=== PATIENT | female | born 1960 | race Hispanic/Latino ===

== ENCOUNTER 2020-01-06 20:01 | Emergency (ER) | payer OTHER ==
[2020-01-06] MEDS ORDERED: LORazepam 2 MG/ML VIAL ONE (20:29)
--- NOTE | 2020-01-06 20:54 | ER ---
Nurse's Notes [facility] Name: Natalie Silva Age: 59 yrs Sex: Female : 1960 Arrival Date: 01/06/2020 Time: 20:10 Bed 4 Private MD: Diagnosis: Presentation: 01/06 20:10 Chief complaint: EMS states: Reports pt is taking Methadone for the past 5 years and ea today about two hours ago she took Narcan sublingual . Pt reports she is hurting. Coronavirus screen: The patient has NOT traveled to [place] in the past 14 days. Ebola Screen: No symptoms or risks identified at this time. Initial Sepsis Screen: Does the patient meet any 2 criteria? No. Patient's initial sepsis screen is negative. Risk Assessment: Do you want to hurt yourself or someone else? Patient reports no desire to harm self or others. 20:10 Method Of Arrival: EMS: [facility] ea 20:10 Acuity: MARIELA 3 ea 20:10 Initial Sepsis Screen: Does the patient have a suspected source of infection? No. ea Patient's initial sepsis screen is negative. Triage Assessment: 20:10 General: Appears uncomfortable, Behavior is restless. Pain: Denies pain. Neuro: Level ea of Consciousness is awake, alert, obeys commands, Oriented to person, place, time. Respiratory: Airway is patent Respiratory effort is even, Respiratory pattern is tachypnea. Derm: Skin is pink, warm \\T\\ dry. Historical: - Allergies: 20:51 No Known Allergies; ea - Home Meds: 20:51 None [Active]; ea - PMHx: 20:51 Diabetes - IDDM; Hypertension; ea - PSHx: 20:51 None; ea Screenin:10 Nutritional screening: No deficits noted. ea 20:10 Abuse screen: Denies threats or abuse. ea Assessment: 20:45 Reassessment: Pt daughter at bedside pt states " I am ready to go let's go". Daughter ea and pt verbalized the understanding of possible adverse reactions of leaving AMA. AMA paper signed by daughter. Vital Signs: 20:10 BP 151 / 111; Pulse 100; Resp 24; Temp 97.6; Pulse Ox 100% ; ea ED Course: 20:10 Patient arrived in ED. bb 20:10 Arm band placed on right wrist. Patient placed in an exam room, on a stretcher, on ea pulse oximetry. 20:10 Patient has correct armband on for positive identification. Placed in gown. Bed in low ea position. Call light in reach. 20:11 Berry Staley MD is Attending Physician. tw4 20:47 No provider procedures requiring assistance completed. Patient did not have IV access ea during this emergency room visit. 20:50 Triage completed. ea 20:54 Missed attempt(s): 22 gauge in right forearm. Bleeding controlled, band aid applied, ds4 catheter tip intact. Administered Medications: 20:31 CANCELLED (Other Intervention Used): Ativan 1 mg IVP once ea 20:31 Drug: Ativan 1 mg Route: IM; Site: right deltoid; ea 20:45 Follow up: Response: No adverse reaction ea 20:54 CANCELLED (Patient Refused): NS 0.9% 1000 ml IV at 1 bolus Per protocol; 1000 mL bolus ea 20:54 Not Given (Patient Refused): Zofran (Ondansetron) 4 mg IVP once; over 2 minutes ea Outcome: 20:47 AMA AMA form signed ea 20:47 Condition: stable 21:00 Patient left the ED. ea Signatures: Ashley Cedeno RN RN Kyle Kennedy ds4 Nell Gonzales RN RN ea Wadley, Terrence, MD MD tw4
--- OUTSIDE RECORDS SUMMARY | 2020-01-06 22:36 | XMS REPORT ---
:1960 [facility] [address] [place] [address] Care Team Providers Name Role Phone Unavailable Unavailable Unavailable Problems This patient has no known problems. Allergies, Adverse Reactions, Alerts This patient has no known allergies or adverse reactions. Medications This patient has no known medications. Encounters Start End Encounter Admission Attending Care Care Encounter Date/Time Date/Time Type Type Clinicians Facility Department ID 2019-07-11 2019-07-11 Inpatient E [facility] MED [id number] 05:52:00 02:55:00 2018-05-24 2018-05-24 Outpatient [facility] [id number] 00:00:00 00:00:00
--- OUTSIDE RECORDS SUMMARY | 2020-01-06 22:36 | XMS REPORT ---
:1960 Author Organization [employer] Care Team Providers Name Role Phone Nimisha Miles Provider Role Unavailable Allergies No Known Allergies Problems Problem Type Condition Code Onset Dates Condition Status Problem Thyroid disease E07.9 Active Problem Acquired hypothyroidism E03.9 Active Problem Memory problem R41.3 Active Problem Hypertension I10 Active Problem Hemodialysis status Z99.2 Active Problem Diabetes E11.9 Active Problem Fear of falling F40.298 Active Problem History of retinal hemorrhage Z86.69 Active Problem Essential hypertension I10 Active Problem Migraine G43.909 Active Problem Onychomycosis B35.1 Active Problem Vitamin D deficiency E55.9 Active Problem GERD (gastroesophageal reflux K21.9 Active disease) Problem Hepatitis C virus infection B19.20 Active without hepatic coma, unspecified chronicity Problem Imbalance R26.89 Active Problem Uncontrolled type 2 diabetes E11.65 Active mellitus with hyperglycemia Problem Open wound of skin T14.8XXA Active Problem Swelling R60.9 Active Problem Kidney disease N28.9 Active Problem Circulation problem I99.9 Active Problem ESRD (end stage renal disease) N18.6 Active Problem Risk for falls Z91.81 Active Problem Hepatitis K75.9 Active Medications No Known Medications Results No Known Results Summary Purpose [employer] Submission
--- OUTSIDE RECORDS SUMMARY | 2020-01-06 22:37 | XMS REPORT ---
:1960 Author Organization [employer] Care Team Providers Name Role Phone Nimisha Miles Provider Role Unavailable Allergies, Adverse Reactions, Alerts Substance Reaction Event Type N.K.D.A. Info Not Available Non Drug Allergy Problems Problem Type Condition Code Onset Dates Condition Status Assessment Open wound of skin T14.8XXA Active Assessment Risk for falls Z91.81 Active Assessment Vitamin D deficiency E55.9 Active Assessment Imbalance R26.89 Active Assessment Hepatitis C virus infection B19.20 Active without hepatic coma, unspecified chronicity Assessment Acquired hypothyroidism E03.9 Active Assessment Uncontrolled type 2 diabetes E11.65 Active mellitus with hyperglycemia Assessment Hemodialysis status Z99.2 Active Assessment ESRD (end stage renal disease) N18.6 Active Problem ESRD (end stage renal disease) N18.6 Active Assessment Essential hypertension I10 Active Problem Hepatitis K75.9 Active Problem Thyroid disease E07.9 Active Problem Acquired hypothyroidism E03.9 Active Problem Memory problem R41.3 Active Problem Hypertension I10 Active Problem Diabetes E11.9 Active Problem Hemodialysis status Z99.2 Active Problem Fear of falling F40.298 Active Problem Essential hypertension I10 Active Problem History of retinal hemorrhage Z86.69 Active Problem Migraine G43.909 Active Problem Onychomycosis [...] Active Problem Circulation problem I99.9 Active Problem Risk for falls Z91.81 Active Medications Medication Code Code Instructions Start End Status Dosage System Date Date Calcium Acetate ND 01476771660 667 MG Orally Active as directed as directed Vitamin D ND 52686193014 90813 UNIT Active 1 capsule (Ergocalciferol) Orally Lasix ND 52221585572 20 MG Orally Active 1 tablet Once a day Clonidine HCl [facility] 80247356955 0.3 MG Orally Active 1 tablet Twice a day Lantus [facility] 41827658845 100 UNIT/ML Active as directed Subcutaneous 10 units daily EMLA ND 0 Active not defined Fosrenol [facility] 48239444099 1000 MG Orally Active 1 tablet Once a day with meals NIFEdipine ER [facility] 55961362737 60 MG Orally Active 1 tablet on Once a day an empty stomach atorvastatin [facility] 07904034117 20mg Orally Active 1 tablet in Once daily evening NovoLog [facility] 44075759631 100 UNIT/ML Active as directed Subcutaneous 5 units daily Levothyroxine [facility] 06312061501 50 MCG Orally Active 1 tablet in Sodium Once a day the morning on an empty stomach Results No Known Results Summary Purpose [employer]Works Submission
--- OUTSIDE RECORDS SUMMARY | 2020-01-06 22:37 | XMS REPORT ---
[...] Medications Results No Known Results Summary Purpose [employer] Submission
--- OUTSIDE RECORDS SUMMARY | 2020-01-06 22:37 | XMS REPORT ---
[...] Medications Results No Known Results Summary Purpose [employer] Submission
--- NOTE | 2020-01-07 21:02 | EDPHYS ---
Physician Documentation [facility] Name: Natalie Silva Age: 59 yrs Sex: Female : 1960 Arrival Date: 01/06/2020 Time: 20:10 Bed 4 Private MD: ED Physician Berry Staley HPI: 07:01 This 59 yrs old Female presents to ER via EMS with complaints of anxiety after tw4 taking narcan. 07:01 The patient presents to the emergency department with anxiety, over unknown tw4 circumstances. Onset: The symptoms/episode began/occurred just prior to arrival. Past psychiatric history: Prior diagnosis: depression. Past psychiatric history: Prior diagnosis:. Associated signs and symptoms: The patient has no apparent associated signs or symptoms. The patient has not experienced similar symptoms in the past. Historical: - Allergies: 01/06 20:51 No Known Allergies; ea - Home Meds: 20:51 None [Active]; ea - PMHx: 20:51 Diabetes - IDDM; Hypertension; ea - PSHx: 20:51 None; ea ROS: 07:01 Constitutional: Negative for fever, chills, and weight loss, Eyes: Negative for injury, tw4 pain, redness, and discharge, Cardiovascular: Negative for chest pain, palpitations, and edema, Respiratory: Negative for shortness of breath, cough, wheezing, and pleuritic chest pain, Abdomen/GI: Negative for abdominal pain, nausea, vomiting, diarrhea, and constipation, Back: Negative for injury and pain, Skin: Negative for injury, rash, and discoloration, Neuro: Negative for headache, weakness, numbness, tingling, and seizure. Exam: 07:01 Constitutional: This is a well developed, well nourished patient who is awake, alert, tw4 and in no acute distress. Head/Face: Normocephalic, atraumatic. Chest/axilla: Normal chest wall appearance and motion. Nontender with no deformity. No lesions are appreciated. Cardiovascular: Regular rate and rhythm with a normal S1 and S2. No gallops, murmurs, or rubs. Normal PMI, no JVD. No pulse deficits. Respiratory: Lungs have equal breath sounds bilaterally, clear to auscultation and percussion. No rales, rhonchi or wheezes noted. No increased work of breathing, no retractions or nasal flaring. Abdomen/GI: Soft, non-tender, with normal bowel sounds. No distension or tympany. No guarding or rebound. No evidence of tenderness throughout. Back: No spinal tenderness. No costovertebral tenderness. Full range of motion. MS/ Extremity: Pulses equal, no cyanosis. Neurovascular intact. Full, normal range of motion. 07:01 Neuro: Orientation: is normal, Mentation: is normal. 07:01 Psych: Behavior/mood is anxious, uncooperative, Affect is animated, Oriented to person, place, time, Patient has no thoughts/intents to harm self or others. Vital Signs: 01/06 20:10 BP 151 / 111; Pulse 100; Resp 24; Temp 97.6; Pulse Ox 100% ; ea MDM: 20:11 Patient medically screened. tw4 07:01 Differential diagnosis: drug withdrawal. acute psychotic break, depression. Data tw4 reviewed: vital signs, nurses notes. Refusal of service: The patient/guardian displays adequate decision making capability and despite a detailed discussion of alternatives, benefits, risks, and consequences refuses: all lab tests, Medications. ED course: Pt states she took narcan? after taking methadone for the last 5 years, states that she is agitated and anxious. Pt family will escort patient home patients states she wants to go home. Administered Medications: 01/06 20:31 CANCELLED (Other Intervention Used): Ativan 1 mg IVP once ea 20:31 Drug: Ativan 1 mg Route: IM; Site: right deltoid; ea 20:45 Follow up: Response: No adverse reaction ea 20:54 CANCELLED (Patient Refused): NS 0.9% 1000 ml IV at 1 bolus Per protocol; 1000 mL bolus ea 20:54 Not Given (Patient Refused): Zofran (Ondansetron) 4 mg IVP once; over 2 minutes ea Disposition: 01/06/20 20:53 Patient has left against medical advice. - Patients states they are going to Home. - Condition is Stable. Signatures: Nell Gonzales RN RN ea Wadley, Terrence, MD MD tw4 Corrections: (The following items were deleted from the chart) : 20:11 Ativan 1 mg IVP once ordered. tw4 ea 20:54 20:11 NS 0.9% 1000 ml IV at 1 bolus Per protocol; 1000 mL bolus ordered. [facility] 21:00 20:53 01/06/2020 20:53 Patients has left against medical advice. Patient states they ea are going to Home. Condition is Stable. ea
== END 2020-01-06 21:00 | disposition left against medical advice (07) ==
LOC: ER 20:01
DX: F41.9 Anxiety disorder, unspecified (principal); F32.9 Major depressive disorder, single episode, unspecified; I10 Essential (primary) hypertension
CPT/HCPCS: 96372; 99283

== ENCOUNTER 2020-02-02 05:47 | Observation (INO) | payer OTHER ==
--- OUTSIDE RECORDS SUMMARY | 2020-02-02 05:49 | XMS REPORT ---
:1960 [facility] Address [address] [place] [address] Care Team Providers Name Role Phone Unavailable Unavailable Unavailable Problems This patient has no known problems. Allergies, Adverse Reactions, Alerts This patient has no known allergies or adverse reactions. Medications This patient has no known medications. Encounters Start End Encounter Admission Attending Care Care Encounter Date/Time Date/Time Type Type Clinicians Facility Department ID 2019-07-11 2019-07-11 Inpatient E [facility] MED [id number] 05:52:00 02:55:00 2018-05-24 2018-05-24 Outpatient [facility] [id number] 00:00:00 00:00:00
--- OUTSIDE RECORDS SUMMARY | 2020-02-02 05:50 | XMS REPORT ---
[...] Dosage System Date Date Calcium Acetate ND 17555349709 667 MG Orally Active as directed as directed Vitamin D ND 91788515182 35106 UNIT Active 1 capsule (Ergocalciferol) Orally Lasix ND 72228222839 20 MG Orally Active 1 tablet Once a day Clonidine HCl [facility] 73308307734 0.3 MG Orally Active 1 tablet Twice a day Lantus [facility] 96060079732 100 UNIT/ML Active as directed Subcutaneous 10 units daily EMLA ND 0 Active not defined Fosrenol [facility] 54625710699 1000 MG Orally Active 1 tablet Once a day with meals NIFEdipine ER [facility] 87040183360 60 MG Orally Active 1 tablet on Once a day an empty stomach atorvastatin [facility] 50352267399 20mg Orally Active 1 tablet in Once daily evening NovoLog [facility] 55682796621 100 UNIT/ML Active as directed Subcutaneous 5 units daily Levothyroxine [facility] 42589143935 50 MCG Orally Active 1 tablet in Sodium Once a day the morning on an empty stomach Results No Known Results Summary Purpose [employer]ClinicalWorks Submission
--- OUTSIDE RECORDS SUMMARY | 2020-02-02 05:50 | XMS REPORT ---
[...] Medications Results No Known Results Summary Purpose [employer] Submission
--- OUTSIDE RECORDS SUMMARY | 2020-02-02 05:50 | XMS REPORT ---
[...] Z91.81 Active Problem Hepatitis K75.9 Active Medications Medication Code Code Instructions Start End Date Status Dosage System Date atorvastatin [facility] 98157471447 20mg Orally Once Active 1 tablet daily in evening Results No Known Results Summary Purpose [employer]Works Submission
--- OUTSIDE RECORDS SUMMARY | 2020-02-02 05:50 | XMS REPORT ---
[...] Medications Results No Known Results Summary Purpose [employer] Submission
--- OUTSIDE RECORDS SUMMARY | 2020-02-02 05:50 | XMS REPORT ---
[...] Medications Results No Known Results Summary Purpose [employer] Submission
[2020-02-02 07:09] LABS: Protime INR 1.09
[2020-02-02 07:12] LABS: Absolute Lymphocytes (CBC) 1.3 K/uL (0.7-4.9); Basophils % 0.5 % (0-1.3); Hematocrit 36.3 % (36.0-45.0); Lymphocytes % 10.8 % (15.3-44.8); MPV 7.3 fL (7.6-11.3)
[2020-02-02 07:52] LABS: ALT/SGPT 33 U/L (12-78); AST/SGOT 27 U/L (15-37); Albumin 3.1 g/dL (3.4-5.0); Alkaline Phosphatase 92 U/L (45-117); BUN Blood Urea Nitrogen 69 mg/dL (7-18); Bicarbonate 23 mmol/L (21-32); Bilirubin Direct 0.1 mg/dL (0-0.2); Bilirubin Total 0.3 mg/dL (0.2-1.0); Glucose Level 307 mg/dL (74-106); Magnesium 1.9 mg/dL (1.8-2.4); NT PRO-BNP 4935 pg/mL (<125); Protein, Total 8.5 g/dL (6.4-8.2); Sodium Level 132 mmol/L (136-145); Troponin (Emerg Dept Use Only) < 0.02 ng/mL (0.0-0.045)
--- NOTE | 2020-02-02 08:03 | RAD REPORT ---
EXAM DESCRIPTION: RAD - Tib Fib Right - 02/02/2020 7:18 am CLINICAL HISTORY: PAIN COMPARISON: Tibia Fibula Right dated 08/14/2015 FINDINGS: No gross fracture deformity seen. Subtle periosteal changes are present in the lateral asp ect midshaft fibula. The 2014 examination detailed diabetic ulcer in the soft tissues. Surgical clips and cinthai were seen at that time. Surgical clips and cinthia have been removed since prior imaging . No melecio destruction changes seen. Correlation is needed with any active soft tissue wound in this region. Bone remottling would be the most likely etiology if soft tissue issues have resolved. Otherw ise, early osteomyelitis cannot be excluded in the presence of active soft tissue disease. No air or foreign body seen. Soft tissues are edematous. IMPRESSION: No gross fracture deformity seen. Subtle periosteal changes midshaft fibula could represent remodeling from the prior soft tissue event in 2014. In the presence of active soft tissue disease, early osteomyelitis is not excluded.
--- NOTE | 2020-02-02 08:07 | RAD REPORT ---
EXAM DESCRIPTION: RAD - Chest Single View - 02/02/2020 7:18 am CLINICAL HISTORY: COUGH COMPARISON: Portable September 2015 TECHNIQUE: AP portable chest image was obtained 02/02/2020 7:18 am . FINDINGS: Low lung volumes accentuate interstitial pattern. Interstitial edema and infiltrate could be masked. Vasculature and heart size are normal. Significant failure or volume overload are doubtful . No focal consolidation or mass. No measurable pleural effusion and no pneumothorax. No acute bony abnormality seen. No acute aortic findings suspected. IMPRESSION: No focal mass or consolidation. Interstitial pattern is increased over the lung romero. This may be shallow inspiration affects. A mi ld interstitial edema or infiltrate cannot be excluded.
[2020-02-02] MEDS ORDERED: FENTANYL CITR 100 MCG/2 ML ONE ×2 (08:22→12:49)
[2020-02-02] MEDS ORDERED: INSULIN -REGULAR HUMAN 50 UNIT/0.5 ML ML ONE (08:22)
--- NOTE | 2020-02-02 08:25 | ER ---
Nurse's Notes [facility] Name: Natalie Silva Age: 59 yrs Sex: Female : 1960 Arrival Date: 02/02/2020 Time: 05:49 Bed 26 Private MD: Diagnosis: Cellulitis of right lower limb Presentation: 02/01 05:55 Chief complaint: EMS states: Pt reports right lower extremity discoloration w/ extreme jb4 pain. Pt was getting ready for dialysis this morning around 3 am and called them. They told her to come to the ED. Coronavirus screen: Patient denies fever greater than 100.4F, cough, shortness of breath, or difficulty breathing. Proceed with normal triage process. Ebola Screen: No symptoms or risks identified at this time. Initial Sepsis Screen: Does the patient meet any 2 criteria? HR > 90 bpm. Yes Does the patient have a suspected source of infection? Yes: Skin breakdown/wound. Risk Assessment: Do you want to hurt yourself or someone else? Patient reports no desire to harm self or others. 05:55 Method Of Arrival: EMS: [facility] jb4 05:55 Acuity: MARIELA 3 jb4 Historical: - Allergies: 05:55 No Known Allergies; jb4 - Home Meds: 05:55 Lasix 20 mg Oral tab 1 tab once daily [Active]; Synthroid 50 mcg Oral tab 1 tab once jb4 daily [Active]; PhosLo 667 mg Oral cap 3 caps 3 times per day [Active]; nifedipine 60 mg Oral TbER 1 tab once daily [Active]; atorvastatin 20 mg oral tab 1 tab once daily [Active]; Methadone Oral [Active]; lidocaine-prilocaine 2.5-2.5 % topical crea [Active]; - PMHx: 05:55 Diabetes - IDDM; Hypertension; Hypothyroidism; High Cholesterol; jb4 - Immunization history:: Adult Immunizations up to date. - Social history:: Smoking status: Patient reports the use of cigarette tobacco products, smokes one pack cigarettes per day. - Family history:: not pertinent. Screenin:00 Abuse screen: Denies threats or abuse. Nutritional screening: No deficits noted. jb4 Tuberculosis screening: No symptoms or risk factors identified. Fall Risk None identified. Assessment: 06:00 General: Appears in no apparent distress. uncomfortable, Behavior is calm, cooperative, jb4 appropriate for age. Pain: Complains of pain in right ankle Pain does not radiate. Pain currently is 10 out of 10 on a pain scale. Quality of pain is described as burning, stabbing, Pain began 3 hours ago. Is continuous, Aggravated by increased activity, weight bearing, touch. Neuro: Level of Consciousness is awake, alert, obeys commands. Cardiovascular: Patient's skin is warm and dry. Pulses are 3+ in right dorsalis pedis artery and left dorsalis pedis artery. Respiratory: Airway is patent Respiratory effort is even, unlabored, Respiratory pattern is regular, symmetrical. GI: No signs and/or symptoms were reported involving the gastrointestinal system. : No signs and/or symptoms were reported regarding the genitourinary system. EENT: No signs and/or symptoms were reported regarding the EENT system. Derm: Skin is pink, warm \T\ dry. Wound noted lateral aspect of right calf and lateral aspect of left calf. Musculoskeletal: Circulation, motion, and sensation intact. Range of motion: intact in all extremities. 07:00 General: Appears uncomfortable, Behavior is calm, cooperative. Pain: Complains of pain rb1 in right leg Pain currently is 10 out of 10 on a pain scale. Neuro: Level of Consciousness is awake, alert, obeys commands, Oriented to person, place, time, situation. Cardiovascular: Patient's skin is warm and dry. Respiratory: Airway is patent Respiratory effort is even, unlabored, Respiratory pattern is regular, symmetrical. Derm: Skin is black, dusky, right lower leg. Musculoskeletal: Range of motion: intact in all extremities. 08:00 Reassessment: Patient appears in no apparent distress at this time. No changes from rb1 previously documented assessment. 09:00 Reassessment: Patient appears in no apparent distress at this time. Patient and/or rb1 family updated on plan of care and expected duration. Pain level reassessed. Patient is alert, oriented x 3, equal unlabored respirations, skin warm/dry/pink. Pt. resting with eyes closed, respirations even, unlabored. Call light within reach. 09:51 Reassessment: Performed wound care and applied Santyl to the right lower leg. Applied rb1 non-adherent gauze and Kerlix to the right lower leg. Pt. tolerated well. 10:19 Reassessment: Pt. went to MRI. rb1 11:19 Reassessment: Pt. is in MRI. rb1 11:35 Reassessment: Patient appears in no apparent distress at this time. Patient and/or rb1 family updated on plan of care and expected duration. Pain level reassessed. Patient is alert, oriented x 3, equal unlabored respirations, skin warm/dry/pink. 12:30 Reassessment: Patient appears in no apparent distress at this time. Patient and/or rb1 family updated on plan of care and expected duration. Pain level reassessed. Patient is alert, oriented x 3, equal unlabored respirations, skin warm/dry/pink. Pt. requested pain medication and something to eat. Mykel Page notified. Received verbal order for Fentanyl 25 mcg IVP once. 100% verbal read back. 13:30 Reassessment: Patient appears in no apparent distress at this time. Pt. is resting with rb1 eyes closed, respirations even, unlabored. 13:32 Reassessment: Tried to call report, I was told that BATSHEVA Herrmann was not available and she rb1 would call me back. 13:46 Reassessment: Gave report to BATSHEVA Herrmann. Information from the SBAR was given. All rb1 questions asked answered. Vital Signs: 05:55 BP 181 / 81; Pulse 102; Resp 18; Temp 98.1(O); Pulse Ox 98% on R/A; Weight 77.11 kg jb4 (R); Height 5 ft. 2 in. (157.48 cm) (R); Pain 10/10; 07:00 BP 155 / 55; Pulse 90; Resp 17; Pulse Ox 99% ; rb1 08:00 BP 169 / 61; Pulse 96; Resp 17; Pulse Ox 95% ; Pain 10/10; rb1 09:00 BP 113 / 81; Pulse 79; Resp 17; Pulse Ox 95% on R/A; rb1 09:31 BP 113 / 81; Pulse 79; Resp 20; Temp 97.8(TE); Pulse Ox 97% on R/A; mh5 10:15 BP 150 / 66; Pulse 76; Resp 17; Pulse Ox 93% on R/A; rb1 11:15 rb1 11:35 BP 145 / 69; Pulse 83; Resp 18; Pulse Ox 94% on R/A; rb1 12:30 BP 191 / 69; Pulse 85; Resp 17; Pulse Ox 96% on R/A; Pain 10/10; rb1 13:30 BP 168 / 75; Pulse 77; Resp 18; Pulse Ox 95% on R/A; rb1 05:55 Body Mass Index 31.09 (77.11 kg, 157.48 cm) jb4 11:15 Pt. is in MRI rb1 ED Course: 05:49 Patient arrived in ED. ds1 05:52 Mykel Yeung MD is Attending Physician. sallie 05:55 Michele Duarte, BATSHEVA is Primary Nurse. jb4 05:55 Arm band placed on right wrist. jb4 06:00 Patient has correct armband on for positive identification. Bed in low position. Call jb4 light in reach. Side rails up X 1. Pulse ox on. NIBP on. 06:02 Triage completed. jb4 07:03 Mykel Mulligan PA is PHCP. cp 07:24 XRAY Chest (1 view) In Process Unspecified. EDMS 07:24 Tib Fib Right XRAY In Process Unspecified. EDMS 07:50 Missed attempt(s): 22 gauge in right forearm. 24 gauge in right chest. Bleeding iw controlled, band aid applied, catheter tip intact. 08:23 Srikanth Zamorano is Hospitalizing Provider. cp 08:28 Inserted 18 GAUGE 8CM MIDLINE PLACED WITH U/S AND STERILE PROCEDURE. bp 11:16 Tib Fib Right Wo Cont In Process Unspecified. EDMS 12:41 Ankle Right 3 View XRAY In Process Unspecified. EDMS 14:00 No provider procedures requiring assistance completed. Patient admitted, IV remains in rb1 place. Administered Medications: 07:54 CANCELLED (Physician Discretion): HYDROcodone-acetaminophen 10 mg-325 mg 1 tabs PO cp once; RASS on ADMIN: Combtv4, Very Agttd3, Agttd2, Rstlss1, AlertClm0, Drwsy-1, Lt Sdtn-2, Mod Sdtn-3, Dp Sdtn-4, UnArsble-5 08:32 Drug: NovoLIN R 10 units {Co-Signature: em (Calvin Woods RN).} Route: Sub-Q; Site: right rb1 upper arm; 09:45 Follow up: Response: No adverse reaction; Blood sugar is unchanged; BS 301 rb1 08:32 Drug: fentaNYL (PF) 25 mcg Route: IVP; Site: right upper arm; rb1 08:47 Follow up: Response: No adverse reaction; Pain is decreased rb1 08:37 Not Given (Provider changed to IVP): fentaNYL (PF) 25 mcg IM once; RASS on ADMIN: rb1 Combtv4, Very Agttd3, Agttd2, Rstlss1, AlertClm0, Drwsy-1, Lt Sdtn-2, Mod Sdtn-3, Dp Sdtn-4, UnArsble-5 09:35 Drug: Zofran (Ondansetron) 2 mg Route: IVP; Site: right upper arm; rb1 09:50 Follow up: Response: No adverse reaction rb1 09:36 Drug: Gentamicin 2 mg/kg Route: IVPB; Infused Over: 30 mins; Site: right upper arm; rb1 10:09 Follow up: Response: No adverse reaction; IV Status: Completed infusion rb1 09:40 Drug: Santyl 250 unit/g 1 application Route: Topical; Site: affected area; rb1 10:09 Drug: vancoMYCIN 1 grams Route: IVPB; Infused Over: 2 hrs; Site: right upper arm; rb1 10:10 Drug: Zofran (Ondansetron) 4 mg Route: IVP; Site: right upper arm; rb1 10:19 Follow up: Response: No adverse reaction rb1 12:52 Drug: fentaNYL (PF) 25 mcg Route: IVP; Site: right upper arm; rb1 13:07 Follow up: Response: No adverse reaction; Pain is decreased rb1 12:54 Not Given (Provider changed medication): morphine 2 mg IVP once; (PAIN>8) RASS on ADMN: rb1 Combtv4, Very Agttd3, Agttd2, Rstlss1, AlertClm0, Drwsy-1, LtSdtn-2, ModSdtn-3, DpSdtn-4, UnArsble-5 x2 Intake: Outcome: 08:24 Decision to Hospitalize by Provider. cp 14:00 Admitted to Med/surg accompanied by long, via stretcher, room 221, with chart, Report rb1 called to BATSHEVA Herrmann 14:00 Condition: stable 14:00 Instructed on the need for admit. 14:02 Patient left the ED. rb1 Signatures: Dispatcher [facility] Mykel Sousa MD MD cha Sanford, Demi ds1 Saranya Jay, RN RN iw Mykel Mulligan PA PA cp Barber, Rebecca, RN RN rb1 Michele Duarte RN RN 4 Anabell Garcia [facility] Ezio Baldwin RN RN bp Calvin Woods RN em
--- NOTE | 2020-02-02 08:25 | EDPHYS ---
Physician Documentation [facility] Name: Natalie Silva Age: 59 yrs Sex: Female : 1960 Arrival Date: 02/02/2020 Time: 05:49 Bed 26 Private MD: ED Physician Mykel Yeung HPI: 02/01 06:38 This 59 yrs old Female presents to ER via EMS with complaints of Leg Pain. sallie 06:38 The patient presents with decreased range of motion, pain. The complaints affect the sallie lateral aspect of right calf, right ankle, right contreras and anterior aspect of right ankle. Context: resulted from an unknown cause. Onset: The symptoms/episode began/occurred last night. Associated signs and symptoms: Pertinent positives: of the right ankle and anterior aspect of right ankle. Severity of symptoms: At their worst the symptoms were moderate, in the emergency department the symptoms are unchanged. Historical: - Allergies: 05:55 No Known Allergies; jb4 - Home Meds: 05:55 Lasix 20 mg Oral tab 1 tab once daily [Active]; Synthroid 50 mcg Oral tab 1 tab once jb4 daily [Active]; PhosLo 667 mg Oral cap 3 caps 3 times per day [Active]; nifedipine 60 mg Oral TbER 1 tab once daily [Active]; atorvastatin 20 mg oral tab 1 tab once daily [Active]; Methadone Oral [Active]; lidocaine-prilocaine 2.5-2.5 % topical crea [Active]; - PMHx: 05:55 Diabetes - IDDM; Hypertension; Hypothyroidism; High Cholesterol; jb4 - Immunization history:: Adult Immunizations up to date. - Social history:: Smoking status: Patient reports the use of cigarette tobacco products, smokes one pack cigarettes per day. - Family history:: not pertinent. ROS: 06:38 Constitutional: Negative for fever, chills, and weight loss, Eyes: Negative for injury, sallie pain, redness, and discharge, ENT: Negative for injury, pain, and discharge, Neck: Negative for injury, pain, and swelling, Cardiovascular: Negative for chest pain, palpitations, and edema, Respiratory: Negative for shortness of breath, cough, wheezing, and pleuritic chest pain, Abdomen/GI: Negative for abdominal pain, nausea, vomiting, diarrhea, and constipation, Back: Negative for injury and pain, : Negative for injury, bleeding, discharge, and swelling, Skin: Negative for injury, rash, and discoloration, Neuro: Negative for headache, weakness, numbness, tingling, and seizure, Psych: Negative for depression, anxiety, suicide ideation, homicidal ideation, and hallucinations, Allergy/Immunology: Negative for hives, rash, and allergies, Endocrine: Negative for neck swelling, polydipsia, polyuria, polyphagia, and marked weight changes. 06:38 MS/extremity: Positive for decreased range of motion, pain, swelling, tenderness, warmth, of the lateral aspect of right calf, right ankle, right contreras and anterior aspect of right ankle. Exam: 06:38 Constitutional: This is a well developed, well nourished patient who is awake, alert, sallie and in no acute distress. Head/Face: Normocephalic, atraumatic. Eyes: Pupils equal round and reactive to light, extra-ocular motions intact. Lids and lashes normal. Conjunctiva and sclera are non-icteric and not injected. Cornea within normal limits. Periorbital areas with no swelling, redness, or edema. ENT: Nares patent. No nasal discharge, no septal abnormalities noted. Tympanic membranes are normal and external auditory canals are clear. Oropharynx with no redness, swelling, or masses, exudates, or evidence of obstruction, uvula midline. Mucous membranes moist. Neck: Trachea midline, no thyromegaly or masses palpated, and no cervical lymphadenopathy. Supple, full range of motion without nuchal rigidity, or vertebral point tenderness. No Meningismus. Chest/axilla: Normal chest wall appearance and motion. Nontender with no deformity. No lesions are appreciated. Cardiovascular: Regular rate and rhythm with a normal S1 and S2. No gallops, murmurs, or rubs. Normal PMI, no JVD. No pulse deficits. Respiratory: Lungs have equal breath sounds bilaterally, clear to auscultation and percussion. No rales, rhonchi or wheezes noted. No increased work of breathing, no retractions or nasal flaring. Abdomen/GI: Soft, non-tender, with normal bowel sounds. No distension or tympany. No guarding or rebound. No evidence of tenderness throughout. Back: No spinal tenderness. No costovertebral tenderness. Full range of motion. Female : Normal external genitalia. Neuro: Awake and alert, GCS 15, oriented to person, place, time, and situation. Cranial nerves II-XII grossly intact. Motor strength 5/5 in all extremities. Sensory grossly intact. Cerebellar exam normal. Normal gait. 06:38 Musculoskeletal/extremity: ROM: intact in all extremities, Circulation is intact in all extremities. Severe pain noted. Compartment Syndrome exam of affected extremity: is normal. severe pain, with active ROM, DVT Exam: negative Homans' sign noted on exam, no appreciated bluish discoloration, pain, swelling, tenderness, erythema, increased warmth, that is moderate, of the right leg, of the right ankle and medial aspect of right calf. 07:03 ECG was reviewed by the Attending Physician. Vital Signs: 05:55 BP 181 / 81; Pulse 102; Resp 18; Temp 98.1(O); Pulse Ox 98% on R/A; Weight 77.11 kg jb4 (R); Height 5 ft. 2 in. (157.48 cm) (R); Pain 10/10; 07:00 BP 155 / 55; Pulse 90; Resp 17; Pulse Ox 99% ; rb1 08:00 BP 169 / 61; Pulse 96; Resp 17; Pulse Ox 95% ; Pain 10/10; rb1 09:00 BP 113 / 81; Pulse 79; Resp 17; Pulse Ox 95% on R/A; rb1 09:31 BP 113 / 81; Pulse 79; Resp 20; Temp 97.8(TE); Pulse Ox 97% on R/A; mh5 10:15 BP 150 / 66; Pulse 76; Resp 17; Pulse Ox 93% on R/A; rb1 11:15 rb1 11:35 BP 145 / 69; Pulse 83; Resp 18; Pulse Ox 94% on R/A; rb1 12:30 BP 191 / 69; Pulse 85; Resp 17; Pulse Ox 96% on R/A; Pain 10/10; rb1 13:30 BP 168 / 75; Pulse 77; Resp 18; Pulse Ox 95% on R/A; rb1 05:55 Body Mass Index 31.09 (77.11 kg, 157.48 cm) jb4 11:15 Pt. is in MRI rb1 MDM: 05:52 Patient medically screened. [facility] 06:44 Data reviewed: vital signs, nurses notes, lab test result(s), EKG. [facility] 08:25 Physician consultation: Srikanth Zamorano was called at 08:20, was contacted at 08:20, regarding admission, to the telemetry unit. patient's condition, would like further tests performed, MRI. 02/01 06:35 Order name: Basic Metabolic Panel; Complete Time: 08:01 [facility] 02/01 08:02 Interpretation: Normal except: NA 132; CL 97; GLUC 307; BUN 69; CRE 9.64; GFR 4; CA 7.8. 02/01 06:35 Order name: CBC with Diff; Complete Time: 07:27 [facility] 02/01 07:27 Interpretation: Normal except: WBC 11.9; HGB 11.9; RDW 16.1; MPV 7.3; LOBITO% 83.0; LYM% cp 10.8; NEUT A 9.9. 02/01 06:35 Order name: LFT's; Complete Time: 08:01 [facility] 02/01 08:03 Interpretation: Normal except: TP 8.5; ALB 3.1; GLOB 5.4; A/G 0.6. 02/01 06:35 Order name: Magnesium; Complete Time: 08:01 [facility] 02/01 06:35 Order name: NT PRO-BNP; Complete Time: 08:01 [facility] 02/01 06:35 Order name: PT-INR; Complete Time: 07:27 [facility] 02/01 06:35 Order name: Troponin (emerg Dept Use Only); Complete Time: 08:01 [facility] 02/01 06:35 Order name: XRAY Chest (1 view); Complete Time: 08:16 [facility] 02/01 08:16 Interpretation: Report review. 02/01 06:35 Order name: Tib Fib Right XRAY; Complete Time: 08:16 [facility] 02/01 08:16 Interpretation: Report reviewed. 02/01 06:35 Order name: Blood Culture Adult (2) [facility] 02/01 10:01 Order name: Glucose, Ancillary Testing; Complete Time: 10:12 EDMS 02/01 10:12 Interpretation: Abnormal: GLUC,ANCIL 301. 02/01 11:10 Order name: Tib Fib Right Wo Cont; Complete Time: 11:51 EDMS 02/01 12:42 Order name: Glucose, Ancillary Testing; Complete Time: 13:14 EDMS 02/01 06:35 Order name: EKG; Complete Time: 06:36 [facility] 02/01 06:35 Order name: Cardiac monitoring; Complete Time: 06:59 sallie 02/01 06:35 Order name: EKG - Nurse/Tech; Complete Time: 06:59 sallie 02/01 12:14 Order name: Ankle Right 3 View XRAY; Complete Time: 13:14 02/01 13:14 Interpretation: Report reviewed. 02/01 12:46 Order name: Diet Ada 1800 Sonido; Complete Time: 12:47 rb1 02/01 06:35 Order name: IV Saline Lock; Complete Time: 09:44 [facility] 02/01 06:35 Order name: Labs collected and sent; Complete Time: 06:58 [facility] 02/01 06:35 Order name: O2 Per Protocol; Complete Time: 06:59 [facility] 02/01 06:35 Order name: O2 Sat Monitoring; Complete Time: 06:59 [facility] EC:03 Rate is 96 beats/min. Rhythm is regular. OR interval is normal. QRS interval is normal. cp QT interval is normal. T waves are Inverted in lead aVL. Interpreted by me. Reviewed by me. Administered Medications: 07:54 CANCELLED (Physician Discretion): HYDROcodone-acetaminophen 10 mg-325 mg 1 tabs PO cp once; RASS on ADMIN: Combtv4, Very Agttd3, Agttd2, Rstlss1, AlertClm0, Drwsy-1, Lt Sdtn-2, Mod Sdtn-3, Dp Sdtn-4, UnArsble-5 08:32 Drug: NovoLIN R 10 units {Co-Signature: em (Calvin Woods RN).} Route: Sub-Q; Site: right rb1 upper arm; 09:45 Follow up: Response: No adverse reaction; Blood sugar is unchanged; BS 301 rb1 08:32 Drug: fentaNYL (PF) 25 mcg Route: IVP; Site: right upper arm; rb1 08:47 Follow up: Response: No adverse reaction; Pain is decreased rb1 08:37 Not Given (Provider changed to IVP): fentaNYL (PF) 25 mcg IM once; RASS on ADMIN: rb1 Combtv4, Very Agttd3, Agttd2, Rstlss1, AlertClm0, Drwsy-1, Lt Sdtn-2, Mod Sdtn-3, Dp Sdtn-4, UnArsble-5 09:35 Drug: Zofran (Ondansetron) 2 mg Route: IVP; Site: right upper arm; rb1 09:50 Follow up: Response: No adverse reaction rb1 09:36 Drug: Gentamicin 2 mg/kg Route: IVPB; Infused Over: 30 mins; Site: right upper arm; rb1 10:09 Follow up: Response: No adverse reaction; IV Status: Completed infusion rb1 09:40 Drug: Santyl 250 unit/g 1 application Route: Topical; Site: affected area; rb1 10:09 Drug: vancoMYCIN 1 grams Route: IVPB; Infused Over: 2 hrs; Site: right upper arm; rb1 10:10 Drug: Zofran (Ondansetron) 4 mg Route: IVP; Site: right upper arm; rb1 10:19 Follow up: Response: No adverse reaction rb1 12:52 Drug: fentaNYL (PF) 25 mcg Route: IVP; Site: right upper arm; rb1 13:07 Follow up: Response: No adverse reaction; Pain is decreased rb1 12:54 Not Given (Provider changed medication): morphine 2 mg IVP once; (PAIN>8) RASS on ADMN: rb1 Combtv4, Very Agttd3, Agttd2, Rstlss1, AlertClm0, Drwsy-1, LtSdtn-2, ModSdtn-3, DpSdtn-4, UnArsble-5 x2 Disposition: 02/02 06:51 Co-signature as Attending Physician, Mykel Yeung MD I agree with the assessment and sallie plan of care. Disposition: 02/02/20 08:24 Hospitalization ordered by Srikanth Zamorano for Inpatient Admission. Preliminary diagnosis is Cellulitis of right lower limb. - Bed requested for Telemetry/MedSurg (Inpatient). - Status is Inpatient Admission. rb1 - Condition is Stable. - Problem is an ongoing problem. - Symptoms have improved. Signatures: Dispatcher [employer] Nhung Patel RN Mykel Mcintosh MD MD cha Page, Corey, PA PA cp Barber, Rebecca, RN RN rb1 Michele Duarte RN RN jb4 Gisela Jurado RN em Corrections: (The following items were deleted from the chart) 02/01 07:54 07:53 HYDROcodone-acetaminophen 10 mg-325 mg 1 tabs PO once; RASS on ADMIN: Combtv4, cp Very Agttd3, Agttd2, Rstlss1, AlertClm0, Drwsy-1, Lt Sdtn-2, Mod Sdtn-3, Dp Sdtn-4, UnArsble-5 ordered. cp 08:02 08:02 Normal except: NA 132; CL 97; GLUC 307; BUN 69; CRE 9.64; GFR 4. cp cp 11:10 08:30 MRA Lower Ext Wo Cont ordered. EDMS EDMS 11:55 08:24 Hospitalization Ordered by Srikanth Zamorano for Inpatient Admission. Preliminary eb diagnosis is Cellulitis of right lower limb. Bed requested for Telemetry/MedSurg (Inpatient). Status is Inpatient Admission. Condition is Stable. Problem is an ongoing problem. Symptoms have improved. cp 12:59 11:55 02/02/2020 08:24 Hospitalization Ordered by Srikanth Zamorano for Inpatient dw Admission. Preliminary diagnosis is Cellulitis of right lower limb. Bed requested for Telemetry/MedSurg (Inpatient). Status is Inpatient Admission. Condition is Stable. Problem is an ongoing problem. Symptoms have improved. eb 14:02 12:59 02/02/2020 08:24 Hospitalization Ordered by Srikanth Zamorano for Inpatient rb1 Admission. Preliminary diagnosis is Cellulitis of right lower limb. Bed requested for Telemetry/MedSurg (Inpatient). Status is Inpatient Admission. Condition is Stable. Problem is an ongoing problem. Symptoms have improved. dw
[2020-02-02] MEDS ORDERED: Gentamicin Inj 150 MG in NA CHLORIDE 0.9% 100 ML IV ONE (09:00)
[2020-02-02] MEDS ORDERED: VANCOMYCIN/NS 1 gm 1 GM/250 ML BAG IV ONE (09:00)
[2020-02-02] MEDS ORDERED: COLLAGENASE 30 GM OINTMENT TOP ONE (09:15)
[2020-02-02] MEDS ORDERED: ONDANSETRON 4 MG/2 ML VIAL ONE ×2 (09:31→10:18)
--- NOTE | 2020-02-02 10:03 | EKG ---
Test Date: 2020-02-02 Test Time: 07:01:54 Unit Assistant: CHAPITO MEASUREMENT RESULTS: Intervals: Rate: 96 [place]: 138 QRSD: 72 QT: 362 QTc: 457 [place]: P: 74 [place]: 138 QRS: 33 T: 70 INTERPRETIVE STATEMENTS: Normal sinus rhythm Normal ECG Compared to ECG 09/13/2015 21:47:21 Sinus bradycardia no longer present ST (T wave) deviation no longer present Electronically Signed On 02-02-20 10:02:48 CDT by Robert Correa
--- NOTE | 2020-02-02 11:29 | RAD REPORT ---
EXAM DESCRIPTION: MRI - Tib Fib Right Wo Cont - 02/02/2020 11:12 am CLINICAL HISTORY: cellulitis of right lower leg, r/o osteomyelitis, abnormal plain films COMPARISON: Right tib-fib examination February 01 TECHNIQUE: Multiplanar imaging of the right tibia and fibula performed using T1 weighted, T2 fat sat uration and T2 stir sequencing. FINDINGS: Normal hyperintense T1 and hypointense T2 signal is present throughout the length of the f ibula. No area of osteomyelitis or bone destruction seen. The plain film finding likely represented r eactive change from a remote process. No active medullary, cortical or periosteal process of the righ t fibula. Right tibia shows no suspicious finding. No abscess or drainable fluid collections seen in the soft tissues. Lateral leg skin and subcutaneous edema changes are present. IMPRESSION: Cellulitis changes are evident in the lateral right leg. No osteomyelitis or acute bone finding.
--- NOTE | 2020-02-02 12:42 | RAD REPORT ---
EXAM DESCRIPTION: RAD - Ankle Right 3 View - 02/02/2020 12:35 pm CLINICAL HISTORY: PAIN COMPARISON: Ankle Right 2 View dated 08/28/2015 FINDINGS: Mild soft tissue swelling is seen about the ankle. No fracture seen. Small calcaneal spurs are evident.
--- NOTE | 2020-02-02 12:45 | P.HP ---
Certification for Inpatient Patient admitted to: Observation With expected LOS: <2 Midnights Practitioner: I am a practitioner with admitting privileges, knowledge of patient current condition, hospital course, and medical plan of care. Services: Services provided to patient in accordance with Admission requirements found in Title 42 Section 412.3 of the Code of Federal Regulations Patient History Date of Service: 02/02/20 Reason for admission: Pain and swelling of the right ankle. History of Present Illness: 59-year-old woman with a history of diabetes mellitus, history of pyoderma gangrenosum presented emergency department by EMS with the complaint of pain in the right ankle of onset last night, inability to bear weight on the leg due to pain. She has chronic nonhealing wound on the right leg. Patient reports increased redness around it. She denied fever. She has mild leukocytosis. X- ray of the right leg reported findings suggestive of possible early osteomyelitis. MRI of the right tibial-fibular report possible cellulitis but no evidence of osteomyelitis. Patient has end-stage renal disease on hemodialysis. She missed dialysis yesterday. She is admitted for further management. Allergies No Known Allergies Allergy (Unverified 02/02/20 08:55) Home Medications: Methadone HCl [Methadose*] 70 mg PO DAILY 09/13/15 Ondansetron [Zofran (Odt)*] 4 mg PO Q12H PRN 09/13/15 Tramadol HCl [Ultram] 50 mg PO Q8H PRN 09/13/15 Glimepiride [Amaryl*] 2 mg PO DAILY WITH BREAKFAST #30 tab 09/16/15 Hydralazine [Apresoline*] 10 mg PO TID #90 tab 09/16/15 Nifedipine Xl [Procardia Xl*] 30 mg PO BID #60 tab 09/16/15 cloNIDine HCL [Catapres*] 0.2 mg PO TID #90 tab 09/16/15 lisinopriL [Prinivil*] 20 mg PO BID #60 tab 09/16/15 - Past Medical/Surgical History Diabetic: Yes -: DM -: HTN -: Hepatitis -: Cutaneous fungal infection/pyoderma gangrenosum -: foot surgery -: Cholecystectomy -: Csection - Family History Family History: Reviewed- Non-Contributory - Social History Alcohol use: No CD- Drugs: No Caffeine use: Yes Review of Systems Other: Except as documented, all other systems reviewed and negative. Physical Examination - Physical Exam General: Alert, In no apparent distress, Oriented x3 HEENT: Atraumatic, Mucous membr. moist/pink, Sclerae nonicteric Neck: Supple, JVD not distended Respiratory: Clear to auscultation bilaterally, Normal air movement Cardiovascular: No edema, Regular rate/rhythm, Normal S1 S2 Capillary refill: <2 Seconds Gastrointestinal: Normal bowel sounds, Soft and benign, Non-distended, No tenderness Musculoskeletal: Swelling (Right leg) Integumentary: Other (Ulcer right leg, surrounding hemosiderin stain.) Neurological: Normal strength at 5/5 x4 extr, Cranial nerves 3-12 intact, Normal affect - Studies Laboratory Data (last 24 hrs) 02/02/20 06:51: PT 12.8 H, INR 1.09 02/02/20 06:51: WBC 11.9 H, Hgb 11.9 L, Hct 36.3, Plt Count 274 02/02/20 06:51: Sodium 132 L, Potassium 5.0, BUN 69 H, Creatinine 9.64 H*, Glucose 307 H, Magnesium 1.9, Total Bilirubin 0.3, AST 27, ALT 33, Alkaline Phosphatase 92 Assessment and Plan - Problems (Diagnosis) (1) Cellulitis of right lower extremity Onset Date: 08/28/15 Current Visit: No Status: Acute (2) End-stage renal disease on hemodialysis Current Visit: Yes Status: Acute (3) Diabetes mellitus Onset Date: 08/28/15 Current Visit: No Status: Acute - Plan Place under observation on the medical floor. Start IV vancomycin and Levaquin IV Diflucan for suspected fungal infection Pharmacist to renally dose medications. Insulin sliding scale for glucose management. Follow x-ray of the right ankle to rule out fracture. Nephrology consult for hemodialysis. - Advance Directives Does patient have a Living Will: No Does patient have a Durable POA for Healthcare: No
[2020-02-02] MEDS ORDERED: ACETAMINOPHEN 500 MG TAB PO PRN (14:18)
[2020-02-02] MEDS ORDERED: ONDANSETRON 4 MG/2 ML VIAL IV PRN (14:18)
[2020-02-02] MEDS ORDERED: VANCOMYCIN 1.25 GM in NA CHLORIDE 0.9% 250 ML IVPB SCH (14:18)
[2020-02-02] MEDS ORDERED: MORPHINE 2 MG/ML SYR IV PRN (14:18)
[2020-02-02] MEDS ORDERED: D50W 25 GM/50 ML SYRINGE/VIAL IV PRN (14:22)
[2020-02-02] MEDS ORDERED: GLUCAGON 1 MG/VIAL IM PRN (14:22)
[2020-02-02] MEDS ORDERED: FLUCONAZOLE 100mg IVPB 100 MG/50 ML BAG IV SCH (15:00)
[2020-02-02] MEDS ORDERED: Levofloxacin 750mg IV 750 MG/150 ML BAG IV SCH (15:00)
[2020-02-02 15:10] VITALS: BMI 31.1
[2020-02-02] MEDS: NA CHLORIDE 0.9% 1,000 ML IV SCH (15:32)
[2020-02-02] MEDS: ENOXAPARIN 30 MG/0.3 ML SQ SCH (15:37)
[2020-02-02] MEDS ORDERED: INFLUENZA VACCINE (for 3y+) 0.5 ML DOSE IMVAC ONE (16:00)
[2020-02-02] MEDS ORDERED: VANCOMYCIN 500 MG in NA CHLORIDE 0.9% 100 ML IVPB ONE (16:00)
[2020-02-02] MEDS: INSULIN -REGULAR HUMAN 50 UNIT/0.5 ML ML SQ SCH ×2 (16:25→22:08)
[2020-02-03] MEDS: NA CHLORIDE 0.9% 1,000 ML IV SCH (03:38)
[2020-02-03 04:43] VITALS: O2SAT 99
[2020-02-03 05:46] LABS: Absolute Lymphocytes (CBC) 1.6 K/uL (0.7-4.9); Basophils % 0.3 % (0-1.3); Hematocrit 35.8 % (36.0-45.0); Lymphocytes % 16.5 % (15.3-44.8); MPV 7.4 fL (7.6-11.3); RBC Red Blood Cell Count 3.96 M/uL (3.86-4.86)
[2020-02-03] MEDS ORDERED: CLONIDINE HCL 0.3 MG TAB PO ONE (06:00)
[2020-02-03 06:12] LABS: Potassium 5.7 mmol/L (3.5-5.1)
[2020-02-03 06:21] LABS: Urine Appearance TURBID; Urine Bilirubin NEGATIVE (NEG); Urine Blood NEGATIVE (NEG); Urine Color YELLOW; Urine Glucose TRACE (NEG); Urine Protein 3+ (NEG); Urine Specific Gravity 1.015 (1.005-1.030); Urine Urobilinogen 0.2 mg/dL (0.2-1.0)
[2020-02-03 06:24] LABS: Urine Microscopic Reflex ORDER UMIC
[2020-02-03 06:57] LABS: Urine Bacteria <20 /HPF (<20); Urine Culture Reflex Order NOT NEEDED; Urine Urothelial Cells <5 /HPF (NONE SEEN)
[2020-02-03] MEDS ORDERED: INSULIN -REGULAR HUMAN 50 UNIT/0.5 ML ML IV ONE (07:00)
[2020-02-03] MEDS ORDERED: ALBUTEROL 2.5 MG/3 ML NEB SOL NEB ONE (07:00)
[2020-02-03] MEDS ORDERED: D50W 25 GM/50 ML SYRINGE/VIAL IV ONE (07:00)
[2020-02-03] MEDS: ENOXAPARIN 30 MG/0.3 ML SQ SCH (08:23)
[2020-02-03] MEDS: INSULIN -REGULAR HUMAN 50 UNIT/0.5 ML ML SQ SCH ×2 (08:23→12:44)
[2020-02-03] MEDS ORDERED: VANCOMYCIN 500 MG in NA CHLORIDE 0.9% 100 ML IVPB SCH (09:00)
[2020-02-03 09:46] VITALS: BP 164/75; TEMP 97.6
--- NOTE | 2020-02-03 12:44 | P.CNS ---
Date of Consult: 02/03/20 Reason for Consult: ESRD , fluid overload Chief Complaint: Pain and swelling of the right ankle. History of Present Illness: History of Present Illness: 59-year-old woman with PMHX of ESRD on HD MWF, DM , HTN presented with rt leg pain, pt had chronic bl leg wounds , in ER MRI was negative for OM she denied fever , chills, nausea, vomiting or diarrhea CXR with mild congestion general: AAOX3, NAD , obese Neck; Supple, No elevated JVD hear: RRR, normal S1,2 no murmur or rub Chest: CTAB, no rlaes or wheezes Abdomen: Soft , Nt Extremities No edema or ulcer End-stage renal disease on HD MWF HD as per schedule renal dose meds Anemia of chronic disease no need for epogen Fluid overload HD today Leg cellulites cont abx and wound care HTN likely to normalize with HD DM as per PCP Allergies No Known Allergies Allergy (Unverified 02/02/20 08:55) Home Medications: Atorvastatin Calcium 20 mg PO BEDTIME 02/02/20 Calcium Acetate [Phoslo] 3 cap PO TIDWM 02/02/20 Clonidine HCl [Catapres] 0.3 mg PO BID 02/02/20 Furosemide 20 mg PO [id number] 02/02/20 Insulin Glargine Human [Lantus*] 10 units SQ BEDTIME 02/02/20 Levothyroxine Sodium 50 mcg PO [id number] 02/02/20 Nifedipine [Nifedipine ER] 60 mg PO [id number] 02/02/20 levoFLOXacin [Levaquin] 250 mg PO Q48H #5 tab 02/03/20 - Past Medical/Surgical History Diabetic: Yes -: DM -: HTN -: Hepatitis -: Cutaneous fungal infection/pyoderma gangrenosum -: foot surgery -: Cholecystectomy -: Csection - Social History Smoking Status: Current every day smoker Alcohol use: No CD- Drugs: Yes Caffeine use: Yes Physical Examination Temp Pulse Resp BP Pulse Ox 97.6 F 101 H 18 164/75 H 90 L 02/03/20 08:00 02/03/20 08:00 02/03/20 08:00 02/03/20 08:00 02/03/20 08:00
--- NOTE | 2020-02-03 12:54 | P.DS ---
Admission Date: 02/02/20 Discharge Date: 02/03/20 Disposition: ROUTINE DISCHARGE Discharge Condition: FAIR Reason for Admission: Pain and swelling of the right ankle. Consultations: Nephrology - Problems (1) Cellulitis of right lower extremity Onset Date: 08/28/15 Current Visit: No Status: Acute (2) End-stage renal disease on hemodialysis Current Visit: Yes Status: Acute (3) Diabetes mellitus Onset Date: 08/28/15 Current Visit: No Status: Acute Brief History of Present Illness: 59-year-old woman with a history of diabetes mellitus, history of pyoderma gangrenosum presented emergency department by EMS with the complaint of pain in the right ankle of onset last night, inability to bear weight on the leg due to pain. She has chronic nonhealing wound on the right leg. Patient reported increased redness around it. She denied fever. She had mild leukocytosis. X- ray of the right leg reported findings suggestive of possible early osteomyelitis. MRI of the right tibial-fibular report possible cellulitis but no evidence of osteomyelitis. Patient has end-stage renal disease on hemodialysis. She missed dialysis on the day of admission. She was admitted for further management. Hospital Course: Patient place under observation, treated with IV vancomycin and Levaquin for possible cellulitis. Nephrology was consulted. Patient received hemodialysis today. Patient stated her leg was about the same as before but just had increased ankle pain. She mentioned her ankle pain is better today. X-ray of the hand which showed no fracture. Patient will be discharged after dialysis. She is prescribed oral Levaquin for possible cellulitis. Vital Signs/Physical Exam: Temp Pulse Resp BP Pulse Ox 97.6 F 101 H 18 164/75 H 90 L 02/03/20 08:00 02/03/20 08:00 02/03/20 08:00 02/03/20 08:00 02/03/20 08:00 General: Alert, In no apparent distress HEENT: Mucous membr. moist/pink, Sclerae nonicteric Neck: Supple Respiratory: Clear to auscultation bilaterally, Normal air movement Cardiovascular: No edema, Regular rate/rhythm, Normal S1 S2 Gastrointestinal: Normal bowel sounds, Soft and benign, No tenderness Integumentary: Other (Ulcer-right leg.) Neurological: Other (Nonfocal.) Laboratory Data at Discharge: WBC 9.6 K/uL (4.3-10.9) D 02/03/20 05:14 Hgb 11.5 g/dL (12.0-15.0) L 02/03/20 05:14 Hct 35.8 % (36.0-45.0) L 02/03/20 05:14 Plt Count 263 K/uL (152-406) 02/03/20 05:14 PT 12.8 SECONDS (9.5-12.5) H 02/02/20 06:51 INR 1.09 02/02/20 06:51 Sodium 133 mmol/L (136-145) L 02/03/20 05:14 Potassium 5.7 mmol/L (3.5-5.1) H* 02/03/20 05:14 BUN 81 mg/dL (7-18) H 02/03/20 05:14 Creatinine 10.50 mg/dL (0.55-1.3) H* 02/03/20 05:14 Glucose 99 mg/dL (74-106) 02/03/20 05:14 Phosphorus 5.0 mg/dL (2.5-4.9) H 02/03/20 05:14 Magnesium 1.9 mg/dL (1.8-2.4) 02/02/20 06:51 Total Bilirubin 0.3 mg/dL (0.2-1.0) 02/02/20 06:51 AST 27 U/L (15-37) 02/02/20 06:51 ALT 33 U/L (12-78) 02/02/20 06:51 Alkaline Phosphatase 92 U/L (45-117) 02/02/20 06:51 Home Medications: Atorvastatin Calcium 20 mg PO BEDTIME 02/02/20 Calcium Acetate [Phoslo] 3 cap PO TIDWM 02/02/20 Clonidine HCl [Catapres] 0.3 mg PO BID 02/02/20 Furosemide 20 mg PO [id number] 02/02/20 Insulin Glargine Human [Lantus*] 10 units SQ BEDTIME 02/02/20 Levothyroxine Sodium 50 mcg PO [id number] 02/02/20 Nifedipine [Nifedipine ER] 60 mg PO [id number] 02/02/20 levoFLOXacin [Levaquin] 250 mg PO Q48H #5 tab 02/03/20 New Medications: levoFLOXacin [Levaquin] 250 mg PO Q48H #5 tab Diet: Renal Activity: Ad chelsea
[2020-02-04] MEDS ORDERED: Levofloxacin 250mg IV 250 MG/50 ML BAG IV SCH (15:00)
== END 2020-02-03 15:30 | disposition home or self-care (01) ==
LOC: ER 05:47 → ERHOLD 12:27 → 2ND 13:47
PROVIDERS: ADMIT Internal Medicine; ATTEND Internal Medicine
DX: L03.115 Cellulitis of right lower limb (principal); S81.801A Unspecified open wound, right lower leg, initial encounter; B96.5 Pseudomonas (aeruginosa) (mallei) (pseudomallei) as the cause of diseases classified elsewhere; B95.62 Methicillin resistant Staphylococcus aureus infection as the cause of diseases classified elsewhere; E11.22 Type 2 diabetes mellitus with diabetic chronic kidney disease; I12.0 Hypertensive chronic kidney disease with stage 5 chronic kidney disease or end stage renal disease; N18.6 End stage renal disease; M79.604 Pain in right leg; D63.1 Anemia in chronic kidney disease; E87.70 Fluid overload, unspecified; M77.31 Calcaneal spur, right foot; E66.9 Obesity, unspecified; Z68.31 Body mass index [BMI] 31.0-31.9, adult; E78.00 Pure hypercholesterolemia, unspecified; E03.9 Hypothyroidism, unspecified; F17.210 Nicotine dependence, cigarettes, uncomplicated; Z79.4 Long term (current) use of insulin; Z99.2 Dependence on renal dialysis; Z79.899 Other long term (current) drug therapy; X58.XXXA Exposure to other specified factors, initial encounter
CPT/HCPCS: 96365; 93005; 87040 ×2; 87070; 85025 ×2; 80048 ×2; 36415; 83735; 87205; 84100; 85610; 82947 ×6; 80076; 87077 ×3; 87186 ×3; 84484; 83880; 71045; 73590; 73610; 73718; 94640; 96375; 96372; 99285; J3590; J1580; J1650 ×2; J3010 ×2; J1450; J2270; J1644; J3370; J7030 ×2; J2405 ×3; G0257; G0378 ×3; 81003; 81015

== ENCOUNTER → 2020-06-18 | Emergency (ER) | payer OTHER ==
[~2020-06-18] MED LIST: GABAPENTIN 300 MG CAP ONE; ONDANSETRON 4 MG/2 ML VIAL ONE
--- OUTSIDE RECORDS SUMMARY | 2020-06-18 07:48 | XMS REPORT | Clinical Summary ---
:1960 Author Organization [facility] Address [facility] [place] [address] Care Team Providers Name Role Phone Unavailable Primary Care Provider Unavailable Allergies No Known Allergies Medications Medication Sig Dispensed Refills Start Date End Date Status RIFAMPIN 300 MG take 1 capsule 20 0 04/22/2010 Active CAPIndications: Abscess (300 mg) by oral of foot route twice daily with water, 1 hour before or 2 hours after a meal SEPTRA DS 800 MG-160 MG take 1 tablet by 20 0 0 Active TABIndications: Abscess oral route every of foot 12 hours IBUPROFEN 800 MG take 1 tablet 15 0 04/22/2010 Active TABIndications: Abscess (800 mg) by oral of foot route 3 times per day with food cyclobenzaprine Take 1 tablet by 30 tablet 0 04/04/2014 Active (FLEXERIL) 10 mg mouth 3 times tabletIndications: Back daily as needed pain for Muscle Spasms. traMADol (ULTRAM) 50 mg Take 1 tablet by 30 tablet 0 4 Active tabletIndications: Back mouth every 6 pain hours as needed for Pain. Active Problems Problem Noted Date HTN (hypertension) 09/25/2015 DM2 (diabetes mellitus, type 2) 07/28/2014 Ulcer of leg, chronic 04/04/2014 Back pain 04/04/2014 Abscess 04/22/2010 Abscess of foot 02/19/2010 Opiate withdrawal 02/19/2010 Polysubstance abuse 02/19/2010 Immunizations Name Administration Dates Next Due PNEUMOCOCCAL 23-VALPS VACCINE 25 MCG/0.5 ML INJECTION 2009 PPV 23 Pneumococcal Polysaccaride 04/10/2010 Social History Tobacco Use Types Packs/Day Years Used Date Current Every Day Smoker Alcohol Use Drinks/Week oz/Week Comments No Sex Assigned at Date Recorded Not on file Job Start Date Occupation Industry Not on file Not on file Not on file Travel History Travel Start Travel End No recent travel history available. Last Filed Vital Signs Not on file Plan of Treatment Health Maintenance Due Date Last Done Comments DM Foot Exam (Yearly) 1980 DM Microalbumin Urine Scrn 1980 (Yearly) DM Retinal Exam (Yearly) 1980 Cervical Cancer Scrn (3 Yrs) 1983 Breast Cancer Scrn (Yearly) 2002 Colorectal Cancer Scrn Annual 2012 (FIT/FOBT) Age 50 to 75 DM HGBA1C (Yearly) 07/28/2015 07/28/2014, 04/09/2010, 04/08/2010, Additional history exists IMM Influenza Seasonal Aug to 08/09/2020January (>/= 19 yrs) Results Not on fileafter 06/18/2019 Insurance Payer Benefit Plan / Subscriber ID Effective Phone Address T ype Group Dates [facility] xxxxxxxxx Effective for [phone] [employer] all dates [id number] [place] [phone] Advance Directives Code Status Date Activated Date Inactivated Comments Full Code 07/28/2014 7:56 AM 07/29/2014 12:28 PM
--- OUTSIDE RECORDS SUMMARY | 2020-06-18 07:49 | XMS REPORT | Clinical Summary ---
:1960 Author Organization [facility] Address [address] [place] [address] Care Team Providers Name Role Phone Unavailable Primary Care Provider Unavailable Allergies No Known Allergies Medications Not on file Active Problems Not on file Encounters Date Type Specialty Care Team Description 05/14/2020 Abstract Herminia Sparks 04/03/2020 Abstract Herminia Sparks 01/30/2020 Documentation Herminia Sparks 01/16/2020 Telephone Transplant Herminia [facility] Transp lant Pre-evaluation 12/01/2019 Abstract Herminia Sparks 11/30/2019 Office Visit Transplant Anemia of renal disease (Primary Dx); Other specified diabetes mellitus with other specified complication, unspecified whether 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 designer insulin use (HCC); Pre-transplant evaluation for chronic kidney disease; Hypertensive re nal disease; ESRD (end stage renal disease) (HCC) 11/30/2019 Documentation Herminia Sparks 11/28/2019 Documentation Herminia Sparks 11/04/2019 Abstract Herminia Sparks 10/26/2019 Abstract Herminia Sparks 10/26/2019 Abstract Herminia Sparks after 06/18/2019 Social History Tobacco Use Types Packs/Day Years Used Date Current Every Day Smoker Smokeless Tobacco: Never Used Sex Assigned at Date Recorded Not on file Job Start Date Occupation Industry Not on file Not on file Not on file Travel History Travel Start Travel End No recent travel history available. Last Filed Vital Signs Vital Sign Reading Time Taken Blood Pressure - - Pulse - - Temperature - - Respiratory Rate - - Oxygen Saturation - - Inhaled Oxygen Concentration - - Weight 77.1 kg (170 lb) 10/26/2019 3:59 PM [employer] Height 162.6 cm (5' 4") 10/26/2019 3:59 PM [employer] Body Mass Index 29.18 10/26/2019 3:59 PM [employer] Plan of Treatment Not on file Results Not on fileafter 06/18/2019 Insurance Payer Benefit Plan / Subscriber ID Type Phone Address Group MEDICAID - MEDICAID MEDICAID COMM xxxxxxxxx Medicaid Contracted [employer] OPTUM NON UNITED - [employer]UM NON-UNITED xxxxxxxxx MEDICAID [employer] [employer]
--- OUTSIDE RECORDS SUMMARY | 2020-06-18 07:53 | XMS REPORT ---
:1960 Author Organization [employer] Care Team Providers Name Role Phone Nimisha Miles Provider Role Unavailable Allergies, Adverse Reactions, Alerts Substance Reaction Event Type N.K.D.A. Info Not Available Non Drug Allergy Problems Problem Type Condition Code Onset Dates Condition Statu s Assessment Essential hypertension I10 Activ e Assessment Shortness of breath R06.02 Active Problem Swelling R60.9 Active Assessment Pain in left leg M79.605 Active Problem Kidney disease N28.9 Active Assessment Pain in right leg M79.604 Active Problem ESRD (end stage renal disease) N18.6 Active Assessment Pain in right foot M79.671 Active Problem Hepatitis K75.9 Active Problem Thyroid disease E07.9 Active Problem Memory problem R41.3 Active Problem Acquired hypothyroidism E03.9 Acti ve Problem Hemodialysis status Z99.2 Active Problem Uncontrolled type 2 diabetes E11.65 Active mellitus with hyperglycemia Problem Onychomycosis B35.1 Active Problem Open wound of skin T14.8XXA Active Problem Left arm pain M79.602 Active Problem Bunion, left foot M21.612 Active Problem Pain in right leg M79.604 Active Problem Pain in left leg M79.605 Active Problem Vitamin D deficiency E55.9 Active Problem GERD (gastroesophageal reflux K21.9 Active disease) Assessment Vitamin D deficiency E55.9 Active Problem Shortness of breath R06.02 Active Problem Migraine G43.909 Active Assessment Hepatitis C virus infection B19.20 Active without hepatic coma, unspecified chronicity Problem Fatigue, unspecified type R53.83 Ac tive Assessment Bunion, left foot M21.612 Active Problem Swelling of extremity M79.89 Active Assessment Left arm pain M79.602 Active Problem Pain in right foot M79.671 Active Assessment Pain in left foot M79.672 Active Problem Pain in left foot M79.672 Active Assessment Swelling of extremity M79.89 Active Problem Circulation problem I99.9 Active Assessment Fatigue, unspecified type R53.83 Ac tive Problem Diabetes E11.9 Active Assessment Hemodialysis status Z99.2 Active Problem Hepatitis C virus infection B19.20 Active without hepatic coma, unspecified chronicity Assessment ESRD (end stage renal disease) N18.6 Active Problem Imbalance R26.89 Active Assessment Acquired hypothyroidism E03.9 Acti ve Problem History of retinal hemorrhage Z86.69 Active Assessment Uncontrolled type 2 diabetes E11.65 Active mellitus with hyperglycemia Problem Fear of falling F40.298 Active Problem Essential hypertension I10 Activ e Problem Risk for falls Z91.81 Active Medications Medication Code Code Instructions Start End Status Dosage System Date Date Calcium Acetate [facility] 55910222510 667 MG Active TAKE 3 CAPSULES (Phos Binder) BY MOUTH T HREE TIMES A DAY BEFORE A MEAL AND 3 CAPSULES ONCE BEFORE SNACK Calcitriol [facility] 98125492602 0.25 MCG Active TAKE 1 C APSULE BY MOUTH EVERY DAY OneTouch Verio [facility] 65323790792 - Active USE T O TEST BLOOD SUGAR 3 TIMES DAILY Levothyroxine ND 09184930239 50 MCG Orally Active 1 tablet in the Sodium Once a day morning on an empty stomach Lasix [facility] 79598437877 20 MG Orally Active 1 table t Once a day Clopidogrel ND 88661967246 75 MG Orally Active 1 t ablet Bisulfate Once a day Gabapentin ND 64061027966 100 MG Orally Jun 10, Active 1 c apsule as Twice a day 2020 needed for p ain Lidocaine-Prilo [facility] 03399072449 2.5-2.5 % Active AP PLY TO SITE 30 cullen MIN PRIOR TO DIALYSIS NovoLog Flexpen ND 92223719006 100 UNIT/ML Active INJECT 8 UNITS SUBCUTANEOUSLY THREE TIMES DAILY WITH MEALS Furosemide ND 84678375464 20 MG Active TAKE 1 TA BLET BY MOUTH ONCE DAILY OneTouch Delica [facility] 23189845221 - Active USE TO TEST Plus [id number] BLOOD SUG AR 3 TIMES DAILY Vitamin D [facility] 22032250328 71548 UNIT Active 1 capsu le (Ergocalciferol Orally ) EMLA ND 0 Active not defined Calcium Acetate [facility] 00825612416 667 MG Orally Active as directed as directed Fosrenol ND 00081545143 1000 MG Orally Active 1 ta blet with Once a day meals Lantus SoloStar [facility] 44482662903 100 UNIT/ML Active INJECT 10 UNITS SUBCUTANEOUSLY AT BEDTIME Lanthanum [facility] 86878559655 1000 MG Active CHEW AND S WALLOW Carbonate 1 TABLET BY MOUTH THREE TIMES A DAY WITH MEALS Lantus [facility] 53543539501 100 UNIT/ML Active as direc judit Subcutaneous 20 units once daily atorvastatin [facility] 79783665601 20mg Orally Active 1 t ablet in Once daily evening Clonidine HCl [facility] 68507347761 0.3 MG Orally Active 1 tablet Twice a day NIFEdipine ER [facility] 89133842002 60 MG Orally Active 1 tablet on an Once a day empty stomach NovoLog [facility] 25047565347 100 UNIT/ML Active as direc judit Subcutaneous 5 units with each meal Results No Known Results Summary Purpose eClinicalWorks Submission
--- OUTSIDE RECORDS SUMMARY | 2020-06-18 07:53 | XMS REPORT ---
:1960 Author Organization [employer] Care Team Providers Name Role Phone Nimisha Miles Provider Role Unavailable Allergies No Known Allergies Problems Problem Type Condition Code Onset Dates Condition Statu s Problem Thyroid disease E07.9 Active Problem Acquired hypothyroidism E03.9 Acti ve Problem Memory problem R41.3 Active Problem Hypertension I10 Active Problem Hemodialysis status Z99.2 Active Problem Diabetes E11.9 Active Problem Fear of falling F40.298 Active Problem History of retinal hemorrhage Z86.69 Active Problem Essential hypertension I10 Activ e Problem Migraine G43.909 Active Problem Onychomycosis B35.1 [...] Medications Results No Known Results Summary Purpose eClinicalWorks Submission
--- OUTSIDE RECORDS SUMMARY | 2020-06-18 07:53 | XMS REPORT ---
:1960 Author Organization [employer] Care Team Providers Name Role Phone Nimisha Miles Provider Role Unavailable Allergies No Known Allergies Problems Problem Type Condition Code Onset Dates Condition Statu s Assessment Uncontrolled type 2 diabetes E11.65 Active mellitus with hyperglycemia Assessment Acquired hypothyroidism E03.9 Acti ve Assessment ESRD (end stage renal disease) N18.6 Active Problem ESRD (end stage renal disease) N18.6 Active Assessment Essential hypertension I10 Activ e Problem Hepatitis K75.9 Active Problem Thyroid disease E07.9 Active Problem Acquired hypothyroidism E03.9 Acti ve Problem Memory problem R41.3 Active Problem Hypertension I10 Active Problem Diabetes E11.9 Active Problem Hemodialysis status Z99.2 Active Problem Fear of falling F40.298 Active Problem Essential hypertension I10 Activ e Problem History of retinal hemorrhage Z86.69 Active [...] Start End Status Dosage System Date Date Lasix [facility] 57966951341 20 MG Orally Active 1 table t Once a day Levothyroxine ND 98496115679 50 MCG Orally Active 1 tablet in Sodium Once a day the morning on an empty stomach Lantus ND 98462779324 100 UNIT/ML Active as direc judit Subcutaneous 10 units daily NIFEdipine ER ND 09908873833 60 MG Orally Active 1 tablet on Once a day an empty stomach atorvastatin ND 42253067780 20mg Orally Active 1 t ablet in Once daily evening Clonidine HCl ND 76391983521 0.3 MG Orally Active 1 tablet Twice a day [facility] 46708992163 100 UNIT/ML Active as direc judit Subcutaneous 5 units daily Results No Known Results Summary Purpose eClinicalWorks Submission
--- OUTSIDE RECORDS SUMMARY | 2020-06-18 07:53 | XMS REPORT | Continuity of Care Document ---
:1960 Author Organization [facility] t Address [address] [place] [address] Care Team Providers Name Role Phone Elijah Herminia Attending Clinician Unavailable Payers Payer Name Policy Policy Number Effective Expiration Source Type Date Date MEDICAID - MEDICAID MGD xxxxxxxxx [facility] CHOICExxxxxxxxxMedicaid M edical Contracted Center OPTUM NON UNITED - MEDICAID xxxxxxxxx [facility] MGD CAREOPTUM NON-UNITED [facility] Problems Condition Condition Condition Status Onset Resolution Last Treating Co mments Source Name Details Category Date Date Treatment Clinician Date HTN HTN Disease Active 2014-11 Raymon (hypertens (hypertens 1-17 He alth ion) ion) 00:00: 00 DM2 DM2 Disease Active Raymon (diabetes (diabetes 07-28 mellitus, mellitus, 00:00: type 2) type 2) 00 Ulcer of Ulcer of Disease Active Harri s leg, leg, 04-04 Health chronic chronic 00:00: 00 Back pain Back pain Disease Active Kalin ris 04-04 Health 00:00: 00 Abscess Abscess Disease Active Raymon 6-14 Health 00:00: 00 Abscess of Abscess of Disease Active H arris foot foot 4- Health 00:00: 00 Opiate Opiate Disease Active Raymon withdrawal withdrawal - He alth 00:00: 00 Polysubsta Polysubsta Disease Active H arris nce abuse nce abuse 02-19 Heal th 00:00: 00 Imbalance Imbalance Problem [facility] Open wound Open wound Problem Active [facility] skin of skin [facility] Hepatitis Hepatitis Problem Active [facility] C virus C virus [facility] - infection infection Edison howard without without l hepatic hepatic Outpati coma, coma, ent unspecifie unspecifie Cl inics d d chronicity chronicity Vitamin D Vitamin D Diagnosis Active [facility] deficiency deficiency [facility] Acquired Acquired Diagnosis Active [facility] hypothyroi hypothyroi [facility] - dism dism [facility] Uncontroll Uncontroll Diagnosis Active [facility] ed type 2 ed type 2 [facility] - diabetes diabetes Memori a mellitus mellitus l with with Outpati hyperglyce hyperglyce en t [facility] Clinics Hemodialys Hemodialys Diagnosis Active [facility] is status is status [facility] ESRD (end ESRD (end Diagnosis Active [facility] stage stage [facility] renal renal [facility] disease) disease) l Outpati ent Clinics Essential Essential Problem Active [facility] hypertensi hypertensi [facility] - on on [facility] Hepatitis Hepatitis Problem Active [facility] Thyroid Thyroid Problem Active [facility] disease disease [facility] Memory Memory Problem Active [facility] problem problem [facility] Diabetes Diabetes Problem [facility] Fear of Fear of Problem Active [facility] falling falling [facility] History of History of Problem Active [facility] retinal retinal [facility] - hemorrhage hemorrhage Me moria l [facility] ent Clin[facility] Migraine Migraine Problem [facility] Onychomyco Onychomyco Problem Active [facility] sis sis [facility] GERD GERD Problem Active [facility] (gastroeso (gastroeso Ani kes - phageal phageal Memoria reflux reflux l disease) disease) Outpat i ent Clinics Risk for Risk for Problem Active [facility] Swelling Swelling Problem [facility] Kidney Kidney Problem Active [facility] disease disease [facility]ics Circulatio Circulatio Problem Active [facility] n problem n problem [facility] Shortness Shortness Problem Active [facility] of breath of breath [facility] Pain in Pain in Problem Active [facility] left leg left leg [facility] Pain in Pain in Problem Active [facility] right leg right leg [facility] Pain in Pain in Problem Active [facility] right foot right foot [facility] - [facility] Left arm Left arm Diagnosis Active [facility] pain pain [facility] Bunion, Bunion, Diagnosis Active [facility] left foot left foot [facility] Fatigue, Fatigue, Diagnosis Active [facility] unspecifie unspecifie Ani kes - d type d type Memoria l [facility] Swelling Swelling Diagnosis Active [facility] - extremity extremity Edison howard l [facility] Pain in Pain in Problem Active [facility] left foot left foot [facility] Allergies, Adverse Reactions, Alerts This patient has no known allergies or adverse reactions. Social History Social Habit Start Date Stop Date Quantity Comments Source Sex Assigned At [facility] Alcohol intake 2015-09-25 2015-09-25 Current [facility] 00:00:00 00:00:00 non-drinker of alcohol (finding) Smoking Status Start Date Stop Date Source Current every day smoker 2015-09-25 00:00:00 [facility] Medications Ordered Filled Start Stop Current Ordering Indication Dosage Frequency Signature Comments Components Source Medication Medication Date Date Medication? Clinician (SIG) Name Name Gabapentin Gabapentin Yes Nimisha [address] 8-02 [facility] as needed [facility] - 00:00: for pain Memoria 00 l [facility] Clinics cyclobenzap Yes Back pain 10mg Take 1 Festus rine 5-[address] [facility] (FLEXERIL) 00:00: mouth 3 10 mg 00 times tablet daily as needed for Muscle Spasms. traMADol Yes Back pain 50mg Take 1 rris (ULTRAM) 50 5-27 tablet by [facility] lt mg tablet 00:00: mouth 00 every 6 hours as needed for Pain. RIFAMPIN Yes Abscess of take 1 H arris 300 MG CAP 6-14 foot capsule Health 00:00: (300 mg) 00 by oral route twice daily with water, 1 hour before or 2 hours after a meal SEPTRA DS Yes Abscess of take 1 Ennis 800 MG-160 6-14 foot tablet by Heal th MG TAB 00:00: oral route 00 every 12 hours IBUPROFEN Yes Abscess of take 1 [place]nis 800 MG TAB 6-14 foot tablet Health 00:00: (800 mg) 00 by oral route 3 times per day with food atorvastati atorvastati Yes Nimisha [address] [facility] n n [place] in evening [facility] Lasix Lasix Yes Nimisha [address] [facility] Levothyroxi Levothyroxi Yes Nimisha [address] [facility] ne Sodium ne Sodium [place] in the [facility] - morning on Memoria an empty l stomach [facility] Lantus Lantus Yes Nimisha as [facility] directed [facility] NIFEdipine NIFEdipine Yes Nimisha [address] [facility] ER ER Mill[place] on an [facility] - empty Memoria stomach l [facility] Clonidine Clonidine Yes Nimisha [address] [facility] HCl HCl [facility] NovoLog NovoLog Yes Nimisha as [facility] directed [facility] Calcium Calcium Yes Nimisha TAKE [address] [facility] Acetate Acetate Millender CAPSULES [facility] - (Phos (Phos BY MOUTH Memoria Binder) Binder) THREE l TIMES A Outpati DAY BEFORE ent A MEAL AND Clinics 3 CAPSULES ONCE BEFORE SNACK Calcitriol Calcitriol Yes Nimisha TAKE [address] [facility] [place] CAPSULE BY Luke s - MOUTH Memoria EVERY DAY l [facility] OneTouch OneTouch Yes Nimisha USE TO [facility] Verio Verio [facility] TEST BLOOD Ani kes - SUGAR 3 Memoria TIMES l DAILY [facility] Clopidogrel Clopidogrel Yes Nimisha [address] [facility] Bisulfate Bisulfate [facility] Lidocaine-P Lidocaine-P Yes Nimisha APPLY TO [facility] rilocaine rilocaine [facility] SITE 30 [facility] - MIN PRIOR Memoria TO l DIALYSIS [facility] NovoLog NovoLog Yes Nimisha INJECT [address] [facility] Flexpen Flexpen [place] UNITS Servando es - SUBCUTANEO Memoria USLY THREE l TIMES Outpati DAILY WITH ent MEALS Clinics Furosemide Furosemide Yes Nimisha TAKE [address] [facility] [place] TABLET BY [facility]ukes - MOUTH ONCE Memoria DAILY l Outpati ent Clinics OneTouch OneTouch Yes Nimisha USE TO [facility] Delica Plus Delica Plus Millender TEST BLOOD [facility]ukes - [id number] SUGAR 3 Me moria TIMES l DAILY Outpati ent Clinics Vitamin D Vitamin D Yes Nimisha [address] (Ergocalcif (Ergocalcif Millender [facility] - leoncio) leoncio) Memoria l Outpati ent Clinics EMLA EMLA Yes Nimisha not [facility] defined [facility] Calcium Calcium Yes Nimisha as [facility] Acetate Acetate [facility] directed [facility] Fosrenol Fosrenol Yes Nimisha [address] [facility] with meals [facility] Lantus Lantus Yes Nimisha INJECT 10 [facility] SoloStar SoloStar Mill[facility] UNITS L ukes - SUBCUTANEO Memoria USLY AT l BEDTIME Outpati ent Clinics Lanthanum Lanthanum Yes Nimisha CHEW AND [facility] Carbonate Carbonate Millender SWALLOW 1 [facility] - TABLET BY Memoria MOUTH l THREE Outpati TIMES A ent DAY WITH Clinics MEALS Immunizations Ordered Immunization Filled Immunization Date Status Commen ts Source Name Name Flucelvax - single Flucelvax - single 2019-08-[address] [facility] - dose syringe dose syringe 00:00:00 [facility] PPV 23 Pneumococcal 2010-04-10 Completed [facility] Polysaccaride 00:00:00 PNEUMOCOCCAL 2010-04-10 Completed [facility] 23-VALPS VACCINE 25 00:00:00 MCG/0.5 ML INJECTION Vital Signs Vital Name Observation Time Observation Value Comments Source Body height 2019-10-26 15:59:00 162.6 cm [facility] Body weight Measured 2019-10-26 15:59:00 77.111 kg [facility] BMI 2019-10-26 15:59:00 29.18 kg/m2 [facility] Procedures This patient has no known procedures. Plan of Care Planned Activity Planned Date Details Comments Source Future Scheduled Test 2020-08-09 00:00:00 IMM Influenza Seasonal [facility] Aug to January (>/= 19 yrs) [code = IMM Influenza Seasonal Aug to January (>/= 19 yrs)] Future Scheduled Test 2015-07-28 00:00:00 Hemoglobin A1c [facility] measurement (procedure) [code = 08043657] Future Scheduled Test 2012 00:00:00 Screening for [facility] malignant neoplasm of colon (procedure) [code = 407985114] Future Scheduled Test 2002 00:00:00 Breast Cancer Scrn [facility] (Yearly) [code = Breast Cancer Scrn (Yearly)] Future Scheduled Test 1983 00:00:00 Screening for [facility] malignant neoplasm of cervix (procedure) [code = 822368604] Future Scheduled Test 1980 00:00:00 DM Foot Exam (Yearly) [facility] [code = DM Foot Exam (Yearly)] Future Scheduled Test 1980 00:00:00 Urine screening for [facility] protein (procedure) [code = 780782182] Future Scheduled Test 1980 00:00:00 DM Retinal Exam [facility] (Yearly) [code = DM Retinal Exam (Yearly)] Encounters Start End Encounter Admission Attending Care Care Encounter Source Date/Time Date/Time Type Type Clinicians Facility Department ID 2020-06-08 2020-06-08 Outpatient Justine Enciso [id number] [facility] 10:40:00 10:40:00 [facility] Medicine Medicine [facility] 2020-05-10 2020-05-10 Outpatient Justine Fletchert [id number] 08:47:00 08:47:00 [facility] Medicine l Medicine Outpati ent Clinics 2020-05-01 2020-05-01 Outpatient Justine [place] [id number] 15:33:00 15:33:00 [facility] Medicine l Medicine Outpati ent Clinics 2020-03-02 2020-03-02 Outpatient Justine Enciso [id number] 16:09:00 16:09:00 [facility] Medicine l Medicine Outpati ent Clinics 2020-01-12 2020-01-12 Outpatient Justine Enciso [id number] 09:48:00 09:48:00 [facility] Medicine l Medicine Outpati ent Clinics 2019-12-28 2019-12-28 [facility] [id number] 11:17:00 11:17:00 [facility] Medicine Outpati ent Clinics 2019-12-25 2019-12-25 [facility] [id number] 15:14:00 15:14:00 [facility] Medicine Outpati ent Clinics 2019-12-21 2019-12-21 [facility] [id number] 11:00:00 11:00:00 [facility] Medicine Outpati ent Clinics 2019-08-28 2019-08-28 [facility] [id number] 12:23:00 12:23:00 [facility] Medicine Outpati ent Clinics 2019-08-26 2019-08-26 [facility] [id number] 09:00:00 09:00:00 [facility] Medicine Outpati ent Clinics 2019-07-11 2019-07-11 Inpatient E [facility] [id number] [facility] 05:52:00 02:55:00 indigo Grewal [facility] 2018-05-24 2018-05-24 Outpatient [facility] [id number] [place] 00:00:00 00:00:00 Health Results This patient has no known results.
--- NOTE | 2020-06-18 08:09 | ER ---
Nurse's Notes [facility] Name: Natalie Silva Age: 60 yrs Sex: Female : 1960 Arrival Date: 06/18/2020 Time: 07:46 Bed 5 Private MD: Diagnosis: Zoster [herpes zoster] Presentation: 06/18 07:56 Chief complaint: EMS states: Rash started at left upper chest and wraps up around to jl7 posterior neck and into hair. Coronavirus screen: Client denies travel out of the [place] in the last 14 days. At this time, the client does not indicate any symptoms associated with coronavirus-19. Ebola Screen: No symptoms or risks identified at this time. Initial Sepsis Screen: Does the patient meet any 2 criteria? No. Patient's initial sepsis screen is negative. Does the patient have a suspected source of infection? No. Patient's initial sepsis screen is negative. Risk Assessment: Do you want to hurt yourself or someone else? Patient reports no desire to harm self or others. Onset of symptoms was June 15, 2020. Care prior to arrival: None. Transition of care: patient was not received from another setting of care. 07:56 Method Of Arrival: EMS: [facility] 07:56 Acuity: MARIELA 4 jl7 Triage Assessment: 08:03 General: Appears in no apparent distress. uncomfortable, Behavior is calm, cooperative, jl7 appropriate for age. Pain: Complains of pain in right supraclavicular area, right clavicle and anterior aspect of right upper chest Pain currently is 10 out of 10 on a pain scale. Is continuous. Neuro: Level of Consciousness is awake, alert, obeys commands, Oriented to person, place, time, situation. Cardiovascular: Patient's skin is warm and dry. Respiratory: Airway is patent Respiratory effort is even, unlabored, Respiratory pattern is regular, symmetrical. Derm: Rash noted that is macular, raised. Historical: - Allergies: 08:03 No Known Allergies; jl7 - Home Meds: 08:03 atorvastatin 20 mg Oral tab 1 tab once daily [Active]; Lasix 20 mg Oral tab 1 tab once jl7 daily [Active]; nifedipine 60 mg Oral TbER 1 tab once daily [Active]; Synthroid 50 mcg Oral tab 1 tab once daily [Active]; Methadone Oral [Active]; gabapentin oral oral [Active]; Clonidine Oral [Active]; clopidogrel 75 mg oral tab 1 tab once daily [Active]; Novolog Sub-Q [Active]; Lantus Sub-Q [Active]; - PMHx: 08:03 Diabetes - IDDM; High Cholesterol; Hypertension; Hypothyroidism; jl7 - PSHx: 08:03 Cholecystectomy; jl7 - Immunization history:: Adult Immunizations unknown. - Social history:: Smoking status: Patient reports the use of cigarette tobacco products, smokes one pack cigarettes per day. Screenin:50 Abuse screen: Denies threats or abuse. Denies injuries from another. Nutritional jl7 screening: No deficits noted. Tuberculosis screening: No symptoms or risk factors identified. Fall Risk None identified. Assessment: 07:50 General: See triage assessment. jl7 08:31 Reassessment: VO for gabapentin 300 mg PO, administered as ordered. jl7 08:34 Reassessment: [employer] orders aren't working at this time. jl7 Vital Signs: 07:56 BP 183 / 91; Pulse 78; Resp 17; Temp 98.2; Pulse Ox 100% ; Weight 72.57 kg; Pain 10/10; jl7 08:15 BP 181 / 85; Pulse 76; Resp 16; Pulse Ox 100% ; jl7 08:15 pt reports "I have not taken any of my medications this morning." jl7 ED Course: 07:46 Patient arrived in ED. ds1 07:49 Asim Madera NP is PHCP. pm1 07:50 Shree Carlton MD is Attending Physician. pm1 07:50 Patient has correct armband on for positive identification. Placed in gown. Bed in low jl7 position. Call light in reach. Side rails up X 1. Pulse ox on. NIBP on. 07:56 Roberto Lala RN is Primary Nurse. jl7 08:00 Triage completed. jl7 08:03 Arm band placed on right wrist. jl7 08:30 No provider procedures requiring assistance completed. Patient did not have IV access jl7 during this emergency room visit. Administered Medications: 08:13 Drug: Valtrex 1000 mg Route: PO; jl7 08:13 Drug: Quinter 10 mg-325 mg 1 tabs Route: PO; jl7 Outcome: 08:09 Discharge ordered by . pm1 08:30 Discharged to home ambulatory, with family. jl7 08:30 Condition: stable 08:30 Discharge instructions given to patient, Instructed on discharge instructions, follow up and referral plans. medication usage, Demonstrated understanding of instructions, follow-up care, medications, Prescriptions given X 2. 08:35 Patient left the ED. jl7 Signatures: Shawna Garcia ds1 Asim Madera NP GOAT HERDER pm1 Roberto Lala RN RN jl7
--- NOTE | 2020-06-18 08:10 | EDPHYS ---
Physician Documentation [facility] Name: Natalie Silva Age: 60 yrs Sex: Female : 1960 Arrival Date: 06/18/2020 Time: 07:46 Bed 5 Private MD: ED Physician Shree Carlton HPI: 06/18 08:07 This 60 yrs old Female presents to ER via EMS with complaints of Rash. pm1 08:07 The patient's rash thought to be caused by an unknown cause. The rash is located on the pm1 posterior right side of neck and right upper chest. The rash can be described as crusted, vesicular. Onset: The symptoms/episode began/occurred 3 day(s) ago. Associated signs and symptoms: Pertinent positives: burning sensation, Pertinent negatives: fever. Severity of symptoms: in the emergency department the symptoms are worse. Treatment given at home: None. The patient has not experienced similar symptoms in the past. Historical: - Allergies: 08:03 No Known Allergies; jl7 - Home Meds: 08:03 atorvastatin 20 mg Oral tab 1 tab once daily [Active]; Lasix 20 mg Oral tab 1 tab once jl7 daily [Active]; nifedipine 60 mg Oral TbER 1 tab once daily [Active]; Synthroid 50 mcg Oral tab 1 tab once daily [Active]; Methadone Oral [Active]; gabapentin oral oral [Active]; Clonidine Oral [Active]; clopidogrel 75 mg oral tab 1 tab once daily [Active]; Novolog Sub-Q [Active]; Lantus Sub-Q [Active]; - PMHx: 08:03 Diabetes - IDDM; High Cholesterol; Hypertension; Hypothyroidism; jl7 - PSHx: 08:03 Cholecystectomy; jl7 - Immunization history:: Adult Immunizations unknown. - Social history:: Smoking status: Patient reports the use of cigarette tobacco products, smokes one pack cigarettes per day. ROS: 08:07 Constitutional: Negative for fever, chills, and weight loss, Eyes: Negative for injury, pm1 pain, redness, and discharge, ENT: Negative for injury, pain, and discharge, Neck: Negative for injury, pain, and swelling, Cardiovascular: Negative for chest pain, palpitations, and edema, Respiratory: Negative for shortness of breath, cough, wheezing, and pleuritic chest pain, Abdomen/GI: Negative for abdominal pain, nausea, vomiting, diarrhea, and constipation, Back: Negative for injury and pain, MS/Extremity: Negative for injury and deformity. 08:07 Neuro: Negative for headache, weakness, numbness, tingling, and seizure. 08:07 Skin: Positive for rash, of the right posterior aspect of neck and anterior aspect of right upper chest, Negative for abscesses, cellulitis. Exam: 08:07 Constitutional: This is a well developed, well nourished patient who is awake, alert, pm1 and in no acute distress. Head/Face: Normocephalic, atraumatic. Neck: Trachea midline, no thyromegaly or masses palpated, and no cervical lymphadenopathy. Supple, full range of motion without nuchal rigidity, or vertebral point tenderness. No Meningismus. Chest/axilla: Normal chest wall appearance and motion. Nontender with no deformity 08:07 Back: No spinal tenderness. No costovertebral tenderness. Full range of motion. 08:07 MS/ Extremity: Pulses equal, no cyanosis. Neurovascular intact. Full, normal range of motion. 08:07 Cardiovascular: Exam negative for acute changes, Rate: normal, Rhythm: regular, Pulses: no pulse deficits are appreciated. 08:07 Respiratory: Exam negative for acute changes, respiratory distress, shortness of breath. 08:07 Skin: Appearance: normal except for affected area, abscess, not appreciated, cellulitis, is not appreciated, consistent with zoster. 08:07 Neuro: Exam negative for acute changes, Orientation: is normal, Motor: is normal, moves all fours. Vital Signs: 07:56 BP 183 / 91; Pulse 78; Resp 17; Temp 98.2; Pulse Ox 100% ; Weight 72.57 kg; Pain 10/10; jl7 08:15 BP 181 / 85; Pulse 76; Resp 16; Pulse Ox 100% ; jl7 08:15 pt reports "I have not taken any of my medications this morning." jl7 MDM: 07:50 Patient medically screened. pm1 08:07 Data reviewed: vital signs. Data interpreted: Pulse oximetry: on room air is 100 %. pm1 Interpretation: normal. Counseling: I had a detailed discussion with the patient and/or guardian regarding: the historical points, exam findings, and any diagnostic results supporting the discharge/admit diagnosis, the need for outpatient follow up, to return to the emergency department if symptoms worsen or persist or if there are any questions or concerns that arise at home. 08:26 ED course: Patient requested Neurontin prior to going when I explained the titration pm1 schedule for the medication. Administered Medications: 08:13 Drug: Valtrex 1000 mg Route: PO; jl7 08:13 Drug: Sula 10 mg-325 mg 1 tabs Route: PO; jl7 Disposition: 11:51 Co-signature as Attending Physician, Shree Carlton MD. rn Disposition: 06/18/20 08:09 Discharged to Home. Impression: Zoster [herpes zoster]. - Condition is Stable. - Discharge Instructions: Shingles. - Prescriptions for Valtrex 1 g Oral Tablet - take 1 tablet by ORAL route every 8 hours for 7 days; 21 tablet. Neurontin 300 mg Oral Capsule - take 1 capsule by ORAL route every 8 hours Day 1: 300 mg PO once daily, Day 2: 300mg PO q12hr, Day 3: 300 mg PO q8hr; 30 capsule. - Medication Reconciliation Form, Thank You Letter, Antibiotic Education, Prescription Opioid Use form. - Follow up: Emergency Department; When: As needed; Reason: Worsening of condition. Follow up: Private Physician; When: 2 - 3 days; Reason: Recheck today's complaints, Continuance of care, Re-evaluation by your physician. - Problem is new. - Symptoms have improved. Signatures: Shree Carlton MD MD rn Marinas, Patrick, [employer] pm1 Roberto Lala RN RN jl7 Corrections: (The following items were deleted from the chart) 08:35 08:09 06/18/2020 08:09 Discharged to Home. Impression: Zoster [herpes zoster]. jl7 Condition is Stable. Forms are Medication Reconciliation Form, Thank You Letter, Antibiotic Education, Prescription Opioid Use. Follow up: Emergency Department; When: As needed; Reason: Worsening of condition. Follow up: Private Physician; When: 2 - 3 days; Reason: Recheck today's complaints, Continuance of care, Re-evaluation by your physician. Problem is new. Symptoms have improved. pm1
[2020-06-18 12:48] VITALS: BP 181/85; TEMP 98.2; O2SAT 100
== END ==
LOC: ER 07:45
DX: B02.9 Zoster without complications (principal); I10 Essential (primary) hypertension; E11.9 Type 2 diabetes mellitus without complications; E78.00 Pure hypercholesterolemia, unspecified; E03.9 Hypothyroidism, unspecified; F17.210 Nicotine dependence, cigarettes, uncomplicated; Z79.4 Long term (current) use of insulin
CPT/HCPCS: 99284

== ENCOUNTER 2020-06-19 07:16 | Inpatient (IN) | payer OTHER ==
--- OUTSIDE RECORDS SUMMARY | 2020-06-19 07:18 | XMS REPORT | Clinical Summary ---
:1960 Author Organization [facility] Address [address] [address] Care Team Providers Name Role Phone Unavailable [...] with other specified complication, unspecified whether 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 frame tender insulin use (HCC); Pre-transplant evaluation for chronic kidney disease; Hypertensive re nal disease; ESRD (end stage renal disease) (HCC) 11/30/2019 Documentation Herminia Sparks 11/28/2019 Documentation Herminia Sparks 11/04/2019 Abstract Herminia Sparks 10/26/2019 Abstract Herminia Sparks 10/26/2019 Abstract Herminia Sparks after 06/19/2019 Social History Tobacco Use Types Packs/Day Years [...] 77.1 kg (170 lb) 10/26/2019 3:59 PM [employer] Height 162.6 cm (5' 4") 10/26/2019 3:59 PM [employer] Body Mass Index 29.18 10/26/2019 3:59 PM [employer]LO[employer] Plan of Treatment Not on file Results Not on fileafter 06/19/2019 Insurance Payer Benefit Plan / Subscriber ID Type Phone Address Group MEDICAID - MEDICAID MEDICAID COMM xxxxxxxxx Medicaid Contracted [facility] [employer] OPTUM NON UNITED - OPTUM NON-UNITED xxxxxxxxx MEDICAID [facility] [employer] [facility]
--- OUTSIDE RECORDS SUMMARY | 2020-06-19 07:18 | XMS REPORT | Clinical Summary ---
:1960 Author Organization [facility] Address [facility] [place] [address] Care Team Providers Name Role Phone Unavailable [...] (>/= 19 yrs) Results Not on fileafter 06/19/2019 Insurance Payer Benefit Plan / Subscriber ID Effective Phone Address T ype Group Dates [facility] xxxxxxxxx Effective for [phone] [address] [employer] all dates [phone] [place] [phone] Advance Directives Code Status Date Activated Date Inactivated Comments Full Code 07/28/2014 7:56 AM 07/29/2014 12:28 PM
--- OUTSIDE RECORDS SUMMARY | 2020-06-19 07:23 | XMS REPORT | Continuity of Care Document ---
:1960 Author Organization [email or web address] Care Team Providers Name Role Phone [email or web address] Unavailable Un available Problems Problem Status Onset Classification Date Comments Sourc e Date Reported LEFT FOOT INJURY Active 019 [facility] Cellulitis of right 05/26/2019 [facility] lower limb 019 [facility] SWELLING FEET Active Gre ater 018 [facility] CELLULITIS OF BOTH Active M H Greater LOWER EXTREMITIES, CK 018 [place] Acute kidney failure 2019 [facility] with tubular necrosis 018 [place] ARF ACUTE Active Greater HYPERGLYCEMIA 018 Height s ABNORMAL LABS Active Gre ater 018 [place] N18.3 - CHRONIC KIDNEY Active OPID DISEASE, STAGE 018 [facility] Chronic kidney 04/04/2017 G reater disease, unspecified 017 [place] RIGHT LLEG ABSCESS Active M H Greater 017 [place] Discharge Diagnosis: 09/28/2015 [facility] Acute renal 015 [place] insufficiency Discharge Diagnosis: 09/28/2015 [facility] Hypertension 015 [place] Discharge Diagnosis: 09/28/2015 [facility] Headache 015 [place] PRESSURE IS TOO HIGH, Active Greater HEADACHE 015 [place] OTHER Active Greater 015 [place] LARGE LEG ULCER WITH Active Greater FEVER AND LEUKOCYTO 015 [place] BILATERAL LEG Active Gre ater INFECTION 015 [place] BILATERAL LEG ULCERS; Active Greater CELLULITIS RIGHT L 015 H eights Chronic viral 2019 Gr eater hepatitis C [place] Pulmonary 2019 Ace r hypertension, [place] s unspecified Non-pressure chronic 05/26/2019 [facility] ulcer of unspecified [place] part of right lower leg with unspecified severity Non-pressure chronic 05/26/2019 [facility] ulcer of unspecified [place] part of left lower leg with unspecified severity Type 2 diabetes 05/26/2019 [facility] mellitus with other [place] skin ulcer Nicotine dependence, 05/26/2019 [facility] cigarettes, [place] uncomplicated Hypothyroidism, 05/26/2019 [facility] unspecified [place] Type 2 diabetes 05/26/2019 [facility] mellitus with diabetic [place] chronic kidney disease Other disorders of 2019 Greater phosphorus metabolism [place] Acidosis 05/26/2019 Greate r [place] Hypertensive chronic 05/26/2019 Greater kidney disease with [place] stage 5 chronic kidney disease or end stage renal disease Non-pressure chronic 2019 Greater ulcer of buttock with [place] unspecified severity Chronic kidney 2019 G reater disease, stage 5 Hei ghts Secondary 2019 Ace r hyperparathyroidism of [place] [facility] (current) 05/26/2019 Greater use of insulin [facility] ts Patient's 2019 cAe r noncompliance with H eights other medical treatment and regimen Cellulitis and abscess Active Problem 07/13/2019 Greater of lower leg [facility] , (disorder) [facility] Cellulitis of ankle Active Problem 07/13/2019 [facility] (disorder) [facility] Diabetes mellitus Active Problem 07/13/2019 H Greater (disorder) [facility],M H [facility] Drug abuse (disorder) Active Problem 07/13/2019 [facility] Inflammatory disease Resolved Problem 07/13/2019 Greater of liver (disorder) [facility] Hypertensive disorder, Resolved Problem 07/13/2019 [facility] systemic arterial He ights, (disorder) [facility] Heart murmur (finding) Resolved Problem 07/13/2019 [facility] Intervertebral disc Resolved Problem 07/13/2019 [facility] rupture (disorder) eights,[facility] Smoker (finding) Active Problem 07/13/2019 [facility] Unspecified viral 05/26/2019 M H Greater hepatitis C without [place] hepatic coma Opioid dependence, 05/26/2019 Greater uncomplicated Height s Morbid (severe) 05/26/2019 Greater obesity due to excess [place] calories Tinea unguium 05/26/2019 Gr eater [place] Ingrowing nail 05/26/2019 G reater [place] Anemia in other 05/26/2019 Greater chronic diseases Hei ghts classified elsewhere Cutaneous abscess of 05/26/2019 [facility] left lower limb Heig hts Cutaneous abscess of 05/26/2019 MH [facility] right lower limb Hei ghts Iron deficiency 05/26/2019 [facility] [place] Hyperlipidemia, 05/26/2019 [facility] unspecified [place] Hyperkalemia 05/26/2019 MH Gre ater [place] Fluid overload, 05/26/2019 [facility] unspecified [place] Pseudomonas 05/26/[address] (aeruginosa) (mallei) [place] (pseudomallei) as the cause of diseases classified elsewhere Chronic kidney disease Active Problem 07/18/2019 eCW: Janak (CKD) stage G4/A3, Z avaleta severely decreased glomerular filtration rate (GFR) between 15-29 mL/min/1.73 square meter and albuminuria creatinine ratio greater than 300 mg/g Diabetic peripheral Active Problem 07/18/2019 eCW: Janak neuropathy Diana Diabetes mellitus type Active Problem 07/18/2019 eCW: Janak 2, uncontrolled Zava dequan Hyperlipidemia Active Problem 07/18/2019 eCW: Janak Ortiz DM type 2, Active Problem 07/18/2019 eCW: Jono hoover uncontrolled, with Z avaleta retinopathy Type 2 diabetes Active Problem 07/18/2019 [facility] mellitus with diabetic [place],eC peripheral angiopathy W: Janak without gangrene Jhoana miranda Venous insufficiency Active Diagnosis 07/18/2019 eCW: Janak (chronic) (peripheral) Diana Essential (primary) Active Problem 07/18/2019 eCW: Janak hypertension Lisettevalet a Acquired Active Problem 07/18/2019 eCW: Janak hypothyroidism Zaval eta No-show for Active Diagnosis 11/27/2018 eCW: Parisa Ortiz Tinea pedis of both Active Diagnosis 07/18/2019 eCW: Janak feet Diana Type 2 diabetes Active Diagnosis 07/18/2019 MH [facility] mellitus with [place] s,eC hyperglycemia W: Jono Ortiz shelter current use Active Diagnosis 07/18/2019 eCW: Janak of insulin Diana End stage renal Active Problem 07/18/2019 [facility] disease [place],eC W: Janak Ortiz Dependence on renal Active Problem 07/18/2019 [facility] dialysis [place],eC W: Janak Ortiz ADMINISTRTVE ENCOUNT Active MH Greater NOS [place] CELLULITIS OF LEG Active MH Greater [place] LEUKOCYTOSIS NOS Active MH Greater [place] ACUTE KIDNEY FAILURE, Active MH Greater UNSPECIFIED [place] HYPERGLYCEMIA, Active MH Gr eater UNSPECIFIED [place] CELLULITIS OF RIGHT Active MH Greater LOWER LIMB [place] PERSONAL HISTORY OF Active MH Greater METHICILLIN RESIS ST [place] CELLULITIS OF Active MH [facility]PECIF[facility] Active MH Gr eater DISEASE, UNSPECIFIED [place],[facility] TYPE 2 DIABETES Active MELLITUS WITHOUT [facility] orial COMPLIC [facility] Medications Medication Details Route Status Patient Ordering Order Source Instructions Provider Date Furosemide Notes: (Same No Longer as: Lasix) Active [address] [facility] May cause GI [place] upset. Give with food or milk. atorvastatin Notes: (Same No Longer As: Lipitor) Active 2018 [facility] Calcitriol Notes: (Same No Longer As: Active [address] [facility] Rocaltrol) [facility] Thyroxine Notes: Take No Longer 1 hour Active [address] [facility] before or 2 City hours after meal; Enteral feeds may interefere with the absorption of this medication.( Same as:Levothroi d, Synthroid) cefepime Notes: (Same No Longer As: Active [address] [facility] Maxipime) [facility] MEDICATION WASTE Product Size: 1000 mg Product Wasted: ___ mg Methadone Notes: (Same No Longer as: Active [address] [facility] Dolophine) [facility] Insulin Notes: (Same Inactive Glargine 100 as: Lantus) [facility] Do not hold [facility] Injectable insulin Solution without contacting prescriber WASTE: F/P - Black; E - Municipal Trash Bin "single patient use only" Stable for 28 days at room temperature Expires in days from __Date heparin sodium, 5,000 unit, Inactive porcine 2500 Route: [address] [facility] UNT/ML SUB-Q, Drug [facility] Injectable form: INJ, Solution Q12H, Dosing Weight 78.003, kg, Start date: 07/11/19 21:00:00 CDT, Duration: 30 day, Stop date: 08/10/19 9:00:00 CDT NIFEdipine 30 Notes: (Same Inactive mg oral tablet, as: Adalat 2018 [facility] extended CC, City release Procardia XL) Give on empty stomach. Take 1 hour before or 2 hours after meal; "Avoid grapefruit and grapefruit juice". Do not crush Sodium 650 mg, 1 Inactive Bicarbonate 650 tab, Route: 2018 [place] rial MG Oral Tablet PO, Drug [facility] form: TAB, BID-Meals, Dosing Weight 78.003, kg, Start date: 07/11/19 17:00:00 CDT, Duration: 30 day, Stop date: 08/10/19 8:00:00 CDT, 0 Clindamycin 900 mg, 50 Inactive mL, Route: [address] [facility] IVPB, Drug [facility] form: INJ, [id number], Dosing Weight 78.003, kg, Start date: 07/11/19 13:00:00 CDT, Duration: 14 day, Stop date: 07/25/19 5:00:00 CDT, ABX Indication: Bone/Joint Infection, 0 heparin Notes: Inactive porcine [address] [facility] heparin [facility] sevelamer Notes: Same Inactive as: Renvela 2018 [facility] ferrous sulfate Notes: Give Inactive with food. [address] [facility] iron [facility] elemental [id number] as ferrous sulfate Dose=___mg elemental iron Normodyne Notes: (Same Inactive as: [address] [place] [address] [facility] Trandate) Push over 2 minutes Give bolus over 2-3 minutes. Clonidine Notes: (Same Inactive As: [address] [place] [address] Catapres) [facility] Labetalol Notes: (Same Inactive as: [address] [facility] Trandate) Push over 2 minutes Give bolus over 2-3 minutes. Kayexalate Notes: Inactive (sodium [address] [facility] polystyrene [facility] sulfonate 15 gm/60 ml TG) Shake well before use. (Same as: Kayexalate, SPS) Dextrose 50% 12.5 gm, 25 Inactive Syringe mL, Route: [address] [facility] IVP, Drug [facility] Form: INJ, Dosing Weight 77.273, kg, PRN, PRN Blood Glucose Results, Start date: 07/11/19 6:02:00 CDT, Duration: 30 day, Stop date: 08/10/19 6:01:00 CDT, 0 Glucagon 1 mg, Route: Inactive IM, Drug [address] [facility] form: City PDR/INJ, PRN, Dosing Weight 77.273, kg, PRN Blood Glucose Results, Start date: 07/11/19 6:02:00 CDT, Duration: 30 day, Stop date: 08/10/19 6:01:00 CDT, 0 Acetaminophen Notes: Do Inactive not exceed [address] [facility] gm/day. [facility] (Same as: Tylenol) Insulin Lispro Notes: (Same Inactive as: Humalog) [address] [place] [address] Roll in [facility] palms of hands gently; Do not shake vigorously. WASTE: F/P - Black; E - Municipal Trash Bin Stable for 28 days at room temperature. Expires in days from __Date morphine 0.5 Notes: (Same Inactive mg/mL as:MORPhine [address] [facility] preservative-fr Sulfate) [facility] ee injectable solution heparin Notes: Inactive porcine [address] [facility] heparin [facility] Hydralazine Notes: (Same Inactive as: [address] [place] [address] Apresoline) [facility] Push over 5 minutes Morphine Notes: (Same Inactive as:MORPhine [address] [facility] Sulfate) [facility] Zofran Notes: (Same Inactive as: Zofran) [address] [place] [address] [facility] MEDICATION WASTE Product Size: 4 mg Product Wasted: ___ mg Saline Flush Notes: (Same Inactive 0.9% as: BD [address] [facility] Posiflush) [facility] cefepime Notes: (Same Inactive As: [address] [place] [address] Maxipime) [facility] MEDICATION WASTE Product Size: 1000 mg Product Wasted: ___ mg Vancomycin 2001 mg: Inactive infuse over [address] [facility] 2.5 hours [facility] For adult patients only: Round to nearest 250 mg per Medical Staff approval MEDICATION WASTE Product Size: 1000 mg Product Wasted: ___ mg Clotrimazole, 1 cecilia applied Active 1% applied Diana 05/03/ eCW: J ose Topical topically topically once 2019 Zavalet a daily to affected areas of feet prn vancomycin + 2001 mg: Inactive Sodium Chloride infuse over [address] 0.9% IV 250 mL 2.5 hours [place] For adult patients only: Round to nearest 250 mg per Medical Staff approval MEDICATION WASTE Product Size: 1000 mg Product Wasted: ___ mg Cipro Notes: May Inactive interfere 2017 Greater w/enteral [place] feedings - Take 1 hr before or 2 hrs after antacids, dairy pdt & minerals. On empty stomach. NIFEdipine 60 Notes: (Same No Longer mg oral tablet, as: Adalat Active 2017 Great er extended CC, [place] release Procardia XL) Give on empty stomach. Take 1 hour before or 2 hours after meal; "Avoid grapefruit and grapefruit juice". Do not crush Ciprofloxacin 500 mg = 1 No Longer 500 MG Oral tab, PO, Active 2017 [facility] Tablet [Cipro] Q12H, X 7 [place] day, # 14 tab, 0 Refill(s), Pharmacy: [facility], [facility]. Hydralazine Notes: (Same No Longer as: Active 2017 Greater Apresoline) [facility] Push over 5 minutes Acetaminophen Notes: (Same No Longer 325 MG / as: [place] Active 2017 Hydrocodone 325/5) Do [place] Bitartrate 5 MG not exceed Oral Tablet 4gm/day of [[place] 5/325] acetaminophe n. Vancomycin 2001 mg: Inactive infuse over 2017 [facility] 2.5 hours [place] For adult patients only: Round to nearest 250 mg per Medical Staff approval MEDICATION WASTE Product Size: 1000 mg Product Wasted: ___ mg NIFEdipine 60 Notes: (Same No Longer mg oral tablet, as: Adalat Active 2017 Great er extended CC, [place] release Procardia XL) Give on empty stomach. Take 1 hour before or 2 hours after meal; "Avoid grapefruit and grapefruit juice". Do not crush insulin Notes: (Same No Longer glargine as: Lantus) Active 2017 Greater Do not hold [place] insulin without contacting prescriber WASTE: F/P - Black; E - Municipal Trash Bin "single patient use only" insulin detemir 10 unit, Inactive Route: 2017 SUB-Q, [place] Bedtime, Dosing Weight 77.273, kg, Start date: 11/03/18 21:00:00 [employer], Duration: 30 day, Stop date: 12/02/18 21:00:00 [employer] Ferrlecit + 125 mg, 10 No Longer Sodium Chloride mL, Route: Active 2017 Great er 0.9% IV 100 mL IVPB, Daily, Heig hts Start date: 11/03/18 12:00:00 [employer], Duration: 8 doses or times, Stop date: 11/18/18 9:00:00 [employer] heparin Notes: No Longer porcine Active 2017 Greater heparin [place] Ferrous 350 mg, No Longer fumarate Route: PO, Active 2017 Greater Drug form: [place] TAB, Daily, Dosing Weight 77.273, kg, Start date: 11/03/18 9:00:00 [employer], Duration: 30 day, Stop date: 12/02/18 9:00:00 [employer] Nephro-Shelia Rx Notes: (Same No Longer as: Active 2017 Greater Nephro-Shelia [place] Rx and Diatx) Give with food. ferrous sulfate Notes: Give No Longer with food. Active 2017 Greater "Do Not [place] Crush" Venofer 200 mg, Inactive Route: IVPB, 2017 [facility] Drug form: [place] INJ, Daily, Dosing Weight 77.273, kg, Start date: 11/03/18 9:00:00 [employer], Duration: 5 doses or times, Stop date: 11/07/18 9:00:00 [employer] Calcitriol Notes: (Same No Longer As: Active 2017 Greater Rocaltrol) [place] cefepime Notes: (Same No Longer As: Active 2017 Greater Maxipime) [place] MEDICATION WASTE Product Size: 1000 mg Product Wasted: ___ mg Insulin Notes: (Same No Longer Glargine 100 as: Lantus) Active 2017 Greater UNT/ML Do not hold [place] Injectable insulin Solution without [Lantus] contacting prescriber WASTE: F/P - Black; E - Municipal Trash Bin "single patient use only" atorvastatin Notes: (Same No Longer As: Lipitor) Active 2017 Greater [place] Vancomycin Vancomycin No Longer dosing and dosing and Active 2018 Greater monitoring per monitoring [place] s pharmacy per pharmacy, 1 ea, Drug form: MISC, Route: ERNSTCANGELA, 11/02/18 19:00:00 [employer], Duration: 30 day, Stop date: 12/02/18 18:59:00 [employer] Hydralazine Notes: (Same No Longer Hydrochloride as: Active 2017 Greater 50 MG Oral Apresoline) [place] Tablet May interfere w/enteral feedings Take With Food Sodium Notes: No Longer Bicarbonate 650 "Dissolve Active 2017 Greate r MG Oral Tablet tablet in a Heigh ts glass of water prior to oral administrati on. STOMACH WARNING: To avoid serious injury, do not take until tablet is completely dissolved. It is very important not to take this product when overly full from food or drink." cadexomer Notes: No Longer iodine 0.009 Non-Formular Active 2017 Greate r MG/MG Topical y Drug. For Heigh ts Gel external use only. (Same As: Iodosorb) epoetin sami Notes: (Same No Longer as: Procrit) Active 2017 Greater epoetin sami [facility] [address] unit/1 ml VL. For dialysis use only. (Procrit) WASTE: F/P - Red; E -Red MEDICATION WASTE Product Size: 49391 unit Product Wasted: ___ unit sevelamer Notes: Same No Longer as: Renvela Active 2017 Greater [facility] Epogen 40,000 unit, Inactive Route: 2017 [facility] SUB-Q, ONCE, [facility] Dosing Weight 77.273, kg, For Oncology Patients, Start date: 11/02/18 11:19:00 [employer], Stop date: 11/02/18 11:19:00 [employer] Methadone Notes: (Same No Longer as: Active 2017 Greater Dolophine) [facility] Clonidine Notes: (Same No Longer As: Active 2017 Greater Catapres) [facility] NIFEdipine 30 Notes: (Same No Longer mg oral tablet, as: Adalat Active 2017 Great er extended CC, [place] release Procardia XL) Give on empty stomach. Take 1 hour before or 2 hours after meal; "Avoid grapefruit and grapefruit juice". Do not crush Furosemide Notes: (Same No Longer as: Lasix) Active 2017 May cause GI [place] upset. Give with food or milk. heparin Notes: No Longer porcine Active 2017 heparin [place] Thyroxine Notes: Take No Longer 1 hour Active 2017 before or 2 [place] hours after meal; Enteral feeds may interefere with the absorption of this medication.( Same as:Levothroi d, Synthroid) Methadone 80mgs, PO, Active Daily, at 5 2017 Greater am, 0 [place] Refill(s) ferrous sulfate See Active Instructions 2017 Greater , 325 mg PO [place] twice daily, am and noon, 0 Refill(s) Sodium 650 mg = 1 Active Bicarbonate 650 tab, PO, 2017 Greater MG Oral Tablet BID, With [place] meals, 0 Refill(s) NovoLog SUB-Q, Active TID-Before 2017 Meals, 3 to [place] 5 units depending on blood glucose levels., 0 Refill(s) Benadryl Notes: (Same Inactive as: 2017 Benadryl) [facility] Zofran Notes: (Same No Longer as: Zofran) 2017 [facility] MEDICATION WASTE Product Size: 4 mg Product Wasted: ___ mg Insulin Lispro Notes: (Same No Longer as: Humalog Active 2017 ) Roll in [place] palms of hands gently; Do not shake `vigorously. "Single Patient Use Only " WASTE: F/P - Black; E - Municipal Trash Bin Stable for 28 days at room temperature. Expires in days from __Date Glucagon 1 mg, Route: No Longer IM, Drug Active 2017 form: [facility] PDR/INJ, PRN, Dosing Weight 77.273, kg, PRN Blood Glucose Results, Start date: 11/02/18 1:02:00 [employer], Duration: 30 day, Stop date: 12/02/18 1:01:00 [employer] Dextrose 50% 25 gm, 50 No Longer Syringe mL, Route: 2017 IVP, Drug [facility] Form: INJ, Dosing Weight 77.273, kg, PRN, PRN Blood Glucose Results, Start date: 11/02/18 1:02:00 [employer], Duration: 30 day, Stop date: 12/02/18 1:01:00 [employer] Hydralazine Notes: (Same No Longer as: Active 2017 Greater Apresoline) [facility] Push over 5 minutes Acetaminophen Notes: Do No Longer not exceed 4 Active 2018 [facility] gm/day. [place] (Same as: Tylenol) Acetaminophen Notes: (Same Inactive 325 MG / as: [place] 2017 [facility] Hydrocodone 325/5) Do [place] Bitartrate 5 MG not exceed Oral Tablet 4gm/day of acetaminophe n. Dextrose 50% 25 mL, Inactive Syringe Route: IVP, 2017 [facility] Dosing [place] Weight 77.273, kg, PRN, PRN Blood Glucose Results, Start date: 11/02/18 0:45:00 [employer], Duration: 30 day, Stop date: 12/02/18 0:44:00 [employer] Glucagon 1 mg, Route: Inactive IM, PRN, 2017 [facility] Dosing [place] Weight 77.273, kg, PRN Blood Glucose Results, Start date: 11/02/18 0:45:00 [employer], Duration: 30 day, Stop date: 12/02/18 0:44:00 [employer] Vancomycin 2001 mg: No Longer infuse over Active 2017 [facility] 2.5 hours [place] For adult patients only: Round to nearest 250 mg per Medical Staff approval MEDICATION WASTE Product Size: 1000 mg Product Wasted: ___ mg cefepime Notes: (Same Inactive as: 2018 Maxipime) [facility] MEDICATION WASTE Product Size: 2000 mg Product Wasted: ___ mg Acetaminophen Notes: (Same Inactive 325 MG / as: [place] 2017 [facility] Hydrocodone 325/5) Do [place] Bitartrate 5 MG not exceed Oral Tablet 4gm/day of acetaminophe n. Saline Flush Notes: (Same No Longer 0.9% as: BD Active 2017 Greater Posiflush) [facility] Patriciayle Adriana -- check Active check blood Diana 09/20/ eCW : Janak 10-d [place] blood sugars 6 times 2017 Zaval eta Glucose sugars a day Monitorin [place] Adriana apply one check Active -- check blood Diana 09/20/ eCW: Janak Sensor sensor every blood sugars 6 2017 Diana 10 days or sugars times/day as directed sevelamer 800 mg = 1 Active carbonate 800 tab, PO, 2018 [facility] mg oral tablet TID, [place] , # 90 tab, 0 Refill(s), Pharmacy: [facility] levothyroxine 50 microgram Active 50 mcg (0.05 = 1 tab, PO, 2017 Greate r mg) oral tablet Q630AM, # 30 Hei ghts tab, 0 Refill(s), Pharmacy: [facility] ciprofloxacin 500 mg = 1 No Longer 500 mg oral tab, PO, Active 2018 [facility] tablet [id number], X [place] 14 day, # 28 tab, 0 Refill(s), Pharmacy: [facility] calcitriol 0.25 0.25 Active mcg oral microgram = 2018 [facility] capsule 1 cap, PO, [place] Daily, # 30 cap, 0 Refill(s), Pharmacy: [facility] [place]. Cipro Notes: May Inactive interfere 2018 [facility] w/enteral [place] feedings - Take 1 hr before or 2 hrs after antacids, dairy pdt & minerals. On empty stomach. Rocaltrol Notes: (Same Inactive As: 2017 Greater Rocaltrol) [place] Renvela Notes: Same No Longer as: Renvela Active 2017 [facility] [place] Synthroid Notes: Take No Longer 1 hour Active 2017 [facility] before or 2 [place] hours after meal; Enteral feeds may interefere with the absorption of this medication.( Same as:Levothroi d, Synthroid) Maxipime Notes: (Same No Longer As: Active 2018 Greater Maxipime) [place] MEDICATION WASTE Product Size: 1000 mg Product Wasted: ___ mg Citric Acid Notes: (Same No Longer 66.8 MG/ML / As: Bicitra) Active 2017 [facility] r sodium citrate [place] 100 MG/ML Oral Solution [Cytra 2] Lasix Notes: (Same No Longer as: Lasix) Active 2017 [facility] [place] MEDICATION WASTE Product Size: 40 mg Product Wasted: ___ mg Lasix Notes: (Same No Longer as: Lasix) Active 2017 [facility] [place] MEDICATION WASTE Product Size: 40 mg Product Wasted: ___ mg Insulin Notes: (Same No Longer Glargine 100 as: Lantus) Active 2017 Greater UNT/ML Do not hold [place] Injectable insulin Solution without [Lantus] contacting prescriber WASTE: F/P - Black; E - Municipal Trash Bin "single patient use only" Humalog Notes: (Same No Longer as: Humalog Active 2017 Greater ) Roll in [place] palms of hands gently; Do not shake `vigorously. "Single Patient Use Only " WASTE: F/P - Black; E - Municipal Trash Bin Stable for 28 days at room temperature. Expires in days from __Date Insulin Notes: (Same Inactive Glargine 100 as: Lantus) 2017 [facility] UNT/ML Do not hold [place] Injectable insulin Solution without [Lantus] contacting prescriber WASTE: F/P - Black; E - Municipal Trash Bin "single patient use only" atorvastatin Notes: (Same No Longer As: Lipitor) Active 2017 [facility] [place] Methadone Notes: (Same No Longer as: Active 2017 Dolophine) [place] Insulin 10 unit, Inactive Glargine 100 Route: 2018 [facility] UNT/ML SUB-Q, Drug [place] Injectable form: SOLN, Solution Bedtime, Dosing Weight 79, kg, Start date: 08/11/18 21:00:00 CDT, Duration: 30 day, Stop date: 09/09/18 21:00:00 CDT Zosyn Notes: (Same No Longer as: Zosyn) Active 2018 [facility] Dosing based [place] on Piperacillin component MEDICATION WASTE Product Size: 3375 mg Product Wasted: ___ mg Vancomycin 2001 mg: Inactive infuse over 2018 [facility] 2.5 hours [place] For adult patients only: Round to nearest 250 mg per Medical Staff approval MEDICATION WASTE Product Size: 1000 mg Product Wasted: ___ mg NIFEdipine 30 Notes: (Same No Longer mg oral tablet, as: Adalat Active 2018 Great er extended CC, [place] release Procardia XL) Give on empty stomach. Take 1 hour before or 2 hours after meal; "Avoid grapefruit and grapefruit juice". Do not crush Clonidine Notes: (Same No Longer As: Active 2018 [facility] Catapres) [place] NIFEdipine 30 Notes: (Same Inactive mg oral tablet, as: Adalat 2018 Great er extended CC, [place] release Procardia XL) Give on empty stomach. Take 1 hour before or 2 hours after meal; "Avoid grapefruit and grapefruit juice". Do not crush Sodium Chloride 1,000 mL, Inactive 0.9% (Bolus) IV 1,000 ml/hr, 2018 Gre ater Infuse Over: [place] 1 hr, Route: IV, ONCE, Priority: STAT, Dosing Weight 79 kg, Start date: 08/11/18 3:44:00 CDT, Stop date: 08/11/18 3:44:00 CDT Insulin regular Notes: (Same Inactive as: Humulin 2018 [facility] R and [place] NovoLIN R) WASTE: F/P - Black; E - [facility] Trash [facility] (Do not shake) atorvastatin 20 mg, PO, Active Daily, 0 2017 [facility] Refill(s) [facility] Clonidine 0.2 mg = 1 Active tab, PO, 2018 [facility] BID, # 30 [place] tab, 0 Refill(s) Furosemide 20 mg, Active Daily, 0 2018 [facility] Refill(s) [place] Insulin 10 unit, Active Glargine 100 SUB-Q, 2018 [facility] UNT/ML Bedtime, # [place] Injectable 10 mL, 0 Solution Refill(s) NIFEdipine 30 30 mg = 1 Active mg oral tablet, tab, PO, 2018 [facility] extended BID, # 90 [place] release tab, 1 Refill(s) Insulin Notes: (Same No Longer Glargine 100 as: Lantus) Active 2017 [facility] UNT/ML Do not hold [place] Injectable insulin Solution without [Lantus] contacting prescriber WASTE: F/P - Black; E - [facility] Trash [facility] "single patient use only" Labetalol 10 mg, 2 mL, No Longer Route: IVP, Active 2017 [facility] Drug form: [place] INJ, Q4H, Dosing Weight 74.455, kg, PRN Elevated BP, Start date: 08/10/18 21:14:00 CDT, Duration: 30 day, Stop date: 09/09/18 21:13:00 CDT Insulin Lispro Notes: (Same No Longer as: Humalog Active 2017 [facility] ) Roll in [place] palms of hands gently; Do not shake `vigorously. "Single Patient Use Only " WASTE: F/P - Black; E - [facility] Trash [facility] Stable for 28 days at room temperature. Expires in days from __Date Glucagon 1 mg, Route: No Longer IM, Drug Active 2017 [facility] form: [place] PDR/INJ, PRN, Dosing Weight 74.455, kg, PRN Blood Glucose Results, Start date: 08/10/18 20:47:00 CDT, Duration: 30 day, Stop date: 09/09/18 20:46:00 CDT Dextrose 50% 25 gm, 50 No Longer Syringe mL, Route: Active 2017 [facility] IVP, Drug [place] Form: INJ, Dosing Weight 74.455, kg, PRN, PRN Blood Glucose Results, Start date: 08/10/18 20:47:00 CDT, Duration: 30 day, Stop date: 09/09/18 20:46:00 CDT Saline Flush Notes: Same No Longer 0.9% as: BD Active 2017 Posiflush [facility] Sterile Ondansetron Notes: (Same No Longer as: Zofran) Active 2018 Greater [facility] MEDICATION WASTE Product Size: 4 mg Product Wasted: ___ mg Morphine Notes: (Same No Longer as:MORPhine Active 2017 [facility] Sulfate) [facility] Acetaminophen Notes: (Same No Longer 325 MG / as: [place] Active 2017 [facility] Hydrocodone 325/5) Do [facility] Bitartrate 5 MG not exceed Oral Tablet 4gm/day of acetaminophe n. Acetaminophen Notes: Do No Longer not exceed 4 Active 2017 [facility] gm/day. [place] (Same as: Tylenol) Sodium Chloride 1,000 mL, No Longer 0.9% IV 1,000 Rate: 75 Active 2017 [facility] mL ml/hr, [place] Infuse over: 13.3 hr, Route: IV, Dosing Weight 79 kg, Total Volume: 1,000, Start date: 08/10/18 20:45:00 CDT, Duration: 30 day, Stop date: 09/09/18 20:44:00 CDT, 1.91, m2 Insulin regular 60 units) Inactive WASTE: F/P - 2018 [facility] Black; E - [facility] Municipal Trash Bin Stable for 28 days at room temperature Expires in days from __Date Insulin regular 60 units) Inactive WASTE: F/P - 2017 [facility] Black; E - [facility] Trash Bin Stable for 28 days at room temperature Expires in days from __Date normal saline 2,000 mL, Inactive 0.9% IV 2,000 Rate: 2,000 2018 [facility] r mL ml/hr, [place] Infuse over: 1 hr, Route: IV, Dosing Weight 74.455 kg, Total Volume: 2,000, Priority: STAT, Start date: 08/10/18 17:32:00 CDT, Duration: 1 doses or times, Stop date: 08/10/18 18:31:00 CDT, 1.85, m2 Saline Flush Notes: Same Inactive 0.9% as: BD 2016 [facility] Posiflush [facility] Sterile Hydralazine Notes: (Same Inactive as: 2015 [facility] Apresoline) [facility] Push over 5 minutes Benadryl Notes: (Same Inactive as: 2014 Benadryl) [facility] Reglan Notes: (Same Inactive as: Reglan) 2014 [facility] Sodium Chloride 1,000 mL, Inactive 0.154 MEQ/ML 1,000 ml/hr, 2014 [facility] r Injectable Infuse Over: [facility] Solution 1 hr, Route: IV, 1,000, Drug form: INJ, ONCE, Priority: STAT, Dosing Weight 50.568 kg, Start date: 09/25/15 16:33:00, Duration: 1 doses or times, Stop date: 09/25/15 16:33:00 vancomycin + 2000 mg: Inactive Sodium Chloride infuse over [address] 0.9% IV 250 mL 2.5 hours [place] MEDICATION WASTE Product Size: 1000 mg Product Wasted: ___ mg Vancomycin 2000 mg: Inactive infuse over 2014 [facility] 2.5 hours [place] MEDICATION WASTE Product Size: 1000 mg Product Wasted: ___ mg Hydrochlorothia Notes: (Same Inactive zide as: 2014 Hydrodiuril) [place] With food. Glipizide Notes: (Same Inactive as: 2014 Glucotrol) [place] 30 min before meals. sodium Notes: No Longer hypochlorite (Dakin's Active 2014 topical 0.5% (0.5% =full [place] solution strength) 480 ml top SOLN) Note: full strength = 0.5% sodium hypochlorite . Benadryl Notes: (Same Inactive as: 2014 Benadryl) [facility] Tylenol Notes: Do Inactive not exceed 4 2014 [facility] gm/day. [place] (Same as: Tylenol) Sodium Chloride IV, 50 No Longer 0.9% IV ml/hr, PRN, Active 2014 PRN Blood [place] Transfusion, Start date: 05/06/15 5:12:00, Duration: 1, 100 ml Levemir FlexPen 10 unit, Inactive Route: 2014 SUB-Q, [place] Bedtime, Dosing Weight 70.455, kg, Start date: 05/05/15 21:00:00, Duration: 30 day, Stop date: 06/03/15 21:00:00 Enoxaparin Notes: (Same No Longer as: Lovenox) Active 2014 [facility] Glipizide Notes: (Same No Longer as: Active 2014 Glucotrol) [place] 30 min before meals. Lisinopril Notes: (Same No Longer as: Active 2014 Prinivil, [facility] Zestril) Labetalol 90; hold for No Longer pulse <55, Active 2014 [facility] Start date: [facility] 05/05/15 9:31:00, Duration: 30 day, Stop date: 06/04/15 9:30:00 Famotidine Notes: (Same No Longer as: Pepcid) Active 2014 [facility] Acetaminophen Notes: (Same No Longer 325 MG / as: [place] Active 2014 Hydrocodone 325/5) Do [place] Bitartrate 5 MG not exceed Oral Tablet 4gm/day of [[place] 5/325] acetaminophe n. normal saline 1,000 mL, No Longer 0.9% IV 1,000 Rate: 100 Active 2014 [facility] mL ml/hr, [place] Infuse over: 10 hr, Route: IV, Dosing Weight 70.455 kg, Total Volume: 1,000, Start date: 05/05/15 7:15:00, Duration: 1 day, Stop date: 05/06/15 7:14:00 Merrem Notes: Same No Longer as Merrem Active 2014 [facility] MEDICATION WASTE Product Size: 500 mg Product Wasted: ___ mg Vancomycin Notes: TIME No Longer CRITICAL Active 2014 [facility] MEDICATION [facility] Saline Flush Notes: Same No Longer 0.9% as: BD Active 2014 [facility] Posiflush [facility] Sterile Glucose 50 1,000 mL, Inactive MG/ML / Sodium Rate: 125 2014 [facility] Chloride 0.154 ml/hr, [place] MEQ/ML Infuse over: Injectable 8 hr, Route: Solution IV, Dosing Weight 70.455 kg, Total Volume: 1,000, Start date: 05/05/15 6:17:00, Duration: 30 day, Stop date: 06/04/15 6:16:00 Acetaminophen Notes: Do No Longer not exceed 4 Active 2014 [facility] gm/day. [place] (Same as: Tylenol) Acetaminophen Notes: (Same No Longer 325 MG / as: [place] Active 2014 [facility] Hydrocodone 325/5) Do [place] Bitartrate 5 MG not exceed Oral Tablet 4gm/day of acetaminophe n. Morphine Notes: (Same No Longer as:MORPhine Active 2014 [facility] Sulfate) [place] Docusate Notes: (Same No Longer as: Colace) Active 2014 [facility] (Do Not [place] Crush) Ondansetron Notes: (Same No Longer as: Zofran) Active 2014 [facility] MEDICATION WASTE Product Size: 4 mg Product Wasted: ___ mg Dextrose 50% 25 gm, 50 No Longer Syringe mL, Route: Active 2014 IVP, Drug [place] Form: INJ, Dosing Weight 70.455, kg, PRN, PRN Blood Glucose Results, Start date: 05/05/15 6:17:00, Duration: 30 day, Stop date: 06/04/15 6:16:00 Glucagon 1 mg, Route: No Longer IM, Drug Active 2014 [facility] form: [place] PDR/INJ, PRN, Dosing Weight 70.455, kg, PRN Blood Glucose Results, Start date: 05/05/15 6:17:00, Duration: 30 day, Stop date: 06/04/15 6:16:00 Insulin, Notes: Roll No Longer Aspart, Human in palms of Active 2014 [facility] r hands [place] gently; Do not shake vigorously. (Same as: NovoLOG) "single patient use only" Stable for 28 days at room temperature. Expires in days from __Date Tylenol 650 mg, Inactive Route: PO, 2014 [facility] Drug form: [place] TAB, ONCE, Dosing Weight 70.455, kg, Priority: STAT, Start date: 05/04/15 23:07:00, Stop date: 05/04/15 23:07:00 clonidine 1 tab(s) orally Active 0.2 mg orally 2 Diana eCW: Janak times a day [place] Procardia XL 1 tab(s) orally Active 30 mg orally Diana eCW: Janak bid [place] calcitriol 1 cap(s) orally Active 0.25 mcg orally Diana eCW : Janak once a day [place] levothyroxine TAKE 1 NA Active 50 mcg (0.05 Diana eCW: Janak TABLET BY mg) Diana MOUTH ONCE DAILY furosemide 1 tab(s) orally Active 20 mg orally Diana eCW: J ose once a day [place] Lantus Solostar 10 units subcutaneo Active 100 units/ml Diana eCW: Janak Pen usly subcutaneously Diana qhs NovoLog FlexPen 8 units subcutaneo Active 100 units/ml Diana eCW: Janak usly subcutaneously Diana ACTID atorvastatin 1 tab(s) orally Active 20 mg orally Diana eCW: Janak qhs Diana Allergies, Adverse Reactions, Alerts Substance Category Reaction Severity Reaction Status Date Comments S ource type Reported N.K.D.A. Adverse Info Not Adverse eCW: Janak Reaction Available Reaction 9 Zava dequan NKFA Assertion Propensity Active MH to adverse Memor ial reactions [place] to substance No Known Assertion Drug MH Medication allergy Memor ial Allergies [facility] Immunizations Immunization Date Site Status Last Comments Source Given Updated influenza virus Left completed Magy G reater vaccine, 8 deltoid [place], inactivated [facility] pneumococcal Not Given Kosta ang 23-valent vaccine 5 He ights,[facility] Results Order Name Results Value Reference Date Interpretation Comments Melba rce Range URINE AND UA Color Yellow Yellow 07/11 STOOL *NA* /[address] [facility] (07/11/19 5:29 PM) [facility] URINE AND UA Turbidity Clear Clear 07/11 STOOL (07/11/19 5:29 PM) /2018 Memoria l [facility] URINE AND UA Spec Grav 1.012 <=1.030 07/11 STOOL /2018 [facility] URINE AND UA pH 8.0 5.0 - 8.0 07/11 STOOL /2018 [facility] URINE AND UA Protein >=300 Negative 07/11 STOOL mg/dL mg/dL [facility] URINE AND UA Bili Negative Negative 07/11 STOOL *NA* /[address] [facility] (07/11/19 5:29 PM) [facility] URINE AND UA Blood Negative Negative 07/11 STOOL (07/11/19 5:29 PM) [facility] URINE AND UA Nitrite Negative Negative 07/11 STOOL (07/11/19 5:29 PM) [facility] URINE AND UA Leuk Est Negative Negative 07/11 STOOL (07/11/19 5:29 PM) [facility] URINE AND UA Sq Epi Few /LPF Few /LPF 07/11 STOOL /2018 [facility] URINE AND UA WBC 6 0 - 5 07/11 STOOL /2018 [facility] URINE AND UA RBC 3 0 - 2 07/11 STOOL /2018 [facility] URINE AND UA Bacteria Occasional None Seen 07/11 STOOL /HPF /HPF /2018 [facility] URINE AND UA Glucose 500 07/11 STOOL /2018 [facility] URINE AND UA Ketones Negative 07/11 STOOL /2018 [facility] URINE AND UA <=1.0 0.1 - 1.0 07/11 STOOL Urobilinogen mg/dL /2018 [facility] Gram Stain No Wbc'S 07/11 Report Or /2018 [facility] Seen Culture: Rare Staphylococcus Species, Not S. aureus 2 Wound/Absces Susceptibility To Follow /2018 [facility] w/Gram [facility] Stain ELECTROLYTE Sodium Lvl 132 135 - 145 07/11 S [facility] ELECTROLYTE Potassium 4.4 3.5 - 5.1 07/11 S Lvl /2018 [facility] ELECTROLYTE Chloride Lvl 95 95 - 109 07/11 S [facility] ELECTROLYTE Calcium Lvl 9.0 8.5 - 10.5 07/11 S [facility] ELECTROLYTE Glucose Lvl 247 70 - 99 07/11 S [facility] ELECTROLYTE BUN 56 7 - 22 07/11 S [facility] ELECTROLYTE CO2 24 24 - 32 07/11 S [facility] ELECTROLYTE Albumin Lvl 3.3 3.5 - 5.0 07/11 S [facility] ELECTROLYTE AGAP 17.4 10.0 - 07/11 S 20.0 /2018 [facility] ELECTROLYTE Phosphorus 6.5 2.5 - 4.5 07/11 S [facility] ELECTROLYTE Creatinine 6.98 0.50 - 09 MH S Lvl 1.40 /2018 [facility] ELECTROLYTE eGFR 6 07/11 Result S /2018 Comment: [facility] eGFR is [place] calculated using the CKD-EPI formula. In most young, healthy individuals the eGFR will be >90 mL/min/1.73m2 . The eGFR declines with age. An eGFR of 60-89 may be normal in some populations, particularly the elderly, for whom the CKD-EPI formula has not been extensively validated. Use of the eGFR is not recommended in the following populations:< br/>
Sneha viduals with unstable creatinine concentration s, including patients and those with serious co-morbid conditions.<b r/>
Patie nts with extremes in muscle mass or diet.

The data above are obtained from the National Kidney Disease Education Program (NKDEP) which additionally recommends that when the eGFR is used in patients with extremes of body mass index for purposes of drug dosing, the eGFR should be multiplied by the estimated BMI. HEMATOLOGY WBC 11.4 3.7 - 10.4 07/11 /2018 [facility] HEMATOLOGY RBC 4.38 4.20 - 07/11 MH 5.40 /2018 [facility] HEMATOLOGY Hgb 13.3 12.0 - 07/11 MH 16.0 /2018 [facility] HEMATOLOGY Hct 40.8 36.0 - 07/11 MH 48.0 [facility] HEMATOLOGY MCV 93.2 80.0 - 07/11 MH 98.0 /2018 [facility] HEMATOLOGY MCH 30.5 27.0 - 07/11 MH 31.0 /2018 [facility] HEMATOLOGY MCHC 32.7 32.0 - 09 MH 36.0 /2018 [facility] HEMATOLOGY RDW 16.0 11.5 - 09 MH 14.5 [facility] HEMATOLOGY Platelet 294 133 - 450 09 MH [facility] HEMATOLOGY MPV 6.9 7.4 - 10.4 07/11 [facility] HEMATOLOGY PT 13.9 12.0 - 07/11 MH 14.7 [facility] HEMATOLOGY INR 1.09 0.85 - 07/11 MH 1.17 /2018 [facility] HEMATOLOGY PTT 31.1 22.9 - 07/11 MH 35.8 /2018 [facility] HEMATOLOGY Segs 67.0 45.0 - 07/11 MH 75.0 /2018 [facility] HEMATOLOGY Lymphocytes 23.4 20.0 - 09/ MH 40.0 /2019 [facility] HEMATOLOGY Monocytes 6.3 2.0 - 12.0 09/ MH /2019 [facility] HEMATOLOGY Eosinophils 2.4 0.0 - 4.0 09/ MH /2019 [facility] HEMATOLOGY Basophils 0.9 0.0 - 1.0 09/ MH /2018 [facility] HEMATOLOGY Neutrophils 7.7 1.5 - 8.1 09 # /2019 [facility] HEMATOLOGY Lymphocytes 2.7 1.0 - 5.5 09 # /2019 [facility] HEMATOLOGY Monocytes # 0.7 0.0 - 0.8 09 MH /2018 [facility] HEMATOLOGY Eosinophils 0.3 0.0 - 0.5 07/11 # /2019 [facility] HEMATOLOGY Basophils # 0.1 0.0 - 0.2 07/11 MH /2018 [facility] CARDIAC Total CK 119 12 - 191 07/11 ENZYMES /2018 [facility] CARDIAC Troponin-I <0.02 0.00 - 07/11 ENZYMES 0.40 [facility] CHEM PANEL Lactic Acid 0.9 0.5 - 2.2 07/11 Lvl /2018 [facility] ELECTROLYTE Sodium Lvl 133 135 - 145 07/11 S /2018 [facility] ELECTROLYTE Potassium 5.2 3.5 - 5.1 07/11 S Lvl [facility] ELECTROLYTE Chloride Lvl 95 95 - 109 07/11 S /2018 [facility] ELECTROLYTE Calcium Lvl 8.7 8.5 - 10.5 07/11 S /2018 [facility] ELECTROLYTE Albumin Lvl 3.3 3.5 - 5.0 07/11 S /2018 [facility] ELECTROLYTE BUN 55 7 - 22 07/11 Result S Comment: sl. [facility] hemolyzed [facility] ELECTROLYTE CO2 24 24 - 32 07/11 S /2018 [facility] ELECTROLYTE Glucose Lvl 224 70 - 99 07/11 S /2018 [facility] ELECTROLYTE AST 43 0 - 37 09 S /2018 [facility] ELECTROLYTE Creatinine 7.09 0.50 - 09 S Lvl 1.40 [facility] ELECTROLYTE ALT 40 0 - 65 07/11 S /2018 [facility] ELECTROLYTE Bili Total 0.6 0.2 - 1.3 07/11 S /2018 [facility] ELECTROLYTE eGFR 6 07/11 Result S Comment: [facility] eGFR is [place] calculated using the CKD-EPI formula. In most young, healthy individuals the eGFR will be >90 mL/min/1.73m2 . The eGFR declines with age. An eGFR of 60-89 may be normal in some populations, particularly the elderly, for whom the CKD-EPI formula has not been extensively validated. Use of the eGFR is not recommended in the following populations:< br/>
Sneha viduals with unstable creatinine concentration s, including patients and those with serious co-morbid conditions.<b r/>
Patie nts with extremes in muscle mass or diet.

The data above are obtained from the National Kidney Disease Education Program (NKDEP) which additionally recommends that when the eGFR is used in patients with extremes of body mass index for purposes of drug dosing, the eGFR should be multiplied by the estimated BMI. ELECTROLYTE Total 8.8 6.4 - 8.4 07/11 MH S [facility] ELECTROLYTE Alk Phos 100 39 - 136 07/11 MH S [facility] ELECTROLYTE AGAP 19.2 10.0 - 07/11 MH S 20.0 [facility] ELECTROLYTE B/C Ratio 8 6 - 25 07/11 S /2018 [facility] ELECTROLYTE Globulin 5.5 2.7 - 4.2 07/11 S /2018 [facility] ELECTROLYTE A/G Ratio 0.6 0.7 - 1.6 07/11 S /2018 [facility] HEMATOLOGY PT See Note 5 12.0 - 07/11 Result (07/11/19 4:47 AM) 14. Comment: [facility]
"Corrected Report was called to _Keith Vázquez at 07/11/2019 05:13__by CL__.Read Back OK." HEMATOLOGY INR See Note 4 0.85 - 07/11 Result (07/11/19 4:47 AM) 11.25 Comment: [facility]
"Corrected Report was called to _Keith Vázquez at 07/11/2019 05:13__by CL__.Read Back OK." CHEM PANEL Procalcitoni 0.29 0.00 - 07/11 n Lvl 0.10 [facility] CHEM PANEL eGFR 15 11/05 Result Comment: The [facility] eGFR is [place] calculated using the CKD-EPI formula. In most young, healthy individuals the eGFR will be >90 mL/min/1.73m2 . The eGFR declines with age. An eGFR of 60-89 may be normal in some populations, particularly the elderly, for whom the CKD-EPI formula has not been extensively validated. Use of the eGFR is not recommended in the following populations:< br/>
Sneha viduals with unstable creatinine concentration s, including patients and those with serious co-morbid conditions.<b r/>
Patie nts with extremes in muscle mass or diet.

The data above are obtained from the National Kidney Disease Education Program (NKDEP) which additionally recommends that when the eGFR is used in patients with extremes of body mass index for purposes of drug dosing, the eGFR should be multiplied by the estimated BMI. CHEM PANEL Bili Total 0.3 0.2 - 1.3 11/05 [facility] CHEM PANEL ALT 39 0 - 65 11/05 [facility] CHEM PANEL Alk Phos 74 39 - 136 11/05 [facility] CHEM PANEL AST 42 0 - 37 11/05 [facility] CHEM PANEL Albumin Lvl 2.4 3.5 - 5.0 11/05 [facility] CHEM PANEL Total 8.0 6.4 - 8.4 11/05 [facility] CHEM PANEL Chloride Lvl 99 95 - 109 11/05 [facility] CHEM PANEL CO2 26 24 - 32 11/05 [facility] CHEM PANEL Calcium Lvl 8.5 8.5 - 10.5 11/05 [facility] CHEM PANEL Potassium 4.1 3.5 - 5.1 11/05 Lvl [facility] CHEM PANEL Glucose Lvl 284 70 - 99 11/05 [facility] CHEM PANEL BUN 27 7 - 22 11/05 [facility] CHEM PANEL Creatinine 3.22 0.50 - 11/05 MH Lvl 1.40 [facility] CHEM PANEL Sodium Lvl 135 135 - 145 11/05 [facility] CHEM PANEL B/C Ratio 8 6 - 25 11/05 [facility] CHEM PANEL A/G Ratio 0.4 0.7 - 1.6 11/05 [facility] CHEM PANEL Globulin 5.6 2.7 - 4.2 11/05 [facility] [place] CHEM PANEL AGAP 14.1 10.0 - 11/05 MH 20.0 /2017 [facility] HEMATOLOGY Eosinophils 0.1 0.0 - 0.5 11/05 MH # /2018 [facility] HEMATOLOGY Basophils # 0.1 0.0 - 0.2 11/05 [facility] HEMATOLOGY Basophils 0.9 0.0 - 1.0 11/05 [facility] [place] HEMATOLOGY Neutrophils 5.5 1.5 - 8.1 11/05 MH # /2018 [facility] HEMATOLOGY Lymphocytes 2.0 1.0 - 5.5 11/05 MH # /2017 [facility] [place] HEMATOLOGY Monocytes # 0.6 0.0 - 0.8 11/05 [facility] HEMATOLOGY Segs 66.7 45.0 - 11/05 MH 75.0 /2017 [facility] HEMATOLOGY Lymphocytes 24.1 20.0 - 11/05 MH 40.0 /2017 [facility] [place] HEMATOLOGY Monocytes 6.7 2.0 - 12.0 11/05 [facility] HEMATOLOGY Eosinophils 1.6 0.0 - 4.0 11/05 /2017 [facility] HEMATOLOGY MCHC 31.7 32.0 - 11/05 MH 36.0 /2018 [facility] HEMATOLOGY RDW 16.0 11.5 - 11/05 MH 14.5 /2017 [facility] HEMATOLOGY Platelet 319 133 - 450 11/05 [facility] HEMATOLOGY MPV 6.8 7.4 - 10.4 11/05 /2017 [facility] HEMATOLOGY WBC 8.3 3.7 - 10.4 11/05 [facility] HEMATOLOGY RBC 3.33 4.20 - 11/05 MH 5.40 /2018 [facility] HEMATOLOGY MCV 84.1 80.0 - 11/05 MH 98.0 /2018 [facility] HEMATOLOGY Hct 28.0 36.0 - 11/05 MH 48.0 /2018 [facility] HEMATOLOGY MCH 26.7 27.0 - 11/05 MH 31.0 /2018 [facility] HEMATOLOGY Hgb 8.9 12.0 - 11/05 MH 16.0 /2018 [facility] TOXICOLOGY Vanco Lvl 16.4 11/05 [facility] CHEM PANEL eGFR 15 11/04 Result Comment: [facility] eGFR is [place] calculated using the CKD-EPI formula. In most young, healthy individuals the eGFR will be >90 mL/min/1.73m2 . The eGFR declines with age. An eGFR of 60-89 may be normal in some populations, particularly the elderly, for whom the CKD-EPI formula has not been extensively validated. Use of the eGFR is not recommended in the following populations:< br/>
Sneha viduals with unstable creatinine concentration s, including patients and those with serious co-morbid conditions.<b r/>
Patie nts with extremes in muscle mass or diet.

The data above are obtained from the National Kidney Disease Education Program (NKDEP) which additionally recommends that when the eGFR is used in patients with extremes of body mass index for purposes of drug dosing, the eGFR should be multiplied by the estimated BMI. CHEM PANEL Bili Total 0.2 0.2 - 1.3 11/04 [facility] CHEM PANEL Alk Phos 72 39 - 136 11/04 [facility] CHEM PANEL AST 31 0 - 37 11/04 [facility] CHEM PANEL A/G Ratio 0.4 0.7 - 1.6 11/04 [facility] CHEM PANEL ALT 31 0 - 65 11/04 [facility] CHEM PANEL Albumin Lvl 2.1 3.5 - 5.0 11/04 [facility] CHEM PANEL Globulin 5.4 2.7 - 4.2 11/04 [facility] CHEM PANEL Total 7.5 6.4 - 8.4 11/04 Protein [facility] CHEM PANEL Calcium Lvl 8.4 8.5 - 10.5 11/04 [facility] CHEM PANEL B/C Ratio 8 6 - 25 11/04 [facility] CHEM PANEL CO2 27 24 - 32 11/04 [facility] CHEM PANEL AGAP 12.5 10.0 - 11/04 MH 20.0 /2018 [facility] CHEM PANEL BUN 27 7 - 22 11/04 [facility] CHEM PANEL Potassium 4.5 3.5 - 5.1 11/04 Lvl /2017 [facility] CHEM PANEL Chloride Lvl 103 95 - 109 11/04 [facility] CHEM PANEL Creatinine 3.24 0.50 - 11/04 Lvl 1.40 /2017 [facility] CHEM PANEL Sodium Lvl 138 135 - 145 11/04 [facility] CHEM PANEL Glucose Lvl 174 70 - 99 11/04 [facility] HEMATOLOGY Platelet 299 133 - 450 11/04 [facility] HEMATOLOGY RDW 16.1 11.5 - 11/04 MH 14.5 /2017 [facility] HEMATOLOGY MPV 6.9 7.4 - 10.4 11/04 [facility] HEMATOLOGY RBC 3.16 4.20 - 11/04 MH 5.40 /2018 [facility] HEMATOLOGY WBC 7.1 3.7 - 10.4 11/04 [facility] HEMATOLOGY MCHC 32.3 32.0 - 11/04 36.0 /2017 [facility] HEMATOLOGY MCH 26.6 27.0 - 11/04 31.0 /2017 [facility] HEMATOLOGY Hct 26.0 36.0 - 11/04 48.0 /2017 [facility] HEMATOLOGY Hgb 8.4 12.0 - 11/04 16.0 /2017 [facility] HEMATOLOGY MCV 82.4 80.0 - 11/04 98.0 /2018 [facility] HEMATOLOGY Monocytes 7.8 2.0 - 12.0 11/04 [facility] HEMATOLOGY Monocytes # 0.6 0.0 - 0.8 11/04 [facility] HEMATOLOGY Lymphocytes 2.3 1.0 - 5.5 11/04 # [facility] HEMATOLOGY Basophils 0.9 0.0 - 1.0 11/04 [facility] HEMATOLOGY Neutrophils 3.9 1.5 - 8.1 11/04 # [facility] HEMATOLOGY Eosinophils 3.6 0.0 - 4.0 11/04 [facility] HEMATOLOGY Eosinophils 0.3 0.0 - 0.5 11/04 # [facility] HEMATOLOGY Basophils # 0.1 0.0 - 0.2 11/04 [facility] HEMATOLOGY Segs 55.5 45.0 - 11/04 75.0 /2018 [facility] HEMATOLOGY Lymphocytes 32.2 20.0 - 11/04 40.0 /2018 [facility] TOXICOLOGY Vanco Lvl 8.3 11/04 [facility] ANEMIA Vitamin B12 734 254 - 1320 11/03 STUDY [facility] ANEMIA UIBC 88 110 - 370 11/03 STUDY [facility] ANEMIA % Satur Fe 65 12 - 57 11/03 STUDY [facility] ANEMIA TIBC 248 228 - 428 11/03 [facility] ANEMIA Iron 160 30 - 160 11/03 STUDY [facility] ANEMIA Folate Lvl 13.3 >=3.0 11/03 STUDY ng/mL /2017 [facility] CHEM PANEL Phosphorus 3.2 2.5 - 4.5 11/03 [facility] CHEM PANEL A/G Ratio 0.3 0.7 - 1.6 11/03 [facility] CHEM PANEL B/C Ratio 7 6 - 25 11/03 [facility] CHEM PANEL AGAP 14.6 10.0 - 11/03 MH 20.0 /2017 [facility] CHEM PANEL Globulin 5.9 2.7 - 4.2 11/03 [facility] CHEM PANEL eGFR 17 11/03 [facility] Comment: The [facility] eGFR is [place] calculated using the CKD-EPI formula. In most young, healthy individuals the eGFR will be >90 mL/min/1.73m2 . The eGFR declines with age. An eGFR of 60-89 may be normal in some populations, particularly the elderly, for whom the CKD-EPI formula has not been extensively validated. Use of the eGFR is not recommended in the following populations:< br/>
Sneha viduals with unstable creatinine concentration s, including patients and those with serious co-morbid conditions.<b r/>
Patie nts with extremes in muscle mass or diet.

The data above are obtained from the National Kidney Disease Education Program (NKDEP) which additionally recommends that when the eGFR is used in patients with extremes of body mass index for purposes of drug dosing, the eGFR should be multiplied by the estimated BMI. CHEM PANEL Total 7.8 6.4 - 8.4 11/03 Protein [facility] CHEM PANEL CO2 20 24 - 32 11/03 [facility] CHEM PANEL Calcium Lvl 8.0 8.5 - 10.5 11/03 [facility] CHEM PANEL Chloride Lvl 103 95 - 109 11/03 [facility] CHEM PANEL Potassium 4.6 3.5 - 5.1 11/03 Lvl /2017 [facility] CHEM PANEL Sodium Lvl 133 135 - 145 11/03 [facility] CHEM PANEL BUN 21 7 - 22 11/03 [facility] CHEM PANEL Creatinine 3.01 0.50 - 12/26 MH Lvl 1.40 /2017 [facility] CHEM PANEL Glucose Lvl 285 70 - 99 11/03 [facility] CHEM PANEL Bili Total 0.3 0.2 - 1.3 11/03 [facility] CHEM PANEL Alk Phos 81 39 - 136 11/03 /2017 [facility] CHEM PANEL AST 39 0 - 37 11/03 [facility] CHEM PANEL Albumin Lvl 1.9 3.5 - 5.0 11/03 [facility] CHEM PANEL ALT 36 0 - 65 11/03 [facility] HEMATOLOGY MCV 83.6 80.0 - 11/03 MH 98.0 /2017 [facility] HEMATOLOGY MCH 27.5 27.0 - 11/03 MH 31.0 /2017 [facility] HEMATOLOGY MCHC 32.8 32.0 - 11/03 36.0 /2017 [facility] HEMATOLOGY RDW 16.4 11.5 - 11/03 14.5 /2017 [facility] HEMATOLOGY Platelet 298 133 - 450 11/03 /2017 [facility] HEMATOLOGY MPV 6.9 7.4 - 10.4 11/03 [facility] HEMATOLOGY Hct 24.7 36.0 - 11/03 48.0 /2017 [facility] HEMATOLOGY RBC 2.96 4.20 - 11/03 5.40 /2017 [facility] HEMATOLOGY Hgb 8.1 12.0 - 11/03 16.0 /2017 [facility] HEMATOLOGY WBC 7.3 3.7 - 10.4 11/03 [facility] HEMATOLOGY Eosinophils 0.2 0.0 - 0.5 11/03 MH # /2018 [facility] HEMATOLOGY Basophils # 0.1 0.0 - 0.2 11/03 [facility] HEMATOLOGY Segs 61.7 45.0 - 11/03 MH 75.0 /2018 [facility] HEMATOLOGY Monocytes 5.7 2.0 - 12.0 11/03 [facility] HEMATOLOGY Lymphocytes 28.9 20.0 - 11/03 40.0 /2017 [facility] HEMATOLOGY Eosinophils 2.9 0.0 - 4.0 11/03 [facility] HEMATOLOGY Basophils 0.8 0.0 - 1.0 11/03 [facility] HEMATOLOGY Neutrophils 4.5 1.5 - 8.1 11/03 # /2017 [facility] HEMATOLOGY Lymphocytes 2.1 1.0 - 5.5 11/03 # /2017 [facility] HEMATOLOGY Monocytes # 0.4 0.0 - 0.8 11/03 [facility] TOXICOLOGY Vanco Lvl 9.7 11/03 [facility] IMMUNOLOGY Hep B Core Positive Negative 11/02 Ab *NA* /2017 [facility] (11/02/18 4:20 PM) [facility] IMMUNOLOGY Hep Bs Ab >1000.0 <=7.4 11/02 mIU/mL [facility] IMMUNOLOGY Hep Bs Ag Negative Negative 11/02 MH *NA* /2017 [facility] (11/02/18 4:20 PM) [facility] ts ANEMIA Iron 46 30 - 160 11/02 STUDY /2017 [facility] ANEMIA TIBC 253 228 - 428 11/02 STUDY /2017 [facility] ANEMIA % Satur Fe 18 12 - 57 11/02 STUDY /2017 [facility] ANEMIA UIBC 207 110 - 370 11/02 STUDY /2017 [facility] ANEMIA Ferritin Lvl 96 5 - 204 11/02 STUDY [facility] IMMUNOLOGY HIV Ag/Ab Negative Negative 11/02 4th Gen *NA* [facility] (11/02/18 10:58 AM) [facility] IMMUNOLOGY Hep C Ab Positive 11/02 MH *ABN* [facility] (11/02/18 10:58 AM) [facility] IMMUNOLOGY Hep Bs Ag Negative Negative 11/02 MH *NA* [facility] (11/02/18 10:58 AM) [facility] IMMUNOLOGY Hep B Core Positive Negative 11/02 Ab *NA* [facility] (11/02/18 10:58 AM) [facility] IMMUNOLOGY Hep Bs Ab >1000.0 <=7.4 11/02 mIU/mL [facility] PARATHYROID PTH Intact 191.7 18.4 - 11/02 PROFILE 80.1 [facility] SPECIAL Hgb A1C 10.9 <=5.6 % 11/02 CHEMISTRY /2017 [facility] CARDIAC Troponin-I <0.02 0.00 - 11/02 ENZYMES 0.40 /2017 [facility] CARDIAC BNP 11 <=100 11/02 ENZYMES pg/mL /2017 [facility] CARDIAC Total CK 527 12 - 191 11/02 ENZYMES /2017 [facility] HEMATOLOGY Lymphocytes 1.5 1.0 - 5.5 08/15 MH # /2018 [facility] HEMATOLOGY Neutrophils 5.2 1.5 - 8.1 08/15 MH # /2018 [facility] HEMATOLOGY Basophils # 0.1 0.0 - 0.2 08/15 MH /2017 [facility] HEMATOLOGY Eosinophils 0.2 0.0 - 0.5 10 MH # /2017 [facility] HEMATOLOGY Monocytes # 0.5 0.0 - 0.8 08/15 [facility] HEMATOLOGY Segs 69.3 45.0 - 08/15 MH 75.0 /2017 [facility] HEMATOLOGY Lymphocytes 20.7 20.0 - 08/15 MH 40.0 /2017 [facility] HEMATOLOGY Eosinophils 2.4 0.0 - 4.0 08/15 [facility] HEMATOLOGY Monocytes 6.7 2.0 - 12.0 08/15 [facility] HEMATOLOGY Basophils 0.9 0.0 - 1.0 08/15 [facility] HEMATOLOGY RDW 15.5 11.5 - 08/15 MH 14.5 [facility] HEMATOLOGY Platelet 304 133 - 450 08/15 [facility] HEMATOLOGY MPV 6.8 7.4 - 10.4 08/15 [facility] HEMATOLOGY Hgb 8.7 12.0 - 08/15 MH 16.0 /2017 [facility] HEMATOLOGY RBC 3.21 4.20 - 08/15 MH 5.40 /2017 [facility] HEMATOLOGY Hct 26.6 36.0 - 08/15 MH 48.0 /2017 [facility] HEMATOLOGY MCV 83.0 80.0 - 08/15 MH 98.0 /2017 [facility] HEMATOLOGY MCHC 32.8 32.0 - 08/15 MH 36.0 /2017 [facility] HEMATOLOGY MCH 27.2 27.0 - 08/15 MH 31.0 /2017 [facility] HEMATOLOGY WBC 7.5 3.7 - 10.4 08/15 [facility] CHEM PANEL Phosphorus 6.5 2.5 - 4.5 08/15 [facility] CHEM PANEL eGFR 13 08/15 Result Comment: The [facility] eGFR is [place] calculated using the CKD-EPI formula. In most young, healthy individuals the eGFR will be >90 mL/min/1.73m2 . The eGFR declines with age. An eGFR of 60-89 may be normal in some populations, particularly the elderly, for whom the CKD-EPI formula has not been extensively validated. Use of the eGFR is not recommended in the following populations:< br/>
Sneha viduals with unstable creatinine concentration s, including patients and those with serious co-morbid conditions.<b r/>
Patie nts with extremes in muscle mass or diet.

The data above are obtained from the National Kidney Disease Education Program (NKDEP) which additionally recommends that when the eGFR is used in patients with extremes of body mass index for purposes of drug dosing, the eGFR should be multiplied by the estimated BMI. CHEM PANEL Glucose Lvl 119 70 - 99 08/15 [facility] CHEM PANEL Calcium Lvl 8.0 8.5 - 10.5 08/15 [facility] CHEM PANEL CO2 15 24 - 32 08/15 [facility] CHEM PANEL Chloride Lvl 115 95 - 109 08/15 [facility] CHEM PANEL AGAP 16.0 10.0 - 08/15 MH 20.0 [facility] CHEM PANEL Potassium 5.0 3.5 - 5.1 08/15 MH Lvl [facility] CHEM PANEL BUN 46 7 - 22 08/15 [facility] CHEM PANEL Sodium Lvl 141 135 - 145 08/15 [facility] CHEM PANEL Creatinine 3.68 0.50 - 08/15 MH Lvl 1.40 /2017 [facility] ELECTROLYTE AGAP 12.7 10.0 - 08/15 MH S 20.0 [facility] ELECTROLYTE eGFR 13 08/15 Result MH S Comment: The [facility] eGFR is [place] calculated using the CKD-EPI formula. In most young, healthy individuals the eGFR will be >90 mL/min/1.73m2 . The eGFR declines with age. An eGFR of 60-89 may be normal in some populations, particularly the elderly, for whom the CKD-EPI formula has not been extensively validated. Use of the eGFR is not recommended in the following populations:< br/>
Sneha viduals with unstable creatinine concentration s, including patients and those with serious co-morbid conditions.<b r/>
Patie nts with extremes in muscle mass or diet.

The data above are obtained from the National Kidney Disease Education Program (NKDEP) which additionally recommends that when the eGFR is used in patients with extremes of body mass index for purposes of drug dosing, the eGFR should be multiplied by the estimated BMI. ELECTROLYTE BUN 45 7 - 22 08/15 MH S [facility] ELECTROLYTE Glucose Lvl 169 70 - 99 10/ MH S /2017 [facility] ELECTROLYTE Creatinine 3.74 0.50 - 1007 MH S Lvl 1.40 /2017 [facility] ELECTROLYTE Sodium Lvl 140 135 - 145 10/ MH S /2017 [facility] ELECTROLYTE Calcium Lvl 7.7 8.5 - 10.5 10 MH S /2017 [facility] ELECTROLYTE CO2 23 24 - 32 10 MH S /2017 [facility] ELECTROLYTE Chloride Lvl 109 95 - 109 10 MH S /2017 [facility] ELECTROLYTE Potassium 4.7 3.5 - 5.1 10/07 MH S Lvl /2018 [facility] HEMATOLOGY RDW 15.5 11.5 - 10 MH 14.5 /2017 [facility] HEMATOLOGY MPV 6.9 7.4 - 10.4 08/15 MH /2017 [facility] HEMATOLOGY Platelet 306 133 - 450 08/15 MH /2017 [facility] HEMATOLOGY MCV 84.5 80.0 - 10 MH 98.0 /2018 [facility] HEMATOLOGY MCH 27.6 27.0 - 10 MH 31.0 /2017 [facility] HEMATOLOGY MCHC 32.6 32.0 - 1007 MH 36.0 /2018 [facility] HEMATOLOGY RBC 3.12 4.20 - 1007 MH 5.40 /2017 [facility] HEMATOLOGY WBC 8.6 3.7 - 10.4 08/15 MH /2017 [facility] HEMATOLOGY Hct 26.4 36.0 - 1007 MH 48.0 /2018 [facility] HEMATOLOGY Hgb 8.6 12.0 - 1007 MH 16.0 /2018 [facility] HEMATOLOGY Eosinophils 0.2 0.0 - 0.5 08/15 MH # /2018 [facility] HEMATOLOGY Neutrophils 5.6 1.5 - 8.1 10 MH # /2018 [facility] HEMATOLOGY Monocytes # 0.5 0.0 - 0.8 08/15 MH /2017 [facility] HEMATOLOGY Lymphocytes 2.2 1.0 - 5.5 08/15 MH # /2018 [facility] HEMATOLOGY Basophils # 0.1 0.0 - 0.2 08/15 MH /2017 [facility] HEMATOLOGY Lymphocytes 26.2 20.0 - 10/07 MH 40.0 /2018 [facility] HEMATOLOGY Basophils 0.8 0.0 - 1.0 08/15 MH /2017 [facility] HEMATOLOGY Eosinophils 2.4 0.0 - 4.0 08/15 MH /2017 [facility] HEMATOLOGY Segs 64.9 45.0 - 08/15 MH 75.0 /2017 [facility] HEMATOLOGY Monocytes 5.7 2.0 - 12.0 08/15 [facility] CHEM PANEL eGFR 13 08/14 [facility] Comment: The [facility] eGFR is [place] calculated using the CKD-EPI formula. In most young, healthy individuals the eGFR will be >90 mL/min/1.73m2 . The eGFR declines with age. An eGFR of 60-89 may be normal in some populations, particularly the elderly, for whom the CKD-EPI formula has not been extensively validated. Use of the eGFR is not recommended in the following populations:< br/>
Sneha viduals with unstable creatinine concentration s, including patients and those with serious co-morbid conditions.<b r/>
Patie nts with extremes in muscle mass or diet.

The data above are obtained from the National Kidney Disease Education Program (NKDEP) which additionally recommends that when the eGFR is used in patients with extremes of body mass index for purposes of drug dosing, the eGFR should be multiplied by the estimated BMI. CHEM PANEL Glucose Lvl 157 70 - 99 08/14 [facility] CHEM PANEL Creatinine 3.75 0.50 - 08/14 Lvl 1.40 [facility] CHEM PANEL BUN 47 7 - 22 08/14 [facility] CHEM PANEL Potassium 4.9 3.5 - 5.1 08/14 Lvl /2017 [facility] CHEM PANEL Sodium Lvl 141 135 - 145 08/14 [facility] CHEM PANEL CO2 16 24 - 32 08/14 [facility] CHEM PANEL Chloride Lvl 112 95 - 109 08/14 [facility] CHEM PANEL AGAP 17.9 10.0 - 08/14 MH 20.0 /2017 [facility] CHEM PANEL Calcium Lvl 7.7 8.5 - 10.5 08/14 [facility] PARATHYROID PTH Intact 305.6 18.4 - 08/14 PROFILE 80.1 [facility] CEFTAZIDIME Gram Stain Moderate Gram Negative Rods 08/12 MH :SUSC:PT:IS Report Rare Gram Positive Cocci /2017 [facility] OLATE:ORDQN Few Gram Positive Rods [facility] :JULIANNA Rare WBC's CEFTAZIDIME Culture: Many Klebsiella oxytoca 08/12 MH :SUSC:PT:IS Wound/Absces Many Pseudomonas aeruginosa /2017 [facility] OLATE:ORDQN s w/Gram [facility] :JULIANNA Stain CEFTAZIDIME Pseudomonas Pseudomona 08/12 MH :SUSC:PT:IS aeruginosa s /2017 [facility] OLATE:ORDQN aeruginosa [place] :JULINANA CEFTAZIDIME Klebsiella Klebsiella 08/12 MH :SUSC:PT:IS oxytoca oxytoca /2017 [facility] OLATE:ORDQN [facility] :JULIANNA SPECIAL Hgb A1C >16.0 % <=5.6 % 08/11 MH CHEMISTRY /2018 [facility] HEMATOLOGY Basophils # 0.1 0.0 - 0.2 08/11 MH /2017 [facility] HEMATOLOGY Monocytes # 0.5 0.0 - 0.8 08/11 MH /2017 [facility] HEMATOLOGY Eosinophils 0.2 0.0 - 0.5 08/11 MH # /2018 [facility] HEMATOLOGY Lymphocytes 37.8 20.0 - 08/11 MH 40.0 /2017 [facility] HEMATOLOGY Monocytes 6.3 2.0 - 12.0 08/11 /2017 [facility] HEMATOLOGY Neutrophils 3.9 1.5 - 8.1 08/11 MH # /2018 [facility] HEMATOLOGY Lymphocytes 2.9 1.0 - 5.5 08/11 MH # /2018 [facility] HEMATOLOGY Eosinophils 3.0 0.0 - 4.0 08/11 MH /2017 [facility] HEMATOLOGY Basophils 1.0 0.0 - 1.0 08/11 MH /2017 [facility] HEMATOLOGY Segs 51.9 45.0 - 08/11 MH 75.0 /2017 [facility] HEMATOLOGY RDW 15.2 11.5 - 08/11 MH 14.5 /2017 [facility] HEMATOLOGY Platelet 284 133 - 450 08/11 MH /2017 [facility] HEMATOLOGY MPV 7.5 7.4 - 10.4 08/11 MH /2018 [facility] HEMATOLOGY MCV 83.7 80.0 - 08/11 MH 98.0 /2018 [facility] HEMATOLOGY MCH 27.4 27.0 - 08/11 MH 31.0 /2018 [facility] HEMATOLOGY MCHC 32.7 32.0 - 08/11 MH 36.0 /2018 [facility] HEMATOLOGY Hct 24.9 36.0 - 08/11 MH 48.0 /2018 [facility] HEMATOLOGY Hgb 8.1 12.0 - 08/11 MH 16.0 /2017 [facility] HEMATOLOGY RBC 2.97 4.20 - 10/03 MH 5.40 /2018 [facility] HEMATOLOGY WBC 7.6 3.7 - 10.4 08/11 [facility] CHEM PANEL Lipase Lvl 489 73 - 393 08/10 [facility] CHEM PANEL B/C Ratio 16 6 - 25 08/10 [facility] CHEM PANEL ALT 37 0 - 65 08/10 [facility] CHEM PANEL A/G Ratio 0.4 0.7 - 1.6 08/10 [facility] CHEM PANEL Globulin 5.4 2.7 - 4.2 08/10 MH [facility] CHEM PANEL Albumin Lvl 2.1 3.5 - 5.0 08/10 [facility] CHEM PANEL Total 7.5 6.4 - 8.4 08/10 [facility] CHEM PANEL Bili Total 0.4 0.2 - 1.3 08/10 [facility] CHEM PANEL Alk Phos 89 39 - 136 08/10 [facility] CHEM PANEL AST 36 0 - 37 08/10 [facility] HEMATOLOGY Eosinophils 0.2 0.0 - 0.5 04/01 MH # /2016 [facility] HEMATOLOGY Basophils # 0.1 0.0 - 0.2 04/01 MH /2016 [facility] HEMATOLOGY Eosinophils 2.3 0.0 - 4.0 04/01 MH /2016 [facility] HEMATOLOGY Segs 61.3 45.0 - 05 MH 75.0 /2017 [facility] HEMATOLOGY Basophils 0.9 0.0 - 1.0 04/01 MH /2016 [facility] HEMATOLOGY Lymphocytes 2.2 1.0 - 5.5 04/01 MH # /2017 [facility] HEMATOLOGY Monocytes 5.6 2.0 - 12.0 04/01 MH /2016 [facility] HEMATOLOGY Lymphocytes 29.9 20.0 - 05/24 MH 40.0 /2017 [facility] HEMATOLOGY Monocytes # 0.4 0.0 - 0.8 04/01 MH /2016 [facility] HEMATOLOGY Segs-Bands # 4.5 1.5 - 8.1 04/01 MH /2016 [facility] HEMATOLOGY Platelet 311 133 - 450 05 MH /2016 [facility] HEMATOLOGY MPV 6.7 7.4 - 10.4 04/01 MH /2016 [facility] HEMATOLOGY Hgb 8.4 12.0 - 05 MH 16.0 /2017 [facility] HEMATOLOGY RBC 3.16 4.20 - 05/24 MH 5.40 /2017 [facility] HEMATOLOGY MCV 80.9 80.0 - 05/ MH 98.0 /2017 [facility] HEMATOLOGY Hct 25.6 36.0 - 05/ MH 48.0 /2017 [facility] HEMATOLOGY RDW 16.4 11.5 - 05/ MH 14.5 /2017 [facility] HEMATOLOGY MCHC 32.7 32.0 - 05/ MH 36.0 /2017 [facility] HEMATOLOGY MCH 26.4 27.0 - 05/ MH 31.0 /2017 [facility] HEMATOLOGY WBC 7.4 3.7 - 10.4 05/ MH /2017 [facility] ELECTROLYTE AGAP 12.4 10.0 - 05/ MH S 20.0 /2017 [facility] ELECTROLYTE Globulin 6.2 2.7 - 4.2 05/ MH S /2017 [facility] ELECTROLYTE Bili Total 0.4 0.2 - 1.3 / MH S /2017 [facility] ELECTROLYTE A/G Ratio 0.4 0.7 - 1.6 / MH S /2017 [facility] ELECTROLYTE B/C Ratio 15 6 - 25 / MH S /2016 [facility] ELECTROLYTE eGFR 20 04/01 Result MH S /2016 Comment: The [facility] eGFR is [place] calculated using the CKD-EPI formula. In most young, healthy individuals the eGFR will be >90 mL/min/1.73m2 . The eGFR declines with age. An eGFR of 60-89 may be normal in some populations, particularly the elderly, for whom the CKD-EPI formula has not been extensively validated. Use of the eGFR is not recommended in the following populations:< br/>
Sneha viduals with unstable creatinine concentration s, including patients and those with serious co-morbid conditions.<b r/>
Patie nts with extremes in muscle mass or diet.

The data above are obtained from the National Kidney Disease Education Program (NKDEP) which additionally recommends that when the eGFR is used in patients with extremes of body mass index for purposes of drug dosing, the eGFR should be multiplied by the estimated BMI. ELECTROLYTE CO2 19 24 - 32 / MH S /2017 [facility] ELECTROLYTE Chloride Lvl 106 95 - 109 05/ MH S /2017 [facility] ELECTROLYTE Potassium 4.4 3.5 - 5.1 /24 MH S Lvl /2016 [facility] ELECTROLYTE Alk Phos 110 39 - 136 04/01 MH S /2016 [facility] ELECTROLYTE AST 18 0 - 37 04/01 MH S [facility] ELECTROLYTE ALT 22 0 - 65 04/01 MH S [facility] ELECTROLYTE Albumin Lvl 2.5 3.5 - 5.0 04/01 MH S [facility] ELECTROLYTE Sodium Lvl 133 135 - 145 04/01 MH S [facility] ELECTROLYTE Total 8.7 6.4 - 8.4 04/01 MH S Protein /2016 [facility] ELECTROLYTE Calcium Lvl 8.3 8.5 - 10.5 04/01 MH S [facility] ELECTROLYTE Creatinine 2.56 0.50 - 04/01 MH S Lvl 1.40 /2016 [facility] ELECTROLYTE BUN 38 7 - 22 04/01 MH S [facility] ELECTROLYTE Glucose Lvl 247 70 - 99 04/01 MH S [facility] CHEM PANEL Lipase Lvl 131 73 - 393 09/25 [facility] CHEM PANEL Globulin 5.4 2.0 - 4.0 09/25 [facility] CHEM PANEL A/G Ratio 0.4 0.7 - 1.6 09/25 [facility] CHEM PANEL AGAP 9.5 10.0 - 09/25 MH 20.0 /2014 [facility] CHEM PANEL B/C Ratio 16 6 - 25 09/25 [facility] CHEM PANEL eGFR 28 09/25 Comment: The [facility] eGFR is [place] calculated using the CKD-EPI formula. In most young, healthy individuals the eGFR will be >90 mL/min/1.73m2 . The eGFR declines with age. An eGFR of 60-89 may be normal in some populations, particularly the elderly, for whom the CKD-EPI formula has not been extensively validated. Use of the eGFR is not recommended in the following populations:< br/>
Sneha viduals with unstable creatinine concentration s, including patients and those with serious co-morbid conditions.<b r/>
Patie nts with extremes in muscle mass or diet.

The data above are obtained from the National Kidney Disease Education Program (NKDEP) which additionally recommends that when the eGFR is used in patients with extremes of body mass index for purposes of drug dosing, the eGFR should be multiplied by the estimated BMI. CHEM PANEL Creatinine 2.00 0.50 - 09/25 MH Lvl 1.40 /2014 [facility] CHEM PANEL Sodium Lvl 134 135 - 145 09/25 /2014 [facility] CHEM PANEL Potassium 3.5 3.5 - 5.1 09/25 Lvl /2014 [facility] CHEM PANEL Chloride Lvl 95 95 - 109 09/25 [facility] CHEM PANEL Alk Phos 71 39 - 136 09/25 /2014 [facility] CHEM PANEL AST 15 0 - 37 09/25 /2014 [facility] CHEM PANEL Bili Total 0.3 0.2 - 1.3 09/25 [facility] CHEM PANEL Albumin Lvl 2.2 3.5 - 5.0 09/25 /2014 [facility] CHEM PANEL ALT 20 0 - 65 09/25 /2014 [facility] CHEM PANEL BUN 31 7 - 22 09/25 [facility] CHEM PANEL Glucose Lvl 291 70 - 99 09/25 [facility] CHEM PANEL CO2 33 24 - 32 09/25 /2014 [facility] CHEM PANEL Calcium Lvl 8.8 8.5 - 10.5 09/25 /2014 [facility] CHEM PANEL Total 7.6 6.4 - 8.4 09/25 Protein /2014 [facility] HEMATOLOGY Eosinophils 0.1 0.0 - 0.5 09/25 MH # /2015 [facility] HEMATOLOGY Basophils # 0.1 0.0 - 0.2 09/25 /2014 [facility] HEMATOLOGY Monocytes # 0.5 0.0 - 0.8 09/25 /2014 [facility] HEMATOLOGY Lymphocytes 2.0 1.0 - 5.5 09/25 MH # /2015 [facility] HEMATOLOGY Segs-Bands # 7.5 1.5 - 8.1 09/25 /2014 [facility] HEMATOLOGY Basophils 0.5 0.0 - 1.0 09/25 MH /2014 [facility] HEMATOLOGY Lymphocytes 20.0 20.0 - 09/25 MH 40.0 /2015 [facility] HEMATOLOGY Eosinophils 1.1 0.0 - 4.0 09/25 /2014 [facility] HEMATOLOGY Segs 73.8 45.0 - 09/25 MH 75.0 /2015 [facility] HEMATOLOGY Monocytes 4.6 2.0 - 12.0 09/25 /2014 [facility] HEMATOLOGY RDW 19.1 11.5 - 09/25 14.5 /2014 [facility] HEMATOLOGY Platelet 424 133 - 450 09/25 /2014 [facility] HEMATOLOGY MCH 24.7 27.0 - 09/25 31.0 /2014 [facility] HEMATOLOGY MCHC 31.3 32.0 - 09/25 MH 36.0 /2014 [facility] HEMATOLOGY MPV 6.7 7.4 - 10.4 09/25 MH /2014 [facility] HEMATOLOGY Hgb 13.0 12.0 - 09/25 16.0 /2014 [facility] HEMATOLOGY Hct 41.4 36.0 - 09/25 48.0 /2014 [facility] HEMATOLOGY MCV 79.1 80.0 - 09/25 98.0 /2014 [facility] HEMATOLOGY RBC X 10x6 5.24 4.20 - 09/25 MH 5.40 /2014 [facility] HEMATOLOGY WBC X 10x3 10.2 3.7 - 10.4 09/25 /2014 [facility] IMMUNOLOGY CDC HIV 4th Negative Negative 09/25 GEN (09/25/15 5:18 PM) /2014 [facility] IMMUNOLOGY Elizabeth-Hep C Positive Negative 09/25 Ab *NA* /2014 [facility] (09/25/15 5:18 PM) [facility] TOXICOLOGY Vanco Tr TND 0600 05/07 /2014 [facility] TOXICOLOGY Vanco Tr 21.1 05/07 <sup>7</sup>I /2014 nterpretive Greater Data: [facility] Therapeutic Range:
Trough: 10 - 20 ug/mL
Peak: 20 - 40 ug/mL
Potential Toxicity: >80 ug/mL BLOOD BANK RBC product Product available 05/06 RESULTS (05/06/15 6:23 AM) /2014 [facility] BLOOD BANK Antibody Negative 05/06 RESULTS Scrn (05/06/15 5:48 AM) /2014 [facility] BLOOD BANK ABO/Rh B NEG 05/06 RESULTS /2014 [facility] BLOOD BANK RBC product Product available 05/06 RESULTS (05/06/15 5:17 AM) /2014 [facility] CHEM PANEL Phosphorus 4.1 2.5 - 4.5 05/06 /2014 [facility] CHEM PANEL eGFR 57 05/06 <sup>1</sup>R /2014 esult [facility] Comment: [facility] eGFR is calculated using the CKD-EPI formula. In most young, healthy individuals the eGFR will be >90 mL/min/1.73m2 . The eGFR declines with age. An eGFR of 60-89 may be normal in some populations, particularly the elderly, for whom the CKD-EPI formula has not been extensively validated. Use of the eGFR is not recommended in the following populations:& lt;br/>
I ndividuals with unstable creatinine concentration s, including patients and those with serious co-morbid conditions.<b r/>
Patie nts with extremes in muscle mass or diet.

The data above are obtained from the National Kidney Disease Education Program (NKDEP) which additionally recommends that when the eGFR is used in patients with extremes of body mass index for purposes of drug dosing, the eGFR should be multiplied by the estimated BMI. CHEM PANEL CO2 25 24 - 32 05/06 [facility] CHEM PANEL Calcium Lvl 7.6 8.5 - 10.5 05/06 [facility] CHEM PANEL Chloride Lvl 105 95 - 109 05/06 [facility] CHEM PANEL Sodium Lvl 137 135 - 145 05/06 [facility] CHEM PANEL Potassium 4.5 3.5 - 5.1 05/06 [facility] CHEM PANEL BUN 18 7 - 22 05/06 [facility] CHEM PANEL Creatinine 1.1 0.5 - 1.4 05/06 [facility] CHEM PANEL Glucose Lvl 99 70 - 99 05/06 <sup>4</sup>I nterpretive Greater Data: [facility] reference range values reflect the clinical guidelines
of the [place] [employer]. CHEM PANEL AGAP 11.5 10.0 - 05/06 20.0 [facility] CHEM PANEL Magnesium 2.0 1.8 - 2.4 05/06 [facility] HEMATOLOGY Platelet 499 133 - 450 05/06 [facility] HEMATOLOGY MPV 6.4 7.4 - 10.4 05/06 [facility] HEMATOLOGY MCHC 30.8 32.0 - 05/06 36.0 /2014 [facility] HEMATOLOGY RDW 20.3 11.5 - 05/06 14.5 [facility] HEMATOLOGY Hct 19.5 36.0 - 05/06 48.0 /2014 [facility] HEMATOLOGY Hgb 6.0 12.0 - 05/06 <sup>9</sup>R MH 16.0 /2015 esult [facility] Comment: [facility] Critical Result(s) called to Raul YOUNG at _05/06/2015 04:53 by CP_. Read back OK. HEMATOLOGY MCV 69.4 80.0 - 05/06 MH 98.0 /2014 [facility] HEMATOLOGY MCH 21.4 27.0 - 05/06 MH 31.0 /2014 [facility] HEMATOLOGY WBC 10.8 3.7 - 10.4 05/06 MH /2014 [facility] HEMATOLOGY RBC 2.82 4.20 - 05/06 MH 5.40 /2015 [facility] HEMATOLOGY Microcyte 1+ None Seen 05/06 MH *ABN* /2014 [facility] (05/06/15 3:50 AM) [facility] HEMATOLOGY Anisocyte 1+ None Seen 05/06 *ABN* /2014 [facility] (05/06/15 3:50 AM) [facility] HEMATOLOGY Monocytes # 0.6 0.0 - 0.8 05/06 /2014 [facility] HEMATOLOGY Basophils # 0.0 0.0 - 0.2 05/06 /2014 [facility] HEMATOLOGY Eosinophils 0.3 0.0 - 0.5 05/06 MH # /2014 [facility] HEMATOLOGY Segs-Bands # 7.5 1.5 - 8.1 05/06 /2014 [facility] HEMATOLOGY Basophils 0.4 0.0 - 1.0 05/06 /2014 [facility] HEMATOLOGY Eosinophils 2.8 0.0 - 4.0 05/06 /2014 [facility] HEMATOLOGY Monocytes 5.1 2.0 - 12.0 05/06 MH /2014 [facility] HEMATOLOGY Lymphocytes 2.4 1.0 - 5.5 05/06 MH # /2015 [facility] HEMATOLOGY Lymphocytes 22.5 20.0 - 05/06 MH 40.0 /2014 [facility] HEMATOLOGY Segs 69.2 45.0 - 05/06 MH 75.0 /2014 [facility] DRUG SCREEN U Opiate Scr Positive Negative 05/05 MH *ABN* /2014 [facility] (05/05/15 3:38 PM) [facility] DRUG SCREEN U Phencyc Negative Negative 05/05 Scr *NA* /2014 [facility] (05/05/15 3:38 PM) [facility] DRUG SCREEN UDS Note See Note 6 05/05 <sup>6</sup>I MH (05/05/15 3:38 PM) /2014 nterpretive Gr eater Data: Drugs [facility] reported as positive have not been confirmed by a second
me thod and should be used for medical purposes only. To order
con firmation, contact laboratory.<b r/>
not e: Below are cut-off concentration s for all urine drugs of
abuse performed in the laboratory. Some drugs listed in the table
may not be included in this panel.
<b r/>Descriptio n Cut-off concentration
----- ------
Am phetamine 1000 ng/mL
Bar biturates 200 ng/mL
Bob zodiazepines 300 ng/mL
Kerwin amy metabolites 300 ng/mL
Opi ates 300 ng/mL
Phencyclidine 25 ng/mL
Pro poxyphene 300 ng/mL
Marijuana metabolites 50 ng/mL
Met hadone 300 ng/mL
Urine alcohol 20 mg/dL DRUG SCREEN U Danuta Scr Negative Negative 05/05 MH *NA* [facility] (05/05/15 3:38 PM) [facility] DRUG SCREEN U Benzodia Negative Negative 05/05 Scr *NA* [facility] (05/05/15 3:38 PM) [facility] DRUG SCREEN U Amph Scr Negative Negative 05/05 MH *NA* (05/05/15 3:38 PM) [facility] DRUG SCREEN U Cannab Scr Negative Negative 05/05 MH *NA* [facility] (05/05/15 3:38 PM) [facility] DRUG SCREEN U Cocaine Negative Negative 05/05 Scr *NA* (05/05/15 3:38 PM) [facility] ANEMIA Ferritin Lvl 9 5 - 204 05/05 STUDY [facility] ANEMIA Iron 133 30 - 160 05/05 STUDY [facility] ANEMIA TIBC 381 228 - 428 05/05 STUDY [facility] ANEMIA % Satur Fe 35 12 - 57 05/05 STUDY [facility] ANEMIA UIBC 248 110 - 370 05/05 STUDY /2014 [facility] HEMATOLOGY Hgb 6.9 12.0 - 05/05 <sup>10</sup> MH 16.0 /2015 Result Greater Comment: [facility] Critical Result(s) called to Isabela at 05/05/2015 15:14_ Anuj Gandhi. Read back OK. HEMATOLOGY Hct 22.0 36.0 - 05/05 48.0 /2014 [facility] HEMATOLOGY Retic Auto 1.1 0.5 - 1.5 05/05 [facility] CHEM PANEL Creatinine 1.2 0.5 - 1.4 05/05 Lvl /2014 [facility] CHEM PANEL eGFR 52 05/05 <sup>2</sup>R esult [facility] Comment: [facility] eGFR is calculated using the CKD-EPI formula. In most young, healthy individuals the eGFR will be >90 mL/min/1.73m2 . The eGFR declines with age. An eGFR of 60-89 may be normal in some populations, particularly the elderly, for whom the CKD-EPI formula has not been extensively validated. Use of the eGFR is not recommended in the following populations:& lt;br/>
I ndividuals with unstable creatinine concentration s, including patients and those with serious co-morbid conditions.<b r/>
Patie nts with extremes in muscle mass or diet.

The data above are obtained from the National Kidney Disease Education Program (NKDEP) which additionally recommends that when the eGFR is used in patients with extremes of body mass index for purposes of drug dosing, the eGFR should be multiplied by the estimated BMI. HEMATOLOGY PTT 40.0 22.9 - 05/05 <sup>11</sup> 35.8 /2014 Interpretive [facility] Data: Heparin [facility] Therapeutic Range: 57 - 92 Seconds HEMATOLOGY Platelet 590 133 - 450 05/05 [facility] IMMUNOLOGY Elizabeth HCV 4.8 05/05 <sup>8</sup>I RNA Log10 /2014 nterpretive Greater Data: [facility] Reference Interval:<br/ > Less than 15(1.18 log IU/mL)HCV RNA IU/mL

Analytic Measurement Range:
15-100,000,00 0 IU/mL(1.18-8. 0 log value)
<b r/>No Target HCV RNA detected is reported as HCV RNA Not
Detec judit. A negative result does not rule out the possibility<b r/>of the presence of the HCV virus. The specimen may contain
H CV below the detectable limits of the assay.<br/&gt ;
HCV RNA detected below 15 IU/mL is resulted as "HCV RNA
Detec judit, Less than 15 HCV RNA IU/mL."
< br/>HCV version 2.0 quantitative assay is performed using the FDA approved
[employer] ISA AmpliPrep/COB TaqMan HCV real-time RT-PCR IVD
syste to detect the 5'-untranslat ed region of the HCV genome in genotypes 1 through 6 utilizing a dual probe approach. The assay is intended for use as an aid in the management of HCV-infected individuals undergoing anti-viral therapy and results are not intended to be used as the individual means for clinical diagnosis or patient management.<b r/>
Perfo rmance characteristi cs have been verified by the
[facility] ular Diagnostic [facility] within [facility].
The Molecular Diagnostic Laboratory is authorized under the
[employer] Laboratory Improvement Amendments of 1988 (CLIA-88)<br/ >to perform high complexity testing. IMMUNOLOGY Elizabeth HCV 40417 05/05 RNA Virload /2014 [facility] IMMUNOLOGY CDC HIV 4th Negative Negative 05/05 GEN (05/05/15 2:02 PM) /2014 [facility] IMMUNOLOGY Elizabeth-Hep C Positive Negative 05/05 Ab *NA* /2014 [facility] (05/05/15 2:02 PM) [facility] URINE AND UA Mucus Rare /LPF None Seen 05/05 STOOL /LPF /2014 [facility] URINE AND UA WBC 0-2 /HPF None Seen 05/05 STOOL /HPF /2014 [facility] URINE AND UA RBC 3-5 /HPF 0 - 2 05/05 STOOL /2014 [facility] URINE AND UA Bacteria Occasional None Seen 05/05 STOOL /HPF /HPF /2014 [facility] URINE AND Micro? Performed 05/05 STOOL (05/05/15 4:25 AM) /2014 [facility] URINE AND UA Sq Epi Rare /LPF Few /LPF 05/05 STOOL /2014 [facility] URINE AND UA Protein >=300 Negative 05/05 STOOL mg/dL mg/dL [facility] URINE AND UA Glucose 250 mg/dL Negative 05/05 STOOL mg/dL /2014 [facility] URINE AND UA Ketones Negative Negative 05/05 STOOL *NA* /2014 [facility] (05/05/15 4:25 AM) [facility] URINE AND UA pH 7.0 5.0 - 8.0 05/05 STOOL [facility] URINE AND UA Bili Negative Negative 05/05 STOOL *NA* [facility] (05/05/15 4:25 AM) [facility] URINE AND UA Blood Moderate Negative 05/05 STOOL *ABN* [facility] (05/05/15 4:25 AM) [facility] URINE AND UA Spec Grav 1.020 <=1.030 05/05 STOOL [facility] URINE AND UA Nitrite Negative Negative 05/05 STOOL (05/05/15 4:25 AM) [facility] r [facility] URINE AND UA 0.2 0.1 - 1.0 05/05 STOOL Urobilinogen /2014 [facility] URINE AND UA Leuk Est Negative Negative 05/05 STOOL (05/05/15 4:25 AM) [facility] URINE AND UA Turbidity Clear Clear 05/05 STOOL (05/05/15 4:25 AM) [facility] URINE AND UA Color Yellow Yellow 05/05 STOOL *NA* [facility] (05/05/15 4:25 AM) [facility] s CHEM PANEL eGFR 57 05/05 <sup>3</sup>R esult [facility] Comment: [facility] eGFR is calculated using the CKD-EPI formula. In most young, healthy individuals the eGFR will be >90 mL/min/1.73m2 . The eGFR declines with age. An eGFR of 60-89 may be normal in some populations, particularly the elderly, for whom the CKD-EPI formula has not been extensively validated. Use of the eGFR is not recommended in the following populations:& lt;br/>
I ndividuals with unstable creatinine concentration s, including patients and those with serious co-morbid conditions.<b r/>
Patie nts with extremes in muscle mass or diet.

The data above are obtained from the National Kidney Disease Education Program (NKDEP) which additionally recommends that when the eGFR is used in patients with extremes of body mass index for purposes of drug dosing, the eGFR should be multiplied by the estimated BMI. CHEM PANEL ALT 16 0 - 65 05/05 [facility] CHEM PANEL Calcium Lvl 7.8 8.5 - 10.5 05/05 [facility] CHEM PANEL Albumin Lvl 1.3 3.5 - 5.0 05/05 [facility] CHEM PANEL Total 7.3 6.4 - 8.4 05/05 Protein [facility] CHEM PANEL Sodium Lvl 132 135 - 145 05/05 [facility] CHEM PANEL Glucose Lvl 217 70 - 99 05/05 <sup>5</sup>I nterpretive [facility] Data: [facility] reference range values reflect the clinical guidelines
of the [place] [employer]. CHEM PANEL BUN 19 7 - 22 05/05 [facility] CHEM PANEL Creatinine 1.1 0.5 - 1.4 05/05 [facility] CHEM PANEL Alk Phos 100 39 - 136 05/05 [facility] CHEM PANEL AST 14 0 - 37 05/05 [facility] CHEM PANEL Chloride Lvl 100 95 - 109 05/05 [facility] CHEM PANEL CO2 23 24 - 32 05/05 [facility] CHEM PANEL Potassium 3.5 3.5 - 5.1 05/05 [facility] CHEM PANEL Bili Total 0.3 0.2 - 1.3 05/05 [facility] CHEM PANEL Globulin 6.0 2.0 - 4.0 05/05 [facility] CHEM PANEL A/G Ratio 0.2 0.7 - 1.6 05/05 [facility] CHEM PANEL AGAP 12.5 10.0 - 05/05 MH 20.0 /2015 [facility] CHEM PANEL B/C Ratio 17 6 - 25 05/05 [facility] CHEM PANEL Lactic Acid 1.4 0.5 - 2.2 05/05 [facility] HEMATOLOGY Segs-Bands # 14.1 1.5 - 8.1 05/05 [facility] HEMATOLOGY Basophils 0.3 0.0 - 1.0 05/05 [facility] HEMATOLOGY Eosinophils 0.3 0.0 - 0.5 05/05 MH # /2015 [facility] HEMATOLOGY Lymphocytes 2.0 1.0 - 5.5 05/05 MH # /2014 [facility] HEMATOLOGY Monocytes # 0.6 0.0 - 0.8 05/05 /2014 [facility] HEMATOLOGY Lymphocytes 11.8 20.0 - 05/05 40.0 /2014 [facility] HEMATOLOGY Eosinophils 1.6 0.0 - 4.0 05/05 /2014 [facility] HEMATOLOGY Monocytes 3.5 2.0 - 12.0 05/05 /2014 [facility] HEMATOLOGY Basophils # 0.1 0.0 - 0.2 05/05 /2014 [facility] HEMATOLOGY Microcyte 1+ None Seen 05/05 MH *ABN* /2014 [facility] (05/05/15 3:26 AM) [facility] s HEMATOLOGY Segs 82.8 45.0 - 05/05 75.0 /2014 [facility] HEMATOLOGY MCV 68.3 80.0 - 05/05 98.0 /2014 [facility] HEMATOLOGY RBC 3.33 4.20 - 05/05 5.40 /2014 [facility] HEMATOLOGY WBC 17.0 3.7 - 10.4 05/05 MH /2014 [facility] HEMATOLOGY Hct 22.7 36.0 - 05/05 48.0 /2014 [facility] HEMATOLOGY Hgb 7.2 12.0 - 05/05 16.0 /2014 [facility] HEMATOLOGY MPV 6.4 7.4 - 10.4 05/05 /2014 [facility] HEMATOLOGY MCHC 31.6 32.0 - 05/05 36.0 /2014 [facility] HEMATOLOGY MCH 21.6 27.0 - 05/05 31.0 /2014 [facility] HEMATOLOGY Platelet 517 133 - 450 05/05 /2014 [facility] HEMATOLOGY RDW 19.8 11.5 - 05/05 14.5 /2015 [facility] Pathology Reports No Data Provided for This Section Diagnostic Reports Report Value Date Source Chest 1view DX Frontal chest radiograph 07/11/2019 [facility] INDICATION: Sepsis COMPARISON: 11/01/2018 FINDINGS: Heart/mediastinum: normal size no masses LUNGS: no infiltrates or effusion Support lines/tubes: none Bone structures: no acute changes Upper Abdomen: unremarkable Impression: No acute changes. Toe DX 3 Views of the left hallux were obtained. [address] [facility] INDICATION: Toe infection Comparison: none FINDINGS: Bone density: Decreased Alignment: normal Fractures: none Joint spaces: Preserved. The re is a moderate bunion. No destructive lesions are seen. Soft tissues: There is some abnormal appearance of the nailbed and soft tissue swelling but no subcutaneous emphysema is appreciated. IMPRESSION: Soft tissue swelling the dis rosenda hallux without evidence for osteomyelitis. There is abnormal appearance of the nail suggesting possible chronic infection. CVC insert tunnel w/-w/o PROCEDURE: 11/04/2018 [facility] port/pump age 5+ yrs VR Conversion of Darryl to per macath, right IJ INDICATION: CONVERT NON TUNNELED TO TUNNELED DIALYSIS CATHETER - HALFWAY DIALYSIS ACCESS. COMPARISON: None. TECHNICAL: Fluoroscopic time was 16.9 seconds . Reference Air Kerma Dose 2.1 mGy. PROCEDURE: The procedure, risks, benefi ts and alternatives were discussed. Informed consent was obtained. Timeout was performed prior to the procedure. All elements of maximal ster ile barrier technique were performed. The existing catheter and right neck and chest were prepped and draped in the usual fashion. Lidocaine was administered adjacent to the catheter and a lump along th e anticipated tunnel site. A wire was advanced through the catheter into the IVC and the catheter was removed. The peel-away sheath was advanced over the wire. The tunnel fro m the right upper chest was created in the catheter was tunneled. Hemodialysis catheter was fed through peel-away sheath which was placed in the internal jugular vein. Sheath was removed and final radi ograph was obtained. Neck in cision was closed using subcutaneous 4-0 Monocryl. Hemodialysis catheter was secured to the skin with 2-0 silk sutures. The catheter was flushed with heparinized saline. Sterile dressing was applied. If any venous oozing is enco untered, please apply 10 min of manual pressure at the venotomy site, above the medial clavicle. If it persists despite this, IR can be contacted. IMPRESSION: Conversion of right IJ Nickolas on catheter to a permacath, 15.5-Kyrgyz, 24 cm tip to hub. Catheter may be used immediately. CVC insert non-tunnel age Study: TEMPORARY RIGHT INTER NAL JUGULAR DIALYSIS CATHETER INSERTION 11/02/2018 [facility] 5+ yrs VR INDICATION: Renal failure, dialysis access. Informed consent was obtained. The right neck was prepped a nd draped in sterile fashion. All elements of maximum sterile barrier technique were utilized. Ultrasound revealed a patent and compressible right internal jugular vein, which was accessed under real-time ultrasound guidance, utilizing 1% lidocaine local anesthesia, with a 21-gauge needle, and a 0.018 guidewire was introduc ed. The guidewire ascended into the internal jugular vein. A 4-Kyrgyz sheath was introduced. Under fluoroscopy, the guidewire was redirected into the superior vena cava, fol lowed by the sheath. Through this, an Amplatz superstiff guidewire was manipulated under fluoroscopy into the superior vena cava. Following serial fascial dilatation, a 14-Kyrgyz, 15 cm Schon temporary dialysis catheter was introd uced over the guidewire and the guidewire was removed. Each lumen was flushed with saline. The catheter was sutured to the skin with 2-0 silk, and a sterile dressing was applied. There were no complications. An image of the ultrasound g uided venous access was obtained and was saved in PACS, and a digital chest image at the end of the procedure demonstrates termination of the catheter at the caval atrial junction. Fluoroscopy time:43.3 seconds, reference air ker ma 3.88 mGy IMPRESSION: Successful dialysis catheter placeme nt. SL: [id number] Retroperitoneal Complete Clinical Indication: Chronic renal insufficiency. 11/02/2018 [facility] US Comparison: None. TECHNIQUE: Multiple longitudinal and tr ansverse real time sonographic images of the kidneys and urinary bladder are obtained. FINDINGS: KIDNEY: The right kidney measures 10.5 cm in length. The left kidney measures 10.7 cm in length. Increased bilateral renal pa renchymal echotexture is seen, consistent with chronic renal disease. Cortices are normal in thickness. No hydronephrosis. No echogenic foci/nephrolithiasis. No abnormal perinephric collections. BLADDER: There is no bladder wall thickening or bladder d ebris noted. AORTA, PROXIMAL ILIACS AND IVC: Not well seen due to bowel gas. ASCITES: No ascites noted. IMPRESSION: 1. Increased bilateral renal parenchymal echotexture, suggestive of chronic renal disease. No hydronephrosis of the kidneys. SL: [id number] Chest 1view DX Patient Name: VINH HURD 11/01/2018 [facility] : 1960; Age: 58 years y/o Female MR: [id number] Study: Chest 1view DX dated 11/01/2018. Clinical Indication: - SOB; Comparison: 08/10/2018 Cardiac and mediastinal stru ctures are stable. No focal infiltrates within the lungs, no edema and no pneumothorax. Surgical clips are seen in the right upper abdomen. SL: CSODERSTROM-PC Chest 1view DX PROCEDURE: CHEST SINGLE VIEW 08/10/2018 [facility] INDICATION: Chest pain COMPARISON: 01/08/2015 FINDINGS: The lungs are inez r. The pleura, cardiomediastinal silhouette and bony thorax are normal. No vascular congestion is present. IMPRESSION: No acute cardiopulmonary process. SL: CL76-M Brain wo contrast CT NAME: VINH HURD 09/25/2015 [facility] : 1960 SEX: F 03 Ordering Physician: Jessika Baker Brain wo contrast CT : Sep 25, 2015 05:40:00 PM. CLINICAL INDICATION: Vomiting. Headache. Comparison Examination: None. FINDINGS: Ventricles and sulci are wit hin normal limits for the patient's age. No evidence for subarachnoid, intraparenchymal or intraventricular hemorrhage. No extra-axial fluid collection, mass-effect or shift. No mass lesion nemo ntified. No evidence for an acute infarction. Bone windows were obtained and no bony fracture was identified. CONCLUSIONS: Negative head CT without contrast. SL: 14 Tibia fibula series Examination: Bilateral tibia/fibula, 8 views 01/08/2015 [facility] bilateral DX History: Swelling Comparison: None. Findings: Multiple views of the bilateral tibia/fibula show no acute bony fracture, joint dislocation, or suspicious osseous erosion. Diffuse soft tissue swelling is seen throughout the bilateral lungs. Irregularity of the lateral soft tissues of the bilateral legs is also seen, may represent ulcerations. No soft tissue gas is noted. IMPRESSION: Severe swelling throughout the bilateral legs with superimposed areas of lateral soft tissue ulceration. No radiographic evidence of osteomyelitis is seen. SL: 16 Femur 2 views bilateral DX BILATERAL TIBIA-FIBULA SERIES. 2014 [facility] LEFT TIBIA-FIBULA SERIES (2 views) HISTORY: Left lower extremity swelling. TECHNIQUE: The left tibia an d fibula were evaluated and frontal and lateral projections. FINDINGS: 1. There is an moderate irre gular soft tissue defect involving the lateral aspect of the upper and mid calf. This may represent an ulceration. A few lobular/racemose soft tissue densities are noted in t his region which could repre sent varicosities. There is also diffuse soft tissue swelling. Please correlate with clinical examination and clinical information. 2. No radiopaque soft tissue foreign body is nemo ntified. 3. No osteoarticular abnormalities. RIGHT TIBIA-FIBULA SERIES (2 views) HISTORY: Right lower extremity swelling TECHNIQUE: The right tibia a nd fibula were evaluated and frontal and lateral projections. FINDINGS: 1. There is an extensive irr egular soft tissue defect involving the lateral aspect of the upper and mid calf. This may represent an ulceration. A few lobular soft tissue densities are also noted which c ould represent varicosities. There is also diffuse soft tissue swelling. Please correlate with clinical examination and clinical information. 2. No radiopaque soft tissue foreign body is nemo ntified. 3. No osteoarticular abnormalities. Coding: Femur bilat 2 views CPT code: 89275 X 2 SL: 12 Nolan Kirk M.D. PICC insert with or PROCEDURE: Right upper extremity PICC. 01/08 [facility] without port VR PHYSICIAN PROVIDING SERVICE: Nolan Kirk MD ANESTHESIA: Local, 1% lidocaine HISTORY: 54-year-old female requiring venous access. The patient was referred for PICC placement. TECHNIQUE: The right upper e xtremity was interrogated with high resolution sonography demonstrating the right basilic vein to be patent and adequate for catheterization. A generous portion of the right upper extremity was prepped with Chloraprep and draped. Strict maximal sterile barrier technique was utilized. The right basilic vein was localized with ultrasound and a hard copy image obtained. A 3 mm incision was made over th e right basilic vein. Under direct ultrasound guidance, the right basilic vein was successfully punctured with a 21 gauge needle. Following aspiration of venous blood, a 0.01 80-inch mandril guidewire wa s advanced centrally. Access with a 5 Kyrgyz peel- away sheath was then obtained. Under fluoroscopic guidance, a 5 Kyrgyz dual- lumen PICC was advanced into the superior vena c florian. The sheath was then pee led away. The catheter was flushed and secured to the upper arm with a a Stat Lock adhesive device. A digital radiograph of the chest following catheter placement demonstrate s good catheter position wit h its tip in the lower superior vena cava without complication. Fluoroscopy time: 0.2 minutes CONCLUSION: Placement of dual-lumen right upper extremity PI CC. CPT Codes: 16365, 26055, 47447 SL: 12 Nolan Kirk M.D. Chest 1view DX Examination: Chest x-ray, single view 01/08/2015 [facility] History: Chest pain Comparison: None. Findings: The lungs are inez r and without focal consolidation. The cardiomediastinal silhouette is within normal limits. No pleural effusion or pneumothorax is seen. The osseous structures are without focal abnormality. IMPRESSION: No acute cardiopulmonary disease. SL: 16 Consultation Notes No Data Provided for This Section Discharge Summaries No Data Provided for This Section History and Physicals No Data Provided for This Section Vital Signs Vital Sign Value Date Comments Source Temperature Oral (F) 97.9 F 07/12/2019 [facility] Heart Rate 69 07/12/2019 [facility] Respitory Rate 18 07/12/2019 [facility] Systolic (mm Hg) 185 07/12/2019 [facility] Diastolic (mm Hg) 77 07/12/2019 [facility] Temperature Oral (F) 97.9 F 07/11/2019 [facility] Heart Rate 79 07/11/2019 [facility] Respitory Rate 18 07/11/2019 [facility] Systolic (mm Hg) 176 07/11/2019 [facility] Diastolic (mm Hg) 80 07/11/2019 [facility] Temperature Oral (F) 97.7 F 07/11/2019 [facility] Heart Rate 83 07/11/2019 [facility] Systolic (mm Hg) 205 07/11/2019 [facility] Diastolic (mm Hg) 89 07/11/2019 [facility] Height 162.56 cm 07/11/2019 [facility] Weight 78.003 07/11/2019 [facility] BMI Calculated 29.52 07/11/2019 [facility] Respitory Rate 18 07/11/2019 [facility] Height 162.56 cm 07/11/2019 [facility] Weight 77.273 07/11/2019 [facility] Height 162.56 cm 07/11/2019 [facility] BMI Calculated 29.24 07/11/2019 [facility] Weight 77.273 07/11/2019 [facility] Weight 166 05/03/2019 eCW: Janak Ortiz Height 63 05/03/2019 eCW: Janak Ortiz Diastolic (mm Hg) 98 05/03/2019 eCW: Janak Ortiz Systolic (mm Hg) 167 05/03/2019 eCW: Janak Ortiz Systolic (mm Hg) 149 11/06/2018 [facility] Diastolic (mm Hg) 74 11/06/2018 [facility] Temperature Oral (F) 98.1 F 11/06/[address] [facility] Respitory Rate 18 11/06/2018 [facility] Heart Rate 78 11/06/2018 [facility] Temperature Oral (F) 98.1 F 11/06/[address] [facility] Heart Rate 76 11/06/2018 [facility] Respitory Rate 18 11/06/2018 [facility] Systolic (mm Hg) 160 11/06/2018 [facility] Diastolic (mm Hg) 67 11/06/2018 [facility] Temperature Oral (F) 98.1 F 11/06/[address] [facility] Heart Rate 76 11/06/2018 [facility] Respitory Rate 18 11/06/2018 [facility] Systolic (mm Hg) 153 11/06/2018 [facility] Diastolic (mm Hg) 80 11/06/2018 [facility] Weight 77.727 11/05/2018 [facility] BMI Calculated 29.26 11/04/2018 [facility] Weight 77.273 11/04/2018 [facility] Height 162.5 cm 11/04/2018 [facility] Weight 77.273 11/02/2018 [facility] Weight 174 09/20/2018 eCW: Janak Ortiz Height 63 09/20/2018 eCW: Janak Ortiz Diastolic (mm Hg) 70 09/20/2018 eCW: Jaank Ortiz Systolic (mm Hg) 110 09/20/2018 eCW: Janak Ortiz Respitory Rate 18 08/16/2018 [facility] Systolic (mm Hg) 130 08/16/2018 [facility] Diastolic (mm Hg) 85 08/16/2018 [facility] Temperature Oral (F) 98.2 F 08/16/[address] [facility] Heart Rate 86 08/16/2018 [facility] Respitory Rate 18 08/16/2018 [facility] Systolic (mm Hg) 131 08/16/2018 [facility] Diastolic (mm Hg) 85 08/16/2018 [facility] Temperature Oral (F) 98.2 F 08/16/[address] [facility] Heart Rate 85 08/16/2018 [facility] Respitory Rate 16 08/16/2018 [facility] Heart Rate 86 08/16/2018 [facility] Systolic (mm Hg) 142 08/16/2018 [facility] Diastolic (mm Hg) 90 08/16/2018 [facility] Temperature Oral (F) 98.4 F 08/16/[address] [facility] Weight 79 08/11/2018 [facility] BMI Calculated 29.9 08/11/2018 [facility] Height 162.56 cm 08/11/2018 [facility] Height 162.56 cm 08/10/2018 [facility] BMI Calculated 28.18 08/10/2018 [facility] Weight 74.455 08/10/2018 [facility] Systolic (mm Hg) 183 04/01/2017 [facility] Diastolic (mm Hg) 79 04/01/2017 [facility] Respitory Rate 18 04/01/2017 [facility] Heart Rate 76 04/01/2017 [facility] Temperature Oral (F) 98 F 04/01/[address] [facility] Respitory Rate 18 04/01/2017 [facility] Heart Rate 78 04/01/2017 [facility] Temperature Oral (F) 98.0 F 04/01/[address] [facility] Systolic (mm Hg) 196 04/01/2017 [facility] Diastolic (mm Hg) 90 04/01/2017 [facility] Weight 75 04/01/2017 [facility] Heart Rate 88 04/01/2017 [facility] Respitory Rate 18 04/01/2017 [facility] Temperature Oral (F) 98.3 F 04/01/[address] [facility] Systolic (mm Hg) 180 04/01/2017 [facility] Diastolic (mm Hg) 80 04/01/2017 [facility] BMI Calculated 26.69 04/01/2017 [facility] Height 167.64 cm 04/01/2017 [facility] Temperature Oral (F) 98.5 F 09/26/[address] [facility] Systolic (mm Hg) 166 09/26/2015 [facility] Diastolic (mm Hg) 70 09/26/2015 [facility] Respitory Rate 12 09/26/2015 [facility] Respitory Rate 15 09/26/2015 [facility] Systolic (mm Hg) 146 09/26/2015 [facility] Diastolic (mm Hg) 64 09/26/2015 [facility] Height 162.56 cm 09/25/2015 [facility] Weight 50.568 09/25/2015 [facility] BMI Calculated 19.14 09/25/2015 [facility] Systolic (mm Hg) 177 09/25/2015 [facility] Diastolic (mm Hg) 81 09/25/2015 [facility] Heart Rate 69 09/25/2015 [facility] Temperature Oral (F) 98.5 F 09/25/[address] [facility] Respitory Rate 18 09/25/2015 [facility] Systolic (mm Hg) 154 05/07/2015 [facility] Diastolic (mm Hg) 71 05/07/2015 [facility] Temperature Oral (F) 86 F 05/07/[address] [facility] Heart Rate 79 05/07/2015 [facility] Respitory Rate 20 05/07/2015 [facility] Systolic (mm Hg) 183 05/07/2015 [facility] Diastolic (mm Hg) 83 05/07/2015 [facility] Temperature Oral (F) 98 F 05/07/[address] [facility] Systolic (mm Hg) 179 05/07/2015 [facility] Diastolic (mm Hg) 79 05/07/2015 [facility] Heart Rate 80 05/07/2015 [facility] Respitory Rate 20 05/07/2015 [facility] Temperature Oral (F) 98.6 F 05/07/[address] [facility] Respitory Rate 20 05/07/2015 [facility] Heart Rate 73 05/07/2015 [facility] Weight 70.455 05/05/2015 [facility] BMI Calculated 26.66 05/05/2015 [facility] Height 162.56 cm 05/05/2015 [facility] Encounters Location Location Encounter Encounter Reason Attending ADM DC Stat us Source Details Type Number For Provider Date Date Visit [facility] [id number] Eileen 05/05 05/07 Uri Onochie /2014 [facility] EC [id number] Eliu Fagilbert 09/25 09/26 Uri Emergency /2014 Ace gaines [facility] Emergency [id number] Nancie 04/01 04/01 [facility] Inpatient [id number] Alak Ray 08/10 08/16 Uri /2017 [facility] Inpatient [id number] Dominic 11/02 11/07 Uri Schwartz /2017 [facility] Inpatient [id number] Carson 07/11 07/12 Uri Kitchen /2018 [facility] Procedures Procedure Code Date Perfomer Comments Source section [id number] 01/31/2002 [facility] Gallstone analysis [id number] 05/05/1990 [facility] Cholecystectomy [id number] [facility] Incision AND [id number] bilat abscess [facility] drainage<sup>1</sup> lower legs [facility] Assessment and Plan Assessment and Plan Date Source Extracted from:Title: RENAL 07/12/[address] [facility] Author: Eugene Sawyer MD Date: 07/11/19 Reason for Consult: ESRD Referring Physician: Dr Carson Kitchen Chief Complaint: Left great toe ulcer HPI: 59-year-old female with past medical his tory of ESRD on hemodialysis since 2 years via left upper arm AV graft, diabetes, hypertension, hepatitis C presents with complaints of purulent drainage from the left great toe ulcer since 3 days. Judy noel denies any fevers or chills. She reports pain over the ulcer. She reports getting dialysis on TTS schedule. She does not recall who her primary nephrologi st is. Denies any chest pain or shortness of breath. ROS: Constitutional: ( ) fever ( ) weight los s ( ) malaise ( ) myalgias ( x ) all neg Visual: ( ) cataracts ( ) glaucoma ( ) blurred vision ( x ) all neg Cardiac: ( ) chest pain ( ) [place] ( x ) all neg Pulm: ( ) SOB ( ) cough ( ) sputum ( x ) all neg GI: ( ) vomiting ( ) diarrhea ( ) BRBPR ( ) abd pain ( x ) a ll neg Endo: ( ) thyroid dysfunction ( ) heat/cold intolerance ( x ) all neg : ( ) dysuria ( ) frequency ( ) hematu howard ( ) urgency ( ) incomplete bladder emptying ( x ) all neg Mskl: ( ) arthritis ( ) back pain ( x ) all neg Derm: ( ) pruritis ( ) bruising ( x ) all neg Neuro: ( ) memory loss ( ) headache ( ) seizures ( x ) all n eg Heme: ( ) epistaxis ( ) bruising ( x ) all neg Allergies: NKFA, No Known Medication Allergies Medication List Active Medications Ordered acetaminophen: 650 mg, 2 tab, PO, Q4H, PRN: Pain 1-3/Temp > 100.4 F. atorvastatin: 20 mg, 1 tab, PO, Daily. calcitriol: 0.25 microgram, 1 cap, PO, Daily. cefepime + Sodium Chloride 0.9% IV 100 mL: 1 gm, 25 ml/hr, IVPB, Daily. clindamycin: 900 mg, 50 mL, 100 ml/hr, IVPB, ABXQ 8H. cloNIDine: 0.2 mg, 2 tab, PO, Q8H. Dextrose 50% in Water IV: 12.5 gm, 25 mL, IVP, WA N, PRN: Blood Glucose Results. Dextrose 50% in Water IV: 25 gm, 50 mL, IVP , PRN, PRN: Blood Glucose Results. ferrous sulfate: 325 mg, 1 tab, PO, BID. furosemide: 20 mg, 1 tab, PO, Daily. glucagon: 1 mg, IM, PRN, PRN: Blood Glucose Resul ts. heparin: 5,000 unit, 1 mL, SUB-Q, Q12H. insulin glargine: 10 unit, 0.1 mL, SUB-Q, Bedtime . insulin lispro: 1 unit, 0.01 mL, SUB-Q, TID -Before Meals, PRN: Blood Glucose Results. insulin lispro: 2 unit, 0.02 mL, SUB-Q, TID -Before Meals, PRN: Blood Glucose Results. insulin lispro: 3 unit, 0.03 mL, SUB-Q, TID -Before Meals, PRN: Blood Glucose Results. insulin lispro: 4 unit, 0.04 mL, SUB-Q, TID -Before Meals, PRN: Blood Glucose Results. insulin lispro: 5 unit, 0.05 mL, SUB-Q, TID -Before Meals, PRN: Blood Glucose Results. levothyroxine: 50 microgram, 1 tab, PO, Q630AM. methadone: 80 mg, 8 tab, PO, Daily. morphine Sulfate: 1 mg, 0.5 mL, IVP, Q2H, PRN: Pa in Score 7-10. NIFEdipine: 30 mg, 1 tab, PO, BID. sevelamer: 800 mg, 1 tab, PO, TID-Meals. sodium bicarbonate: 650 mg, 1 tab, PO, BID-Meals. sodium chloride: 10 mL, IVP, PRN, PRN: Line Flush . Suspended atorvastatin: 20 mg, PO, Daily, 0 Refill(s). calcitriol: 0.25 microgram, 1 cap, PO, Daily, for 30 day, 30 cap, 0 Refill(s). cloNIDine: 0.2 mg, 1 tab, PO, BID, for 15 day, 30 tab, 0 Refill(s). ferrous sulfate: See Instructions, 325 mg PO twic e daily, am and noon, 0 Refill(s). furosemide: 20 mg, Daily, 0 Refill(s). insulin aspart: SUB-Q, TID-Before Meals, 3 to 5 u nits depending on blood glucose levels., 0 Refill(s). insulin glargine: 10 unit, SUB-Q, Bedtime, 10 mL, 0 Refill(s). levothyroxine: 50 microgram, 1 tab, PO, Q630AM, for 30 day, 30 tab, 0 Refill(s). methadone: 80mgs, PO, Daily, at 5 am, 0 Refill(s) . NIFEdipine: 30 mg, 1 tab, PO, BID, 90 tab, 1 Refi ll(s). sevelamer: 800 mg, 1 tab, PO, TID, for 30 day, , 90 tab, 0 Refill(s). sodium bicarbonate: 650 mg, 1 tab, PO, BID, With meals, 0 Refill(s). Medications Inactivated in the Last 72 Hours cefepime: 1 gm, PYXIS, ONCE. cefepime + Sodium Chloride 0.9% IV 100 mL: 1 gm, 200 ml/hr, IVPB, ONCE. Dextrose 50% in Water IV: 12.5 gm, 25 mL, IVP, PRN, P RN: Blood Glucose Results. Dextrose 50% in Water IV: 25 gm, 50 mL, IVP, PRN, PRN : Blood Glucose Results. glucagon: 1 mg, IM, PRN, PRN: Blood Glucose Results. heparin: 5,000 unit, 1 mL, SUB-Q, Q12H. heparin: 5,000 unit, SUB-Q, Q12H. hydrALAZINE: 10 mg, 0.5 mL, IVP, ONCE. hydrALAZINE: 20 mg, 1 mL, PYXIS, ONCE. labetalol: 10 mg, 2 mL, IVP, ONCE. labetalol: 20 mg, 4 mL, PYXIS, ONCE. labetalol: 20 mg, 4 mL, IV, ONCE. morphine Sulfate: 4 mg, 1 mL, IVP, ONCE. morphine Sulfate: 4 mg, 1 mL, PYXIS, ONCE. ondansetron: 4 mg, 2 mL, IVP, ONCE. ondansetron: 4 mg, 2 mL, PYXIS, ONCE. Sodium Chloride 0.9% IV: 100 mL, PYXIS, ONCE. Sodium Chloride 0.9% IV: 250 mL, PYXIS, ONCE. Sodium Chloride 0.9% IV: 100 mL, PYXIS, ONCE. sodium polystyrene sulfonate: 15 gm, 60 mL, PO, ONCE. sodium polystyrene sulfonate: 15 gm, 60 mL, PYXIS, ON CE. vancomycin: 1 gm, PYXIS, ONCE. vancomycin + Sodium Chloride 0.9% IV 250 mL: 1,000 mg , 250 ml/hr, IVPB, ONCE. Past medical history: Ruptured disk Hepatitis Diabetes Murmur, heart Diabetes HTN (hypertension) Past surgical history: section: 01/31/02 Gallstone analysis: 05/05/90 Incision AND drainage Cholecystectomy Social History: Alcohol Details: Never Tobacco Details: Use: Current every day smoker. Type: Cigarettes. Ready to change: No. Household tobacco concerns: No. Tobacco smoke exposure: None. Did the Patient Smoke Cigarettes Anytime During the Last 365 Days? Yes. Cessation Counseling Provided? Yes. Details: Use: Never smoker. Tobacco smo ke exposure: None. Did the Patient Smoke Cigarettes Anytime During the Last 365 Days? No. Cessation Counseling Provided? No. Details: Use: Current every day smoker. Type: Cigarettes. Started age 12.0 Years. Previous treatment: None. Ready to change: No. Household tobacco concerns: No. Tobacco smoke exposure: None. Did the Patient Smoke Cigarettes Anytime Dur ing the Last 365 Days? No. Cessation Counseling Provided? No.; Comment(s): 1 pack every 2 days Substance Abuse Details: Use: None. Family History: Father: Type 1 diabetes mellitus Mother: Type 1 diabetes mellitus Grandparent: Type 1 diabetes mellitus Child: Type 1 diabetes mellitus Examination: Vitals Tmp(F) Pulse BP RR SpO2 FIO2 07/11 12:09 97.7 83 205/89 -- 99 --- 07/11 09:02 ---- --- 203/78 -- --- --- 07/11 08:10 98.3 86 210/74 -- 95 --- 07/11 06:36 ---- 91 167/58 18 99 --- 07/11 06:10 ---- 88 194/58 18 98 --- 24 Hr Tmax: 98.3F (36.83c) at 07/11 08:1 0 Vital Signs are the last 5 in the past 48 hours. I&O Record In Out Bal 07/11 24hr Tot 200 0 200 07/10 24hr Tot 200 0 200 Physical exam: General: No acute distress, AOx3 HEENT: anicteric sclera, moist oral mucosa, no thrush Neck: No palpable lymph nodes, no enlarged thyroid Lungs: CTAB Heart: S1S2, RRR, no MRG Abdomen: Soft, non-tender, bowel sounds+ Extremities: no edema, left great toe covered in dressing-c/ d/i Skin: no Rash Labs and imaging personally reviewed and discussed with mike ent Labs (Last four charted values) WBC H 11.4 (JUL 11) Hgb 13.3 (JUL 11) Hct 40.8 (JUL 11) Plt 294 (JUL 11) Na L 132 (JUL 11) L 133 (SEP 0 2) K 4.4 (JUL 11) H 5.2 (JUL 11) CO2 24 (JUL 11) 24 (JUL 11) Cl 95 (JUL 11) 95 (JUL 11) Cr H 6.98 (JUL 11) H 7.09 (JUL 11) BUN H 56 (JUL 11) H 55 (JUL 11) Glucose Random H 247 (JUL 11) H 224 (SEP 0 2) Phos H 6.5 (JUL 11) Ca 9.0 (JUL 11) 8.7 (JUL 11) PT 13.9 (JUL 11) See Note (JUL 11) INR 1.09 (JUL 11) See Note (JUL 11) PTT 31.1 (JUL 11) Troponin <0.02 (JUL 11) Total CK 119 (JUL 11) Imaging Studies (last 36 hours) Chest 1view DX 07/11/2019 06:20 Impression: No acute changes. Toe DX 07/11/2019 06:19 Impression: Soft tissue swelling the distal hallux w ithout evidence for osteomyelitis. There is abnormal appearance of the nail suggesting possible chronic infection. Assessment: 1. ESRD on HD, TTS 2. Diabetes 3. Hypertensive urgency 4. Left great toe ulcer with cellulitis 5. Hyperphosphatemia Plan: There is no need for dialysis today. We will keep TTS schedule. Blood pressure running high. Resume home dose of clonidine and nifedipine. Will increase Lasix to 80 mg daily. Will stop sodium bicar bonate tablets as bicarb will be replace d with dialysis. Renally dose antibiotics. Keep Renvela. Thank you for allowing us to participate in the care of this patient with you. d/w BATSHEVA Sawyer M.D., [facility] Extracted from:Title: History and Physical Author: Carson Kitchen MD Date: 07/11/19 59-year-old female with: Cellulitis and abscess of toe(L03.039) Admit for IV antibiotics with vancomyci n andcefepime to be initiatedwith podiatry to consult Ordered: Admit/Condition, 07/11/19 5:52:00 CDTLyric: Inpatient, Telemetry Capable Location, Expected LOS: 3 or [facility], Carson Kitchen MD, Admit MD Review/Approve Yes, Isolation: No Isolation/ Standard Precautions, Cellulitis and abscess of toe | Chroni c kidn... Chronic kidney disease (CKD)(N18.9) Patient with history of end-stage renal disease dialyzed on Thursday, consult nephrology Ordered: Admit/Condition, 07/11/19 5:52:00 CDT, S tatus: Inpatient, Telemetry Capable Location, Expected LOS: 3 or [facility], Carson Kitchen MD, Admit Review/Approve Yes, Isolation: No Isolation/ Standard Precautions, Cellulitis and abscess of toe | Chroni c kidn... Diabetes(E11.9) Insulin sliding scale, diabetic diet, resume home medicatio ns when updated Ordered: Admit/Condition, 07/11/19 5:52:00 CDT, S tatus: Inpatient, Telemetry Capable Location, Expected LOS: 3 or [facility], Carson Kitchen MD, Admit Review/Approve Yes, Isolation: No Isolation/ Standard Precautions, Cellulitis and abscess of toe | Chroni c kidn... Heparin Admit to inpatient medicine Extracted from:Title: Podiatry Consult 11/07/2018 [facility] Author: Josh Groves DPM Date: 11/06/18 Impression and Plan Bilateral distal lower extremity celluli tis in setting of chronic distal bilateral lower extremity ulcers with patient presenting with progressive distal bilateral lower extremity erythema, swelling, pa in and tenderness over the last couple o f days. Patient admitted, will continue cefepime IV Patient's renal failure CKD stage V, judy noel reported she already had discussions with her claims support specialist regarding plans in the future for peritoneal dialysis. Patient reported that she still makes her urine, explained that making urine is no indicati on that her kidneys work. she is now on hemodialysis and receiving dislysis during treatment. Normocytic anemia likely of chronic kidney disease. Follow- up CBC ordered Insulin-dependent diabetes mellitus type 2 uncontrolled with hyperglycemia with a blood glucose of 334 noted. Uncontrolled/accelerated hypertension. Tobacco dependence. Hypothyroidism Onychomycosis bilateral, ingrown great toenails Plan: Sharp excisional debridement of thick, m alodorous, painful, ingrown mycotic ingrown toenails, bilateral Discussed at risk diabetic foot care, patient to follow up i n office Discussed ADA foot care guidelines Importance of diet on blood sugars Importance of blood sugars on wound healing Need to stop recreational drugs Need to stop smoking DVT prophylaxis with heparin subcutaneous. CODE STATUS is full code. Extracted from:Title: General Admission H&P * Author: Anthony Juarez MD Date: 11/02/18 Impression and Plan 1. Bilateral distal lower extremity tamiko lulitis in setting of chronic distal bilateral lower extremity ulcers with patient presenting with Progressive distal bilateral lower extremity erythema, swelling , pain and tenderness over the last coup le of days. Patient admitted, will continue cefepime IV; patient received a dose of vancomycin IV however will defer additional doses of vancomycin to the attend ing physician based on levels considerin g patient's renal failure likely CKD likely stage V. Tylenol and [place] as needed for pain ordered. Consider infectious disease consultation. 2. Renal failure probably CKD stage V/E SRD. Patient reported she already had discussions with her claims support specialist regarding plans in the future for peritoneal dialysis. Patient reported that she still m akes her urine, will continue home medic ation furosemide, follow-up BMP ordered. Consider nephrology consultation. 3. Normocytic anemia likely of chronic kidney disease . Follow-up CBC ordered. 4. Insulin-dependent diabetes mellitus type 2 uncontrolled with hyperglycemia with a blood glucose of 334 noted. Lantus will be continued with NovoLog sliding scale and hemoglobin A1c ordered. 5. Uncontrolled/accelerated hypertensio n. Home medications clonidine and nifedipine will be continued with hydralazine IV as needed ordered. 6. Tobacco dependence. Patient vocational guidance counselor ed over 3 minutes about the smoking cessation. 7. Hypothyroidism. Levothyroxine will be continued. 8. DVT prophylaxis with heparin subcutaneous ordered. 9. Patient's CODE STATUS is full code. Further management will depend on clinical course. Extracted from:Title: Discharge Summary * 08/16/2018 [facility] Author: Trevon Paredes MD Date: 08/16/18 Discharge Information admit 08/10/18 discharge 08/16/18 58-year-old hypertensive diabetic femmaria eugenia torres who presented to the emergency room with a 1-week history of intermittent nausea, vomiting. She is on furosemide at home. She was noted to have an elevated c reatinine level of 4 for which previous creatinine levels were 3.2. Thus she has been referred to the emergency room for further evaluation where initial evaluation in the emergency room noted patient to be hypertensive with a blood pressure 188/79. She was otherwise hemodynamically stable with creatinine in the emergency room of 3.94. She has been admitted under the care of Dr. Bailey, who has reques judit the hospital medicine service for in itial evaluation. Patient has been treated with a total of 8 units of insulin. I have seen and evaluated patient in the emergency room, was able to provide a re liable history. History is also provide d by patient's family currently at bedside. Pt cleared by ID for discharge with cipr o PO and follow up with wound care clinic. Pt also instructed to follow up with claims support specialist for CKD care. She will be started on renvela, calcitriol as well. Pt has had stable blood sugar and should fo llow up with endo for diabetes care as well. Discharge Plan Discharge Summary Plan Discharge Status: stable. Discharge instructions given: to patient. Discharge disposition: discharge to home with home health ca re. Prescriptions: continue same medications, called to pharmacy . Diagnosis ARF (acute renal failure) (TOP25-FL N17.9, Working, Medical) . Acute hyperglycemia (VAZ24-NT R73.9, Working, Medical). Type 2 diabetes mellitus with hyperglyce ellie (UPI95-QZ E11.65, Working, Medicine, Medical). Course Improving. Education and Follow-up Counseled: patient. Extracted from:Title: Progress Note * 05/07/2015 [facility] Author: Grant Gaspar MD Date: 05/06/15 Impression and Plan 1. Sepsis: improved 2. RLE cellulitis + bilateral leg nonhea ling ulcers: ID, PRS and wound center evals pending cont empiric vanco, meropenem 3. Diabetes mellitus: controlled. DC pm dose of glipizide to help avoid hypoglycemia 4. HTN, uncontrolled: add hctz 12.5 daily 5. Anemia, microcytic, hypochromic: s/p 2u prbc. iron studies pending, stool pending. denies bpr Plan of Care No Data Provided for This Section Social History Social History Date Source Social History TypeResponse 07/11/[address] [facility] Alcohol Never Substance Abuse Use: None. Smoking Status Current every day smoker; Type: Cigarett es; Previous treatment: None; Ready to change: No; Concerns about tobacco use in household: No; Exposure to Tobacco Smoke None; Cigarette Smoking Last 365 Days No ; Reg Smoking Cessation Counseling No; Started at age: 14.0; 1 entered on: 07/11/19 11 pack every 2 days Social History TypeResponse 08/11/2018 [facility] Substance Abuse Use: None. Alcohol Never Smoking Status Current every day smoker; Type: Cigarett es; Previous treatment: None; Ready to change: No; Concerns about tobacco use in household: No; Exposure to Tobacco Smoke None; Cigarette Smoking Last 365 Days No ; Reg Smoking Cessation Counseling No; Started at age: 12.0; 1 entered on: 11/01/18 11 pack every 2 days Family History No Data Provided for This Section Advance Directives No Data Provided for This Section Functional Status No Data Provided for This Section
--- OUTSIDE RECORDS SUMMARY | 2020-06-19 07:29 | XMS REPORT ---
[...] End Status Dosage System Date Date Lasix [facility] 80138674820 20 MG Orally Active 1 table t Once a day Levothyroxine ND 74403032043 50 MCG Orally Active 1 tablet in Sodium Once a day the morning on an empty stomach Lantus ND 74679603499 100 UNIT/ML Active as direc judit Subcutaneous 10 units daily NIFEdipine ER ND 95379990716 60 MG Orally Active 1 tablet on Once a day an empty stomach atorvastatin ND 28004023315 20mg Orally Active 1 t ablet in Once daily evening Clonidine HCl ND 99328655905 0.3 MG Orally Active 1 tablet Twice a day [facility] 63654299937 100 UNIT/ML Active as direc judit Subcutaneous 5 units daily Results No Known Results Summary Purpose eClinicalWorks Submission
--- OUTSIDE RECORDS SUMMARY | 2020-06-19 07:29 | XMS REPORT | Continuity of Care Document ---
:1960 Author Organization [facility] t Address [address] [place] [address] Care Team Providers Name Role Phone ElijahOmifatimah Attending Clinician Unavailable Carson Kitchen Attending Clinician Blanca Schwartz Attending Clinician Leo Attending Clinician Whitley Benavides Attending Clinician Amor Carson Attending Clinician Arsalan Martins Attending Clinician Salvatore Kitchen Admitting Clinician Blanca Schwartz Admitting Clinician Leo Admitting Clinician Arsalan Martins Admitting Clinician Payers Payer Name Policy Policy Number Effective Expiration Source Type Date Date MEDICAID - MEDICAID MGD xxxxxxxxx [facility] CHOICExxxxxxxxxMedicaid M edical Contracted Center OPTUM NON UNITED - MEDICAID xxxxxxxxx [facility] CAREOPTUM NON-UNITED [facility] Problems Condition Condition Condition Status Onset Resolution Last Treating Co mments Source Name Details Category Date Date Treatment Clinician Date LEFT FOOT Diagnosis Active 2019-07-22 Memoria INJURY 07-11 08:45:00 l LEFT 00:00: Uri FOOT 00 INJURY Active 07/11/2019 [facility] SWELLING Diagnosis Active 2017-112018-11-01 M emoria FEET 2-24 23:26:00 l SWELLING 00:00: Benjamin n FEET 00 Active 11/01/[address] [facility] CELLULITIS Diagnosis Active 2017-112018-11-17 Memoria OF BOTH 2-24 22:10:00 l LOWER 00:00: Uri EXTREMITIE CELLULITIS 00 S, CK OF BOTH LOWER EXTREMITIE S, CK Active 11/01/2018 [facility] ACUTE Diagnosis Active 2017-112018-08-19 Memoria HYPERGLYCE 0-02 22:09:00 l RAFIA ARF 00:00: [place] ACUTE 00 HYPERGLYCE RAFIA Active 08/10/2018 [facility] ABNORMAL Diagnosis Active 2017-112018-08-10 M emoria LABS 0- 16:46:00 l ABNORMAL 00:00: Benjamin n LABS 00 Active 08/10/[address] [facility] N18.3 - Diagnosis Active 2018-04-28 Me moria CHRONIC 02-23 23:50:00 l KIDNEY N18.3 - 00:01: Uri DISEASE, CHRONIC 00 STAGE KIDNEY DISEASE, STAGE Active 02/23/2018 [facility] RIGHT LLEG Diagnosis Active 2017-04-01 Memoria ABSCESS 04-01 14:20:00 l RIGHT 00:00: Uri LLEG 00 ABSCESS Active 04/01/[address] [facility] PRESSURE Diagnosis Active 2014-112015-09-25 M emoria IS TOO 1-17 19:57:00 l HIGH, PRESSURE 00:00: Benjamin jin HEADACHE IS TOO 00 HIGH, HEADACHE Active 09/25/2015 [facility] OTHER Diagnosis Active 2015-05-05 Mem oria 6- 02:50:00 l OTHER 00:00: Uri 00 Active 05/04/2015 [facility] LARGE LEG Diagnosis Active 2015-05-05 Memoria ULCER WITH 6- 08:21:00 l FEVER AND LARGE 00:00: Benjamin jin LEUKOCYTO LEG ULCER 00 WITH FEVER AND LEUKOCYTO Active 05/04/2015 [facility] BILATERAL Diagnosis Active 2015-01-08 Memoria LEG 3- 05:46:00 l INFECTION 00:00: Uri BILATERAL 00 LEG INFECTION Active 01/08/2015 [facility] BILATERAL Diagnosis Active 2015-01-08 Memoria LEG 01-08 16:05:00 l ULCERS; 00:00: Uri CELLULITIS BILATERAL 00 RIGHT L LEG ULCERS; CELLULITIS RIGHT L Active 01/08/2015 [facility] DM2 DM2 Disease Active [place] (diabetes (diabetes 9- Heal mellitus, mellitus, 00:00: type 2) type 2) 00 Ulcer of Ulcer of Disease Active Harri s leg, leg, -27 Health chronic chronic 00:00: 00 Back pain Back pain Disease Active Kalin ris 5-27 Health 00:00: 00 Abscess Abscess Disease Active [place] 6-14 Health 00:00: 00 Abscess of Abscess of Disease Active H arris foot foot 4-13 Health 00:00: 00 Opiate Opiate Disease Active [place] withdrawal withdrawal 02-19 He alth 00:00: 00 Polysubsta Polysubsta Disease Active H arris nce abuse nce abuse 02-19 Heal th 00:00: 00 Imbalance Imbalance Problem Active [facility] Open wound Open wound Problem Active [facility] of skin of skin kes - [facility] Hepatitis Hepatitis Problem Active [facility] C virus C virus [facility] - infection infection Edison howard without without l hepatic hepatic Outpati coma, coma, ent unspecifie unspecifie Cl inics d d chronicity chronicity Vitamin D Vitamin D Diagnosis Active [facility] deficiency deficiency Ani kes - [facility] Acquired Acquired Diagnosis Active [facility] hypothyroi hypothyroi [facility] - [facility] Uncontroll Uncontroll Diagnosis Active [facility] ed type 2 ed type 2 Luke s - diabetes diabetes Memori a mellitus mellitus l with with Outpati hyperglyce hyperglyce en t [facility] Hemodialys Hemodialys Diagnosis Active [facility] is status [facility] status [facility] - [facility] ESRD (end ESRD (end Diagnosis Active [facility] stage stage [facility] - renal renal Memoria disease) disease) l [facility] Essential Essential Problem Active [facility] hypertensi hypertensi Ani kes - on on [facility] Hepatitis Hepatitis Problem Active [facility] Thyroid Thyroid Problem Active [facility] Memory Memory Problem Active [facility] problem problem [facility] Diabetes Diabetes Problem [facility] Fear of Fear of Problem Active [facility] falling falling [facility] History of History of Problem Active [facility] retinal retinal [facility] - hemorrhage hemorrhage Me moria l [facility] Migraine Migraine Problem [facility] Onychomyco Onychomyco Problem Active [facility] sis sis [facility] GERD GERD Problem Active [facility] (gastroeso (gastroeso Ani kes - phageal phageal Memoria reflux reflux l disease) disease) Outpat i ent Clinics Risk for Risk for Problem Active [facility] [place] [facility] Swelling Swelling Problem [facility] Kidney Kidney Problem Active [facility] disease disease [facility] Circulatio Circulatio Problem Active [facility] n problem n problem [facility] Shortness Shortness Problem Active [facility] of breath of breath [facility] Pain in Pain in Problem Active [facility] left leg left leg [facility] Pain in Pain in Problem Active [facility] right leg right leg [facility] Pain in Pain in Problem Active [facility] right foot right foot Ani kes - [facility] Left arm Left arm Diagnosis Active [facility] pain pain [facility] Bunion, Bunion, Diagnosis Active [facility] t left foot left foot [facility] - [facility] Fatigue, Fatigue, Diagnosis Active [facility] unspecifie unspecifie Ani kes - d type d type [facility] Swelling Swelling Diagnosis Active [facility] extremity extremity Edison howard l [facility] Pain in Pain in Problem Active [facility] left foot left foot [facility] - [facility] Chronic Problem 2019 Edison howard viral 06:12:22 l hepatitis Chronic Herm almas C viral hepatitis C 2019 [facility] Pulmonary Problem 2019 Me moria hypertensi 06:12:22 l on, Uri unspecifie Pulmonary d hypertensi on, unspecifie d 2019 [facility] Non-pressu Problem 2019-05-26 M emoria re chronic 14:24:29 l ulcer of Uri unspecifie Non-pressu d part of re chronic right ulcer of lower leg unspecifie with d part of unspecifie right d severity lower leg with unspecifie d severity 05/26/2019 [facility] Non-pressu Problem 2019-05-26 M emoria re chronic 14:24:29 l ulcer of [place] unspecifie Non-pressu d part of re chronic left lower ulcer of leg with unspecifie unspecifie d part of d severity left lower leg with unspecifie d severity 05/26/2019 [facility] Type 2 Problem 2019-05-26 Memor ia diabetes 14:24:29 l mellitus Type 2 Benjamin n with other diabetes skin ulcer mellitus with other skin ulcer 05/26/2019 [facility] Nicotine Problem 2019-05-26 Mem oria dependence 14:24:29 l , Nicotine Benjamin n cigarettes dependence , , uncomplica cigarettes judit , uncomplica judit 05/26/2019 [facility] Type 2 Problem 2019-05-26 Memor ia diabetes 14:24:29 l mellitus Type 2 Benjamin n with diabetes diabetic mellitus chronic with kidney diabetic disease chronic kidney disease 05/26/2019 [facility] Other Problem 2019 Memor ia disorders 06:12:22 l of Other Uri phosphorus disorders metabolism of phosphorus metabolism 2019 [facility] Acidosis Problem 2019-05-26 Mem oria 14:24:29 l Acidosis Benjamin n 05/26/2019 [facility] Hypertensi Problem 2019-05-26 M emoria ve chronic 14:24:29 l kidney Uri disease Hypertensi with stage ve chronic 5 chronic kidney kidney disease disease or with stage end stage 5 chronic renal kidney disease disease or end stage renal disease 05/26/2019 [facility] Non-pressu Problem 2019 M emoria re chronic 06:12:22 l ulcer of Uri buttock Non-pressu with re chronic unspecifie ulcer of d severity buttock with unspecifie d severity 2019 [facility] Chronic Problem 2019 Edison howard kidney 06:12:22 l disease, Chronic Nissa nn stage 5 kidney disease, stage [address] [facility] Secondary Problem 2019 Me moria hyperparat 06:12:22 l hyroidism Uri of renal Secondary origin hyperparat hyroidism of renal origin [address] [facility] Patient's Problem 2019 Me moria noncomplia 06:12:22 l nce with Uri other Patient's medical noncomplia treatment nce with and other regimen medical treatment and regimen 2019 [facility] Unspecifie Problem 2019-05-26 M emoria d viral 14:24:29 l hepatitis Uri C without Unspecifie hepatic d viral coma hepatitis C without hepatic coma [address] [facility] Opioid Problem 2019-05-26 Memor ia dependence 14:24:29 l , Opioid [place] uncomplica dependence judit , uncomplica judit 05/26/2019 [facility] Morbid Problem 2019-05-26 Memor ia (severe) 14:24:29 l obesity Morbid Uri due to (severe) excess obesity calories due to excess calories 05/26/2019 [facility] Tinea Problem 2019-05-26 Memor ia unguium 14:24:29 l Tinea [place] unguium 05/26/2019 [facility] Ingrowing Problem 2019-05-26 Ne moria nail 14:24:29 l [place] Ingrowing nail [address] [facility] Anemia in Problem 2019-05-26 Ne moria other 14:24:29 l chronic Anemia Uri diseases in other classified chronic elsewhere diseases classified elsewhere 05/26/[address] [facility] Cutaneous Problem 2019-05-26 Ne moria abscess of 14:24:29 l left lower Benjamin n limb Cutaneous abscess of left lower limb [address] [facility] Cutaneous Problem 2019-05-26 Me moria abscess of 14:24:29 l right Uri lower limb Cutaneous abscess of right lower limb 05/26/[address] [facility] Iron Problem 2019-05-26 Memor ia deficiency 14:24:29 l Iron [place] deficiency 05/26/[address] [facility] Hyperkalem Problem 2019-05-26 M emoria ia 14:24:29 l Uri Hyperkalem ia 05/26/2019 [facility] Fluid Problem 2019-05-26 Memor ia overload, 14:24:29 l unspecifie Fluid Nissa nn d overload, unspecifie d 05/26/2019 [facility] Pseudomona Problem 2019-05-26 M emoria s 14:24:29 l (aeruginos Benjamin n a) Pseudomona (mallei) s (pseudomal (aeruginos lei) as a) the cause (mallei) of (pseudomal diseases lei) as classified the cause elsewhere of diseases classified elsewhere 05/26/2019 [facility] Inflammato Problem Resolve 2019-07-13 Memoria ry disease d 21:59:53 l of liver Uri (disorder) Inflammato ry disease of liver (disorder) Resolved Problem 07/13/2019 [facility] Hypertensi Problem Resolve 2019-07-13 Memoria ve d 21:59:53 l disorder, Uri systemic Hypertensi arterial ve (disorder) disorder, systemic arterial (disorder) Resolved Problem 07/13/2019 [facility] Heart Problem Resolve 2019-07-13 Edison howard murmur d 21:59:53 l (finding) Heart Benjamin n murmur (finding) Resolved Problem 07/13/2019 [facility] Interverte Problem Resolve 2019-07-13 Memoria bral disc d 21:59:53 l rupture [place] (disorder) Interverte bral disc rupture (disorder) Resolved Problem 07/13/2019 [facility] Cellulitis Problem Active 2019-07-13 M emoria and 21:59:53 l abscess of Benjamin n lower leg Cellulitis (disorder) and abscess of lower leg (disorder) Active Problem 07/13/2019 [facility] Cellulitis Problem Active 2019-07-13 M emoria of ankle 21:59:53 l (disorder) Benjamin n Cellulitis of ankle (disorder) Active Problem 07/13/2019 [facility] Diabetes Problem Active 2019-07-13 Mem oria mellitus 21:59:53 l (disorder) Diabetes He rmann mellitus (disorder) Active Problem 07/13/2019 [facility] Drug abuse Problem Active 2019-07-13 M emoria (disorder) 21:59:53 l Drug Uri abuse (disorder) Active Problem 07/13/2019 [facility] Smoker Problem Active 2019-07-13 Memor ia (finding) 21:59:53 l Smoker Uri (finding) Active Problem 07/13/2019 [facility] Chronic Problem Active 2019-07-18 Edison howard kidney 02:01:18 l disease Chronic Benjamin n (CKD) kidney stage disease G4/A3, (CKD) severely stage decreased G4/A3, glomerular severely filtration decreased rate (GFR) glomerular between filtration 15-29 rate (GFR) mL/min/1.7 between 3 square 15-29 meter and mL/min/1.7 albuminuri 3 square a meter and creatinine albuminuri ratio a greater creatinine than 300 ratio mg/g greater than 300 mg/g Active Problem 07/18/2019 eCW: Janak Ortiz Diabetic Problem Active 2019-07-18 Mem oria peripheral 02:01:18 l neuropathy Diabetic He rmann peripheral neuropathy Active Problem 07/18/2019 eCW: Janak Ortiz Diabetes Problem Active 2019-07-18 Mem oria mellitus 02:01:18 l type 2, Diabetes Nissa nn uncontroll mellitus ed type 2, uncontroll ed Active Problem 9 eCW: Janak Ortiz Hyperlipid Problem Active 2019-07-18 M emoria emia 02:01:18 l Uri Hyperlipid emia Active Problem 07/18/2019 eCW: Janak Diana DM type 2, Problem Active 2019-07-18 M emoria uncontroll 02:01:18 l ed, with DM type Nissa nn retinopath 2, y uncontroll ed, with retinopath y Active Problem 07/18/2019 eCW: Janak Ortiz Type 2 Problem Active 2019-07-18 Memor ia diabetes 02:01:18 l mellitus Type 2 Benjamin n with diabetes diabetic mellitus peripheral with angiopathy diabetic without peripheral gangrene angiopathy without gangrene Active Problem 07/18/2019 [facility] W: Janak Ortiz Venous Diagnosis Active 2019-07-18 Mem oria insufficie 02:01:18 l ncy Venous [place] (chronic) insufficie (periphera ncy l) (chronic) (periphera l) Active Diagnosis 07/18/2019 eCW: Janak Ortiz Essential Problem Active 2019-07-18 Me moria (primary) 02:01:18 l hypertensi Benjamin n on Essential (primary) hypertensi on Active Problem 9 eCW: Janak Ortiz Acquired Problem Active 2019-07-18 Mem oria hypothyroi 02:01:18 l dism Acquired Benjamin n hypothyroi dism Active Problem 07/18/2019 eCW: Janak Ortiz No-show Diagnosis Active 2018-11-27 Me morimaria eugenia for 03:04:26 l appointmen No-show Her mukherjee t for appointmen t Active Diagnosis 11/27/2018 eCW: Janak Ortiz Tinea Diagnosis Active 2019-07-18 Mem oria pedis of 02:01:18 l both feet Tinea Benjamin n pedis of both feet Active Diagnosis 07/18/2019 eCW: Janak Ortiz 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 Diagnosis Active 2019-07-18 Memoria current 02:01:18 l use of Long [place] insulin term current use of insulin Active Diagnosis 07/18/2019 eCW: Janak Ortiz End stage Problem Active 2019-07-18 Me ursula renal 02:01:18 l disease End [place] stage renal disease Active Problem 07/18/2019 [facility] W: Janak Ortiz Dependence Problem Active 2019-07-18 M [place] on renal 02:01:18 l dialysis Uri Dependence on renal dialysis Active Problem 07/18/2019 [facility] W: Janak KnoxDiana ADMINISTRT Diagnosis Active 2015-01-08 Memoria VE ENCOUNT 15:26:00 l NOS [place] ADMINISTRT VE ENCOUNT NOS Active [facility] CELLULITIS Diagnosis Active 2015-01-08 Memoria OF LEG 16:05:00 l Uri CELLULITIS OF LEG Active [facility] LEUKOCYTOS Diagnosis Active 2015-05-05 Memoria IS NOS 08:21:00 l [place] LEUKOCYTOS IS NOS Active [facility] ACUTE Diagnosis Active 2018-08-19 Mem oria KIDNEY 22:09:00 l FAILURE, ACUTE [place] UNSPECIFIE KIDNEY D FAILURE, UNSPECIFIE D Active [facility] HYPERGLYCE Diagnosis Active 2018-08-19 Memoria RAFIA, 22:09:00 l UNSPECIFIE Benjamin n D HYPERGLYCE RAFIA, UNSPECIFIE D Active [facility] CELLULITIS Diagnosis Active 2018-11-17 Memoria OF RIGHT 22:10:00 l LOWER LIMB Benjamin n CELLULITIS OF RIGHT LOWER LIMB Active [facility] PERSONAL Diagnosis Active 2018-11-17 M emoria HISTORY OF 22:10:00 l METHICILLI PERSONAL He rmann N RESIS ST HISTORY OF METHICILLI N RESIS ST Active [facility] CELLULITIS Diagnosis Active 2019-07-22 Memoria OF 08:45:00 l UNSPECIFIE Benjamin n D TOE CELLULITIS OF UNSPECIFIE D TOE Active [facility] [place][note 2] CHRONIC Diagnosis Active 2019-07-22 Me moria KIDNEY 08:45:00 l DISEASE, CHRONIC Nissa nn UNSPECIFIE KIDNEY D DISEASE, UNSPECIFIE D Active [facility] [place][note 2] TYPE 2 Diagnosis Active 2019-07-22 Mem oria DIABETES 08:45:00 l MELLITUS TYPE 2 Benjamin n WITHOUT DIABETES COMPLIC MELLITUS WITHOUT COMPLIC Active [facility] [place][note 2] Cellulitis Problem 2019-05-26 2019-05-26 Memoria of right 24 14:24:29 14:24:29 l lower limb 04:26: Benjamin n Cellulitis 18 of right lower limb 03/02/2019 05/26/2019 [facility] Acute Problem 2017-112019-03-06 2019 M emoria kidney 0-13 06:12:22 06:12:22 l failure Acute 03:37: Uri with kidney 01 tubular failure necrosis with tubular necrosis 8 2019 [facility] Chronic Problem 2017-04-04 2017-04-04 Memoria kidney - 04:26:31 04:26:31 l disease, Chronic 05:00: Nissa nn unspecifie kidney 00 d disease, unspecifie d 04/01/2017 04/04/2017 [facility] Discharge Problem 2014-112015-09-28 2015-09-28 Memoria Diagnosis: 11-25 06:20:44 06:20:44 l Acute 06:00: Uri renal Discharge 00 insufficie Diagnosis: ncy Acute renal insufficie ncy 09/25/2015 09/28/2015 [facility] Discharge Problem 2014-112015-09-28 2015-09-28 Memoria Diagnosis: 11-25 06:20:44 06:20:44 l Hypertensi 06:00: Benjamin jin on Discharge 00 Diagnosis: Hypertensi on 09/25/2015 09/28/2015 [facility] Discharge Problem 2014-112015-09-28 2015-09-28 Memoria Diagnosis: 11-25 06:20:44 06:20:44 l Headache 06:00: Uri Discharge 00 Diagnosis: Headache 5 09/28/2015 [facility] Allergies, Adverse Reactions, Alerts Allergy Allergy Status Severity Reaction(s) Onset Inactive Treating Comm ents Source Name Type Date Date Clinician N.KVadimA. N.KVadimA. Active Info Not Edison howard Available 05-03 l 00:00: [place] 00 NKFA NKFA Active Memoria l [place] No Known No Known Active Memori a Medicati Medicati l on on Uri Allergie Allergie s s Social History Social Habit Start Date Stop Date Quantity Comments Source Sex Assigned At [facility] Social History 2018-08-11 2018-08-11 [facility] 03:14:35 03:14:35 Alcohol intake 2015-09-25 2015-09-25 Current [facility] 00:00:00 00:00:00 non-drinker of alcohol (finding) Smoking Status Start Date Stop Date Source Current every day smoker 2015-09-25 00:00:00 [facility] Medications Ordered Filled Start Stop Current Ordering Indication Dosage Frequency Signature Comments Components Source Medication Medication Date Date Medication? Clinician (SIG) Name Name Gabapentin Gabapentin Yes Nimisha [address] [facility] 06-10 [facility] as needed [facility] 00:[facility]: for pain Memoria 00 l [facility] Clinics clonidine 2018- Yes Marvin Hoang 1 tab(s) Memoria 07-18 Diana l 02:01: [place] 18 Procardia 2018- Yes Marvin Hoang 1 tab(s) Memoria XL 07-18 Diana l 02:01: calcitriol 2018- Yes Marvin Hoang 1 cap(s) Memoria 07-18 Diana l 02:01: levothyroxi 2018- Yes Marvin Hoang TAKE 1 Memoria ne 07-18 Diana TABLET BY l 02:01: MOUTH ONCE 18 DAILY furosemide Yes Marvin Hoang 1 tab(s) Memoria 07-18 Diana l 02:01: [place] 18 Lantus Yes Marvin Hoang 10 units M emoria Solostar 07-18 Diana l Pen 02:01: NovoLog Yes Marvin Viktor 8 units Jamarcus candelario FlexPen 07-18 Diana l 02:01: atorvastati Yes Marvin Hoang 1 tab(s) Memoria n 07-18 Diana l 02:01: Furosemide No Notes: Memor ia 07-12 (Same as: l 14:00: Lasix) [place] 00 May cause GI upset. Give with food or milk. atorvastati No Notes: Edison howard n 07-12 (Same As: l 14:00: Lipitor) Calcitriol No Notes: Memor ia 07-12 (Same As: l 14:00: Rocaltrol) Thyroxine No Notes: Memori a 07-12 Take 1 l 11:30: hour [place] 00 before or 2 hours after meal; Enteral feeds may interefere with the absorption of this medication .(Same as:Levothr oid, Synthroid) cefepime No Notes: Memoria 07-12 (Same As: l 11:00: Maxipime) MEDICATION WASTE Product Size: 1000 mg Product Wasted: ___ mg Methadone No Notes: Memori a 07-12 (Same as: l 10:00: Dolophine) Insulin No Notes: Memoria Glargine 07-12 (Same as: l 100 UNT/ML 03:00: Lantus) Do H ermann Injectable 00 not hold Solution insulin without contacting prescriber WASTE: F/P - Black; E - Municipal Trash Bin "single patient use only" Stable for 28 days at room temperatur e Expires in days from ____Date heparin No 5,000 Memoria sodium, 07-12 unit, l porcine 02:00: Route: Uri 2500 UNT/ML 00 SUB-Q, Injectable Drug form: Solution INJ, Q12H, Dosing Weight 78.003, kg, Start date: 07/11/19 21:00:00 CDT, Duration: 30 day, Stop date: 08/10/19 9:00:00 CDT NIFEdipine 2018- No Notes: Memor ia 30 mg oral 07-11 (Same as: l tablet, 22:00: Adalat CC, Herm almas extended Procardia release XL) Give on empty stomach. Take 1 hour before or 2 hours after meal; "Avoid grapefruit and grapefruit juice". Do not crush Sodium No 650 mg, 1 Memori a Bicarbonate 07-11 tab, l 650 MG Oral 22:00: Route: PO, [place] Tablet 00 Drug form: TAB, BID-Meals, Dosing Weight 78.003, kg, Start date: 07/11/19 17:00:00 CDT, Duration: 30 day, Stop date: 08/10/19 8:00:00 CDT, 0 Clindamycin No 900 mg, 50 Memoria 07-11 mL, Route: l 18:00: IVPB, Drug [place] 00 form: INJ, [id number], Dosing Weight 78.003, kg, Start date: 07/11/19 13:00:00 CDT, Duration: 14 day, Stop date: 07/25/19 5:00:00 CDT, ABX Indication : Bone/Joint Infection, 0 heparin No Notes: Memoria 07-11 porcine l 17:30: heparin [place] sevelamer No Notes: Memori a 07-11 Same as: l 17:25: Renvela Uri 00 ferrous No Notes: Memoria sulfate 07-11 Give with l 17:00: food. iron elemental [id number] as ferrous sulfate Dose=___mg elemental iron Normodyne No Notes: Memori a 07-11 (Same as: l 14:12: Normodyne, Uri 00 Trandate) Push over 2 minutes Give bolus over 2-3 minutes. Clonidine No Notes: Memori a 07-11 (Same As: l 14:02: Catapres) [place] Labetalol No Notes: Memori a 07-11 (Same as: l 11:12: Normodyne, [place] 00 Trandate) Push over 2 minutes Give bolus over 2-3 minutes. Kayexalate No Notes: Memor ia 07-11 (sodium l 11:09: polystyren e sulfonate 15 gm/60 ml TG) Shake well before use. (Same as: Kayexalate , SPS) Dextrose No 12.5 gm, Memor ia 50% Syringe 07-11 25 mL, l 11:02: Route: [place] 00 IVP, Drug Form: INJ, Dosing Weight 77.273, kg, PRN, PRN Blood Glucose Results, Start date: 07/11/19 6:02:00 CDT, Duration: 30 day, Stop date: 08/10/19 6:01:00 CDT, 0 Glucagon No 1 mg, Memoria 07-11 Route: IM, l 11:02: Drug form: Uri PDR/INJ, PRN, Dosing Weight 77.273, kg, PRN Blood Glucose Results, Start date: 07/11/19 6:02:00 CDT, Duration: 30 day, Stop date: 08/10/19 6:01:00 CDT, 0 Acetaminoph No Notes: Do M emoria en 07-11 not exceed l 11:02: 4 gm/day. Uri (Same as: Tylenol) Insulin No Notes: Memoria Lispro 07-11 (Same as: l 11:02: Humalog) Roll in palms of hands gently; Do not shake vigorously . WASTE: F/P - Black; E - Municipal Trash Bin Stable for 28 days at room temperatur e. Expires in days from ____Date morphine No Notes: Memoria 0.5 mg/mL 07-11 (Same l preservativ 10:58: as:MORPhin [place] e-free 00 e Sulfate) injectable solution heparin No Notes: Memoria 07-11 porcine l 10:58: heparin [place] 00 Hydralazine No Notes: Edison howard 07-11 (Same as: l 09:40: Apresoline ) Push over 5 minutes Morphine No Notes: Memoria 07-11 (Same l 09:38: as:MORPhin [place] 00 e Sulfate) Zofran No Notes: Memoria 07-11 (Same as: l 09:38: Zofran) MEDICATION WASTE Product Size: 4 mg Product Wasted: ___ mg Saline No Notes: Memoria Flush 0.9% 07-11 (Same as: l 09:37: BD [place] 00 Posiflush) cefepime No Notes: Memoria 07-11 (Same As: l 09:37: Maxipime) MEDICATION WASTE Product Size: 1000 mg Product Wasted: ___ mg Vancomycin No 2000 mg: Me moria 07-11 infuse l 09:37: over 2.5 [place] 00 hours For adult patients only: Round to nearest 250 mg per Medical Staff approval MEDICATION WASTE Product Size: 1000 mg Product Wasted: ___ mg Clotrimazol Yes J Viktor 1 cecilia Memoria e, Topical 6-25 Diana l 00:00: [place] vancomycin 2017-11 No 2000 mg: Me moria + Sodium 2-30 infuse l Chloride 03:00: over 2.5 Nissa nn 0.9% IV 250 00 hours For mL adult patients only: Round to nearest 250 mg per Medical Staff approval MEDICATION WASTE Product Size: 1000 mg Product Wasted: ___ mg Cipro 2017-11 No Notes: May Memori a 2-29 interfere l 20:00: w/enteral [place] 00 feedings - Take 1 hr before or 2 hrs after antacids, dairy pdt & minerals. On empty stomach. NIFEdipine 2017-11 No Notes: Memor ia 60 mg oral -28 (Same as: l tablet, 15:00: Adalat CC, Herm almas extended 00 Procardia release XL) Give on empty stomach. Take 1 hour before or 2 hours after meal; "Avoid grapefruit and grapefruit juice". Do not crush Ciprofloxac 2017-11 No 500 mg = 1 Memoria in 500 MG 2-28 tab, PO, l Oral Tablet 12:58: Q12H, X 7 H ermann [Cipro] day, # 14 tab, 0 Refill(s), Pharmacy: [facility] Hydralazine 2017-11 No Notes: Edison howard 2-28 (Same as: l 12:53: Apresoline Uri ) Push over 5 minutes Acetaminoph 2017-11 No Notes: Edison howard en 325 MG / 2-28 (Same as: l Hydrocodone 01:14: Ewing Nissa nn Bitartrate 00 325/5) Do 5 MG Oral not exceed Tablet 4gm/day of [Ewing acetaminop 5/325] hen. Vancomycin 2017-11 No 2001 mg: Me moria 2-27 infuse l 23:00: over 2.5 [place] 00 hours For adult patients only: Round to nearest 250 mg per Medical Staff approval MEDICATION WASTE Product Size: 1000 mg Product Wasted: ___ mg NIFEdipine 2017-11 No Notes: Memor ia 60 mg oral 01-05 (Same as: l tablet, 15:00: Adalat CC, Herm almas extended 00 Procardia release XL) Give on empty stomach. Take 1 hour before or 2 hours after meal; "Avoid grapefruit and grapefruit juice". Do not crush insulin 2017-11 No Notes: Memoria glargine - (Same as: l 03:00: Lantus) Do not hold insulin without contacting prescriber WASTE: F/P - Black; E - Municipal Trash Bin "single patient use only" insulin 2017-11 No 10 unit, Memori a detemir 01-05 Route: l 03:00: SUB-Q, Uri 00 Bedtime, Dosing Weight 77.273, kg, Start date: 11/03/18 21:00:00 [employer], Duration: 30 day, Stop date: 12/02/18 21:00:00 [employer] Ferrlecit + 2017-11 No 125 mg, 10 Memoria Sodium 2-26 mL, Route: l Chloride 18:00: IVPB, [place] 0.9% IV 100 00 Daily, mL Start date: 11/03/18 12:00:00 [employer], Duration: 8 doses or times, Stop date: 11/18/18 9:00:00 [employer] heparin 2017-11 No Notes: Memoria 2-26 porcine l 16:41: heparin [place] 00 Ferrous 2017-11 No 350 mg, Memoria fumarate 2-26 Route: PO, l 15:00: Drug form: Uri 00 TAB, Daily, Dosing Weight 77.273, kg, Start date: 11/03/18 9:00:00 [employer], Duration: 30 day, Stop date: 12/02/18 9:00:00 [employer] Nephro-Shelia 2017-11 No Notes: Edison howard Rx 2-26 (Same as: l 15:00: Nephro-Vit [place] 00 e Rx and Diatx) Give with food. ferrous 2017-11 No Notes: Memoria sulfate 2-26 Give with l 15:00: food. "Do Not Crush" Venofer 2017-11 No 200 mg, Memoria 2-26 Route: l 15:00: IVPB, Drug form: INJ, Daily, Dosing Weight 77.273, kg, Start date: 11/03/18 9:00:00 [employer], Duration: 5 doses or times, Stop date: 11/07/18 9:00:00 [employer] Calcitriol 2017-11 No Notes: Memor ia 2-26 (Same As: l 15:00: Rocaltrol) cefepime 2017-11 No Notes: Memoria 2-26 (Same As: l 05:00: Maxipime) MEDICATION WASTE Product Size: 1000 mg Product Wasted: ___ mg Insulin 2017-11 No Notes: Memoria Glargine 2-26 (Same as: l 100 UNT/ML 03:00: Lantus) Do H ermann Injectable not hold Solution insulin [Lantus] without contacting prescriber WASTE: F/P - Black; E - Municipal Trash Bin "single patient use only" atorvastati 2017-11 No Notes: Edison howard n 2-26 (Same As: l 03:00: Lipitor) Vancomycin 2017-11 No Vancomycin M emoria dosing and 2-26 dosing and l monitoring 01:00: monitoring H ermann per 00 per pharmacy pharmacy, 1 ea, Drug form: MISC, Route: MISC, ONCALL, 11/02/18 19:00:00 [employer], Duration: 30 day, Stop date: 12/02/18 18:59:00 [employer] Hydralazine 2017-11 No Notes: Edison howard Hydrochlori 2-25 (Same as: l de 50 MG 23:00: Apresoline Her mukherjee Oral Tablet 00 ) May interfere w/enteral feedings Take With Food Sodium 2017-11 No Notes: Memoria Bicarbonate 2-25 "Dissolve l 650 MG Oral 23:00: tablet in H ermann Tablet 00 a glass of water prior to oral administra tion. STOMACH WARNING: To avoid serious injury, do not take until tablet is completely dissolved. It is very important not to take this product when overly full from food or drink." cadexomer 2017-11 No Notes: Memori a iodine 2-25 Non-Formul l 0.009 MG/MG 20:00: mayi Drug. H ermann Topical Gel 00 For external use only. (Same As: Iodosorb) epoetin 2017-11 No Notes: Memoria sami 2-25 (Same as: l 19:00: Procrit) epoetin sami 86295 unit/1 ml VL. For dialysis use only. (Procrit) WASTE: F/P - Red; E -Red MEDICATION WASTE Product Size: 58705 unit Product Wasted: ___ unit sevelamer 2017-11 No Notes: Memori a 2-25 Same as: l 18:00: Renvela [place] Epogen 2017-11 No 40,000 Memoria 2-25 unit, l 17:19: Route: Uri SUB-Q, ONCE, Dosing Weight 77.273, kg, For Oncology Patients, Start date: 11/02/18 11:19:00 [employer], Stop date: 11/02/18 11:19:00 [employer] Methadone 2017-11 No Notes: Memori a 2-25 (Same as: l 16:30: Dolophine) Clonidine 2017-11 No Notes: Memori a 2-25 (Same As: l 15:00: Catapres) NIFEdipine 2017-11 No Notes: Memor ia 30 mg oral 2-25 (Same as: l tablet, 15:00: Adalat CC, Herm almas extended 00 Procardia release XL) Give on empty stomach. Take 1 hour before or 2 hours after meal; "Avoid grapefruit and grapefruit juice". Do not crush Furosemide 2017-11 No Notes: Memor ia 2-25 (Same as: l 15:00: Lasix) [place] 00 May cause GI upset. Give with food or milk. heparin 2017-11 No Notes: Memoria 2-25 porcine l 15:00: heparin [place] 00 Thyroxine 2017-11 No Notes: Memori a 2-25 Take 1 l 12:30: hour Uri 00 before or 2 hours after meal; Enteral feeds may interefere with the absorption of this medication .(Same as:Levothr oid, Synthroid) Methadone 2017-11 Yes 80mgs, PO, Me moria 2-25 Daily, at l 09:51: 5 am, 0 Uri 00 Refill(s) ferrous 2017-11 Yes See Memoria sulfate 2-25 Instructio l 09:42: ns, 325 mg Uri 00 PO twice daily, am and noon, 0 Refill(s) Sodium 2017-11 Yes 650 mg = 1 Memor ia Bicarbonate 2-25 tab, PO, l 650 MG Oral 09:42: BID, With H ermann Tablet 00 meals, 0 Refill(s) NovoLog 2017-11 Yes SUB-Q, Memoria 2-25 TID-Before l 09:42: Meals, 3 [place] 00 to 5 units depending on blood glucose levels., 0 Refill(s) Benadryl 2017-11 No Notes: Memoria 2-25 (Same as: l 08:05: Benadryl) [place] 00 Zofran 2017-11 No Notes: Memoria 2-25 (Same as: l 07:32: Zofran) [place] 00 MEDICATION WASTE Product Size: 4 mg Product Wasted: ___ mg Insulin 2017-11 No Notes: Memoria Lispro 2-25 (Same as: l 07:02: Humalog ) Uri 00 Roll in palms of hands gently; Do not shake `vigorousl y. "Single Patient Use Only " WASTE: F/P - Black; E - Municipal Trash Bin Stable for 28 days at room temperatur e. Expires in days from ____Date Glucagon 2017-11 No 1 mg, Memoria 2-25 Route: IM, l 07:02: Drug form: [place] 00 PDR/INJ, PRN, Dosing Weight 77.273, kg, PRN Blood Glucose Results, Start date: 11/02/18 1:02:00 [employer], Duration: 30 day, Stop date: 12/02/18 1:01:00 [employer] Dextrose 2017-11 No 25 gm, 50 Edison howard 50% Syringe 2-25 mL, Route: l 07:02: IVP, Drug Form: INJ, Dosing Weight 77.273, kg, PRN, PRN Blood Glucose Results, Start date: 11/02/18 1:02:00 [employer], Duration: 30 day, Stop date: 12/02/18 1:01:00 [employer]PER[employer] Hydralazine 2017-11 No Notes: Edison howard 2-25 (Same as: l 06:45: Apresoline ) Push over 5 minutes Acetaminoph 2017-11 No Notes: Do M emoria en 2-25 not exceed l 06:45: 4 gm/day. (Same as: Tylenol) Acetaminoph 2017-11 No Notes: Edison howard en 325 MG / 2-25 (Same as: l Hydrocodone 06:45: Ewing Nissa nn Bitartrate 00 325/5) Do 5 MG Oral not exceed Tablet 4gm/day of acetaminop hen. Dextrose 2017-11 No 25 mL, Memoria 50% Syringe 2-25 Route: l 06:45: IVP, Dosing Weight 77.273, kg, PRN, PRN Blood Glucose Results, Start date: 11/02/18 0:45:00 [employer]PER[employer]OR, Duration: 30 day, Stop date: 12/02/18 0:44:00 [employer] SUPER[employer]OR Glucagon 2017-11 No 1 mg, Memoria 2-25 Route: IM, l 06:45: PRN, Dosing Weight 77.273, kg, PRN Blood Glucose Results, Start date: 11/02/18 0:45:00 [employer] SUPER[employer]OR, Duration: 30 day, Stop date: 12/02/18 0:44:00 [employer]PER[employer]OR Vancomycin 2017-11 No 2001 mg: Me moria 2-25 infuse l 05:00: over 2.5 hours For adult patients only: Round to nearest 250 mg per Medical Staff approval MEDICATION WASTE Product Size: 1000 mg Product Wasted: ___ mg cefepime 2017-11 No Notes: Memoria 2-25 (Same as: l 04:59: Maxipime) MEDICATION WASTE Product Size: 2000 mg Product Wasted: ___ mg Acetaminoph 2017-11 No Notes: Edison howard en 325 MG / 2-25 (Same as: l Hydrocodone 04:11: Ewing Nissa nn Bitartrate 00 325/5) Do 5 MG Oral not exceed Tablet 4gm/day of acetaminop hen. Saline 2017-11 No Notes: Memoria Flush 0.9% 2-25 (Same as: l 03:54: BD Uri 00 Posiflush) FreeStyle 2017-11 Yes Marvin Hoang -- Me moria Adriana 10-d 11-20 Diana l [place] 00:00: [place] Glucose 00 Monitorin Freestyle 2017-11 Yes Marvin Hoang apply one Memoria Adriana 11-20 Diana sensor l Sensor 00:00: every 10 [place] 00 days or as directed sevelamer 2017-11 Yes 800 mg = 1 Me moria carbonate 0-08 tab, PO, l 800 mg oral 20:27: TID, Benjamin n tablet 00 , # 90 tab, 0 Refill(s), Pharmacy: [facility] levothyroxi 2017-11 Yes 50 Memori a ne 50 mcg 0-08 microgram l (0.05 mg) 20:27: = 1 tab, Herm almas oral tablet 00 PO, [id number], # 30 tab, 0 Refill(s), Pharmacy: [facility] ciprofloxac 2017-11 No 500 mg = 1 Memoria in 500 mg 0-08 tab, PO, l oral tablet 20:27: [id number], X Uri 00 14 day, # 28 tab, 0 Refill(s), Pharmacy: [facility] calcitriol 2017-11 Yes 0.25 Memoria 0.25 mcg 0-08 microgram l oral 20:27: = 1 cap, [place] capsule 00 PO, Daily, # 30 cap, 0 Refill(s), Pharmacy: [facility] Cipro 2017-11 No Notes: May Memori a 0-08 interfere l 18:00: w/enteral [place] 00 feedings - Take 1 hr before or 2 hrs after antacids, dairy pdt & minerals. On empty stomach. Rocaltrol 2017-11 No Notes: Memori a 0-08 (Same As: l 14:00: Rocaltrol) [place] 00 Renvela 2017-11 No Notes: Memoria 0-07 Same as: l 22:00: Renvela [place] 00 Synthroid 2017-11 No Notes: Memori a 0-07 Take 1 l 11:30: hour [place] 00 before or 2 hours after meal; Enteral feeds may interefere with the absorption of this medication .(Same as:Levothr oid, Synthroid) Maxipime 2017-11 No Notes: Memoria 0-07 (Same As: l 02:00: Maxipime) [place] 00 MEDICATION WASTE Product Size: 1000 mg Product Wasted: ___ mg Citric Acid 2017-11 No Notes: Edison howard 66.8 MG/ML 0-06 (Same As: l / sodium 18:00: Bicitra) Nissa nn citrate 100 00 MG/ML Oral Solution [Cytra 2] Lasix 2017-11 No Notes: Memoria 0-06 (Same as: l 14:00: Lasix) Uri 00 MEDICATION WASTE Product Size: 40 mg Product Wasted: ___ mg Lasix 2017-11 No Notes: Memoria 0-05 (Same as: l 19:13: Lasix) Uri 00 MEDICATION WASTE Product Size: 40 mg Product Wasted: ___ mg Insulin 2017-11 No Notes: Memoria Glargine 0-05 (Same as: l 100 UNT/ML 14:00: Lantus) Do H ermann Injectable 00 not hold Solution insulin [Lantus] without contacting prescriber WASTE: F/P - Black; E - Municipal Trash Bin "single patient use only" Humalog 2017-11 No Notes: Memoria 0-04 (Same as: l 16:30: Humalog ) Uri 00 Roll in palms of hands gently; Do not shake `vigorousl y. "Single Patient Use Only " WASTE: F/P - Black; E - Municipal Trash Bin Stable for 28 days at room temperatur e. Expires in days from ____Date Insulin 2017-11 No Notes: Memoria Glargine 0-04 (Same as: l 100 UNT/ML 16:22: Lantus) Do H ermann Injectable 00 not hold Solution insulin [Lantus] without contacting prescriber WASTE: F/P - Black; E - Municipal Trash Bin "single patient use only" atorvastati 2017-11 No Notes: Edison howard n 0-04 (Same As: l 14:00: Lipitor) Methadone 2017-11 No Notes: Memori a 0-04 (Same as: l 11:00: Dolophine) Insulin 2017-11 No 10 unit, Memori a Glargine 0-04 Route: l 100 UNT/ML 02:00: SUB-Q, Nissa nn Injectable 00 Drug form: Solution SOLN, Bedtime, Dosing Weight 79, kg, Start date: 08/11/18 21:00:00 CDT, Duration: 30 day, Stop date: 09/09/18 21:00:00 CDT Zosyn 2017-11 No Notes: Memoria 0-04 (Same as: l 00:00: Zosyn) Uri 00 Dosing based on Piperacill in component MEDICATION WASTE Product Size: 3375 mg Product Wasted: ___ mg Vancomycin 2017-11 No 2000 mg: Me moria 0-03 infuse l 23:24: over 2.5 Uri hours For adult patients only: Round to nearest 250 mg per Medical Staff approval MEDICATION WASTE Product Size: 1000 mg Product Wasted: ___ mg NIFEdipine 2017-11 No Notes: Memor ia 30 mg oral 0-03 (Same as: l tablet, 22:00: Adalat CC, Herm almas extended 00 Procardia release XL) Give on empty stomach. Take 1 hour before or 2 hours after meal; "Avoid grapefruit and grapefruit juice". Do not crush Clonidine 2017-11 No Notes: Memori a 0-03 (Same As: l 14:00: Catapres) Uri 00 NIFEdipine 2017-11 No Notes: Memor ia 30 mg oral 0-03 (Same as: l tablet, 14:00: Adalat CC, Herm almas extended 00 Procardia release XL) Give on empty stomach. Take 1 hour before or 2 hours after meal; "Avoid grapefruit and grapefruit juice". Do not crush Sodium 2017-11 No 1,000 mL, Memori a Chloride 0-03 1,000 l 0.9% 08:44: ml/hr, [place] (Bolus) IV 00 Infuse Over: 1 hr, Route: IV, ONCE, Priority: STAT, Dosing Weight 79 kg, Start date: 08/11/18 3:44:00 CDT, Stop date: 08/11/18 3:44:00 CDT Insulin 2017-11 No Notes: Memoria regular 0-03 (Same as: l 08:41: Humulin R [place] 00 and NovoLIN R) WASTE: F/P - Black; E - Municipal Trash Bin (Do not shake) atorvastati 2017-11 Yes 20 mg, PO, Memoria n 0-03 Daily, 0 l 03:23: Refill(s) [place] 00 Clonidine 2017-11 Yes 0.2 mg = 1 Me moria 0-03 tab, PO, l 03:23: BID, # 30 [place] 00 tab, 0 Refill(s) Furosemide 2017-11 Yes 20 mg, Memor ia 0-03 Daily, 0 l 03:23: Refill(s) [place] 00 Insulin 2017-11 Yes 10 unit, Memori a Glargine 0-03 SUB-Q, l 100 UNT/ML 03:23: Bedtime, # H ermann Injectable 00 10 mL, 0 Solution Refill(s) NIFEdipine 2017-11 Yes 30 mg = 1 Me moria 30 mg oral 0-03 tab, PO, l tablet, 03:23: BID, # 90 Nissa nn extended 00 tab, 1 release Refill(s) Insulin 2017-11 No Notes: Memoria Glargine 0-03 (Same as: l 100 UNT/ML 03:00: Lantus) Do H ermann Injectable 00 not hold Solution insulin [Lantus] without contacting prescriber WASTE: F/P - Black; E - Municipal Trash Bin "single patient use only" Labetalol 2017-11 No 10 mg, 2 Edison howard 0-03 mL, Route: l 02:14: IVP, Drug form: INJ, Q4H, Dosing Weight 74.455, kg, PRN Elevated BP, Start date: 08/10/18 21:14:00 CDT, Duration: 30 day, Stop date: 09/09/18 21:13:00 CDT Insulin 2017-11 No Notes: Memoria Lispro 0-03 (Same as: l 01:47: Humalog ) Roll in palms of hands gently; Do not shake `vigorousl y. "Single Patient Use Only " WASTE: F/P - Black; E - Municipal Trash Bin Stable for 28 days at room temperatur e. Expires in days from ____Date Glucagon 2017-11 No 1 mg, Memoria 0-03 Route: IM, l 01:47: Drug form: [place] 00 PDR/INJ, PRN, Dosing Weight 74.455, kg, PRN Blood Glucose Results, Start date: 08/10/18 20:47:00 CDT, Duration: 30 day, Stop date: 09/09/18 20:46:00 CDT Dextrose 2017-11 No 25 gm, 50 Edison howard 50% Syringe 0-03 mL, Route: l 01:47: IVP, Drug Form: INJ, Dosing Weight 74.455, kg, PRN, PRN Blood Glucose Results, Start date: 08/10/18 20:47:00 CDT, Duration: 30 day, Stop date: 09/09/18 20:46:00 CDT Saline 2017- No Notes: Memoria Flush 0.9% 0-03 Same as: l 01:45: BD Posiflush Sterile Ondansetron 2017-11 No Notes: Edison howard 0-03 (Same as: l 01:45: Zofran) MEDICATION WASTE Product Size: 4 mg Product Wasted: ___ mg Morphine 2017-11 No Notes: Memoria 0-03 (Same l 01:45: as:MORPhin e Sulfate) Acetaminoph 2017-11 No Notes: Edison howard en 325 MG / 0-03 (Same as: l Hydrocodone 01:45: Ewing Nissa nn Bitartrate 00 325/5) Do 5 MG Oral not exceed Tablet 4gm/day of acetaminop hen. Acetaminoph 2017-11 No Notes: Do M emoria en 0-03 not exceed l 01:45: 4 gm/day. Uri 00 (Same as: Tylenol) Sodium 2017-11 No 1,000 mL, Memori a Chloride 0-03 Rate: 75 l 0.9% IV 01:45: ml/hr, Uri 1,000 mL 00 Infuse over: 13.3 hr, Route: IV, Dosing Weight 79 kg, Total Volume: 1,000, Start date: 08/10/18 20:45:00 CDT, Duration: 30 day, Stop date: 09/09/18 20:44:00 CDT, 1.91, m2 Insulin 2017-11 No 60 Memoria regular 0-02 units) l 23:47: WASTE: F/P Uri 00 - Black; E - Municipal Trash Bin Stable for 28 days at room temperatur e Expires in days from ____Date Insulin 2017-11 No 60 Memoria regular 0-02 units) l 22:45: WASTE: F/P Uri 00 - Black; E - Municipal Trash Bin Stable for 28 days at room temperatur e Expires in days from ____Date normal 2017-11 No 2,000 mL, Memori a saline 0.9% 0-02 Rate: l IV 2,000 mL 22:32: 2,000 Nissa nn 00 ml/hr, Infuse over: 1 hr, Route: IV, Dosing Weight 74.455 kg, Total Volume: 2,000, Priority: STAT, Start date: 08/10/18 17:32:00 CDT, Duration: 1 doses or times, Stop date: 08/10/18 18:31:00 CDT, 1.85, m2 Saline No Notes: Memoria Flush 0.9% -24 Same as: l 17:29: BD [place] 00 Posiflush Sterile Hydralazine 2014-11 No Notes: Edison howard 1-18 (Same as: l 00:00: Apresoline [place] 00 ) Push over 5 minutes Benadryl 2014-11 No Notes: Memoria 1-17 (Same as: l 22:33: Benadryl) Uri 00 Reglan 2014-11 No Notes: Memoria 1-17 (Same as: l 22:33: Reglan) [place] 00 Sodium 2014-11 No 1,000 mL, Memori a Chloride - 1,000 l 0.154 22:33: ml/hr, Uri MEQ/ML 00 Infuse Injectable Over: 1 Solution hr, Route: IV, 1,000, Drug form: INJ, ONCE, Priority: STAT, Dosing Weight 50.568 kg, Start date: 09/25/15 16:33:00, Duration: 1 doses or times, Stop date: 09/25/15 16:33:00 vancomycin No 2000 mg: Me moria + Sodium 629 infuse l Chloride 16:00: over 2.5 Nissa nn 0.9% IV 250 00 hours mL MEDICATION WASTE Product Size: 1000 mg Product Wasted: ___ mg Vancomycin No 2000 mg: Me moria 6-29 infuse l 15:08: over 2.5 [place] 00 hours MEDICATION WASTE Product Size: 1000 mg Product Wasted: ___ mg Hydrochloro No Notes: Edison howard thiazide - (Same as: l 14:00: Hydrodiuri Uri 00 l) With food. Glipizide No Notes: Memori a - (Same as: l 14:00: Glucotrol) [place] 00 30 min before meals. sodium No Notes: Memoria hypochlorit - (Dakin's l e topical 14:00: (0.5% [place] 0.5% 00 =full solution strength) 480 ml top SOLN) Note: full strength = 0.5% sodium hypochlori te. Benadryl No Notes: Memoria 6-28 (Same as: l 11:00: Benadryl) Uri 00 Tylenol No Notes: Do Memor ia 6-28 not exceed l 11:00: 4 gm/day. Uri 00 (Same as: Tylenol) Sodium No IV, 50 Memoria Chloride 6-28 ml/hr, l 0.9% IV 10:12: PRN, PRN Benjamin n 00 Blood Transfusio n, Start date: 05/06/15 5:12:00, Duration: 1, 100 ml Levemir No 10 unit, Memori a FlexPen 05-06 Route: l 02:00: SUB-Q, Bedtime, Dosing Weight 70.455, kg, Start date: 05/05/15 21:00:00, Duration: 30 day, Stop date: 06/03/15 21:00:00 Enoxaparin No Notes: Memor ia 6- (Same as: l 15:00: Lovenox) Glipizide No Notes: Memori a - (Same as: l 14:37: Glucotrol) 30 min before meals. Lisinopril No Notes: Memor ia 6- (Same as: l 14:37: Prinivil, Zestril) Labetalol No 90; hold Edison howard 6-27 for pulse l 14:31: <55, Start date: 05/05/15 9:31:00, Duration: 30 day, Stop date: 06/04/15 9:30:00 Famotidine No Notes: Memor ia 6-27 (Same as: l 14:00: Pepcid) Acetaminoph No Notes: Edison howard en 325 MG / 05-05 (Same as: l Hydrocodone 12:16: Ewing Nissa nn Bitartrate 00 325/5) Do 5 MG Oral not exceed Tablet 4gm/day of [Ewing acetaminop 5/325] hen. normal No 1,000 mL, Memori a saline 0.9% 05-05 Rate: 100 l IV 1,000 mL 12:15: ml/hr, Infuse over: 10 hr, Route: IV, Dosing Weight 70.455 kg, Total Volume: 1,000, Start date: 05/05/15 7:15:00, Duration: 1 day, Stop date: 05/06/15 7:14:00 Merrem No Notes: Memoria 05-05 Same as l 12:00: Merrem Uri 00 MEDICATION WASTE Product Size: 500 mg Product Wasted: ___ mg Vancomycin No Notes: Memor ia 05-05 TIME l 11:17: CRITICAL Uri MEDICATION Saline No Notes: Memoria Flush 0.9% 05-05 Same as: l 11:17: BD [place] Posiflush Sterile Glucose 50 No 1,000 mL, Me moria MG/ML / 05-05 Rate: 125 l Sodium 11:17: ml/hr, [place] Chloride 00 Infuse 0.154 over: 8 MEQ/ML hr, Route: Injectable IV, Dosing Solution Weight 70.455 kg, Total Volume: 1,000, Start date: 05/05/15 6:17:00, Duration: 30 day, Stop date: 06/04/15 6:16:00 Acetaminoph No Notes: Do M emoria en 05-05 not exceed l 11:17: 4 gm/day. [place] 00 (Same as: Tylenol) Acetaminoph No Notes: Edison howard en 325 MG / 05-05 (Same as: l Hydrocodone 11:17: Ewing Nissa nn Bitartrate 00 325/5) Do 5 MG Oral not exceed Tablet 4gm/day of acetaminop hen. Morphine No Notes: Memoria 05-05 (Same l 11:17: as:MORPhin [place] 00 e Sulfate) Docusate No Notes: Memoria 05-05 (Same as: l 11:17: Colace) Uri (Do Not Crush) Ondansetron No Notes: Edison howard 05-05 (Same as: l 11:17: Zofran) Uri 00 MEDICATION WASTE Product Size: 4 mg Product Wasted: ___ mg Dextrose No 25 gm, 50 Edison howard 50% Syringe - mL, Route: l 11:17: IVP, Drug Uri Form: INJ, Dosing Weight 70.455, kg, PRN, PRN Blood Glucose Results, Start date: 05/05/15 6:17:00, Duration: 30 day, Stop date: 06/04/15 6:16:00 Glucagon No 1 mg, Memoria 05-05 Route: IM, l 11:17: Drug form: [place] 00 PDR/INJ, PRN, Dosing Weight 70.455, kg, PRN Blood Glucose Results, Start date: 05/05/15 6:17:00, Duration: 30 day, Stop date: 06/04/15 6:16:00 Insulin, No Notes: Memoria Aspart, 05-05 Roll in l Human 11:17: palms of [place] 00 hands gently; Do not shake vigorously . (Same as: NovoLOG) "single patient use only" Stable for 28 days at room temperatur e. Expires in days from ____Date Tylenol No 650 mg, Memoria 05-05 Route: PO, l 04:07: Drug form: [place] 00 TAB, ONCE, Dosing Weight 70.455, kg, Priority: STAT, Start date: 05/04/15 23:07:00, Stop date: 05/04/15 23:07:00 cyclobenzap Yes Back pain 10mg Take 1 Ennis rine 5-27 tablet by Health (FLEXERIL) 00:00: mouth 3 10 mg 00 times tablet daily as needed for Muscle Spasms. traMADol Yes Back pain 50mg Take 1 Parra rris (ULTRAM) 50 5-27 tablet by [facility] mg tablet 00:00: mouth 00 every 6 [...] in [facility] Lasix Lasix Yes Nimisha [address] [facility] Levothyroxi Levothyroxi Yes Nimisha [address] [facility] ne Sodium ne Sodium Millender in the [facility] - morning on [facility] an empty [facility] Lantus Lantus Yes Nimisha as [facility] NIFEdipine NIFEdipine Yes Nimisha [address] [facility] ER ER Mill[facility] on an [facility] empty [facility] stomach l [facility] Clonidine Clonidine Yes Nimisha [address] [facility] HCl HCl [facility] NovoLog NovoLog Yes Nimisha as [facility] Calcium Calcium Yes Nimisha TAKE [address] [facility] Acetate Acetate Millender CAPSULES [facility] - (Phos (Phos BY MOUTH Memoria Binder) Binder) THREE l TIMES A Outpati DAY BEFORE ent A MEAL AND Clinics 3 CAPSULES ONCE BEFORE SNACK Calcitriol Calcitriol Yes Nimisha TAKE [address] [facility] CAPSULE BY [facility] - MOUTH [facility] EVERY [facility] OneTouch OneTouch Yes Nimisha USE TO [facility] Verio Verio [facility]ender TEST BLOOD Ani kes - SUGAR 3 [facility]oria TIMES l DAILY [facility] Clopidogrel Clopidogrel Yes Nimisha [address] [facility] Bisulfate Bisulfate [facility] Lidocaine-P Lidocaine-P Yes Nimisha APPLY TO [facility] rilocaine rilocaine [facility] SITE 30 [facility] - MIN PRIOR [facility] TO l [facility]IAL[facility] NovoLog NovoLog Yes Nimisha INJECT [address] [facility] Flexpen Flexpen Millender UNITS Servando es - SUBCUTANEO Memoria USLY THREE l TIMES Outpati DAILY WITH ent MEALS Clinics Furosemide Furosemide Yes Nimisha TAKE [address] [facility] TABLET BY [facility] - MOUTH ONCE [facility] DAILY l [facility] OneTouch OneTouch Yes Nimisha USE TO [facility] Delica Plus Delica Plus [facility]ender TEST BLOOD [facility] - Mentnl84Y Hyzzgj43Y SUGAR 3 Me moria TIMES l DAILY [facility] Vitamin D Vitamin D Yes Nimisha [address] [facility] [facility] (Ergocalcif (Ergocalcif Millender [facility] - leoncio) leoncio) [facility] EMLA EMLA Yes Nimisha not [...] [facility] - dose syringe dose syringe 00:00:00 [facility] PPV 23 Pneumococcal 2010-04-10 Completed [facility] Polysaccaride 00:00:00 PNEUMOCOCCAL 2010-04-10 Completed [facility] 23-VALPS VACCINE 25 00:00:00 MCG/0.5 ML INJECTION Vital Signs Vital Name Observation Time Observation Value Comments Source Body height 2019-10-26 15:59:00 162.6 cm [facility] Body weight Measured 2019-10-26 15:59:00 77.111 kg [facility] BMI 2019-10-26 15:59:00 29.18 kg/m2 [facility] Temperature Oral (F) 2019-07-12 01:37:00 97.9 F [facility] Heart Rate 2019-07-12 01:37:00 [facility] Respitory Rate 2019-07-12 01:37:00 [facility] Systolic (mm Hg) 2019-07-12 01:37:00 [facility] Diastolic (mm Hg) 2019-07-12 01:37:00 [facility] Temperature Oral (F) 2019-07-11 20:49:00 97.9 F [facility] Heart Rate 2019-07-11 20:49:00 [facility] Respitory Rate 2019-07-11 20:49:00 [facility] Systolic (mm Hg) 2019-07-11 20:49:00 [facility] Diastolic (mm Hg) 2019-07-11 20:49:00 [facility] Temperature Oral (F) 2019-07-11 17:09:00 97.7 F [facility] Heart Rate 2019-07-11 17:09:00 [facility] Systolic (mm Hg) 2019-07-11 17:09:00 [facility] Diastolic (mm Hg) 2019-07-11 17:09:00 [facility] Height 2019-07-11 12:45:00 162.56 cm [facility] Weight 2019-07-11 12:45:00 [facility] BMI Calculated 2019-07-11 12:45:00 [facility] Respitory Rate 2019-07-11 11:36:00 [facility] Height 2019-07-11 10:59:00 162.56 cm [facility] Weight 2019-07-11 10:59:00 [facility] Height 2019-07-11 08:00:00 162.56 cm [facility] BMI Calculated 2019-07-11 08:00:00 [facility] Weight 2019-07-11 08:00:00 [facility] Weight 2019-05-03 18:30:00 [facility] Height 2019-05-03 18:30:00 [facility] Diastolic (mm Hg) 2019-05-03 18:30:00 [facility] Systolic (mm Hg) 2019-05-03 18:30:00 [facility] Systolic (mm Hg) 2018-11-06 21:39:00 [facility] Diastolic (mm Hg) 2018-11-06 21:39:00 [facility] Temperature Oral (F) 2018-11-06 21:39:00 98.1 F [facility] Respitory Rate 2018-11-06 21:39:00 [facility] Heart Rate 2018-11-06 21:39:00 [facility] Temperature Oral (F) 2018-11-06 17:10:00 98.1 F [facility] Heart Rate 2018-11-06 17:10:00 [facility] Respitory Rate 2018-11-06 17:10:00 [facility] Systolic (mm Hg) 2018-11-06 17:10:00 [facility] Diastolic (mm Hg) 2018-11-06 17:10:00 [facility] Temperature Oral (F) 2018-11-06 13:21:00 98.1 F [facility] Heart Rate 2018-11-06 13:21:00 [facility] Respitory Rate 2018-11-06 13:21:00 [facility] Systolic (mm Hg) 2018-11-06 13:21:00 [facility] Diastolic (mm Hg) 2018-11-06 13:21:00 [facility] Weight 2018-11-05 09:52:00 [facility] BMI Calculated 2018-11-04 10:53:00 [facility] Weight 2018-11-04 10:53:00 [facility] Height 2018-11-04 10:53:00 162.5 cm [facility] Weight 2018-11-02 03:14:00 [facility] Weight 2018-09-20 16:15:00 [facility] Height 2018-09-20 16:15:00 [facility] Diastolic (mm Hg) 2018-09-20 16:15:00 [facility] [place] Systolic (mm Hg) 2018-09-20 16:15:00 [facility] Respitory Rate 2018-08-16 21:01:00 [facility] Systolic (mm Hg) 2018-08-16 21:01:00 [facility] Diastolic (mm Hg) 2018-08-16 21:01:00 [facility] Temperature Oral (F) 2018-08-16 21:01:00 98.2 F [facility] Heart Rate 2018-08-16 21:01:00 [facility] Respitory Rate 2018-08-16 17:54:00 [facility] Systolic (mm Hg) 2018-08-16 17:54:00 [facility] Diastolic (mm Hg) 2018-08-16 17:54:00 [facility] Temperature Oral (F) 2018-08-16 17:54:00 98.2 F [facility] Heart Rate 2018-08-16 17:54:00 [facility] Respitory Rate 2018-08-16 13:30:00 [facility] Heart Rate 2018-08-16 13:30:00 [facility] Systolic (mm Hg) 2018-08-16 13:30:00 [facility] Diastolic (mm Hg) 2018-08-16 13:30:00 [facility] Temperature Oral (F) 2018-08-16 13:30:00 98.4 F [facility] Weight 2018-08-11 03:03:00 [facility] BMI Calculated 2018-08-11 03:03:00 [facility] Height 2018-08-11 03:03:00 162.56 cm [facility] Height 2018-08-10 21:25:00 162.56 cm [facility] BMI Calculated 2018-08-10 21:25:00 [facility] Weight 2018-08-10 21:25:00 [facility] Systolic (mm Hg) 2017-04-01 20:58:00 [facility] Diastolic (mm Hg) 2017-04-01 20:58:00 [facility] Respitory Rate 2017-04-01 20:58:00 [facility] Heart Rate 2017-04-01 20:58:00 [facility] Temperature Oral (F) 2017-04-01 20:58:00 98 F [facility] Respitory Rate 2017-04-01 20:30:00 [facility] Heart Rate 2017-04-01 20:30:00 [facility] Temperature Oral (F) 2017-04-01 20:30:00 98.0 F [facility] Systolic (mm Hg) 2017-04-01 20:30:00 [facility] Diastolic (mm Hg) 2017-04-01 20:30:00 [facility] Weight 2017-04-01 17:22:00 [facility] Heart Rate 2017-04-01 17:22:00 [facility] Respitory Rate 2017-04-01 17:22:00 [facility] Temperature Oral (F) 2017-04-01 17:22:00 98.3 F [facility] Systolic (mm Hg) 2017-04-01 17:22:00 [facility] Diastolic (mm Hg) 2017-04-01 17:22:00 [facility] BMI Calculated 2017-04-01 17:22:00 [facility] Height 2017-04-01 17:22:00 167.64 cm [facility] Temperature Oral (F) 2015-09-26 00:43:00 98.5 F [facility] Systolic (mm Hg) 2015-09-26 00:43:00 [facility] Diastolic (mm Hg) 2015-09-26 00:43:00 [facility] Respitory Rate 2015-09-26 00:43:00 [facility] Respitory Rate 2015-09-26 00:32:00 [facility] Systolic (mm Hg) 2015-09-26 00:32:00 [facility] Diastolic (mm Hg) 2015-09-26 00:32:00 [facility] Height 2015-09-25 21:54:00 162.56 cm [facility] Weight 2015-09-25 21:54:00 [facility] BMI Calculated 2015-09-25 21:54:00 [facility] Systolic (mm Hg) 2015-09-25 21:54:00 [facility] Diastolic (mm Hg) 2015-09-25 21:54:00 [facility] Heart Rate 2015-09-25 21:54:00 [facility] Temperature Oral (F) 2015-09-25 21:54:00 98.5 F [facility] Respitory Rate 2015-09-25 21:54:00 [facility] Systolic (mm Hg) 2015-05-07 14:30:00 [facility] Diastolic (mm Hg) 2015-05-07 14:30:00 [facility] Temperature Oral (F) 2015-05-07 14:30:00 86 F [facility] Heart Rate 2015-05-07 12:00:00 [facility] Respitory Rate 2015-05-07 12:00:00 [facility] Systolic (mm Hg) 2015-05-07 12:00:00 [facility] Diastolic (mm Hg) 2015-05-07 12:00:00 [facility] Temperature Oral (F) 2015-05-07 12:00:00 98 F [facility] Systolic (mm Hg) 2015-05-07 08:24:00 [facility] Diastolic (mm Hg) 2015-05-07 08:24:00 [facility] Heart Rate 2015-05-07 08:24:00 [facility] Respitory Rate 2015-05-07 08:24:00 [facility] Temperature Oral (F) 2015-05-07 08:24:00 98.6 F [facility] Respitory Rate 2015-05-07 05:16:00 Danielakash Dixon Heart Rate 2015-05-07 05:16:00 [facility] Weight 2015-05-05 04:04:00 [facility] BMI Calculated 2015-05-05 04:04:00 Danielakash Dixon Height 2015-05-05 04:04:00 162.56 cm [facility] Procedures Procedure Date / Time Performing Clinician Source Performed section 2002[facility]01[facility] 1990-05-05 05:00:00 [facility] Cholecystectomy [facility] Incision AND [facility] drainage<sup>1</sup> Plan of Care Planned Activity Planned Date Details Comments Source Future Scheduled Test 2020-08-09 00:00:00 IMM Influenza Seasonal [facility] Aug to January (>/= 19 yrs) [code = IMM Influenza Seasonal Aug to January (>/= 19 yrs)] Future Scheduled Test 2015-07-28 00:00:00 Hemoglobin A1c [facility] measurement (procedure) [code = 25722641] Future Scheduled Test 2012 00:00:00 Screening for [facility] malignant neoplasm of colon (procedure) [code = 481612510] Future Scheduled Test 2002 00:00:00 Breast Cancer Scrn [facility] (Yearly) [code = Breast Cancer Scrn (Yearly)] Future Scheduled Test 1983 00:00:00 Screening for [facility] malignant neoplasm of cervix (procedure) [code = 184003536] Future Scheduled Test 1980 00:00:00 DM Foot Exam (Yearly) [facility] [code = DM Foot Exam (Yearly)] Future Scheduled Test 1980 00:00:00 Urine screening for [facility] protein (procedure) [code = 291671396] Future Scheduled Test 1980 00:00:00 DM Retinal Exam [facility] (Yearly) [code = DM Retinal Exam (Yearly)] Encounters Start End Encounter Admission Attending Care Care Encounter Source Date/Time Date/Time Type Type Clinicians Facility Department ID 2020-06-08 2020-06-08 Outpatient Justine Enciso [id number] [facility] 10:40:00 10:40:00 [facility] s [facility] Family Medicine Medicine Outpati ent Clinics 2020-05-10 2020-05-10 [facility] [id number] 08:47:00 08:47:00 t [facility] Medicine Medicine Outpati ent Clinics 2020-05-01 2020-05-01 [facility] [id number] 15:33:00 15:33:00 t [facility] Medicine Outpati ent Clinics 2020-03-02 2020-03-02 [facility] [id number] [facility] 16:09:00 16:09:00 t [facility] Medicine Medicine Outpati ent Clinics 2020-01-12 2020-01-12 [facility] [id number] [address] 09:48:00 09:48:00 t [facility] Medicine Outpati ent Clinics 2019-12-28 2019-12-28 [facility] [id number] [facility] [address] 11:17:00 11:17:00 t [facility] Medicine Outpati ent Clinics 2019-12-25 2019-12-25 [facility] [id number] 15:14:00 15:14:00 t [facility] Medicine Outpati ent Clinics 2019-12-21 2019-12-21 [facility] [id number] 11:00:00 11:00:00 t [facility] Medicine Outpati ent Clinics 2019-08-28 2019-08-28 [facility] [id number] [facility] 12:23:00 12:23:00 t [facility] Medicine Outpati ent Clinics 2019-08-26 2019-08-26 [facility] [id number] 09:00:00 09:00:00 [facility] Medicine Outpati ent Clinics 2019-07-11 2019-07-11 Outpatient Imtiaz [facility] [id number] 02:55:00 20:45:00 [place] 2019-07-11 2019-07-11 Inpatient E [facility] MED [id number] Memoria 05:52:00 02:55:00 l [facility] l 2019-05-03 2019-05-03 Outpatient Janak Briceno [id number] [facility] 13:30:00 13:30:00 Diana Daniels M.D., MVadim, P.A. P.A. 2018-11-01 2018-11-06 Outpatient Lana, MHGHR GHR [id number] 21:09:00 20:54:00 Dominic2018-10-19 2018-10-19 Outpatient Janak Briceno [id number] [facility] 14:30:00 14:30:00 Diana Daniels M.D., Sharon, P.A. P.A. 2018-09-22 2018-09-22 Outpatient Janak Briceno [id number] [facility] 10:47:00 10:47:00 Diana Daniels M.D., MVadim, P.A. P.A. 2018-09-20 2018-09-20 Outpatient Janak Briceno [id number] [facility]inic 10:15:00 10:15:00 Diana Daniels M.D., MVadim, P.A. P.A. 2018-08-10 2018-08-16 Outpatient Ray, Alak MHGHR GHR [id number] 16:23:00 17:27:00 2018-08-10 2018-08-16 Outpatient Ray, Alak MHGHR MHGHR [id number] 16:23:00 17:27:00 2018-08-10 2018-08-16 Outpatient Ray, Alak MHGHR MHGHR [id number] 16:23:00 17:27:00 2018-08-10 2018-08-16 Outpatient Ray, Alak MHGHR MHGHR [id number] 16:23:00 17:27:00 2018-05-24 2018-05-24 Outpatient [facility] [id number] [place] 00:00:00 00:00:00 Health 2017-04-01 2017-04-01 Outpatient Lawrence [facility] [id number] 12:19:00 16:00:00 Nancie maguire 2015-09-25 2015-09-25 Outpatient Eliu Carson [facility] [id number] 15:44:00 19:22:00 Amorkarrie Hewitt 2015-05-04 2015-05-07 Outpatient CHRISTIAN Martins [facility] [id number] 22:59:00 13:32:00 Eileen N 03 Results Test Description Test Time Test Comments Results Result Comments Source URINE AND STOOL 2019-07-11 Yellow [facility] 22:29:00 *NA*(07/11/19 Uri 5:29 PM) URINE AND STOOL 2019-07-11 Clear (07/11/19 [facility] 22:29:00 5:29 PM) [facility] URINE AND STOOL 2019-07-11 22:29:00 Test Item Value Reference Range Interpretation Comme nts UA Spec Grav (test code = UA Spec Grav) 1.012 1 [facility] [id number] 22:29:00 Test Item Value Reference Range Interpretation Comments UA pH (test code = UA pH) 8.0 1 5.0-8.0 [facility] [id number] 22:29:00Negative *NA*(07/11/19 5:29 PM) [facility] [id number] 22:29:00Negative (07/11/19 5:29 PM) [facility] LGHGM8936-63-64 22:29:00Negative (07/11/19 5:29 PM) [facility] [id number] 22:29:00Negative (07/11/19 5:29 PM) [facility] IVSIP2958-71-60 22:29:006[facility] OJXGK7830-30-82 22:29:003[facility] ZNYTN1839-43-97 22:29:83969 [facility] LqsvtdhWVHHNNJNHKLV2437-68-35 10:21:94597Kspoqbyl HermannELECTROLYTES 2019-07-11 10:21:004.4[facility] OlgvnzhYRTGNVQGGZOB6546-59-02 10:21:0095[facility] PoahcqmGKBCYQSEFXOO8830-26-82 10:21:009.0[facility] KrilkqfOCNESPTZLTNZ7224-41-81 10:21:46084Lhgflres EsnkqszMIZLBIWWPAPW3226-28-99 10:21:0056[facility] RFBFCRHMRFEA0014-86-50 10:21:0024[facility] CaqsufvOMUBKHECWXUI6688-07-18 10:21:00 3.3[facility] GxrsjcaELSKFETTYJUC8148-63-69 10:21:0017.4[facility] KHIMXYKVMCVB3718-89-19 10:21:006.5[facility] KtioatvDHFXKLDPOMYA4991-97-25 10:21:006.98[facility] WsdtcymWIZTNYJMPITQ0353-35-13 10:21:006[facility] ZVRYEONKMH9058-47-61 10:21:0011.4[facility] BahxshiRMPGRKSWIP2125-86-16 10:21:00 4.38[facility] OywnozmILMUSGCOLX7394-73-04 10:21:0013.3[facility] HermannHEMATOLOGY 2019-07-11 10:21:0040.8[facility] HarppiuFZJHSXEHRG4847-90-83 10:21:0093.2[facility] TuxifoiENXEQFMJOX3076-26-51 10:21:00 Test Item Value Reference Range Interpretation Comments MCH (test code = MCH) 30.5 pg 27.0-31.0 [facility] FfbqooyTRZQYMMHFV0910-33-16 10:21:0032.7[facility]annHEMATOLOGY 2019-07-11 10:21:0016.0[facility] NelljcuKCHWPMTWGR7149-03-65 10:21:01058Etvynksd FjtoyyfGHOEUDOYDU1331-28-56 10:21:006.9[facility] CwzzjbdUJJKIGPGLI2215-08-28 10:21:00 Test Item Value Reference Range Interpretation Comments PT (test code = PT) 13.9 s 12.0-14.7 [facility] JakawzzIUNDTFSORG4556-33-94 10:21:00 Test Item Value Reference Range Interpretation Comments INR (test code = INR) 1.09 1 0.85-1.17 [facility] EswykoeTXRLJBEIAT4507-18-13 10:21:00 Test Item Value Reference Range Interpretation Comments PTT (test code = PTT) 31.1 s 22.9-35.8 [facility] JkwhigaUPYCLIFIER0441-69-37 10:21:0067.0[facility] HermannHEMATOLOGY 2019-07-11 10:21:0023.4[facility] YhkgaycNURNZHQROX8365-53-15 10:21:006.3[facility] FlxtegsLPEWVZIIGU0904-64-18 10:21:002.4[facility] EoogfwuITBMMNOCVE0810-54-92 10:21:000.9[facility] PezrzweFFEFPJGBQK3915-68-65 10:21:007.7[facility] KJDJUVKDWX7484-05-93 10:21:002.7[facility] GkefvfoHUCTZDVILU8638-12-70 10:21:000.7 [facility] IntkwxoOCNLDNCPKP9366-24-49 10:21:000.3[facility]annHEMATOLOGY 2019-07-11 10:21:000.1[facility] HermannCARDIAC IGOWDXK6348-59-40 09:47:30147 [facility]annCARDIAC VNKIMJQ7126-47-92 09:47:00<0.02[facility] HermannCHEM QOBRR0458-74-57 09:47:000.9[facility] AsyewxoUEIHTGIWIVMV2952-91-53 09:47:36470 [facility] FznswqvTBXPQNKSFNIX8035-07-89 09:47:005.2[facility] HermannELECTROLYTES 2019-07-11 09:47:0095[facility] EjmkzwqXCIFKFKQBJMF1198-80-31 09:47:008.7[facility] GjacbgpVGRISPLMWPSF9286-64-34 09:47:003.3[facility] BtxbzjrTYJYRRQSBHPJ9089-24-99 09:47:0055[facility] YtmbijyFUNNBNICSUFJ2984-95-62 09:47:0024[facility] VNHVFCQDEJAS8879-29-67 09:47:21841Nyiqqyzo SbpntlsIDUPYESUNJUR8989-35-69 09:47:0043[facility] OueeujwLRWYHOLJIJXS5724-45-59 09:47:007.09[facility] AOOFSDWGFTRR5595-68-15 09:47:0040[facility] TrnxvzfUZKSUKOIDRYF6530-52-39 09:47:00 0.6[facility] JsejuncQFAQWCLVFUIK5634-27-07 09:47:006[facility]annELECTROLYTES 2019-07-11 09:47:008.8[facility] TwfauxxMHCMKYYYITJU1317-70-90 09:47:33893Mllduyuv OhmqczpPVENHVOAOZTA4725-36-39 09:47:0019.2[facility] HhzsoanHNPHHFOZKPNK5635-86-19 09:47:00 Test Item Value Reference Range Interpretation Comments B/C Ratio (test code = B/C Ratio) 8 1 6-25 [facility] FrikrxtYEINPTRVFCQT2891-26-12 09:47:005.5[facility] HermannELECTROLYTES 2019-07-11 09:47:00 Test Item Value Reference Range Interpretation Comments A/G Ratio (test code = A/G Ratio) 0.6 1 0.7-1.6 [facility] RyczzssYRCRRTZCAG9600-89-83 09:47:00See Note 5(07/11/19 4:47 AM)[facility] IpbftwdEFNGXWCQEJ4438-86-09 09:47:00See Note 4(07/11/19 4:47 AM)[facility] CHEM HWZQT0920-54-85 09:40:000.29[facility] HermannCHEM PLIVA5558-48-49 18:00:0015 [facility]annCHEM IMFEI5778-77-70 18:00:000.3[facility] HermannCHEM PANEL 2018-11-05 18:00:0039[facility] HermannCHEM JLGEL0056-58-77 18:00:0074[facility] HermannCHEM JEXJM9433-70-10 18:00:0042[facility] HermannCHEM CCLJR4318-99-10 18:00:002.4[facility] HermannCHEM MBVOH5329-27-28 18:00:008.0[facility] HermannCHEM NYYDK5567-90-04 18:00:0099[facility] HermannCHEM CXTBK5759-32-61 18:00:0026 [facility]annCHEM MTMRS8132-18-10 18:00:008.5[facility] HermannCHEM PANEL 2018-11-05 18:00:004.1[facility] HermannCHEM BNDFC7981-23-42 18:00:67436Dvutlwxu HermannCHEM VXSLD7894-95-97 18:00:0027[facility] HermannCHEM AFHZW9030-76-77 18:00:003.22[facility] HermannCHEM NFLPE6653-98-16 18:00:78810Taydtupu HermannCHEM SNBWZ0558-45-05 18:00:00 Test Item Value Reference Range Interpretation Comments B/C Ratio (test code = B/C Ratio) 8 1 6-25 [facility]annCHEM AODCV6895-20-69 18:00:00 Test Item Value Reference Range Interpretation Comments A/G Ratio (test code = A/G Ratio) 0.4 1 0.7-1.6 [facility]annCHEM WEBMN0483-81-53 18:00:005.6[facility] HermannCHEM PANEL 2018-11-05 18:00:0014.1[facility] BlhnhcbCJXGERKDGN6564-02-18 18:00:000.1[facility] BbzpbnlTIZFLIDBKE7789-34-04 18:00:000.1[facility] WvftoqvBADJMLMIYV2412-38-53 18:00:000.9[facility] QjpiktsRLQSEZQZCV8722-19-00 18:00:005.5[facility] HSBUGNKTIY5579-20-71 18:00:002.0[facility] PybzalfUUAXUGKUCK2664-85-25 18:00:000.6 [facility] ZzhuqezNGFFJDWZHY0659-77-13 18:00:0066.7[facility] HermannHEMATOLOGY 2018-11-05 18:00:0024.1[facility] AzyldaaCRSJWEQEZA6042-93-53 18:00:006.7[facility] ZzgyrtxHUYDKNDYMQ1633-25-94 18:00:001.6[facility] GtmgjucRXMRETLMKT4234-63-29 18:00:0031.7[facility] SicwssrVEJCZSRZMV9482-17-43 18:00:0016.0[facility] HCKWCVBXAX4543-11-28 18:00:69388Ljthoqqz XmkeeeaZAETTDHTTD7277-76-10 18:00:006.8 [facility] OfsitrvPVWDJGGJTW0010-39-60 18:00:008.3[facility] HermannHEMATOLOGY 2018-11-05 18:00:003.33[facility] KalwvckYOHJSAEOBL5044-39-03 18:00:0084.1[facility] PrvcxexHGYKIOQPWB6937-67-66 18:00:0028.0[facility] UpfdcrfOBBJBRDPSZ2960-86-25 18:00:00 Test Item Value Reference Range Interpretation Comments MCH (test code = MCH) 26.7 pg 27.0-31.0 [facility] HrscwmrQUTPZDHPRS2949-53-84 18:00:008.9[facility] HermannTOXICOLOGY 2018-11-05 18:00:0016.4[facility] HermannCHEM ZNAJC2412-00-74 11:59:0015[facility] HermannCHEM LSCLT7893-14-17 11:59:000.2[facility] HermannCHEM ZPCQP8702-77-16 11:59:0072[facility] HermannCHEM GQMBS7802-34-50 11:59:0031[facility] HermannCHEM HRGKV9377-72-26 11:59:00 Test Item Value Reference Range Interpretation Comments A/G Ratio (test code = A/G Ratio) 0.4 1 0.7-1.6 [facility]annCHEM XQIHU0417-59-99 11:59:0031[facility] HermannCHEM PANEL 2018-11-04 11:59:002.1[facility] HermannCHEM UWJRI0547-26-16 11:59:005.4[facility] HermannCHEM IMCNB0724-99-69 11:59:007.5[facility] HermannCHEM XISAS7138-17-70 11:59:008.4[facility] HermannCHEM GUADF2470-35-38 11:59:00 Test Item Value Reference Range Interpretation Comments B/C Ratio (test code = B/C Ratio) 8 1 6-25 [facility]annCHEM BGLOO6336-91-58 11:59:0027[facility] HermannCHEM PANEL 2018-11-04 11:59:0012.5[facility] WSBQU2722-80-73 11:59:0027[facility]CHE[facility] AFXZS5141-75-83 11:59:004.5[facility]annCHE[facility] FWVWN0575-06-77 11:59:50851Izvsrbxa HermannCHEM HWHHD2605-92-30 11:59:003.24[facility] USWTB2739-97-90 11:59:82381Hwneqcct HermannCHEM HPJDL5598-31-41 11:59:41999 [facility] EavxxfnNJXCDEJQSW5552-72-52 11:59:83113Aytclfyr HermannHEMATOLOGY 2018-11-04 11:59:0016.1[facility] RgtfzhzCWJMFDVOCK9125-46-72 11:59:006.9[facility] ZavigstWPFNLZGZWF6220-26-76 11:59:003.16[facility] VallxubBKVVPNLNKJ7592-40-08 11:59:007.1[facility] XuirhyfONYPCNQHPY0316-01-15 11:59:0032.3[facility] WPMMHLHKIN8143-39-54 11:59:00 Test Item Value Reference Range Interpretation Comments MCH (test code = MCH) 26.6 pg 27.0-31.0 [facility] TxvpelcQBEATZSSSL8795-56-05 11:59:0026.0[facility] HermannHEMATOLOGY 2018-11-04 11:59:008.4[facility] OxyborpAXAJEOJHLP7845-89-22 11:59:0082.4[facility] IdfhmduNYDOUMQBKU3316-31-25 11:59:007.8[facility] FjbeeiyKDITCRNQEW3587-06-51 11:59:000.6[facility] AfnqmqlXKOZWWZDTK5765-97-07 11:59:002.3[facility] OVUCOBCTGM6086-85-58 11:59:000.9[facility] EipffkzMLDKBVGYBY2429-47-90 11:59:003.9 [facility] NdtbggfSKZPJMWPZS6514-34-26 11:59:003.6[facility]annHEMATOLOGY 2018-11-04 11:59:000.3[facility] AxzjxvrVQQZCISJIE6247-54-55 11:59:000.1[facility] FtvvekxVJCNHYZSAZ8108-75-51 11:59:0055.5[facility] ZjswoxzBDHQSNMAYV0372-13-67 11:59:0032.2[facility] BdhteeiCATSUQBHKI8566-99-30 11:59:008.3[facility] ANEMIA NCVZD7005-31-99 22:26:48201Mxoshnri HermannANEMIA DWUNM4974-18-48 22:26:0088[facility] HermannANEMIA PPILK2521-16-38 22:26:0065[facility] ANEMIA IKQAA0102-23-89 22:26:61740Skpfziky HermannANEMIA CJIZJ1941-24-59 22:26:99168Ctdwwjzy HermannANEMIA JRTMU7848-36-34 22:26:0013.3[facility] CHEM IHGUI0514-83-13 22:26:003.2[facility]annCHEM HLMZF0937-57-51 22:26:00 Test Item Value Reference Range Interpretation Comments A/G Ratio (test code = A/G Ratio) 0.3 1 0.7-1.6 [facility]CHE[facility] CFILU1138-88-75 22:26:00 Test Item Value Reference Range Interpretation Comments B/C Ratio (test code = B/C Ratio) 7 1 6-25 [facility] QBGQU7236-29-05 22:26:0014.6[facility]annCHEM PANEL 2018-11-03 22:26:005.9[facility]annCHEM UBWKG1480-00-03 22:26:0017[facility] HermannCHEM UMXED1563-88-78 22:26:007.8[facility]annCHEM LGLBC4143-24-62 22:26:0020[facility] HermannCHEM OQMPL3997-00-52 22:26:008.0[facility] HermannCHEM UAQGY8209-23-60 22:26:27190Tnvwlnem HermannCHEM SNYUK7437-90-65 22:26:004.6 [facility] HermannCHEM PAVOL2314-38-42 22:26:02373Zkuzajpn HermannCHEM PANEL 2018-11-03 22:26:0021[facility] HermannCHEM KDNAX5599-64-57 22:26:003.01[facility] HermannCHEM UCPHJ3448-44-88 22:26:85277Bjbmamjg HermannCHEM TTWGL5624-47-55 22:26:000.3[facility] HermannCHEM WZMDR3507-28-49 22:26:0081[facility] HermannCHEM JEAZX5487-17-18 22:26:0039[facility] HermannCHEM BRIPB8817-98-54 22:26:001.9 [facility] HermannCHEM HBOBR4948-44-73 22:26:0036[facility] HermannHEMATOLOGY 2018-11-03 22:26:0083.6[facility] OswrtmhJZYSHYZZZI9250-59-46 22:26:00 Test Item Value Reference Range Interpretation Comments MCH (test code = MCH) 27.5 pg 27.0-31.0 [facility] QgvcdnnVNQSBFWDJA9236-61-99 22:26:0032.8[facility] HermannHEMATOLOGY 2018-11-03 22:26:0016.4[facility] DdauwkoRMRBGFHYEH7679-04-33 22:26:49638Nouizmbv DdcmjulCVVXKFYIIE1377-97-32 22:26:006.9[facility] AsvraqoBTVNHNWPZQ9697-24-26 22:26:0024.7[facility] ZrthramBNNILVWJJC5576-12-52 22:26:002.96[facility] DNGZQNZEIT2597-66-41 22:26:008.1[facility] BuwlrpjMFGJJUZBOR5604-62-38 22:26:007.3 [facility] QbtxbwsBQXQHCBMDH2312-24-69 22:26:000.2[facility] HermannHEMATOLOGY 2018-11-03 22:26:000.1[facility] FuvvvdqGCIDYRMVRC6674-45-76 22:26:0061.7[facility] OydjijsNDTKJRHUVU1500-10-92 22:26:005.7[facility] YfdxmnpUNPHCLKONP4785-58-24 22:26:0028.9[facility] XmprlxjBQPONPAFZX9344-89-50 22:26:002.9[facility] COKWGYTIRF6848-77-07 22:26:000.8[facility] QmyvmpgZDDHTAWSCG4977-33-34 22:26:004.5 [facility] OujwcdgZYZDAUQJNT5788-64-59 22:26:002.1[facility] HermannHEMATOLOGY 2018-11-03 22:26:000.4[facility] NatwwrjXNJESKDDOY2778-23-99 22:26:009.7[facility] RqgqzpwCAICQGLPCZ8168-61-51 22:20:00Positive *NA*(11/02/18 4:20 PM)[facility] HvdgmzjVADMXOLUIL6438-44-83 22:20:00>1000.0[facility] HermannIMMUNOLOGY 2018-11-02 22:20:00Negative *NA*(11/02/18 4:20 PM)[facility] HermannANEMIA STUDY 2018-11-02 16:58:0046[facility] HermannANEMIA REYIF1315-28-93 16:58:21861Lvlesqab HermannANEMIA EOTXG3981-85-21 16:58:0018[facility] HermannANEMIA ENDJM2730-56-49 16:58:38639Kmahdhbm HermannANEMIA AUEFH8021-94-75 16:58:0096[facility] FHWCUMEVTA0613-60-19 16:58:00Negative *NA*(11/02/18 10:58 AM)[facility] YVWROIGGXB3285-81-81 16:58:00Positive *ABN*(11/02/18 10:58 AM)[facility] EFELWVSTKQ5988-57-45 16:58:00Negative *NA*(11/02/18 10:58 AM)[facility] IGNDWGARES4111-12-69 16:58:00Positive *NA*(11/02/18 10:58 AM)[facility] FNPBOAZPAT3067-86-96 16:58:00>1000.0[facility] HermannPARATHYROID PROFILE 2018-11-02 16:58:80227.7[facility] HermannSPECIAL XSKOPWOEL3400-85-40 16:58:0010.9 [facility] HermannCARDIAC HFFCFWS8197-25-88 04:06:00<0.02[facility] CARDIAC CLIMIIT1530-03-48 04:06:0011[facility] HermannCARDIAC QCPORRX2350-56-80 04:06:41414Qlzostew UfbikexTXKWDCQOTN1615-74-23 21:23:001.5[facility] QVJYHHHNTX8821-76-04 21:23:005.2[facility] NohgvvsOCYWGNGGCZ8655-39-78 21:23:000.1 [facility] TbqksdgDTYCKPLOEE9503-46-57 21:23:000.2[facility] HermannHEMATOLOGY 2018-08-15 21:23:000.5[facility] UphykpnDKDRTGSMBL2643-12-52 21:23:0069.3[facility] HcilqcuKNQCTVMNLE3596-08-72 21:23:0020.7[facility] BeenarmINQGQMVAUO0810-73-65 21:23:002.4[facility] SyxikwnHQFKCXGAJK5784-92-45 21:23:006.7[facility] GOCUVYOYUO1272-46-39 21:23:000.9[facility] EkvrcxoRMCXGTZTXB0964-60-62 21:23:00 15.5[facility] JebdnbvSZJSXAOCGM4907-98-35 21:23:15675Fsoeustr HermannHEMATOLOGY 2018-08-15 21:23:006.8[facility] MugcyoeXWLQWRLHYX4512-13-44 21:23:008.7[facility] VipnvrgUZHEGJWXVU6267-31-94 21:23:003.21[facility] TevalduPAJZITBAZP4867-29-33 21:23:0026.6[facility] MvmsroxFUEKFHPMMI5905-24-34 21:23:0083.0[facility] ZKHWVYDJPN1097-55-53 21:23:0032.8[facility] AzpzcpnGYUDZUCKLZ9391-79-02 21:23:00 Test Item Value Reference Range Interpretation Comments MCH (test code = MCH) 27.2 pg 27.0-31.0 [facility] LrhlxeqLGHGRTSADM8971-09-58 21:23:007.5[facility] HermannCHEM PANEL 2018-08-15 09:03:006.5[facility] HermannCHEM YQWAE9535-41-79 09:03:0013[facility] HermannCHEM SJPPO0918-89-66 09:03:76989Ycbvxfji HermannCHEM RYFDX0677-84-30 09:03:008.0[facility] HermannCHEM KTTBE5936-92-86 09:03:0015[facility] HermannCHEM LKDYG0456-54-30 09:03:07562Agtbcvyl HermannCHEM LWIAB4035-30-16 09:03:0016.0 [facility] HermannCHEM PZHAW9625-25-61 09:03:005.0[facility] HermannCHEM PANEL 2018-08-15 09:03:0046[facility] HermannCHEM OTELB7507-86-99 09:03:60541Kqivscwi HermannCHEM FEWCU5579-50-62 09:03:003.68[facility] ChcspbhJRALBTQRLQOA8813-64-03 01:35:0012.7[facility] JnxyfmhEPUJJIHLVXHY5726-31-35 01:35:0013[facility] HLCPMSREQCDV6317-18-85 01:35:0045[facility] UuwumqaPQKIEIEQAMIM8266-61-37 01:35:00 169[facility] WwzoaewMRLPZBLMRONR6054-56-77 01:35:003.74[facility] WFJOGKFYGVSR5049-23-15 01:35:75576Vuccyohq FkxbqxnNVZOEJRKRDNA0705-31-94 01:35:007.7[facility] YwledrgYPJBVXFXUEKX2512-97-51 01:35:0023[facility] GSDOERWDXQGR6558-23-25 01:35:54354Xohultfe MvibkqvWJNNHVUQHLKC5220-78-15 01:35:004.7[facility] RalrdskWXJXNUESRD3716-25-09 01:35:0015.5[facility] XFQDFSSZAM3335-71-76 01:35:006.9[facility] PfzhkynUUACGWEQEB9086-51-10 01:35:13952 [facility] GelbcrwCEWYFJODMN4718-42-80 01:35:0084.5[facility] HermannHEMATOLOGY 2018-08-15 01:35:00 Test Item Value Reference Range Interpretation Comments MCH (test code = MCH) 27.6 pg 27.0-31.0 [facility] CldfeqoOLIJEDJNPV1772-32-35 01:35:0032.6[facility] HermannHEMATOLOGY 2018-08-15 01:35:003.12[facility] HuguiqnYIGQINSJBH7156-15-55 01:35:008.6[facility] ZktolriRDCVARZFAH3659-80-56 01:35:0026.4[facility] OwlhpodBUISVNESQT2843-28-92 01:35:008.6[facility] NbeqtumBTWWHBAYVF4125-54-49 01:35:000.2[facility] IQWRBTZQDW2878-65-58 01:35:005.6[facility] GymzpwpSRDBEITOIH9331-93-46 01:35:000.5 [facility] HmynofgEDWJTIHXEN6282-38-49 01:35:002.2[facility] HermannHEMATOLOGY 2018-08-15 01:35:000.1[facility] BtedywzCJVFGDXBPR8538-53-67 01:35:0026.2[facility] DoywefuKWFUNKKGAE3948-47-74 01:35:000.8[facility] UtenuwsWGROONXSKC7079-53-49 01:35:002.4[facility] SxvggaqLPESDCCYQI3457-57-38 01:35:0064.9[facility] PVXZGDUMCB1965-63-18 01:35:005.7[facility] HermannCHEM GUJYN0598-43-50 09:53:0013 [facility] HermannCHEM LQSHA9399-80-19 09:53:19715Fdswaxmw HermannCHEM PANEL 2018-08-14 09:53:003.75[facility] HermannCHEM BAOCY1167-62-32 09:53:0047[facility] HermannCHEM XKMXZ1685-04-30 09:53:004.9[facility] HermannCHEM UUQSV8157-03-25 09:53:41927Dtsoknck HermannCHEM MYECI2778-85-74 09:53:0016[facility] HermannCHEM NIHCN8115-34-78 09:53:95773Xxollyjg HermannCHEM EJXMM6699-81-78 09:53:0017.9 [facility] HermannCHEM JMOEW5741-67-63 09:53:007.7[facility] HermannPARATHYROID TPOVIYG8492-76-41 09:53:18091.6[facility] CEFTAZIDIME:SUSC:PT:ISOLATE:ORDQN:GYG7024-43-65 07:31:00Pseudomonas aeruginosa [facility] HermannCEFTAZIDIME:SUSC:PT:ISOLATE:ORDQN:MWY2617-33-23 07:31:00 Klebsiella oxytocaMemorial IavoxibULFRATMEWT4902-71-99 08:15:000.1[facility] LruujpxFJZMFJVFAL5907-53-65 08:15:000.5[facility] WdllkilZQJBJVURJJ5192-95-53 08:15:000.2[facility] LfqvjaqAPEUHXARRK2006-64-98 08:15:0037.8[facility] MDBSAVKEEL4119-28-86 08:15:006.3[facility] SyeoujcBKGIFSHLQH5613-97-03 08:15:003.9 [facility] LpnmeimXWZCPDSCGI5508-29-11 08:15:002.9[facility] HermannHEMATOLOGY 2018-08-11 08:15:003.0[facility] BscoswwANPUNDICVL1855-73-98 08:15:001.0[facility] GsieluxZKZYSLERBZ4818-60-48 08:15:0051.9[facility] BagtrxsAOZHTQBFLE2961-81-60 08:15:0015.2[facility] HpcqrfaWRPEOELIZK6931-69-66 08:15:02269Hedkcfbu [place] FWPCMLYLQM3028-41-25 08:15:007.5[facility] LzkpjkhLSOHXRJOAI7083-13-56 08:15:00 83.7[facility] RwhyauhHONHYQAEWX8924-61-21 08:15:00 Test Item Value Reference Range Interpretation Comments MCH (test code = MCH) 27.4 pg 27.0-31.0 [facility] DlawzipZLICLKNDCF8634-39-61 08:15:0032.7[facility] HermannHEMATOLOGY 2018-08-11 08:15:0024.9[facility] LibmycnKRWKIHNVNM9896-84-25 08:15:008.1[facility] UnediokYITZMPRMJO3833-76-00 08:15:002.97[facility] FovecdjJYSFRAYSWR7824-24-06 08:15:007.6[facility] HermannCHEM TCEVY1060-75-01 23:42:41508Bsxiqlyg HermannCHEM ANGDW9816-40-37 21:50:00 Test Item Value Reference Range Interpretation Comments B/C Ratio (test code = B/C Ratio) 16 1 6-25 [facility] HermannCHEM RCFZS0840-88-50 21:50:0037[facility] HermannCHEM PANEL 2018-08-10 21:50:00 Test Item Value Reference Range Interpretation Comments A/G Ratio (test code = A/G Ratio) 0.4 1 0.7-1.6 [facility] HermannCHEM XJHWE4336-76-52 21:50:005.4[facility] HermannCHEM PANEL 2018-08-10 21:50:002.1[facility] HermannCHEM KNWUV3932-56-62 21:50:007.5[facility] HermannCHEM SCXRG7734-72-40 21:50:000.4[facility] HermannCHEM IZUGS1408-94-33 21:50:0089[facility] HermannCHEM NYAJM6516-10-81 21:50:0036[facility] ELPEUPOVLB2744-06-03 19:41:000.2[facility] NvxfpqoFLGIIWSFEQ8873-89-86 19:41:000.1 [facility] WnvlorfBTZRYARQCQ9417-62-19 19:41:002.3[facility] HermannHEMATOLOGY 2017-04-01 19:41:0061.3[facility] PrbscepHIRKSJEQIV9117-65-58 19:41:000.9[facility] AcznickNVFSBCTFBO0694-60-00 19:41:002.2[facility] SfsnyqgCWCCUEDDJC9379-67-54 19:41:005.6[facility] LtaupqfIQLIVPZXKD9651-64-94 19:41:0029.9[facility] EWOJXHYERT2306-00-91 19:41:000.4[facility] GcgbnmbSUEGXPWRJB8771-80-56 19:41:004.5 [facility] AomzjndEMKFJXEPUV4321-80-91 19:41:36172Pvtmmghs HermannHEMATOLOGY 2017-04-01 19:41:006.7[facility] IquqqooQTPFDSPFNF7155-82-76 19:41:008.4[facility] DbyseiyDYFUGYPDQY4351-98-22 19:41:003.16[facility] IkvdseoETEOBGPOEJ6085-66-05 19:41:0080.9[facility] IqxdrlwAFZSSZRFRK1229-48-76 19:41:0025.6[facility] VMRKJWEVWL5254-05-95 19:41:0016.4[facility] PzdximiJTFEKSKKCL8767-43-90 19:41:00 32.7[facility] IinxijzAMDYXLEXHF0241-47-98 19:41:00 Test Item Value Reference Range Interpretation Comments MCH (test code = MCH) 26.4 pg 27.0-31.0 [facility] LhfhtuiMAUZKWXNLF4774-77-06 19:41:007.4[facility] HermannELECTROLYTES 2017-04-01 18:18:0012.4[facility] LypoiygUTYWFPLXMVNX5101-16-61 18:18:006.2 [facility] HqkcqhxDXBDOUZIPEOX1420-06-46 18:18:000.4[facility] HermannELECTROLYTES 2017-04-01 18:18:000.4[facility] KbjevlmTMQXSPNVKAWO5983-78-38 18:18:0015[facility] XcczqbiSYMKYUOPYWPW9800-93-60 18:18:0020[facility] FihfezyGBTAPRAVUTFK2946-38-09 18:18:0019[facility] XvwfaadMZYKZQXMLKXG5444-43-17 18:18:00579Rusyhgmr Uri FJAMXEYGIEIH4506-39-07 18:18:004.4[facility] KhywbljTMSXMGRUURTW0916-88-91 18:18:02795Xleshndd MzsfjpuBSNDVTWKNCWK8074-89-42 18:18:0018[facility] NSPUDUOLLXGL0959-19-86 18:18:0022[facility] WzkkhmyEIFQQCFMFSOX5782-50-26 18:18:00 2.5[facility] CcntlkqLAVIWRWVGVVP0401-25-57 18:18:79859Pguwyuwo Uri CFQJMBCKDQNL4872-90-84 18:18:008.7[facility] UzhelosFLWTXXWXHLOQ9279-22-70 18:18:008.3[facility] GssnazeNEJHJVQIUEJN1448-41-54 18:18:002.56[facility] VPVQIVBTWSDW8036-15-77 18:18:0038[facility] DyrjbzvTXKFNLNNTLMJ8351-87-96 18:18:00 247[facility] HermannCHEM FXLZL0311-47-20 23:18:82518Ytorawli HermannCHEM PANEL 2015-09-25 23:18:005.4[facility] HermannCHEM KAVPI8546-79-91 23:18:000.4[facility] HermannCHEM LWANQ5415-52-20 23:18:009.5[facility] HermannCHEM SLIHO2150-32-46 23:18:0016[facility] HermannCHEM OAQDU5113-98-93 23:18:0028[facility] HermannCHEM LJDVC9805-59-03 23:18:002.00[facility] HermannCHEM PRCQB4013-87-99 23:18:04014 [facility] HermannCHEM QTMIO2343-12-01 23:18:003.5[facility] HermannCHEM PANEL 2015-09-25 23:18:0095[facility] HermannCHEM NXCCT2210-61-76 23:18:0071[facility] HermannCHEM FZIYW2941-08-51 23:18:0015[facility] HermannCHEM MALXT4824-10-01 23:18:000.3[facility] HermannCHEM ZXVHO8010-35-80 23:18:002.2[facility] HermannCHEM EPLLG5180-36-07 23:18:0020[facility] HermannCHEM OWJCJ6301-28-04 23:18:0031 [facility] HermannCHEM ISCJJ9295-45-48 23:18:26174Qhultdyd HermannCHEM PANEL 2015-09-25 23:18:0033[facility] HermannCHEM WHTKH0427-20-52 23:18:008.8[facility] HermannCHEM XNHVW5192-55-30 23:18:007.6[facility] VsfcsivPBRTTEYOOS3573-84-15 23:18:000.1[facility] OxlndykXKYCLDFAXZ4557-59-82 23:18:000.1[facility] FWPNOBMIQR2105-18-09 23:18:000.5[facility] BwslskpJOLGWGJTKU8678-28-27 23:18:002.0 [facility] OxljicpBKCRZZZDJP6247-17-72 23:18:007.5[facility] HermannHEMATOLOGY 2015-09-25 23:18:000.5[facility] AoxxhibYOWXPFRPWR8717-34-53 23:18:0020.0[facility] GkeufpqMWHQXGZBTS7595-69-74 23:18:001.1[facility] LccwqspFIIIVDVODU3557-28-22 23:18:0073.8[facility] EtdkibkHXDLULMCPJ4552-28-19 23:18:004.6[facility] YITVYUFHIJ8758-28-63 23:18:0019.1[facility] NadanetBWJHCNJPIX0265-59-37 23:18:00 424[facility] GcnxktoGPDAIKJPNF8049-57-65 23:18:00 Test Item Value Reference Range Interpretation Comments MCH (test code = MCH) 24.7 pg 27.0-31.0 [facility] QqjiwsxNSYXFFGOZD8954-88-98 23:18:0031.3[facility] HermannHEMATOLOGY 2015-09-25 23:18:006.7[facility] YkxnqdhBISXGZPIPI5264-47-28 23:18:0013.0[facility] ZtnyhcmLFVUYRMMME7080-41-19 23:18:0041.4[facility] WqetlkfPKKZYWDAMV9918-46-37 23:18:0079.1[facility] YxkvjtbSJPDTSHWCF0680-40-47 23:18:005.24[facility] CTRADUGLVS2633-17-58 23:18:0010.2[facility] DlysmxoKULUEUYCNU4324-95-55 23:18:00 Negative (09/25/15 5:18 PM)[facility] BmfxwthQNSOSUKWZE4004-44-47 23:18:00Positive *NA*(09/25/15 5:18 PM)[facility] WmwvxbpONGZYQPGZB5159-65-60 14:22:039772Nsblpcbv PujrflhUIOVHYRKNO3274-12-28 14:22:0021.1[facility] HermannBLOOD BANK RESULTS 2015-05-06 11:23:00Product available (05/06/15 6:23 AM)[facility] HermannBLOOD BANK HLIRNSB8528-46-84 10:48:00Negative (05/06/15 5:48 AM)[facility] HermannBLOOD BANK CIEVTHA5962-82-40 10:17:00Product available (05/06/15 5:17 AM)[facility] CHEM BYXIE4844-24-95 08:50:004.1[facility] HermannCHEM TESFF8842-91-43 08:50:0057 [facility] HermannCHEM SISTM0515-88-30 08:50:0025[facility] HermannCHEM PANEL 2015-05-06 08:50:007.6[facility] HermannCHEM HIPTZ4144-92-79 08:50:95173Dbkzpxdo HermannCHEM PFACK8157-08-67 08:50:96316Guqplbqp HermannCHEM LJOSS1184-17-40 08:50:004.5[facility] HermannCHEM RHEAH9996-12-13 08:50:0018[facility] HermannCHEM SCOZM3973-91-20 08:50:001.1[facility] HermannCHEM XPNHN2694-24-64 08:50:0099 [facility] HermannCHEM VASVM2566-32-93 08:50:0011.5[facility] HermannCHEM PANEL 2015-05-06 08:50:002.0[facility] JoszgeuKMIFYOMQLN4729-10-69 08:50:61937Ldyhhykp TqsbdyoZJZYTQKRMW5347-24-79 08:50:006.4[facility] NprevmqSKDJCRDAFB6473-10-31 08:50:0030.8[facility] ZkydyklRXOIOHWXGO1024-42-24 08:50:0020.3[facility] NNGVCPXVVB7525-35-37 08:50:0019.5[facility] JeoqurgJFNSSGHCOI7300-67-02 08:50:00 6.0[facility] QulapisFGOXYQSJUU8383-75-69 08:50:0069.4[facility] HermannHEMATOLOGY 2015-05-06 08:50:00 Test Item Value Reference Range Interpretation Comments MCH (test code = MCH) 21.4 pg 27.0-31.0 [facility] HrhrgmlONHIIGNZBV2467-14-45 08:50:0010.8[facility] HermannHEMATOLOGY 2015-05-06 08:50:002.82[facility] AnefnwfRNVVRUDBWV1474-89-28 08:50:001+ *ABN*(05/06/15 3:50 AM)[facility] YpubzxeURCRVFGBUY2108-48-79 08:50:001+ *ABN*(05/06/15 3:50 AM)[facility] HherbxtOLNBCNGKCA9088-10-93 08:50:000.6[facility] UzscmfhNCJPCCDVCJ1464-21-84 08:50:000.0[facility] WwewdjoOEIOKBAOZF7692-46-44 08:50:000.3[facility] RbjtakkKGRXDFAZLX5642-69-27 08:50:007.5[facility] FYWVHBNSAB2738-55-08 08:50:000.4[facility] DsggwneFHBHTHZUZW0159-59-94 08:50:002.8 [facility] HkoxhfqPHSSCIHBGW1442-78-58 08:50:005.1[facility] HermannHEMATOLOGY 2015-05-06 08:50:002.4[facility] GleqaktJJROZJJJMG8304-74-20 08:50:0022.5[facility] HxtrfygZJYAESCUFT4346-84-74 08:50:0069.2[facility] HermannDRUG QLWJFF5829-83-94 20:38:00Positive *ABN*(05/05/15 3:38 PM)[facility] HermannDRUG ZBZCRZ8381-44-96 20:38:00Negative *NA*(05/05/15 3:38 PM)[facility] HermannDRUG NHCBPD7392-16-88 20:38:00See Note 6(05/05/15 3:38 PM)[facility] HermannDRUG BBDBZB1543-33-17 20:38:00Negative *NA*(05/05/15 3:38 PM)[facility] HermannDRUG XNVKFN1170-10-91 20:38:00Negative *NA*(05/05/15 3:38 PM)[facility] HermannDRUG SAVPAA7726-04-30 20:38:00Negative *NA*(05/05/15 3:38 PM)[facility] HermannDRUG BPXSZT2777-95-79 20:38:00Negative *NA*(05/05/15 3:38 PM)[facility] HermannDRUG MVKGMI1590-69-33 20:38:00Negative *NA*(05/05/15 3:38 PM)[facility] HermannANEMIA EVXJR0172-73-86 19:38:009[facility] HermannANEMIA IVJTW0960-89-29 19:38:27876Qjgrupcc Uri ANEMIA YWGIK9971-21-16 19:38:06176Eugfeari HermannANEMIA NBODB8339-48-95 19:38:0035[facility] HermannANEMIA UJQIT5092-15-93 19:38:59933Aikaobsx Uri UCKJQOSUYK3097-50-96 19:38:006.9[facility] XzggsrcTKNFNGDMPW9715-87-97 19:38:00 22.0[facility] DsjblezNQNTIXMGAI1296-89-61 19:38:001.1[facility] HermannCHEM PANEL 2015-05-05 19:02:001.2[facility] HermannCHEM YSJFW9837-03-57 19:02:0052[facility] PaptosuHBWVHIJJRV2030-60-06 19:02:00 Test Item Value Reference Range Interpretation Comments PTT (test code = PTT) 40.0 s 22.9-35.8 [facility] GydsszjMQAKAWBQXP9292-10-35 19:02:74593Xyigvltc HermannIMMUNOLOGY 2015-05-05 19:02:004.8[facility] DscacuzSLVBEEOHGJ5022-96-73 19:02:8556453Coknpsgr NjhniigBHZJZRLXYN9043-55-50 19:02:00Negative (05/05/15 2:02 PM)[facility] GTOIHKALEQ4202-95-79 19:02:00Positive *NA*(05/05/15 2:02 PM)[facility] HermannURINE AND TZHNS8984-35-03 09:25:00Performed (05/05/15 4:25 AM)[facility]annURINE AND CRMYO8740-02-87 09:25:00Negative *NA*(05/05/15 4:25 AM)[facility]annURINE AND LIZVP2772-90-20 09:25:00 Test Item Value Reference Range Interpretation Comments UA pH (test code = UA pH) 7.0 1 5.0-8.0 [facility]annURINE AND IVIIH6673-51-15 09:25:00Negative *NA*(05/05/15 4:25 AM) [facility]annUR[facility] AND PNSIW4565-93-65 09:25:00Moderate *ABN*(05/05/15 4:25 AM)[facility]annURINE AND CSVHB6948-73-36 09:25:00 Test Item Value Reference Range Interpretation Comments UA Spec Grav (test code = UA Spec 1.020 1 Grav) [facility]annUR[facility] AND VXFJA8129-46-16 09:25:00Negative (05/05/15 4:25 AM) [facility] AND RUHPX8447-46-85 09:25:000.2[facility]annUR[facility] AND GKAGQ0545-32-62 09:25:00Negative (05/05/15 4:25 AM)[facility] [id number] 09:25:00Clear (05/05/15 4:25 AM)[facility] STOOL 2015-05-05 09:25:00Yellow *NA*(05/05/15 4:25 AM)[facility] 2015-05-05 08:26:0057[facility] DCMGW5514-13-20 08:26:0016[facility] [id number] 08:26:007.8[facility] UPSWQ4099-28-38 08:26:001.3[facility] FBLMC0964-88-37 08:26:007.3[facility] NUBOD7353-21-10 08:26:44047Dgqytcjw HermannCHEM ELYJJ1740-15-76 08:26:20906 [facility] [id number] 08:26:0019[facility] PANEL 2015-05-05 08:26:001.1[facility] [id number] 08:26:03004Etfliyhx [facility]annCHE[facility] FFQRH9091-10-61 08:26:0014[facility] UMKRH0480-42-54 08:26:01946Plewjzfq [facility]annCHE[facility] JNFTM3536-34-98 08:26:0023[facility] SPSEW4469-56-56 08:26:003.5[facility] XHEBU0252-73-39 08:26:000.3 [facility] WXCPA8204-38-70 08:26:006.0[facility] PANEL 2015-05-05 08:26:000.2[facility] [id number] 08:26:0012.5[facility] ZZQUX2433-36-04 08:26:0017[facility] XOQXQ0780-09-48 08:26:001.4[facility] VxtpzkqNBAHXDOZIP8005-92-92 08:26:0014.1[facility] ZJHRPIXFSA4492-12-25 08:26:000.3[facility] BlfbysnOBINPCDKKE5528-24-90 08:26:000.3 [facility] DubnhcqNNOADCLWRQ8545-04-28 08:26:002.0[facility]annHEMATOLOGY 2015-05-05 08:26:000.6[facility] UbgufayXMEYKIOLMD9269-85-16 08:26:0011.8[facility] RcmibgaHQHLIVAQHL9699-33-79 08:26:001.6[facility] IdsqduhMAZQBKRBSG3321-73-13 08:26:003.5[facility] QrexmbiFZMYLIPQGT9744-87-34 08:26:000.1[facility] AXFGVKAYZC6879-60-31 08:26:001+ *ABN*(05/05/15 3:26 AM)[facility] 2015-05-05 08:26:0082.8[facility] VbtbodaUPNOUYBWEE5795-26-59 08:26:0068.3[facility] PpvprwxZLKSQSFNBC8868-48-63 08:26:003.33[facility] JktujduPHWZKPUJQK9412-31-07 08:26:0017.0[facility] UkfwxywFDENTCKPLU5199-77-17 08:26:0022.7[facility] HJPVDPDCZI4901-02-76 08:26:007.2[facility] MbgsgdaHQVEQMYOSO4524-07-55 08:26:006.4 [facility] NemrhzpUYNPEALIJY5515-17-60 08:26:0031.6[facility] 2015-05-05 08:26:00 Test Item Value Reference Range Interpretation Comments MCH (test code = MCH) 21.6 pg 27.0-31.0 [facility] UqolvvyWUFILGVVSX5206-84-62 08:26:09589Xxvsneng HermannHEMATOLOGY 2015-05-05 08:26:0019.8[facility]
--- OUTSIDE RECORDS SUMMARY | 2020-06-19 07:29 | XMS REPORT ---
[...] Status Dosage System Date Date Calcium Acetate [facility] 29836216364 667 MG Active TAKE 3 CAPSULES (Phos Binder) BY MOUTH T HREE TIMES A DAY BEFORE A MEAL AND 3 CAPSULES ONCE BEFORE SNACK Calcitriol [facility] 00141001280 0.25 MCG Active TAKE 1 C APSULE BY MOUTH EVERY DAY OneTouch Verio [facility] 29382055423 - Active USE T O TEST BLOOD SUGAR 3 TIMES DAILY Levothyroxine ND 32950403298 50 MCG Orally Active 1 tablet in the Sodium Once a day morning on an empty stomach Lasix [facility] 29354042073 20 MG Orally Active 1 table t Once a day Clopidogrel ND 27821512346 75 MG Orally Active 1 t ablet Bisulfate Once a day Gabapentin ND 76655772133 100 MG Orally Jun 10, Active 1 c apsule as Twice a day 2020 needed for p ain Lidocaine-Prilo [facility] 56211456490 2.5-2.5 % Active AP PLY TO SITE 30 cullen MIN PRIOR TO DIALYSIS NovoLog Flexpen ND 13316410031 100 UNIT/ML Active INJECT 8 UNITS SUBCUTANEOUSLY THREE TIMES DAILY WITH MEALS Furosemide ND 04634825368 20 MG Active TAKE 1 TA BLET BY MOUTH ONCE DAILY OneTouch Delica [facility] 09960008203 - Active USE TO TEST Plus Nugaip44C BLOOD SUG AR 3 TIMES DAILY Vitamin D [facility] 84367950853 82513 UNIT Active 1 capsu le (Ergocalciferol Orally ) EMLA ND 0 Active not defined Calcium Acetate [facility] 54413393240 667 MG Orally Active as directed as directed Fosrenol ND 69473616249 1000 MG Orally Active 1 ta blet with Once a day meals Lantus SoloStar [facility] 08261054781 100 UNIT/ML Active INJECT 10 UNITS SUBCUTANEOUSLY AT BEDTIME Lanthanum [facility] 63883838780 1000 MG Active CHEW AND S WALLOW Carbonate 1 TABLET BY MOUTH THREE TIMES A DAY WITH MEALS Lantus [facility] 96427063951 100 UNIT/ML Active as direc judit Subcutaneous 20 units once daily atorvastatin [facility] 28414185074 20mg Orally Active 1 t ablet in Once daily evening Clonidine HCl [facility] 54169937290 0.3 MG Orally Active 1 tablet Twice a day NIFEdipine ER [facility] 81227356157 60 MG Orally Active 1 tablet on an Once a day empty stomach NovoLog [facility] 42983467550 100 UNIT/ML Active as direc judit Subcutaneous 5 units with each meal Results No Known Results Summary Purpose eClinicalWorks Submission
--- NOTE | 2020-06-19 08:32 | RAD REPORT ---
EXAM DESCRIPTION: CT - Head Brain Wo Cont - 06/19/2020 8:17 am CLINICAL HISTORY: weakness COMPARISON: HEAD BRAIN W O CONTRAST dated 09/19/2015 TECHNIQUE: Axial 5 mm thick images of the head were obtained without IV contrast. All CT scans are performed using dose optimization technique as appropriate and may include automated exposure control or mA/KV adjustment according to patient size. FINDINGS: No intracranial hemorrhage, mass, edema or shift of mid-line structures. No acute cortical based infarction is identifiable. No cortical edema or sulcal effacement seen. Patient has diminishe d attenuation in the bilateral cerebral white matter with more extensive decrease in attenuation exte nding into the left thalamus and basal ganglia. No abnormal extra-axial fluid collections. Mild volum e loss changes are present. Ventricles are in proportion to any volume loss. The bilateral cerebral white matter attenuation abnormalities in the left-side thalamus and basal montez glia abnormalities are new or progressive from 2014 comparison. These are typically areas of chronic ischemic change. This would be advanced for the patient's age. These white matter and deeper attenuat ion abnormalities can mask nonhemorrhagic acute CVA. Mastoid air cells and visualized portions of the paranasal sinuses are clear. No acute bony findings. IMPRESSION: No intracranial hemorrhage is present. No acute cortical based infarction identified. Left thalamus, left basal ganglia and bilateral white matter abnormalities are most likely chronic is chemic change. These changes are advanced for the patient's age and progressive from 2015 comparison. The chronic ischemic pattern seen on this study can mask nonhemorrhagic acute CVA. Focal neurologic deficit findings were not detailed in available history. If warranted, MR imaging could be performed for more sensitive assessment of acute nonhemorrhagic CVA.
--- NOTE | 2020-06-19 09:04 | RAD REPORT ---
EXAM DESCRIPTION: RAD - Chest Single View - 06/19/2020 8:46 am CLINICAL HISTORY: r/o pneumonia, weakness, shortness of breath COMPARISON: Portable February 02, 2020 TECHNIQUE: AP portable chest image was obtained 06/19/2020 8:46 am . FINDINGS: Lung volumes are low accentuating interstitial pattern. The left side pericardial fat pad is present. This accentuates left lung base markings. Left base assessment is limited. However, no pe ripheral mass or consolidation identifiable. Heart and vasculature are normal. No measurable pleural effusion and no pneumothorax. No acute bony abnormality seen. No acute aortic findings suspected. IMPRESSION: Shallow inspiration portable exam showing no acute cardiopulmonary finding. Chest is not significantly different from January examination.
[2020-06-19 10:06] LABS: Absolute Lymphocytes (CBC) 1.7 K/uL (0.7-4.9); Basophils % 0.8 % (0-1.3); Hematocrit 34.8 % (36.0-45.0); Lymphocytes % 24.3 % (15.3-44.8); MPV 7.1 fL (7.6-11.3); RBC Red Blood Cell Count 3.73 M/uL (3.86-4.86)
[2020-06-19 10:15] LABS: Protime INR 1.11
[2020-06-19 10:40] LABS: ALT/SGPT 27 U/L (12-78); AST/SGOT 26 U/L (15-37); Albumin 2.9 g/dL (3.4-5.0); Alkaline Phosphatase 72 U/L (45-117); BUN Blood Urea Nitrogen 80 mg/dL (7-18); Bicarbonate 23 mmol/L (21-32); Bilirubin Direct 0.1 mg/dL (0-0.2); Bilirubin Total 0.3 mg/dL (0.2-1.0); Glucose Level 235 mg/dL (74-106); Magnesium 2.2 mg/dL (1.8-2.4); Potassium 5.1 mmol/L (3.5-5.1); Protein, Total 8.1 g/dL (6.4-8.2); Sodium Level 135 mmol/L (136-145); Troponin (Emerg Dept Use Only) < 0.02 ng/mL (0.0-0.045)
[2020-06-19 11:29] LABS: Barbiturates NEGATIVE (NEGATIVE); Benzodiazepines NEGATIVE (NEGATIVE); Cocaine NEGATIVE (NEGATIVE); METHAMPHETAM NEGATIVE (NEGATIVE); Methadone NEGATIVE (NEGATIVE); Opiates NEGATIVE (NEGATIVE); Phencyclidine NEGATIVE (NEGATIVE); THC Cannibis NEGATIVE (NEGATIVE)
--- NOTE | 2020-06-19 12:16 | ER ---
Nurse's Notes [facility] Name: Natalie Silva Age: 60 yrs Sex: Female : 1960 Arrival Date: 06/19/2020 Time: 07:20 Bed 20 Private MD: None, None Diagnosis: Hallucinations, unspecified;Weakness;Adverse effect of other drugs, medicaments and biological substances;Confusion Presentation: 06/19 07:25 Chief complaint: Patient states: pt presents via EMS with reports of generalized jr10 weakness and AMS that started this morning, per EMS pt is normally independent, ambulatory and oriented x4. Reports pt is dialysis Mon, Tues, Thurs, Sat. Was unable to receive dialysis this morning. Coronavirus screen: Client denies travel out of the [place] in the last 14 days. At this time, the client does not indicate any symptoms associated with coronavirus-19. Ebola Screen: No symptoms or risks identified at this time. Initial Sepsis Screen: Does the patient meet any 2 criteria? No. Patient's initial sepsis screen is negative. Does the patient have a suspected source of infection? No. Patient's initial sepsis screen is negative. Risk Assessment: Do you want to hurt yourself or someone else? Patient reports no desire to harm self or others. Onset of symptoms was June 19, 2020. 07:25 Method Of Arrival: EMS jr10 07:25 Acuity: MARIELA 2 jr10 Historical: - Allergies: 07:29 No Known Allergies; jr10 - Home Meds: 07:29 atorvastatin 20 mg Oral tab 1 tab once daily [Active]; Clonidine Oral [Active]; jr10 clopidogrel 75 mg Oral tab 1 tab once daily [Active]; gabapentin Oral [Active]; Lantus Sub-Q [Active]; Lasix 20 mg Oral tab 1 tab once daily [Active]; Methadone Oral [Active]; nifedipine 60 mg Oral TbER 1 tab once daily [Active]; Novolog Sub-Q [Active]; Synthroid 50 mcg Oral tab 1 tab once daily [Active]; - PMHx: 07:29 Diabetes - IDDM; High Cholesterol; Hypertension; Hypothyroidism; jr10 - Immunization history:: Adult Immunizations up to date. - Social history:: Smoking status: unknown. Screenin:35 Abuse screen: Denies threats or abuse. Denies injuries from another. Nutritional jr10 screening: No deficits noted. Tuberculosis screening: No symptoms or risk factors identified. Fall Risk No fall in past 12 months (0 pts). Secondary diagnosis (15 points) impaired mobility, IV access (20 points). Ambulatory Aid- None/Bed Rest/Nurse Assist (0 pts). Gait- Weak (10 pts.). Mental Status- Overestimates/Forgets Limitations (15 pts.). Assessment: 07:35 VAN Scoring: Arm Drift: Patients demonstrates NO arm weakness. Patient is VAN Negative. jr10 General: Appears in no apparent distress. Behavior is calm, cooperative. Pain: Complains of pain in right leg and left leg. Neuro: Level of Consciousness is awake, alert, obeys commands, Oriented to person, place, Gait is reports generalized weakness with inability to walk this morning, normally ambulatory independently. Speech is slurred, Facial symmetry appears normal. Cardiovascular: No deficits noted. Denies chest pain. Respiratory: No deficits noted. Airway is patent Respiratory effort is even, unlabored, Respiratory pattern is regular, symmetrical. GI: No deficits noted. No signs and/or symptoms were reported involving the gastrointestinal system. : No deficits noted. No signs and/or symptoms were reported regarding the genitourinary system. EENT: No deficits noted. No signs and/or symptoms were reported regarding the EENT system. Derm: Wound noted lateral aspect of right calf and lateral aspect of left calf. Musculoskeletal: Reports weakness in generalized weakness in lisy lower extremities reported. 08:14 Reassessment: Pt transferred to CT via stretcher with airbrush artist technical. jr10 09:21 Reassessment: lab at bedside for blood draw. jr10 09:35 Reassessment: Lab unable to obtain blood. GUY Dailey notified and aware. At bedside jr for arterial stick. 09:45 Reassessment: Arterial stick via provider unsuccessful, blood collected via 23G jr10 butterfly to right index finger by this nurse. Pt tolerated well. 10:00 Reassessment: Pt noted to be anxious and tearful at present, restless, sitting up in jr10 bed, reports visual hallucinations at this time. Pt noted to be intermittently oriented to place. Continues to be disoriented to situation. Pt vitals stable and is NAD at this time. Will continue to monitor and assess. 11:03 Reassessment: Pt noted to be more lethargic at this time, awakens to painful stimuli. jr10 Continues to be oriented to self only. GUY Dailey notified of pt change. Pt vitals remain stable. Will continue to monitor and assess until admission. Vital Signs: 07:21 BP 188 / 74; Pulse 97; Temp 98.8(O); Pulse Ox 100% on R/A; jr10 10:23 BP 151 / 68; Pulse 87; Resp 16; Pulse Ox 94% on R/A; Pain 0/10; jr10 11:42 BP 174 / 85; Pulse 90; Resp 16; Pulse Ox 96% on R/A; jr10 13:44 BP 179 / 84; Pulse 95; Resp 17; Pulse Ox 97% on R/A; Pain 0/10; jr10 NIH Stroke Scale Scores: 07:35 NIHSS Score: 2 jr10 ED Course: 07:20 Patient arrived in ED. mr 07:20 None, None is Private Physician. mr 07:23 Asim Madera NP is PHCP. pm1 07:23 Mykel Yeung MD is Attending Physician. pm1 07:27 Triage completed. jr10 07:27 Tyler Salter MD is Attending Physician. pm1 07:30 Cyndy Castaneda, BATSHEVA is Primary Nurse. jr10 07:35 Patient has correct armband on for positive identification. Bed in low position. Call jr10 light in reach. Side rails up X2. conveyor monitor on. Pulse ox on. NIBP on. 08:30 Missed attempt(s): 22 gauge forearm. Bleeding controlled, band aid applied, catheter jr10 tip intact. 08:40 Missed attempt(s): 24 gauge in right upper arm. ss 08:40 Missed attempt(s): 20 gauge upper arm. Bleeding controlled, band aid applied, catheter jr10 tip intact. 08:55 Missed attempt(s): 18 gauge in right upper arm. Bleeding controlled, band aid applied, ss catheter tip intact. 09:08 Inserted saline lock: 24 gauge in right ,using aseptic technique. shoulder IV is jr10 patent, is intact, with good blood return, Flushed. 12:15 Chemo Yeh DO is Hospitalizing Provider. pm1 13:41 No provider procedures requiring assistance completed. Patient admitted, IV remains in ss place. intact, No redness/swelling at site. Administered Medications: 09:30 Drug: Zofran (Ondansetron) 4 mg {Note: right shoulder.} Route: IVP; Site: Other; 10 10:23 Follow up: Response: No adverse reaction; Nausea is decreased jr10 Point of Care Testing: Blood Glucose: 07:21 Blood Glucose: 237 mg/dL; jr10 07:21 via EMS shrimp trawler captain jr10 Ranges: Outcome: 12:15 Decision to Hospitalize by Provider. pm1 13:40 Admitted to Med/surg accompanied by tech, via stretcher, room 229, with chart, Report ss called to BATSHEVA Frost 13:40 Condition: stable 13:40 Instructed on the need for admit. 13:49 Patient left the ED. jr10 NIH Stroke Scale - NIH Stroke Score Date: 06/19/2020 Time: 07:35 Total Score = 2 1a. Level of Consciousness (LOC) - 0(Alert) 1b. Level of Consciousness (LOC) (Year \T\ Age) - 1(One) 1c. LOC Commands (Open \T\ Closes Eyes/Segment Assembler) - 0(Both) 2. Best Gaze (Lateral Gaze Paresis) - 0(Normal) 3. Visual Field Loss - 0(No visual loss) 4. Facial Palsy - 0(Normal) 5a. Left Arm: Motor (10-second hold) - 0(No drift) 5b. Right Arm: Motor (10-second hold) - 0(No drift) 6a. Left Leg: Motor (5-second hold - always test supine) - 0(No drift) 6b. Right Leg: Motor (5-second hold - always test supine) - 0(No drift) 7. Limb Ataxia (finger/nose \T\ heel/contreras - test with eyes open) - 0(Absent) 8. Sensory Loss (pinprick arms/legs/face) - 0(Normal) 9. Best Language: Aphasia (description/naming/reading) - 0(No aphasia) 10. Dysarthria (speech clarity - read or repeat words) - 1(Mild to Moderate) 11. Extinction and Inattention (visual/tactile/auditory/spatial/personal) - 0(No abnormality) Initials: jr10 Signatures: Renetta Castaneda Maria Teresa Joseph RN RN ss Asim Madera, GUY INTERVENTIONAL PHYSIATRIST pm1 Cyndy Castaneda RN RN jr10
--- NOTE | 2020-06-19 12:16 | EDPHYS ---
Physician Documentation [facility] Name: Natalie Silva Age: 60 yrs Sex: Female : 1960 Arrival Date: 06/19/2020 Time: 07:20 Bed 20 Private MD: None, None ED Physician Tyler Salter HPI: 06/19 07:32 This 60 yrs old Female presents to ER via EMS with complaints of Weakness. pm1 07:32 The patient presents to the emergency department with weakness of the entire body, pm1 generalized weakness. Onset: The symptoms/episode began/occurred this morning, upon waking up. Context: occurred at home. Associated signs and symptoms: Pertinent positives: Visual hallucinations, Pertinent negatives: altered mental status, fever. Severity of symptoms: Pain is currently a 0 / 10. Patient's baseline: Neuro: alert and fully oriented, Motor: no deficits, Ambulation: walks without assistance, Speech: normal. Current symptoms: Generalized weakness, visual hallucinations. The patient has been recently seen at the [facility] Emergency Department, yesterday, for unrelated complaints, Patient seen for 3 day rash and was diagnosed with shingles. Historical: - Allergies: 07:29 No Known Allergies; jr10 - Home Meds: 07:29 atorvastatin 20 mg Oral tab 1 tab once daily [Active]; Clonidine Oral [Active]; jr10 clopidogrel 75 mg Oral tab 1 tab once daily [Active]; gabapentin Oral [Active]; Lantus Sub-Q [Active]; Lasix 20 mg Oral tab 1 tab once daily [Active]; Methadone Oral [Active]; nifedipine 60 mg Oral TbER 1 tab once daily [Active]; Novolog Sub-Q [Active]; Synthroid 50 mcg Oral tab 1 tab once daily [Active]; - PMHx: 07:29 Diabetes - IDDM; High Cholesterol; Hypertension; Hypothyroidism; jr10 - Immunization history:: Adult Immunizations up to date. - Social history:: Smoking status: unknown. ROS: 07:32 Constitutional: Negative for fever, chills, and weight loss, Eyes: Negative for injury, pm1 pain, redness, and discharge, ENT: Negative for injury, pain, and discharge, Neck: Negative for injury, pain, and swelling, Cardiovascular: Negative for chest pain, palpitations, and edema, Respiratory: Negative for shortness of breath, cough, wheezing, and pleuritic chest pain, Abdomen/GI: Negative for abdominal pain, nausea, vomiting, diarrhea, and constipation, Back: Negative for injury and pain, : Negative for injury, bleeding, discharge, and swelling, MS/Extremity: Negative for injury and deformity, Skin: Negative for injury, rash, and discoloration. 07:32 Neuro: Positive for Generalized weakness, sleepiness, Negative for headache. 07:32 Unable to obtain ROS due to altered mental status, information obtained from her daughter Marisela. Exam: 07:32 Head/Face: Normocephalic, atraumatic. ENT: Nares patent. No nasal discharge, no pm1 septal abnormalities noted. Tympanic membranes are normal and external auditory canals are clear. Oropharynx with no redness, swelling, or masses, exudates, or evidence of obstruction, uvula midline. Mucous membranes moist. 07:32 Neck: Trachea midline, no thyromegaly or masses palpated, and no cervical lymphadenopathy. Supple, full range of motion without nuchal rigidity, or vertebral point tenderness. No Meningismus. 07:32 Constitutional: The patient appears in no acute distress, awake, comfortable, non-diaphoretic, non-toxic, well developed, well hydrated, well groomed, well nourished, groggy 07:32 Eyes: Pupils: constricted, bilaterally, Extraocular movements: intact throughout, Conjunctiva: normal, no acute changes, Corneas: no acute changes, Sclera: no acute changes, Lids and lashes: appear normal, bilaterally. 07:32 Cardiovascular: Exam negative for acute changes, Rate: normal, Rhythm: regular, Pulses: no pulse deficits are appreciated, Edema: is not appreciated. 07:32 Respiratory: Exam negative for acute changes, respiratory distress, shortness of breath. 07:32 Abdomen/GI: Exam negative for acute changes, Inspection: obese Palpation: abdomen is soft and non-tender, in all quadrants. 07:32 Musculoskeletal/extremity: Exam is negative for acute changes. 07:32 Skin: Appearance: normal except for affected area, well healing chronic wounds to bilateral lateral aspects of calves . 07:32 Neuro: Orientation: to person, Not oriented to place, time, situation, Mentation: responsive to voice able to follow commands, sleepy, Motor: moves all fours, Sensation: is normal, no obvious gross deficits. Vital Signs: 07:21 BP 188 / 74; Pulse 97; Temp 98.8(O); Pulse Ox 100% on R/A; jr10 10:23 BP 151 / 68; Pulse 87; Resp 16; Pulse Ox 94% on R/A; Pain 0/10; jr10 11:42 BP 174 / 85; Pulse 90; Resp 16; Pulse Ox 96% on R/A; jr10 13:44 BP 179 / 84; Pulse 95; Resp 17; Pulse Ox 97% on R/A; Pain 0/10; jr10 NIH Stroke Scale Scores: 07:35 NIHSS Score: 2 jr10 MDM: 07:24 Patient medically screened. pm1 07:32 ED course: Patient lives with her daughter Marisela. Called Marisela to obtain the history of pm1 events. Patient with pain yesterday evening from her shingles and she took gabapentin before she went to sleep. She woke up this morning with generalized weakness. Her daughter thought her generalized weakness might be from a lack of methadone so she took her to the methadone clinic and she received a dose. She appeared to get better so they took her to her dialysis center. The dialysis center did not feel that this was normal for her and contacted the EMS to bring her to the hospital. 12:13 Data reviewed: vital signs. Data interpreted: Pulse oximetry: on room air is 96 %. pm1 Interpretation: normal. 12:13 Counseling: I had a detailed discussion with the patient and/or guardian regarding: the pm1 historical points, exam findings, and any diagnostic results supporting the discharge/admit diagnosis, lab results, radiology results, the need for further work-up and treatment in the hospital. 12:23 Physician consultation: Chemo Yeh DO was called at 12:23, was contacted at 12:23, pm1 regarding admission, patient's condition, and will see patient in ED, shortly. 06/19 07:31 Order name: Basic Metabolic Panel pm1 06/19 07:31 Order name: CBC with Diff pm1 06/19 07:31 Order name: LFT's pm1 06/19 07:31 Order name: Magnesium pm1 06/19 07:31 Order name: PT-INR pm1 06/19 07:31 Order name: Troponin (emerg Dept Use Only) pm1 08/11 09:56 Order name: UDS pm1 06/19 09:56 Order name: Urine Microscopic Only pm1 06/19 10:11 Order name: CBC with Automated Diff; Complete Time: 10:36 EDMS 06/19 10:18 Order name: Protime (+INR); Complete Time: 10:36 EDMS 06/19 10:44 Order name: Basic Metabolic Panel; Complete Time: 10:56 EDMS 06/19 10:44 Order name: Liver (Hepatic) Function; Complete Time: 10:56 EDMS 06/19 10:44 Order name: Troponin (Emerg Dept Use Only); Complete Time: 10:56 EDMS 06/19 10:44 Order name: Magnesium; Complete Time: 10:56 EDMS 06/19 07:31 Order name: XRAY Chest (1 view) pm1 06/19 07:31 Order name: EKG; Complete Time: 10:46 pm1 06/19 07:31 Order name: Cardiac monitoring; Complete Time: 08:13 pm1 06/19 07:31 Order name: EKG - Nurse/Tech; Complete Time: 09:13 pm1 06/19 07:31 Order name: IV Saline Lock; Complete Time: 09:13 pm1 06/19 07:31 Order name: Labs collected and sent; Complete Time: 10:18 pm1 06/19 07:31 Order name: O2 Per Protocol; Complete Time: 08:13 pm1 06/19 07:31 Order name: O2 Sat Monitoring; Complete Time: 08:14 pm1 06/19 07:31 Order name: CT Head Brain wo Cont pm06/19 08:33 Order name: CT; Complete Time: 08:34 EDMS 06/19 09:05 Order name: RAD; Complete Time: 09:10 EDMS 06/19 09:56 Order name: Urine Dipstick-Ancillary (obtain specimen); Complete Time: 11:58 pm1 06/19 11:29 Order name: Urine Drug Screen; Complete Time: 11:29 EDMS 06/19 13:00 Order name: Urine Microscopic Only; Complete Time: 13:04 EDMS Administered Medications: 09:30 Drug: Zofran (Ondansetron) 4 mg {Note: right shoulder.} Route: IVP; Site: Other; 10 10:23 Follow up: Response: No adverse reaction; Nausea is decreased jr10 Point of Care Testing: Blood Glucose: 07:21 Blood Glucose: 237 mg/dL; jr10 07:21 via EMS precinct captain jr10 Ranges: Critical Glucose Levels:Adult <50 mg/dl or >400 mg/dl <40 mg/dl or >180 mg/dl Disposition: 18:59 Co-signature as Attending Physician, Tyler Salter MD I agree with the assessment and ps1 plan of care. Disposition: 06/19/20 12:15 Hospitalization ordered by Chemo Yeh for Observation. Preliminary diagnosis are Adverse effect of other drugs, medicaments and biological substances, Hallucinations, unspecified, Weakness, Confusion. - Bed requested for Telemetry/MedSurg (observation). - Status is Observation. jr10 - Condition is Stable. - Problem is new. - Symptoms have improved. NIH Stroke Scale - NIH Stroke Score Date: 06/19/2020 Time: 07:35 Total Score = 2 1a. Level of Consciousness (LOC) - 0(Alert) 1b. Level of Consciousness (LOC) (Year \T\ Age) - 1(One) 1c. LOC Commands (Open \T\ Closes Eyes/Snuff Drier) - 0(Both) 2. Best Gaze (Lateral Gaze Paresis) - 0(Normal) 3. Visual Field Loss - 0(No visual loss) 4. Facial Palsy - 0(Normal) 5a. Left Arm: Motor (10-second hold) - 0(No drift) 5b. Right Arm: Motor (10-second hold) - 0(No drift) 6a. Left Leg: Motor (5-second hold - always test supine) - 0(No drift) 6b. Right Leg: Motor (5-second hold - always test supine) - 0(No drift) 7. Limb Ataxia (finger/nose \T\ heel/contreras - test with eyes open) - 0(Absent) 8. Sensory Loss (pinprick arms/legs/face) - 0(Normal) 9. Best Language: Aphasia (description/naming/reading) - 0(No aphasia) 10. Dysarthria (speech clarity - read or repeat words) - 1(Mild to Moderate) 11. Extinction and Inattention (visual/tactile/auditory/spatial/personal) - 0(No abnormality) Initials: jr10 Signatures: Dispatcher [employer] Cesia Tovar Patrick, INDUSTRIAL RELATIONS DIRECTOR INDUSTRIAL RELATIONS DIRECTOR pm1 Tyler Salter MD MD ps1 Rivera, Jessica, RN RN jr10 Corrections: (The following items were deleted from the chart) 12:23 12:15 Hospitalization Ordered by ChemoLb GAINES for Observation. Preliminary pm1 diagnosis is Adverse effect of other drugs, medicaments and biological substancesHallucinations, unspecified; Weakness. Bed requested for Telemetry/MedSurg (observation). Status is Observation. Condition is Stable. Problem is new. Symptoms have improved. pm1 13:12 12:23 06/19/2020 12:15 Hospitalization Ordered by ChemoLb GAINES for bd Observation. Preliminary diagnosis is Adverse effect of other drugs, medicaments and biological substancesHallucinations, unspecified; Weakness; Confusion. Bed requested for Telemetry/MedSurg (observation). Status is Observation. Condition is Stable. Problem is new. Symptoms have improved. pm1 13:49 13:12 06/19/2020 12:15 Hospitalization Ordered by Chemo Rao GAINES for jr10 Observation. Preliminary diagnosis is Adverse effect of other drugs, medicaments and biological substancesHallucinations, unspecified; Weakness; Confusion. Bed requested for Telemetry/MedSurg (observation). Status is Observation. Condition is Stable. Problem is new. Symptoms have improved. bd
[2020-06-19 12:59] LABS: Urine Bacteria <20 /HPF (<20); Urine RBC 20-50 /HPF (NONE SEEN)
[2020-06-19 13:00] LABS: Urine Culture Reflex Order NOT NEEDED
[2020-06-19] MEDS ORDERED: D50W 25 GM/50 ML SYRINGE/VIAL IV PRN (13:53)
[2020-06-19] MEDS ORDERED: GLUCAGON 1 MG/VIAL IM PRN (13:53)
[2020-06-19] MEDS ORDERED: ACETAMINOPHEN 500 MG TAB PO PRN (13:53)
[2020-06-19] MEDS ORDERED: LACTULOSE 20 GM/30 ML UCUP PO PRN (13:53)
[2020-06-19] MEDS ORDERED: METOCLOPRAMIDE 10 MG/2mL INJ IV ONE (14:15)
--- NOTE | 2020-06-19 14:52 | P.HP ---
Certification for Inpatient Patient admitted to: Observation With expected LOS: <2 Midnights Patient will require the following post-hospital care: None Practitioner: I am a practitioner with admitting privileges, knowledge of patient current condition, hospital course, and medical plan of care. Services: Services provided to patient in accordance with Admission requirements found in Title 42 Section 412.3 of the Code of Federal Regulations Patient History Date of Service: 06/19/20 Primary Care Provider: Dr. Miles; Nephrology-Dr. Abad Reason for admission: Confusion History of Present Illness: 60-year-old female with multiple medical problems including diabetes, end-stage renal disease on hemodialysis, hypothyroidism, hyperlipidemia, hypertension, and chronic pain. Patient was seen in the emergency room yesterday for shingles to the right chest wall region. Patient was started on antiviral therapy along with pain medication-gabapentin. The patient apparently got a dose of 300 mg gabapentin. She also took 600 mg more over the last 24 hr. This morning the patient was confused. Some hallucinations noted. Family thought this was related to recent medication for chronic pain. Patient takes methadone and is seen at the methadone clinic. Patient was given methadone this morning. The patient then went to dialysis. She is continue to have confusion. She was sent to the ER for further evaluation. Patient was evaluated emergency room. No indication of infection noted. Chest x-ray unremarkable. CT head unremarkable. Lab reviewed showed normal white count. Patient did not receive full dose of dialysis prior to ER. Patient was admitted for observation and for further evaluation. When I saw the patient ER, patient was still confuse but did not appear septic. Allergies No Known Allergies Allergy (Unverified 02/02/20 08:55) Home medications list reviewed: Yes Home Medications: Atorvastatin Calcium 20 mg PO BEDTIME 02/02/20 Calcium Acetate [Phoslo] 3 cap PO TIDWM 02/02/20 Clonidine HCl [Catapres] 0.3 mg PO BID 02/02/20 Furosemide 20 mg PO [id number] 02/02/20 Insulin Glargine Human [Lantus*] 10 units SQ BEDTIME 02/02/20 Levothyroxine Sodium 50 mcg PO [id number] 02/02/20 Nifedipine [Nifedipine ER] 60 mg PO [id number] 02/02/20 levoFLOXacin [Levaquin] 250 mg PO Q48H #5 tab 02/03/20 - Past Medical/Surgical History Diabetic: Yes -: Diabetes mellitus type 2 insulin dependent -: HTN -: History of hepatitis C -: Hyperlipidemia -: End-stage renal disease on hemodialysis -: Hypothyroidism -: foot surgery -: Cholecystectomy -: Csection Psychosocial/ Personal History: Patient lives at home. - Family History Family History: Reviewed- Non-Contributory - Social History Smoking Status: Unknown if ever smoked Alcohol use: No CD- Drugs: Yes Caffeine use: Yes Place of Residence: Home Review of Systems This was difficult to be obtained as the patient was still confused. Most information came from the ER provider. Physical Examination - Vital Signs Temperature: 98.8 F Blood Pressure: 179/84 Pulse: 95 Respirations: 17 - Physical Exam General: Alert, In no apparent distress, Confused, Other (But follows commands.) HEENT: Atraumatic Neck: Supple Respiratory: Clear to auscultation bilaterally, Normal air movement Cardiovascular: Normal pulses, Regular rate/rhythm Gastrointestinal: Normal bowel sounds, No tenderness, No masses, No rebound, No guarding Integumentary: Tenderness/swelling (Some pitting edema to the lower extremities bilateral) Neurological: Normal speech, Normal strength at 5/5 x4 extr, Normal tone - Studies Laboratory Data (last 24 hrs) 06/19/20 09:51: PT 13.1 H, INR 1.11 06/19/20 09:51: WBC 7.0, Hgb 11.7 L, Hct 34.8 L, Plt Count 234 06/19/20 09:51: Sodium 135 L, Potassium 5.1, BUN 80 H, Creatinine 10.30 H*, Glucose 235 H, Magnesium 2.2, Total Bilirubin 0.3, AST 26, ALT 27, Alkaline Phosphatase 72 06/19/20 07:31: PT Cancelled, INR Cancelled 06/19/20 07:31: WBC Cancelled, Hgb Cancelled, Hct Cancelled, Plt Count Cancelled 06/19/20 07:31: Sodium Cancelled, Potassium Cancelled, BUN Cancelled, Creatinine Cancelled, Glucose Cancelled, Magnesium Cancelled, Total Bilirubin Cancelled, AST Cancelled, ALT Cancelled, Alkaline Phosphatase Cancelled Assessment and Plan - Plan Impression: Confusion likely related to medication reaction-gabapentin End-stage renal disease on hemodialysis Diabetes mellitus type 2 insulin dependent Hypertension Hyperlipidemia History of hepatitis-C Chronic pain on methadone Shingles Plan: Confusion likely related to medication reaction-gabapentin: Patient will be admitted for further observation and evaluation. Initial CT head unremarkable. Will obtain MRI further evaluate. Suspect confusion likely related to gabapentin. Will discontinue gabapentin this time. Patient will likely require dialysis. Will discuss with nephrology to have this addressed. Will continue to monitor closely. Fall and aspiration precaution in place. Continue monitor lab closely. Will reassess tomorrow with possible discharge if patient back to baseline. End-stage renal disease on hemodialysis: Patient did not receive dialysis today. Will discuss with nephrology. Patient will likely require dialysis today. Patient currently gets dialysis every Thursday, and Thursday. Continue with diuretic therapy. Diabetes mellitus type 2 insulin dependent: Continue sliding scale. Will monitor Accu-Cheks. Hypertension: Restart home medication. Will monitor closely. Hyperlipidemia: Restart home medication. History of hepatitis-C: Will obtain ammonia level. Chronic pain on methadone: Patient has seen pain management already. She did receive her dose of methadone today. chart medication will continue with current medication Shingles: Will provide antiviral medication. Discharge Plan: Home Plan to discharge in: 24 Hours - Advance Directives Does patient have a Living Will: No Does patient have a Durable POA for Healthcare: No - Code Status/Comfort Care Code Status Assessed: No (Not able to be performed. Will reassess tomorrow.) Time Spent Managing Pts Care (In Minutes): 55
[2020-06-19 15:40] VITALS: BMI 27.4
[2020-06-19] MEDS: INSULIN -REGULAR HUMAN 50 UNIT/0.5 ML ML SQ SCH ×2 (16:20→21:00)
[2020-06-19] MEDS: CA ACETATE 667 MG CAP PO SCH (16:22)
[2020-06-19] MEDS: LANTHANUM 1000 MG TAB PO SCH (16:22)
[2020-06-19] MEDS: HYDRALAZINE HCL 20 MG/ML VIAL IV PRN (18:24)
--- NOTE | 2020-06-19 20:00 | CON ---
Date of Consultation: 06/19/2020 Additional Consulting Physician: Dr. Yeh. Reason For Consultation: Elevated BUN and creatinine, Neurontin intoxication/acyclovir overdose. History Of Present Illness: This is a pleasant 60-year-old female, known to me from dialysis with si gnificant past medical history of end-stage renal disease, on hemodialysis, TTS at [facility]; diabetes, complicated with neuropathy and nephropathy; hypertension; the patient came t o the hospital complaining from nausea vomiting after she went to Dialysis Center. The patient also has jerk movement, weak, could not ambulate. The patient apparently went to the emergency room yeste rday because of shingles on the right upper chest on 1 nerve area. The patient was prescribed gabape ntin and acyclovir. After that, she started her symptoms. Workup in the hospital, CT was negative. Allergies: NEGATIVE. Home Medications: Include, 1.Atorvastatin. 2.PhosLo 3 tablets with each meal. 3.Clonidine 0.3 b.i.d. 4.Lasix 20 daily. 5.Insulin. 6.Levothyroxine. 7.Nifedipine 60 daily. 8.Levaquin. 9.Acyclovir. 10.Gabapentin. Past Medical History: Includes, 1.Diabetes, complicated with neuropathy. 2.Hypertension. 3.Hep C. 4.End-stage renal disease, on hemodialysis TTS. 5.Hypothyroidism. Past Surgical History: Includes, 1.Foot surgery. 2.Cholecystectomy. 3.. Family History: Positive for hypertension. Social History: Denies smoking. Denies drinking. Denies drugs abuse. Review of Systems: Head and Neck: No red eye. No ear pain. GI: Has nausea, has vomiting. : No polyuria, no dysuria, no hematuria. [employer]: No vaginal discharge. Respiratory: No shortness of breath. Cardiovascular: Has pain on the shoulder and chest. Neuro: Has neuropathy. Musculoskeletal: Pain on the shoulder, jerking movement. Physical Examination: Vital Signs: When I saw the patient, blood pressure 179/84, pulse of 95, afebrile. Chest: Clear to auscultation. Heart: S1, S2. Regular. Abdomen: Soft, nontender. Extremities: No edema. Neuro: The patient has resting tremor. No focal. Laboratory Data: WBC 7, H and H 11.7/34.8, platelet 234. Sodium 135, potassium 5.1, bicarb 23, BUN 80, creatinine 10.3, calcium 8.2. CT negative. Chest x-ray, no infiltration. Assessment And Plan: 1.End-stage renal disease, marginal hyperkalemia with high dose of acyclovir and gabapentin toxicati on. I am going to go ahead and do dialysis today and tomorrow to establish better clearance for her gabapentin and acyclovir. I agree with holding the gabapentin and to decrease the dose of acyclovir and we will monitor. 2.Hyperkalemia. The patient is going to be dialyzed on low potassium bath. 3.Hypertension, not controlled. We will follow up the blood pressure after dialysis. Resume home m edication. 4.Zoster, decreased acyclovir. Hold gabapentin for the time being. 5.Hepatitis C as by primary. 6.Diabetes as by primary. NELLY/MANUEL Voice ID: [id number] Report ID: [id number]
[2020-06-19] MEDS: ONDANSETRON 4 MG/2 ML VIAL IV PRN (20:25)
[2020-06-19] MEDS: CLONIDINE HCL 0.3 MG TAB PO SCH (22:12)
[2020-06-19] MEDS: ATORVASTATIN 20 MG TAB PO SCH (22:24)
[2020-06-19] MEDS: ACYCLOVIR 400 MG TABLET PO SCH (22:24)
[2020-06-19] MEDS: INSULIN GLARGINE 100 UNITS/ML SQ SCH (22:27)
[2020-06-19] MEDS: HEPARIN 5000 UNIT/ML 1 ML VIAL SQ SCH (22:28)
[2020-06-20 04:04] LABS: Absolute Lymphocytes (CBC) 1.6 K/uL (0.7-4.9); Hematocrit 34.5 % (36.0-45.0); Lymphocytes % 19.8 % (15.3-44.8); MPV 7.2 fL (7.6-11.3); RBC Red Blood Cell Count 3.66 M/uL (3.86-4.86)
[2020-06-20] MEDS: ONDANSETRON 4 MG/2 ML VIAL IV PRN ×2 (04:18→17:38)
[2020-06-20 04:37] LABS: Albumin 2.9 g/dL (3.4-5.0); Magnesium 2.1 mg/dL (1.8-2.4); Phosphorus 5.7 mg/dL (2.5-4.9); Potassium 4.7 mmol/L (3.5-5.1)
[2020-06-20] MEDS: LEVOTHYROXINE SOD 0.05 MG TABLET PO SCH (05:34)
[2020-06-20] MEDS: LANTHANUM 1000 MG TAB PO SCH ×3 (08:00→16:23)
[2020-06-20] MEDS: INSULIN -REGULAR HUMAN 50 UNIT/0.5 ML ML SQ SCH ×4 (08:13→21:00)
[2020-06-20] MEDS: CLONIDINE HCL 0.3 MG TAB PO SCH (08:14)
[2020-06-20] MEDS: FUROSEMIDE 20 MG TABLET PO SCH (08:15)
[2020-06-20] MEDS: CA ACETATE 667 MG CAP PO SCH ×3 (08:15→16:23)
[2020-06-20] MEDS: ACYCLOVIR 400 MG TABLET PO SCH ×2 (08:16→23:04)
[2020-06-20] MEDS: CLOPIDOGREL 75 MG TABLET PO SCH (08:16)
[2020-06-20] MEDS: HEPARIN 5000 UNIT/ML 1 ML VIAL SQ SCH ×2 (08:17→21:49)
[2020-06-20] MEDS ORDERED: METHADONE PO SCH ×2 (09:00→21:00)
--- NOTE | 2020-06-20 14:11 | P.PN ---
Subjective Date of Service: 06/20/20 Primary Care Provider: Dr. Miles; Nephrology-Dr. Abad Chief Complaint: Confusion Subjective: Improving, Other (Less confusion noted. Still very weak) Physical Examination - Vital Signs Temperature: 97.6 F Blood Pressure: 179/74 Pulse: 86 Respirations: 18 Pulse Ox (%): 97 - Physical Exam General: Alert, In no apparent distress, Cooperative HEENT: Atraumatic Neck: Supple Respiratory: Clear to auscultation bilaterally, Normal air movement Cardiovascular: Normal pulses, Regular rate/rhythm Neurological: Other (Overall weak) - Studies Laboratory Data (last 24 hrs) 06/20/20 03:47: Sodium 139, Potassium 4.7, BUN 39 H D, Creatinine 6.69 H* D, Glucose 182 H, Phosphorus 5.7 H, Magnesium 2.1 06/20/20 03:47: WBC 8.2 D, Hgb 11.6 L, Hct 34.5 L, Plt Count 248 06/19/20 07:31: PT Cancelled, INR Cancelled 06/19/20 07:31: WBC Cancelled, Hgb Cancelled, Hct Cancelled, Plt Count Cancelled 06/19/20 07:31: Sodium Cancelled, Potassium Cancelled, BUN Cancelled, Creatinine Cancelled, Glucose Cancelled, Magnesium Cancelled, Total Bilirubin Cancelled, AST Cancelled, ALT Cancelled, Alkaline Phosphatase Cancelled Microbiology Data (last 24 hrs): 06/19/20 14:35 Wound - L Leg (Lower) Gram Stain - Final 06/19/20 14:35 Wound - Right Lower Leg Gram Stain - Final 06/19/20 14:42 Nasopharnyx Coronavirus COVID-19 PCR - Final 06/19/20 15:08 Blood - Blood Anaerobic Blood Culture - Final Medications List Reviewed: Yes Assessment & Plan Discharge Plan: Home Plan to discharge in: 24 Hours Physician Review Additional Text: Impression: Confusion likely related to medication reaction-gabapentin End-stage renal disease on hemodialysis Diabetes mellitus type 2 insulin dependent Hypertension Hyperlipidemia History of hepatitis-C Chronic pain on methadone Shingles Plan: Confusion likely related to medication reaction-gabapentin: Confusion resolved. Still with weakness and difficulty with gait. This was discuss with physical therapy. Patient likely requires home health, bedside commode and walker. Will continue physical therapy. Await MRI, echocardiogram and carotid Doppler to further evaluate and rule out stroke. Case discussed with nephrology who will perform dialysis again today. Anticipate improvement over the next 24 hr. End-stage renal disease on hemodialysis: Continue with dialysis. Patient had dialysis last night. Patient currently gets dialysis every Thursday, and Thursday. Continue with diuretic therapy. Diabetes mellitus type 2 insulin dependent: Continue sliding scale. Will monitor Accu-Cheks. Hypertension: Continue home medication. Will monitor closely. Hyperlipidemia: Continue home medication. History of hepatitis-C: This appears stable Chronic pain on methadone: Patient has seen pain management already. Continue medication Shingles: Will provide antiviral medication. Time Spent Managing Pts Care (In Minutes): 55
--- NOTE | 2020-06-20 15:07 | PN ---
Date of Progress Note: 06/20/2020 Subjective: The patient was admitted with difficulty ambulating, weakness, altered mental status aft er started on acyclovir and gabapentin. The patient is still weak. Physical Examination: Vital Signs: Blood pressure 182/78, pulse of 86, afebrile. The patient had dialysis yesterday, pako ged to remove 1600. Chest: Clear to auscultation. Heart: S1, S2. Regular. Abdomen: Soft, nontender. Extremities: No edema. Neurologic: Alert. Nonfocal. Still resting tremor with stiffness. Laboratory Data: WBC 8.2, H and H 11.6/34.5, platelets 248. Sodium 139, potassium 4.7, bicarb 27, B UN 39, creatinine 6.6, calcium 8.4, phosphorus 5.7, magnesium 2.2. Current Medications: The patient on include; 1.Acyclovir 400 b.i.d. 2.Plavix. 3.Heparin. 4.Atorvastatin. 5.Clonidine 0.3 b.i.d. 6.Carvedilol. 7.Tylenol. 8.Furosemide. 9.Fosrenol. 10.Metoclopramide. 11.Levothyroxine. Assessment And Plan: 1.End-stage renal disease with over dosage on the gabapentin and acyclovir. I am going to do anothe r session of dialysis and we will do another session tomorrow also, and we will follow up. 2.Zoster. We will decrease acyclovir to 200, keep holding gabapentin. We will follow up MRI today to see if there is any sign of viral meningitis. The patient if continued to be deteriorating, the p atient may need LP. 3.Hepatitis C, stable. Continue follow up with primary. 4.Hypertension with diabetes and hepatitis C. I am going to decrease clonidine to 0.2, continue wit h lisinopril. We will follow up. 5.Altered mental status secondary to acyclovir and gabapentin. We will dialyze today. Again, the p atient may need lumbar puncture. NELLY/MANUEL Voice ID: [id number] Report ID: [id number]
[2020-06-20] MEDS: HYDRALAZINE HCL 20 MG/ML VIAL IV PRN (16:25)
[2020-06-20] MEDS ORDERED: LORazepam 2 MG/ML VIAL IV PRN (18:04)
--- NOTE | 2020-06-20 20:34 | RAD REPORT ---
EXAM DESCRIPTION: USCarotid Artery Bilateral06/20/2020 6:49 pm CLINICAL HISTORY: Numbness/weakness COMPARISON: None FINDINGS: The velocity of the right internal carotid artery equals 186 cm/sec. The right ICA/CCA rat io 1.4 The velocity of the left internal carotid artery equals 196 cm/sec. The left ICA/CCA ratio 1.9 Mild to moderate plaque is present within the carotid arteries. The vertebral arteries demonstrate antegrade flow IMPRESSION: The internal carotid arteries velocities are elevated. However there appears to be only mild to moderate plaque within the carotid arteries. It is recommended that the patient have an MRA n cory for further evaluation NASCET criteria used. Mild 0-49% stenosis Moderate 50-69% stenosis Severe 70-99% stenosis
--- NOTE | 2020-06-20 21:07 | RAD REPORT ---
EXAM DESCRIPTION: MRI - Brain Wo Cont - 06/20/2020 8:34 pm CLINICAL HISTORY: Confusion COMPARISON: June 19, [address] TECHNIQUE: Axial, sagittal, and coronal magnetic images of the brain were obtained. Contrast was not requested FINDINGS: 3 centimeter area of abnormal signal within left basal ganglia extending into the left fro ntal lobe as the appearance an old infarction. Mild increased signal within periventricular, subcorti [place] white matter likely ischemic changes secondary to small vessel Diffusion-weighted/ADC mapping does not reveal evidence of acute infarction. The ventricles are normal caliber. An extra-axial fluid collection is not present Fluid within the sinuses/mastoids is not noted IMPRESSION: No acute abnormality is displayed
[2020-06-20] MEDS: INSULIN GLARGINE 100 UNITS/ML SQ SCH (21:49)
[2020-06-20] MEDS: cloNIDine HCL 0.1 MG TAB PO SCH (23:03)
[2020-06-20] MEDS: ATORVASTATIN 20 MG TAB PO SCH (23:04)
[2020-06-21] MEDS: LEVOTHYROXINE SOD 0.05 MG TABLET PO SCH (05:51)
[2020-06-21 06:18] LABS: Albumin 2.6 g/dL (3.4-5.0); Phosphorus 5.1 mg/dL (2.5-4.9); Potassium 4.8 mmol/L (3.5-5.1)
[2020-06-21] MEDS: INSULIN -REGULAR HUMAN 50 UNIT/0.5 ML ML SQ SCH ×4 (07:30→21:06)
--- NOTE | 2020-06-21 07:31 | EKG ---
Test Date: 2020-06-19 Test Time: 08:40:25 Counselling Psychologist: JENNIFER MEASUREMENT RESULTS: Intervals: Rate: 93 GA: 148 QRSD: 74 QT: 362 QTc: 450 [place]: P: 74 GA: 148 QRS: 41 T: 70 INTERPRETIVE STATEMENTS: Normal sinus rhythm Cannot rule out Anterior infarct, age undetermined Abnormal ECG Compared to ECG 02/02/2020 07:01:54 Myocardial infarct finding now present Electronically Signed On 06-21-20 07:28:52 CDT by Robert Correa
[2020-06-21] MEDS: FUROSEMIDE 20 MG TABLET PO SCH ×2 (08:45→12:40)
[2020-06-21] MEDS: cloNIDine HCL 0.1 MG TAB PO SCH ×3 (08:45→21:08)
[2020-06-21] MEDS: HEPARIN 5000 UNIT/ML 1 ML VIAL SQ SCH ×3 (08:45→21:09)
[2020-06-21] MEDS: CLOPIDOGREL 75 MG TABLET PO SCH ×2 (08:45→12:39)
[2020-06-21] MEDS: ACYCLOVIR 400 MG TABLET PO SCH ×3 (08:46→21:07)
[2020-06-21] MEDS: lisinopriL 20 MG TAB PO SCH ×2 (08:46→12:40)
[2020-06-21] MEDS: LANTHANUM 1000 MG TAB PO SCH ×3 (08:50→16:19)
[2020-06-21] MEDS: CA ACETATE 667 MG CAP PO SCH ×3 (08:50→16:19)
--- NOTE | 2020-06-21 09:46 | ECHO ---
HEIGHT: 5 ft 4 in WEIGHT: 160 lb 0 oz DATE OF STUDY: 06/20/[address]: Chemo Yeh DO 2-DIMENSIONAL: YES M.MODE: YES DOPPLER: YES COLOR FLOW: YES TDS: NO PORTABLE: NO DEFINITY: NO BUBBLE STUDY: NO DIAGNOSIS: ALTERED MENTAL STATUS CARDIAC HISTORY: CATHERIZATION: NO SURGERY: NO PROSTHETIC VALVE: NO PACEMAKER: NO MEASUREMENTS (cm) DIASTOLIC (NORMALS) SYSTOLIC (NORMALS) IVSd 1.1 (0.6-1.2) LA Diam 3.9 (1.9-4.0) LVEF 78% LVIDd 3.5 (3.5-5.7) LVIDs 1.9 (2.0-3.5) %FS 45% LVPWd 1.2 (0.6-1.2) Ao Diam 2.6 (2.0-3.7) 2 DIMENSIONAL ASSESSMENT: RIGHT ATRIUM: NORMAL LEFT ATRIUM: NORMAL RIGHT VENTRICLE: NORMAL LEFT VENTRICLE: NORMAL TRICUSPID VALVE: NORMAL MITRAL VALVE: NORMAL PULMONIC VALVE: NORMAL AORTIC VALVE: NORMAL PERICARDIAL EFFUSION: NONE AORTIC ROOT: NORMAL LEFT VENTRICULAR WALL MOTION: NORMAL. DOPPLER/COLOR FLOW: NORMAL. COMMENTS: NORMAL 2D ECHO WITH DOPPLER. NO VEGETATION. NO EFFUSION. TECHNOLOGIST: AVRIL BROOKS
--- NOTE | 2020-06-21 12:30 | P.PN ---
Subjective Date of Service: 06/21/20 Primary Care Provider: Dr. Miles; Nephrology-Dr. Abad Chief Complaint: Confusion Subjective: Other (Patient less confused today. Still with unsteadiness noted with physical therapy.) Physical Examination - Vital Signs Temperature: 96.7 F Blood Pressure: 147/71 Pulse: 95 Respirations: 16 Pulse Ox (%): 95 - Physical Exam General: Alert Neck: Supple Respiratory: Clear to auscultation bilaterally, Normal air movement Cardiovascular: Normal pulses, Regular rate/rhythm Neurological: Normal speech - Studies Microbiology Data (last 24 hrs): 06/19/20 14:35 Wound - Right Lower Leg Gram Stain - Final 06/19/20 14:35 Wound - L Leg (Lower) Gram Stain - Final 06/19/20 15:08 Blood - Blood Anaerobic Blood Culture - Final Medications List Reviewed: Yes Assessment & Plan Discharge Plan: Other (inpatient rehab vs SNF) Plan to discharge in: 24 Hours Physician Review Additional Text: Impression: Confusion likely related to medication reaction-gabapentin End-stage renal disease on hemodialysis Diabetes mellitus type 2 insulin dependent Hypertension Hyperlipidemia History of hepatitis-C Chronic pain on methadone Shingles Chronic lower extremity wounds with culture showing Morganella Plan: Confusion likely related to medication reaction-gabapentin: Patient with less confusion. Still with weakness and difficulty with gait. This was discussed in detail with physical therapy yesterday. Continue physical therapy at this time. Case discussed at length with family. Will recommend inpatient rehab evaluation. Other option would include skilled placement. Await recommendations by inpatient rehab and physical therapy. Echocardiogram unremarkable. Carotid Doppler shows mild carotid disease. MRI unremarkable. Anticipate and hope approval for inpatient rehab in the next 24-48 hr. This was discussed in detail with family member-daughter and case management. End-stage renal disease on hemodialysis: Continue with dialysis. Patient had dialysis last night. Patient currently gets dialysis every Thursday, and Thursday. Continue with diuretic therapy. Diabetes mellitus type 2 insulin dependent: Continue sliding scale. Will monitor Accu-Cheks. Hypertension: Continue home medication. Will monitor closely. Hyperlipidemia: Continue home medication. History of hepatitis-C: This appears stable Chronic pain on methadone: Patient has seen pain management already. Continue medication Shingles: Will provide antiviral medication. Chronic lower extremity wounds with culture showing Morganella: Will start Cipro to cover wound cultures. Will also consult infectious disease for recommendations on wound care and medication. Nephrology reports patient is s een at the wound Care Center. Time Spent Managing Pts Care (In Minutes): 55
--- NOTE | 2020-06-21 16:16 | P.DS ---
Admission Date: 06/20/20 Discharge Date: 06/21/20 Primary Care Provider: Dr. Miles; Nephrology-Dr. Abad Disposition: TRANSFER TO INPATIENT REHAB Discharge Condition: GOOD Reason for Admission: Confusion Consultations: Nephrology-Dr. Abad Procedures: CT Brain: FINDINGS: No intracranial hemorrhage, mass, edema or shift of mid-line structures. No acute cortical based infarction is identifiable. No cortical edema or sulcal effacement seen. Patient has diminished attenuation in the bilateral cerebral white matter with more extensive decrease in attenuation extending into the left thalamus and basal ganglia. No abnormal extra-axial fluid collections. Mild volume loss changes are present. Ventricles are in proportion to any volume loss. The bilateral cerebral white matter attenuation abnormalities in the left-side thalamus and basal ganglia abnormalities are new or progressive from 2015 comparison. These are typically areas of chronic ischemic change. This would be advanced for the patient's age. These white matter and deeper attenuation abnormalities can mask nonhemorrhagic acute CVA. Mastoid air cells and visualized portions of the paranasal sinuses are clear. No acute bony findings. IMPRESSION: No intracranial hemorrhage is present. No acute cortical based infarction identified. Left thalamus, left basal ganglia and bilateral white matter abnormalities are most likely chronic ischemic change. These changes are advanced for the patient's age and progressive from 2015 comparison. The chronic ischemic pattern seen on this study can mask nonhemorrhagic acute CVA. Focal neurologic deficit findings were not detailed in available history. If warranted, MR imaging could be performed for more sensitive assessment of acute nonhemorrhagic CVA. MRI Brain: FINDINGS: 3 centimeter area of abnormal signal within left basal ganglia extending into the left frontal lobe as the appearance an old infarction. Mild increased signal within periventricular, subcortical white matter likely ischemic changes secondary to small vessel Diffusion-weighted/ADC mapping does not reveal evidence of acute infarction. The ventricles are normal caliber. An extra-axial fluid collection is not present Fluid within the sinuses/mastoids is not noted IMPRESSION: No acute abnormality is displayed ECHO: Ejection fraction 78% LEFT VENTRICULAR WALL MOTION: NORMAL. DOPPLER/COLOR FLOW: NORMAL. COMMENTS: NORMAL 2D ECHO WITH DOPPLER. NO VEGETATION. NO EFFUSION. Carotid doppler: FINDINGS: The velocity of the right internal carotid artery equals 186 cm/sec. The right ICA/CCA ratio 1.4 The velocity of the left internal carotid artery equals 196 cm/sec. The left ICA/CCA ratio 1.9 Mild to moderate plaque is present within the carotid arteries. The vertebral arteries demonstrate antegrade flow IMPRESSION: The internal carotid arteries velocities are elevated. However there appears to be only mild to moderate plaque within the carotid arteries. It is recommended that the patient have an MRA neck for further evaluation NASCET criteria used. Medical Problem List: Confusion likely related to medication reaction-gabapentin End-stage renal disease on hemodialysis Diabetes mellitus type 2 insulin dependent Hypertension Hyperlipidemia History of hepatitis-C Chronic pain on methadone Shingles Hypothyroidism Carotid arterial disease Chronic lower extremity wounds with culture showing Morganella Brief History of Present Illness: 60-year-old female with multiple medical problems including diabetes, end-stage renal disease on hemodialysis, hypothyroidism, hyperlipidemia, hypertension, and chronic pain. Patient was seen in the emergency room yesterday for shingles to the right chest wall region. Patient was started on antiviral therapy along with pain medication-gabapentin. The patient apparently got a dose of 300 mg gabapentin. She also took 600 mg more over the last 24 hr. This morning the patient was confused. Some hallucinations noted. Family thought this was related to recent medication for chronic pain. Patient takes methadone and is seen at the methadone clinic. Patient was given methadone this morning. The patient then went to dialysis. She is continue to have confusion. She was sent to the ER for further evaluation. Patient was evaluated emergency room. No indication of infection noted. Chest x-ray unremarkable. CT head unremarkable. Lab reviewed showed normal white count. Patient did not receive full dose of dialysis prior to ER. Patient was admitted for observation and for further evaluation. When I saw the patient ER, patient was still confuse but did not appear septic. Hospital Course: The patient presented with confusion. This was likely related to medication reaction gabapentin. The patient was seen recently in the ER for shingles. She was given gabapentin at that time. CT scan unremarkable. MRI unremarkable. Echocardiogram unremarkable. Carotid Doppler showed mild carotid arterial disease. The patient did well after multiple dialysis to eliminate gabapentin. Confusion eventually resolved. No evidence of infection identified. The patient still had some weakness to her extremities after this confusion. Physical therapy evaluated patient. Physical therapy recommended inpatient rehab. Patient was approved for inpatient rehab. At discharge patient will be transferred to inpatient rehab to continue therapy prior to going home. Patient with end-stage renal disease on hemodialysis. Patient received dialysis during the course of her stay with improvement of confusion. At discharge she will continue with dialysis every Thursday, and Thursday. Patient will be followed by nephrology in inpatient rehab. Patient will continue with her current medications prescribed by a nephrology. Diabetes mellitus type 2 insulin dependent. This has remained stable. At discharge she will continue with her regular regimen of insulin therapy. Recommend to maintain blood sugars less 140 fasting and less than 200 after meals. Further adjustment can be done by her PCP. Patient with hypertension. At discharge she will continue with her current medications. Patient with hyperlipidemia. At discharge she will continue with her medication. Patient with chronic pain. Patient currently sees pain management and receives methadone. At discharge she may continue with current regimen. Patient with hypothyroidism. At discharge she will continue with her current medication. As mentioned previously patient wish shingles. At discharge patient may co ntinue with acyclovir 200 mg twice daily for 5 more days. Patient with chronic lower extremity wounds. Culture was obtained. Morganella identified. At discharge patient may continue with Cipro 250 mg 1 pill daily for 7 days. Wound care will be continued as recommended by infectious disease. Patient may follow up at the wound Care Center. Patient with history of hepatitis-C. This remained stable. Vital Signs/Physical Exam: Temp Pulse Resp BP Pulse Ox 96.7 F L 95 H 16 147/71 H 95 06/21/20 12:30 06/21/20 12:40 06/21/20 12:30 06/21/20 12:40 06/21/20 12:30 General: Alert, In no apparent distress, Oriented x3, Cooperative HEENT: Atraumatic Neck: Supple Respiratory: Clear to auscultation bilaterally, Normal air movement Cardiovascular: Normal pulses, Regular rate/rhythm Gastrointestinal: Normal bowel sounds, Soft and benign, Non-distended Neurological: Normal speech, Normal strength at 5/5 x4 extr, Normal tone, Normal affect Laboratory Data at Discharge: WBC 8.2 K/uL (4.3-10.9) D 06/20/20 03:47 Hgb 11.6 g/dL (12.0-15.0) L 06/20/20 03:47 Hct 34.5 % (36.0-45.0) L 06/20/20 03:47 Plt Count 248 K/uL (152-406) 06/20/20 03:47 PT 13.1 SECONDS (9.5-12.5) H 06/19/20 09:51 INR 1.11 06/19/20 09:51 Sodium 136 mmol/L (136-145) 06/21/20 05:36 Potassium 4.8 mmol/L (3.5-5.1) 06/21/20 05:36 BUN 68 mg/dL (7-18) H D 06/21/20 05:36 Creatinine 8.20 mg/dL (0.55-1.3) H* D 06/21/20 05:36 Glucose 166 mg/dL (74-106) H 06/21/20 05:36 Phosphorus 5.1 mg/dL (2.5-4.9) H 06/21/20 05:36 Magnesium 2.1 mg/dL (1.8-2.4) 06/20/20 03:47 Total Bilirubin 0.3 mg/dL (0.2-1.0) 06/19/20 09:51 AST 26 U/L (15-37) 06/19/20 09:51 ALT 27 U/L (12-78) 06/19/20 09:51 Alkaline Phosphatase 72 U/L (45-117) 06/19/20 09:51 Home Medications: Atorvastatin Calcium 20 mg PO BEDTIME 02/02/20 Calcium Acetate [Phoslo] 3 cap PO SEECOM 02/02/20 Clonidine HCl [Catapres] 0.3 mg PO BID 02/02/20 Furosemide 20 mg PO [id number] 02/02/20 Insulin Glargine Human [Lantus*] 10 units SQ BEDTIME 02/02/20 Levothyroxine Sodium 50 mcg PO [id number] 02/02/20 Nifedipine [Nifedipine ER] 60 mg PO [id number] 02/02/20 Biotin 1 tab PO DAILY 06/19/20 Bisacodyl [Laxative] 1 tab PO DAILY 06/19/20 Clopidogrel Bisulfate [Plavix] 1 tab PO DAILY 06/19/20 Emla Lidocaine 1 dose TD SEECOM 06/19/20 Ergocalciferol (Vitamin D2) [Vitamin D2] 1 tab PO SEECOM 06/19/20 Insulin Aspart [Novolog] 5 units SQ SEECOM 06/19/20 Lactulose [Kristalose] 20 gm PO SEECOM PRN 06/19/20 Lanthanum Carbonate [Fosrenol] 2 tab PO SEECOM 06/19/20 Methadone 90 mg PO DAILY 06/19/20 Acyclovir [Zovirax] 200 mg PO BID #10 capsule 06/21/20 Ciprofloxacin HCl [Cipro 250 MG Tablet*] 250 mg PO DAILY #7 tab 06/21/20 New Medications: Ciprofloxacin HCl [Cipro 250 MG Tablet*] 250 mg PO DAILY #7 tab Acyclovir [Zovirax] 200 mg PO BID #10 capsule Patient Discharge Instructions: Okay to transfer to inpatient rehab. Continue current medications at this time. Please review discharge medications. Recommend nephrology consultation to continue dialysis every Thursday, and Thursday. Recommend Infectious Disease consult or wound care consult to continue care for her lower extremity wounds. Diet: ADA Activity: Fall precautions Time spent managing pt's care (in minutes): 55
--- NOTE | 2020-06-21 16:49 | PN ---
Date of Progress Note: 06/21/2020 Subjective: The patient was admitted with altered mental status, weakness, difficulty of ambulating. It was in the setting of overdose with gabapentin and acyclovir. Patient is being dialyzed on a [place] basis for the last 3 days. Tolerated the dialysis very well. Objective: Vital Signs: When I saw the patient, blood pressure 147/71, pulse of 95 afebrile. Chest: Clear to auscultation. Heart: S1, S2 regular. Abdomen: Soft. Nontender. Extremities: Trace edema. Dressing on both legs. Neuro: Alert. No focality. Tremor has been resolved. Still weakness on the lower extremity. Laboratory Data: WBC 8.2, H and H 11.6/34.5. Sodium 136, potassium 4.8, bicarb 27, BUN 68, creatini ne 8.2, calcium 8.1, phosphorus 5.1, albumin 2.6. Current Medications: The patient on include acyclovir 200 b.i.d., ciprofloxacin, Plavix, heparin, cl onidine 0.2 b.i.d., atorvastatin, lisinopril 20 daily, Lasix, phosphor in all, Fosrenol, levothyroxin e. Assessment And Plan: 1.End-stage renal disease with uremic symptoms, overdose with gabapentin and acyclovir, currently ba ck to her baseline. I am going to switch the patient back to be TTS on her dialysis schedule and we will monitor Hypertension, currently blood pressure better controlled. I am going to go ahead and co ntinue to taper down the clonidine. We can decrease it back to 0.1 and I am going to increase the li sinopril to 40 mg daily. 2.Gabapentin and acyclovir overdose as above, resolved. The patient will continue with PT OT. We w ill consider inpatient rehab. 3.Wound infection. Follow up with ID and Wound Care. 4.Anemia of chronic kidney disease. No need for SAMY for the time being. NOAH Voice ID: [id number] Report ID: [id number]
[2020-06-21] MEDS: INSULIN GLARGINE 100 UNITS/ML SQ SCH (21:00)
[2020-06-21] MEDS: ATORVASTATIN 20 MG TAB PO SCH (21:07)
--- NOTE | 2020-06-22 01:35 | PN ---
Date of Progress Note: 06/21/2020 Subjective: The patient was seen on dialysis today, more awake, still weak. Objective: Vital Signs: Blood pressure 152/68, pulse of 81, afebrile. Chest: Clear to auscultation. Heart: S1, S2. Systolic murmur. Abdomen: Soft, nontender. Extremities: Trace edema. Dressing on the leg. Neurologic: Alert, awake. Still has faint tremor with weakness on the lower extremity. Laboratory Data: H and H 11.6/34.5. Sodium 136, potassium 4.8, bicarb 27, BUN 68, creatinine 8.2, c alcium 8.1, phosphorus 5.1. Current Medications: The patient on are, 1.Ciprofloxacin. 2.Heparin. 3.Lisinopril. 4.Hydralazine p.r.n. 5.Clonidine. 6.Atorvastatin. 7.Lorazepam. 8.Fosrenol. 9.Lasix. Assessment And Plan: 1.End-stage renal disease. We will continue the patient on dialysis TTS. 2.Secondary hyperparathyroidism, stable. Continue Fosrenol. 3.Acyclovir/gabapentin intoxication. The patient starts going to her baseline. We will switch the patient back to TTS dialysis. 4.Metabolic encephalopathy. Continue dialysis. 5.Cellulitis of the leg with wound. Will follow up with Wound Care. 6.Residual weakness after gabapentin/acyclovir intoxication, on the recovery. We will follow up. Juan valle PT/OT. NELLY/MANUEL Voice ID: [id number] Report ID: [id number]
[2020-06-22] MEDS: HYDRALAZINE HCL 20 MG/ML VIAL IV PRN (03:22)
[2020-06-22] MEDS ORDERED: METHADONE 40 MG PO SCH (06:00)
[2020-06-22 06:20] LABS: Albumin 2.6 g/dL (3.4-5.0); Phosphorus 3.5 mg/dL (2.5-4.9); Potassium 4.6 mmol/L (3.5-5.1)
[2020-06-22] MEDS: LEVOTHYROXINE SOD 0.05 MG TABLET PO SCH (06:24)
[2020-06-22] MEDS: INSULIN -REGULAR HUMAN 50 UNIT/0.5 ML ML SQ SCH ×2 (07:30→11:42)
[2020-06-22] MEDS: CA ACETATE 667 MG CAP PO SCH ×2 (08:26→11:41)
[2020-06-22] MEDS: LANTHANUM 1000 MG TAB PO SCH ×2 (08:26→11:41)
[2020-06-22] MEDS: CLOPIDOGREL 75 MG TABLET PO SCH (08:27)
[2020-06-22] MEDS: ACYCLOVIR 400 MG TABLET PO SCH (08:28)
[2020-06-22] MEDS: FUROSEMIDE 20 MG TABLET PO SCH (08:28)
[2020-06-22] MEDS: HEPARIN 5000 UNIT/ML 1 ML VIAL SQ SCH (08:28)
[2020-06-22] MEDS: cloNIDine HCL 0.1 MG TAB PO SCH (08:28)
--- NOTE | 2020-06-22 08:30 | P.CNS ---
Date of Consult: 06/22/20 Subjective: Patient is a 60-year-old female with history of diabetes and end- stage renal disease on hemodialysis who present to the ED for shingles to the right chest wall region. Patient was discharged on antiviral therapy and gabapentin. Patient returned to the ED with confusion and some hallucinations. Patient found to have bilateral leg wounds which I have been consulted for. Patient examined at bedside. Patient reports bilateral lower extremity wounds for 5 years. Past medical/surgical history: Diabetes mellitus type 2, hypertension, history of hepatitis-C, hyperlipidemia, end-stage renal disease on hemodialysis, hypothyroidism, foot surgery, cholecystectomy, Social history: Denies tobacco and alcohol use Family History: noncontributory Allergies No Known Allergies Allergy (Unverified 02/02/20 08:55) Active Medications Acetaminophen (Tylenol -Extra Strength) 500 mg PO Q4HP PRN PRN Reason: TEMP > 101' F Stop: 07/19/20 13:54 Acyclovir (Zovirax -Tab) 200 mg PO BID RAFAEL Stop: 07/20/20 21:01 Last Admin: 06/21/20 21:07 Dose: 200 mg Documented by: Atorvastatin Calcium (Lipitor) 20 mg PO BEDTIME RAFAEL Stop: 07/19/20 21:01 Last Admin: 06/21/20 21:07 Dose: 20 mg Documented by: Calcium Acetate (Phoslo) 2,001 mg PO TIDWM RAFAEL Stop: 07/19/20 17:01 Last Admin: 06/21/20 16:19 Dose: 2,001 mg Documented by: Ciprofloxacin (Cipro) 250 mg PO DAILY [facility]; Protocol Stop: 07/22/20 09:01 Clonidine HCl (Catapres) 0.1 mg PO BID RAFAEL Stop: 07/21/20 21:01 Last Admin: 06/21/20 21:08 Dose: 0.1 mg Documented by: Clopidogrel Bisulfate (Plavix) 75 mg PO DAILY [facility] Stop: 07/20/20 09:01 Last Admin: 06/21/20 12:39 Dose: 75 mg Documented by: Dextrose (Dextrose 50% Syringe/Vial) 12.5 gm IV PRN PRN; Protocol PRN Reason: HYPOGLYCEMIA Stop: 07/19/20 13:54 Furosemide (Lasix) 20 mg PO DAILY [facility] Stop: 07/20/20 09:01 Last Admin: 06/21/20 12:40 Dose: 20 mg Documented by: Glucagon (Glucagen) 1 mg IM 1X PRN; Protocol PRN Reason: HYPOGLYCEMIA Stop: 07/19/20 13:54 Heparin Sodium (Porcine) (Heparin 5,000 Units/Ml) 5,000 unit SQ Q12HR RAFAEL Stop: 07/19/20 21:01 Last Admin: 06/21/20 21:09 Dose: 5,000 unit Documented by: Heparin Sodium (Porcine) (Heparin 1,000 Units/Ml) 1,000 unit IV EVERY HD RAFAEL Stop: 06/22/20 18:01 Last Admin: 06/19/20 16:49 Dose: 1,000 unit Documented by: Home Med (Home Med) 2.25 ea PO 0600 RAFAEL Stop: 07/22/20 06:01 Last Admin: 06/22/20 06:24 Dose: 2.25 ea Documented by: Hydralazine HCl (Apresoline) 10 mg IV Q6HP PRN PRN Reason: Titrate to SBP (MUST DEFINE) Stop: 07/19/20 15:33 Last Admin: 06/22/20 03:22 Dose: 10 mg Documented by: Insulin Glargine (Lantus) 10 units SQ BEDTIME RAFAEL Stop: 07/19/20 21:01 Last Admin: 06/21/20 21:00 Dose: 10 units Documented by: Insulin Human Regular (Novolin -R) 0 unit SQ ACHS [facility]; Protocol Stop: 07/19/20 16:31 Last Admin: 06/21/20 21:06 Dose: 2 unit Documented by: Lactulose (Cephulac) 20 gm PO BID PRN PRN Reason: CONSTIPATION Stop: 07/19/20 13:54 Lanthanum Carbonate (Fosrenol) 2,000 mg PO TIDWM RAFAEL Stop: 07/19/20 17:01 Last Admin: 06/21/20 16:19 Dose: 2,000 mg Documented by: Levothyroxine Sodium (Synthroid) 0.05 mg PO DAILYAC RAFAEL Stop: 07/20/20 06:31 Last Admin: 06/22/20 06:24 Dose: 0.05 mg Documented by: Lisinopril (Prinivil) 40 mg PO DAILY RAFAEL Stop: 07/22/20 09:01 Lorazepam (Ativan) 0.25 mg IV TID PRN PRN Reason: AGITATION Stop: 07/20/20 21:01 Last Admin: 06/20/20 18:45 Dose: 0.25 mg Documented by: Ondansetron HCl (Zofran) 4 mg IV Q6HP PRN PRN Reason: NAUSEA / VOMITING Stop: 07/19/20 13:54 Last Admin: 06/20/20 17:38 Dose: 4 mg Documented by: Sodium Chloride (Normal Saline Flush) 10 ml IV BID RAFAEL Stop: 07/19/20 21:01 Last Admin: 06/21/20 21:09 Dose: 10 ml Documented by: ROS: CV: Denies chest pain RESP: Denies shortness of breath and cough : Denies dysuria GI: Denies nausea and diarrhea, reports good appetite Skin: Reports bilateral lower extremity wounds for 5 years Objective: Temp Pulse Resp BP Pulse Ox 97.9 F 74 19 140/74 97 06/22/20 04:00 06/22/20 04:00 06/22/20 04:00 06/22/20 04:00 06/22/20 04:00 Labs: Sodium 138, potassium 4.6, BUN 47, creatinine 6.21, albumin 2.6, WBC 8.2, hemoglobin 11.6, hematocrit 34.5 Chest xray 06/19: EXAM DESCRIPTION: RAD - Chest Single View - 06/19/2020 8:46 am CLINICAL HISTORY: r/o pneumonia, weakness, shortness of breath COMPARISON: Portable February 02, 2020 TECHNIQUE: AP portable chest image was obtained 06/19/2020 8:46 am . FINDINGS: Lung volumes are low accentuating interstitial pattern. The left side pericardial fat pad is present. This accentuates left lung base markings. Left base assessment is limited. However, no peripheral mass or consolidation identifiable. Heart and vasculature are normal. No measurable pleural effusion and no pneumothorax. No acute bony abnormality seen. No acute aortic findings suspected. IMPRESSION: Shallow inspiration portable exam showing no acute cardiopulmonary finding. Chest is not significantly different from January examination. Head CT 06/19: EXAM DESCRIPTION: CT - Head Brain Wo Cont - 06/19/2020 8:17 am CLINICAL HISTORY: weakness COMPARISON: HEAD BRAIN W O CONTRAST dated 09/19/2015 TECHNIQUE: Axial 5 mm thick images of the head were obtained without IV contrast. All CT scans are performed using dose optimization technique as appropriate and may include automated exposure control or mA/KV adjustment according to patient size. FINDINGS: No intracranial hemorrhage, mass, edema or shift of mid-line structures. No acute cortical based infarction is identifiable. No cortical edema or sulcal effacement seen. Patient has diminished attenuation in the bilateral cerebral white matter with more extensive decrease in attenuation extending into the left thalamus and basal ganglia. No abnormal extra-axial fluid collections. Mild volume loss changes are present. Ventricles are in proportion to any volume loss. The bilateral cerebral white matter attenuation abnormalities in the left-side thalamus and basal ganglia abnormalities are new or progressive from 2015 comparison. These are typically areas of chronic ischemic change. This would be advanced for the patient's age. These white matter and deeper attenuation abnormalities can mask nonhemorrhagic acute CVA. Mastoid air cells and visualized portions of the paranasal sinuses are clear. No acute bony findings. IMPRESSION: No intracranial hemorrhage is present. No acute cortical based infarction identified. Left thalamus, left basal ganglia and bilateral white matter abnormalities are m ost likely chronic ischemic change. These changes are advanced for the patient's age and progressive from 2015 comparison. The chronic ischemic pattern seen on this study can mask nonhemorrhagic acute CVA. Focal neurologic deficit findings were not detailed in available history. If warranted, MR imaging could be performed for more sensitive assessment of acute nonhemorrhagic CVA. ROS: general: Awake alert oriented CV: S1,S2 RESP: Good breath sounds ABD: nontender, bowel sounds present Extremities: 2+ pedal pulse Skin: red raised scab/rash to right posterior neck and ear lobe. Bilateral lower extremity with stasis wounds, wound beds with slough and granulation tissue Assessment and plan: Bilateral lower extremity stasis ulcers, patient has been seen for poor circulation issues in the [facility] Recommend to treat locally with medihoney daily, no need for IV antibiotics at this time Shingles, continue antiviral medication ESRD, on HD T,TH,Sat Diabetes mellitus, monitor glycemic control Would recommend bilateral lower extremity venous studies to assess level of PVD Patient may benefit from [facility] facility for wound management and interventional radiology if severe PVD found Will continue to monitor Thank you for consult Patient discussed with Dr. Fallon
[2020-06-22 08:41] VITALS: BP 135/64
[2020-06-22] MEDS ORDERED: MEDIHONEY 44 ML TOPICAL TUBE TOP SCH (09:00)
[2020-06-22] MEDS ORDERED: CIPROFLOXACIN HCL 250 MG TAB PO SCH (09:00)
[2020-06-22] MEDS ORDERED: lisinopriL 20 MG TAB PO SCH (09:00)
--- NOTE | 2020-06-22 09:01 | P.DS ---
Admission Date: 06/20/20 Discharge Date: 06/22/20 Primary Care Provider: Dr. Miles; Nephrology-Dr. Abad Disposition: TRANSFER TO INPATIENT REHAB Discharge Condition: GOOD Reason for Admission: Confusion Consultations: Nephrology-Dr. Abad Infectious disease-Dr. Fallon Procedures: CT Brain: FINDINGS: No intracranial hemorrhage, mass, edema or shift of mid-line structures. No acute cortical based infarction is identifiable. No cortical edema or sulcal effacement seen. Patient has diminished attenuation in the bilateral cerebral white matter with more extensive decrease in attenuation extending into the left thalamus and basal ganglia. No abnormal extra-axial fluid collections. Mild volume loss changes are present. Ventricles are in proportion to any volume loss. The bilateral cerebral white matter attenuation abnormalities in the left-side thalamus and basal ganglia abnormalities are new or progressive from 2015 comparison. These are typically areas of chronic ischemic change. This would be advanced for the patient's age. These white matter and deeper attenuation abnormalities can mask nonhemorrhagic acute CVA. Mastoid air cells and visualized portions of the paranasal sinuses are clear. No acute bony findings. IMPRESSION: No intracranial hemorrhage is present. No acute cortical based infarction identified. Left thalamus, left basal ganglia and bilateral white matter abnormalities are most likely chronic ischemic change. These changes are advanced for the patient's age and progressive from 2015 comparison. The chronic ischemic pattern seen on this study can mask nonhemorrhagic acute CVA. Focal neurologic deficit findings were not detailed in available history. If warranted, MR imaging could be performed for more sensitive assessment of acute nonhemorrhagic CVA. MRI Brain: FINDINGS: 3 centimeter area of abnormal signal within left basal ganglia extending into the left frontal lobe as the appearance an old infarction. Mild increased signal within periventricular, subcortical white matter likely ischemic changes secondary to small vessel Diffusion-weighted/ADC mapping does not reveal evidence of acute infarction. The ventricles are normal caliber. An extra-axial fluid collection is not present Fluid within the sinuses/mastoids is not noted IMPRESSION: No acute abnormality is displayed ECHO: Ejection fraction 78% LEFT VENTRICULAR WALL MOTION: NORMAL. DOPPLER/COLOR FLOW: NORMAL. COMMENTS: NORMAL 2D ECHO WITH DOPPLER. NO VEGETATION. NO EFFUSION. Carotid doppler: FINDINGS: The velocity of the right internal carotid artery equals 186 cm/sec. The right ICA/CCA ratio 1.4 The velocity of the left internal carotid artery equals 196 cm/sec. The left ICA/CCA ratio 1.9 Mild to moderate plaque is present within the carotid arteries. The vertebral arteries demonstrate antegrade flow IMPRESSION: The internal carotid arteries velocities are elevated. However there appears to be only mild to moderate plaque within the carotid arteries. It is recommended that the patient have an MRA neck for further evaluation NASCET criteria used. Arterial doppler: Medical Problem List: Confusion with metabolic encephalopathy likely related to medication reaction- gabapentin End-stage renal disease on hemodialysis Diabetes mellitus type 2 insulin dependent Hypertension Hyperlipidemia History of hepatitis-C Chronic pain on methadone Shingles Hypothyroidism Carotid arterial disease Chronic lower extremity wounds-stasis ulcers with culture showing Morganella with PVD Brief History of Present Illness: 60-year-old female with multiple medical problems including diabetes, end-stage renal disease on hemodialysis, hypothyroidism, hyperlipidemia, hypertension, and chronic pain. Patient was seen in the emergency room yesterday for shingles to the right chest wall region. Patient was started on antiviral therapy along with pain medication-gabapentin. The patient apparently got a dose of 300 mg gabapentin. She also took 600 mg more over the last 24 hr. This morning the patient was confused. Some hallucinations noted. Family thought this was related to recent medication for chronic pain. Patient takes methadone and is seen at the methadone clinic. Patient was given methadone this morning. The patient then went to dialysis. She is continue to have confusion. She was sent to the ER for further evaluation. Patient was evaluated emergency room. No indication of infection noted. Chest x-ray unremarkable. CT head unremarkable. Lab reviewed showed normal white count. Patient did not receive full dose of dialysis prior to ER. Patient was admitted for observation and for further evaluation. When I saw the patient ER, patient was still confuse but did not appear septic. Hospital Course: The patient presented with confusion-metabolic encephalopathy. This was likely related to medication reaction gabapentin. The patient was seen recently in the ER for shingles. She was given gabapentin at that time. CT scan unremarkable. MRI unremarkable. Echocardiogram unremarkable. Carotid Doppler showed mild carotid arterial disease. The patient did well after multiple dialysis to eliminate gabapentin. Confusion eventually resolved. No evidence of infection identified. The patient still had some weakness to her extremities after this confusion. This eventually resolved. There was some consideration of sending the patient to inpatient rehab versus home. After long discussion patient prefers to go to inpatient rehab. Patient will be sent to inpatient rehab to continue care. Patient with end-stage renal disease on hemodialysis. Patient received dialysis during the course of her stay with improvement of confusion. At discharge she will continue with dialysis every Thursday, and Thursday. Patient will be followed by nephrology in inpatient rehab. Patient will continue with her current medications prescribed by a nephrology. Patient will continue with a 1500 cc per day fluid restriction and low-salt diet. Patient also takes Lasix 20 mg daily. Diabetes mellitus type 2 insulin dependent. This has remained stable. At discharge she will continue with her regular regimen of insulin therapy-Lantus 10 units at night and NovoLog sliding scale. Recommend to maintain blood sugars less 140 fasting and less than 200 after meals. Further adjustment can be done by her PCP. Patient with hypertension. At discharge she will continue with her current medications-clonidine 0.3 mg 1 pill twice daily and nifedipine ER 60 mg daily. Patient with hyperlipidemia. At discharge she will continue with her medication Lipitor 20 mg daily. Patient with chronic pain. Patient currently sees pain management and receives methadone 90 mg daily. At discharge she may continue with current regimen. Patient with hypothyroidism. At discharge she will continue with her current medication levothyroxine 50 mcg daily. As mentioned previously patient with shingles. At discharge patient may continue with acyclovir 200 mg twice daily for 5 more days. Patient with chronic lower extremity wounds-stasis ulcers likely related to PVD. Culture was obtained. Morganella identified. Infectious Disease evaluated the patient. No need for IV antibiotic therapy at this time. Patient may continue with current oral medication. Infectious Disease recommended Medi Honey daily to wounds. Arterial Doppler was done to evaluate PVD. At discharge patient may continue with Cipro 250 mg 1 pill daily for 7 days. Wound care will be continued as recommended by infectious disease. Patient may follow up at the wound Care Center. Patient with history of hepatitis-C. This remained stable. Vital Signs/Physical Exam: Temp Pulse Resp BP Pulse Ox 97.9 F 97 H 19 135/64 97 06/22/20 04:00 06/22/20 08:28 06/22/20 04:00 06/22/20 08:28 06/22/20 04:00 General: Alert, In no apparent distress, Oriented x3, Cooperative HEENT: Atraumatic Neck: Supple Respiratory: Clear to auscultation bilaterally Cardiovascular: Normal pulses, Regular rate/rhythm Integumentary: Other (Wound to the lower extremity reviewed. No significant erythema, drainage. Chronic ulcers noted.) Neurological: Normal speech, Normal strength at 5/5 x4 extr, Normal tone, Normal affect Laboratory Data at Discharge: WBC 8.2 K/uL (4.3-10.9) D 06/20/20 03:47 Hgb 11.6 g/dL (12.0-15.0) L 06/20/20 03:47 Hct 34.5 % (36.0-45.0) L 06/20/20 03:47 Plt Count 248 K/uL (152-406) 06/20/20 03:47 PT 13.1 SECONDS (9.5-12.5) H 06/19/20 09:51 INR 1.11 06/19/20 09:51 Sodium 138 mmol/L (136-145) 06/22/20 05:19 Potassium 4.6 mmol/L (3.5-5.1) 06/22/20 05:19 BUN 47 mg/dL (7-18) H D 06/22/20 05:19 Creatinine 6.21 mg/dL (0.55-1.3) H* D 06/22/20 05:19 Glucose 88 mg/dL (74-106) 06/22/20 05:19 Phosphorus 3.5 mg/dL (2.5-4.9) 06/22/20 05:19 Magnesium 2.1 mg/dL (1.8-2.4) 06/20/20 03:47 Total Bilirubin 0.3 mg/dL (0.2-1.0) 06/19/20 09:51 AST 26 U/L (15-37) 06/19/20 09:51 ALT 27 U/L (12-78) 06/19/20 09:51 Alkaline Phosphatase 72 U/L (45-117) 06/19/20 09:51 Home Medications: Atorvastatin Calcium 20 mg PO BEDTIME 02/02/20 Calcium Acetate [Phoslo] 3 cap PO SEECOM 02/02/20 Clonidine HCl [Catapres] 0.3 mg PO BID 02/02/20 Furosemide 20 mg PO [id number] 02/02/20 Insulin Glargine Human [Lantus*] 10 units SQ BEDTIME 02/02/20 Levothyroxine Sodium 50 mcg PO [id number] 02/02/20 Nifedipine [Nifedipine ER] 60 mg PO [id number] 02/02/20 Biotin 1 tab PO DAILY 06/19/20 Bisacodyl [Laxative] 1 tab PO DAILY 06/19/20 Clopidogrel Bisulfate [Plavix] 1 tab PO DAILY 06/19/20 Emla Lidocaine 1 dose TD SEECOM 06/19/20 Ergocalciferol (Vitamin D2) [Vitamin D2] 1 tab PO SEECOM 06/19/20 Insulin Aspart [Novolog] 5 units SQ SEECOM 06/19/20 Lactulose [Kristalose] 20 gm PO SEECOM PRN 06/19/20 Lanthanum Carbonate [Fosrenol] 2 tab PO SEECOM 06/19/20 Methadone 90 mg PO DAILY 06/19/20 Acyclovir [Zovirax] 200 mg PO BID #10 capsule 06/21/20 Ciprofloxacin HCl [Cipro 250 MG Tablet*] 250 mg PO DAILY #7 tab 06/21/20 Medihoney [Medihoney Woundcare Gel*] 1 appl TOP DAILY #1 tube 06/22/20 New Medications: Ciprofloxacin HCl [Cipro 250 MG Tablet*] 250 mg PO DAILY #7 tab Medihoney [Medihoney Woundcare Gel*] 1 appl TOP DAILY #1 tube Acyclovir [Zovirax] 200 mg PO BID #10 capsule Patient Discharge Instructions: 1. Follow up with PCP in 1 week. 2. The patient presented with confusion. This was likely related to medication reaction gabapentin. The patient was seen recently in the ER for shingles. She was given gabapentin at that time. CT scan unremarkable. MRI unremarkable. Echocardiogram unremarkable. Carotid Doppler showed mild carotid arterial disease. The patient did well after multiple dialysis to eliminate gabapentin. Confusion eventually resolved. No evidence of infection identified. The patient still had some weakness to her extremities after this confusion. This eventually resolved. Patient was considering inpatient rehab and was approved to go to inpatient rehab but since the patient has done quite well she prefers to go home. Will arrange for home health and physical therapy at discharge. Patient will continue with walker at home. Will continue with physical therapy recommendations is well. Family and patient agreeable to plan of care to continue therapy at home. 3. Patient with end-stage renal disease on hemodialysis. Patient received dialysis during the course of her stay with improvement of confusion. At discharge she will continue with dialysis every Thursday, and Thursday. Patient will be followed by nephrology in inpatient rehab. Patient will continue with her current medications prescribed by a nephrology. Patient will continue with a 1500 cc per day fluid restriction and low-salt diet. Patient also takes Lasix 20 mg daily. 4. Diabetes mellitus type 2 insulin dependent. This has remained stable. At discharge she will continue with her regular regimen of insulin therapy-Lantus 10 units at night and NovoLog sliding scale. Recommend to maintain blood sugars less 140 fasting and less than 200 after meals. Further adjustment can be done by her PCP. 5. Patient with hypertension. At discharge she will continue with her current medications-clonidine 0.3 mg 1 pill twice daily and nifedipine ER 60 mg daily. 6. Patient with hyperlipidemia. At discharge she will continue with her medication Lipitor 20 mg daily. 7. Patient with chronic pain. Patient currently sees pain management and receives methadone 90 mg daily. At discharge she may continue with current regimen. 8. Patient with hypothyroidism. At discharge she will continue with her current medication levothyroxine 50 mcg daily. 9. As mentioned previously patient with shingles. At discharge patient may continue with acyclovir 200 mg twice daily for 5 more days. 10. Patient with chronic lower extremity wounds. Culture was obtained. Morganella identified. Infectious Disease evaluated the patient. No need for IV antibiotic therapy at this time. Patient may continue with current oral medication. Infectious Disease recommended Medi Honey daily to wounds. Arterial Doppler was done to evaluate PVD. At discharge patient may continue with Cipro 250 mg 1 pill daily for 7 days. Wound care will be continued as recommended by infectious disease. Patient may follow up at the wound Care Center. 11. Patient with history of hepatitis-C. This remained stable. Diet: ADA Activity: Fall precautions Time spent managing pt's care (in minutes): 55
[2020-06-22 09:07] VITALS: O2SAT 97
[2020-06-22 09:19] VITALS: TEMP 96.8
--- NOTE | 2020-06-22 12:28 | P.PN ---
Subjective Date of Service: 06/26/20 Primary Care Provider: Dr. Miles; Nephrology-Dr. Abad Chief Complaint: Confusion Subjective Pt with ESRD , herpez zoster on acyclovir , was admitted for AMS today no overnigth events participating in PT/OT HD tomorrow discharge to 5th floor rehab Physical exam general: AAOX3, NAD , Neck; Supple, No elevated JVD hear: RRR, normal S1,2 no murmur or rub Chest: CTAB, no rlaes or wheezes Abdomen: Soft , Nt Extremities No edema or ulcer Skin : chest rash A/P End-stage renal disease on HD TTsat HD as per schedule renal dose meds acyclovir dose adjusted Anemia of chronic disease no need for epogen Herpez zoster cont acylovir dose adjusted Deblity cont PT/oT plan to discharge to 5th floor rehab Physical Examination - Vital Signs Temperature: 96.8 F Blood Pressure: 135/64 Pulse: 97 Respirations: 16 Pulse Ox (%): 98 - Studies Microbiology Data (last 24 hrs): 06/19/20 14:35 Wound - L Leg (Lower) Gram Stain - Final 06/19/20 14:35 Wound - L Leg (Lower) Culture & Sensitivity - Final Morganella Morganii 06/19/20 14:35 Wound - Right Lower Leg Gram Stain - Final Medications List Reviewed: Yes
--- NOTE | 2020-06-22 14:24 | RAD REPORT ---
EXAM DESCRIPTION: US - Lower Extremity Arterial Bilat - 06/22/2020 2:13 pm CLINICAL HISTORY: evaluate for PVD Leg pain, claudication COMPARISON: No comparisons TECHNIQUE: Bilateral lower extremity arterial Doppler examination was performed with waveform tracin g and ankle brachial pressure measurements. FINDINGS: Symmetric brachial pressure measurements are noted. Evidence of atherosclerosis Triphasic waveforms are seen throughout both lower extremity arterial systems to the level of the pos terior tibial artery bilaterally. Monophasic flow seen left dorsalis pedis artery with evidence of an atherosclerotic plaque resulting in a significant stenosis. Right ankle brachial index measures 0.8, normal. Left ankle brachial index measures 0.8, normal. IMPRESSION: Focal significant atherosclerotic stenosis is seen in the left dorsalis pedis artery res ulting in diseased monophasic flow to the left foot. Elsewhere, no significant peripheral vascular disease is seen.
[2020-06-23 21:57] LABS: HBsAG Nonreactive (Nonreactive)
== END 2020-06-22 14:54 | disposition home health service (06) | DRG 917 ==
LOC: ER 07:16 → ERHOLD 12:45 → 2ND 13:39 → OBSVTOIN 06-20 10:26
PROVIDERS: ADMIT Family Medicine; ATTEND Family Medicine
PROC: 5A1D70Z Performance of Urinary Filtration, Intermittent, Less than 6 Hours Per Day (ICD-10-PCS; principal; 2020-06-21)
DX: T42.6X1A Poisoning by other antiepileptic and sedative-hypnotic drugs, accidental (unintentional), initial encounter (principal); N18.6 End stage renal disease; G93.41 Metabolic encephalopathy; I12.0 Hypertensive chronic kidney disease with stage 5 chronic kidney disease or end stage renal disease; R44.3 Hallucinations, unspecified; L97.819 Non-pressure chronic ulcer of other part of right lower leg with unspecified severity; L97.829 Non-pressure chronic ulcer of other part of left lower leg with unspecified severity; N25.81 Secondary hyperparathyroidism of renal origin; L03.119 Cellulitis of unspecified part of limb; R41.0 Disorientation, unspecified; T37.5X1A Poisoning by antiviral drugs, accidental (unintentional), initial encounter; E03.9 Hypothyroidism, unspecified; E11.22 Type 2 diabetes mellitus with diabetic chronic kidney disease; E78.5 Hyperlipidemia, unspecified; G89.29 Other chronic pain; Z79.4 Long term (current) use of insulin; Z79.890 Hormone replacement therapy; Z79.899 Other long term (current) drug therapy; Z90.49 Acquired absence of other specified parts of digestive tract; B02.9 Zoster without complications; E11.40 Type 2 diabetes mellitus with diabetic neuropathy, unspecified; E87.5 Hyperkalemia; B19.20 Unspecified viral hepatitis C without hepatic coma; D63.1 Anemia in chronic kidney disease; B96.89 Other specified bacterial agents as the cause of diseases classified elsewhere; R53.81 Other malaise; I83.018 Varicose veins of right lower extremity with ulcer other part of lower leg; I83.028 Varicose veins of left lower extremity with ulcer other part of lower leg; E11.51 Type 2 diabetes mellitus with diabetic peripheral angiopathy without gangrene; Z99.2 Dependence on renal dialysis; Z11.59 Encounter for screening for other viral diseases
CPT/HCPCS: 36415; 70450; 70551; 71045; 80048; 80069; 80076; 80307; 81015; 82140; 82947; 83735; 84484; 85025; 85610; 86317; 86705; 87040; 87070; 87077; 87186; 87205; 87340; 90935; 93005; 93306; 93880; 93925; 96374; 97112; 97116; 97161; 97530; 99284; 99285; G0378; J0360; J1644; J1815; J2405; J2765; U0002

== ENCOUNTER 2021-03-24 12:58 | Emergency (ER) | payer OTHER ==
--- OUTSIDE RECORDS SUMMARY | 2021-03-24 13:07 | XMS REPORT | Continuity of Care Document ---
:1960 Author Organization [facility] t Address [address] [place] [address] Care Team Providers Name Role Phone Herminia Nava Attending Clinician Unavailable Carson Kitchen Attending Clinician Blanca Schwartz Attending Clinician Leo Attending Clinician Whitley Benavides Attending Clinician Amor Carson Attending Clinician Arsalan Martins Attending Clinician Salvatore Kitchen Admitting Clinician Blanca Schwartz Admitting Clinician Leo Admitting Clinician Arsalan Martins Admitting Clinician Payers Payer Name Policy Type Policy Effective Date Expiration Date Sour ce Number MEDICAID - MEDICAID [id number] FROYLAN Kilpatrick MGD [place] - Medica [facility] [id number] ctive for all datesMedicaid Contracted OPTUM NON WALES - [id number] 2019 FROYLAN Augustin MEDICAID MGD 00:00:00 - Medical [facility] NON-WALES [id number] 020-Present Problems Condition Condition Condition Status Onset Resolution Last Treating Co mments Source Name Details Category Date Date Treatment Clinician Date LEFT FOOT Diagnosis Active 2019-07-22 Memoria INJURY 07-11 08:45:00 l LEFT 00:00: Uri FOOT 00 INJURY Active 07/11/2019 [facility] SWELLING Diagnosis Active 2017-112018-11-01 M emoria FEET - 23:26:00 l SWELLING 00:00: Benjamin n FEET 00 Active 11/01/2018 [facility] CELLULITIS Diagnosis Active 2017-112018-11-17 Memoria OF BOTH 2-24 22:10:00 l LOWER 00:00: Uri EXTREMITIE CELLULITIS 00 S, CK OF BOTH LOWER EXTREMITIE S, CK Active 11/01/2018 [facility] ABNORMAL Diagnosis Active 2017-112018-08-10 M emoria LABS 0- 16:46:00 l ABNORMAL 00:00: Benjamin n LABS 00 Active 08/10/2018 [facility] ARF ACUTE Diagnosis Active 2017-112018-08-19 Memoria HYPERGLYCE 0- 22:09:00 l RAFIA ARF 00:00: Uri ACUTE 00 HYPERGLYCE RAFIA Active 08/10/2018 [facility] N18.3 - Diagnosis Active 2018-04-28 Me moria CHRONIC 02-23 23:50:00 l KIDNEY N18.3 - 00:01: Uri DISEASE, CHRONIC 00 STAGE KIDNEY DISEASE, STAGE Active 02/23/[address] [facility] RIGHT LLEG Diagnosis Active 2017-04-01 Memoria ABSCESS 04-01 14:20:00 l RIGHT 00:00: Tatums LLEG 00 ABSCESS Active 04/01/2017 [facility] PRESSURE Diagnosis Active 2014-112015-09-25 M emoria IS TOO 1-17 19:57:00 l HIGH, PRESSURE 00:00: Benjamin n HEADACHE IS TOO 00 HIGH, HEADACHE Active 09/25/2015 [facility] HTN HTN Disease Active 2014-11 Raymon (hypertens (hypertens 1- He alth ion) ion) 00:00: 00 OTHER Diagnosis Active 2015-05-05 Mem oria 05-04 02:50:00 l OTHER 00:00: Tatums 00 Active 05/04/2015 [facility] LARGE LEG Diagnosis Active 2015-05-05 Memoria ULCER WITH 05-04 08:21:00 l FEVER AND LARGE 00:00: Benjamin n LEUKOCYTO LEG ULCER 00 WITH FEVER AND LEUKOCYTO Active 05/04/2015 [facility] BILATERAL Diagnosis Active 2015-01-08 Memoria LEG - 05:46:00 l INFECTION 00:00: Uri BILATERAL 00 LEG INFECTION Active 01/08/2015 [facility] BILATERAL Diagnosis Active 2015-01-08 Memoria LEG 01-08 16:05:00 l ULCERS; 00:00: Tatums CELLULITIS BILATERAL 00 RIGHT L LEG ULCERS; CELLULITIS RIGHT L Active 01/08/2015 [facility] DM2 DM2 Disease Active Raymon (diabetes (diabetes 07-28 Heal mellitus, mellitus, 00:00: type 2) type 2) 00 Ulcer of Ulcer of Disease Active Harri s leg, leg, 04-04 Health chronic chronic 00:00: 00 Back pain Back pain Disease Active Kalin ris 5 Health 00:00: 00 Abscess Abscess Disease Active Ennis 6-14 Health 00:00: 00 Abscess of Abscess of Disease Active H arris foot foot 4-13 Health 00:00: 00 Opiate Opiate Disease Active Ennis withdrawal withdrawal 4- He alth 00:00: 00 Polysubsta Polysubsta Disease Active H arris nce abuse nce abuse 02-19 Heal 00:00: 00 Chronic Problem 2019 Edison howard viral 06:12:22 l hepatitis Chronic Herm almas C viral hepatitis C 2019 [facility] Pulmonary Problem 2019 Me moria hypertensi 06:12:22 l on, Uri unspecifie Pulmonary d hypertensi on, unspecifie d 2019 [facility] Non-pressu Problem 2019-05-26 M emoria re chronic 14:24:29 l ulcer of Uri unspecifie Non-pressu d part of re chronic right ulcer of lower leg unspecifie with d part of unspecifie right d severity lower leg with unspecifie d severity 05/26/2019 [facility] Non-pressu Problem 2019-05-26 M emoria re chronic 14:24:29 l ulcer of Tatums unspecifie Non-pressu d part of re chronic left lower ulcer of leg with unspecifie unspecifie d part of d severity left lower leg with unspecifie d severity 05/26/2019 [facility] Type 2 Problem 2019-05-26 Memor ia diabetes 14:24:29 l mellitus Type 2 Benjamin n with other diabetes skin ulcer mellitus with other skin ulcer 05/26/2019 [facility] Nicotine Problem 2019-05-26 Mem oria dependence 14:24:29 l , Nicotine Benjamin n cigarettes dependence , , uncomplica cigarettes judit , uncomplica judit 05/26/2019 [facility] Type 2 Problem 2019-05-26 Memor ia diabetes 14:24:29 l mellitus Type 2 Benjamin n with diabetes diabetic mellitus chronic with kidney diabetic disease chronic kidney disease 05/26/2019 [facility] Other Problem 2019 Memor ia disorders 06:12:22 l of Other Tatums phosphorus disorders metabolism of phosphorus metabolism 2019 [facility] Acidosis Problem 2019-05-26 Mem oria 14:24:29 l Acidosis Benjamin n 05/26/2019 [facility] Hypertensi Problem 2019-05-26 M emoria ve chronic 14:24:29 l kidney Uri disease Hypertensi with stage ve chronic 5 chronic kidney kidney disease disease or with stage end stage 5 chronic renal kidney disease disease or end stage renal disease 05/26/2019 [facility] Non-pressu Problem 2019 M emoria re chronic 06:12:22 l ulcer of Uri buttock Non-pressu with re chronic unspecifie ulcer of d severity buttock with unspecifie d severity 2019 [facility] Chronic Problem 2019 Edison howard kidney 06:12:22 l disease, Chronic Nissa nn stage 5 kidney disease, stage 5 2019 [facility] Secondary Problem 2019 Me moria hyperparat 06:12:22 l hyroidism Tatums of renal Secondary origin hyperparat hyroidism of renal origin 2019 [facility] Patient's Problem 2019 Me moria noncomplia 06:12:22 l nce with Tatums other Patient's medical noncomplia treatment nce with and other regimen medical treatment and regimen 2019 [facility] Unspecifie Problem 2019-05-26 M emoria d viral 14:24:29 l hepatitis Tatums C without Unspecifie hepatic d viral coma hepatitis C without hepatic coma 9 [facility] Opioid Problem 2019-05-26 Memor ia dependence 14:24:29 l , Opioid Tatums uncomplica dependence judit , uncomplica judit 05/26/2019 [facility] Morbid Problem 2019-05-26 Memor ia (severe) 14:24:29 l obesity Morbid Uri due to (severe) excess obesity calories due to excess calories 05/26/2019 [facility] Tinea Problem 2019-05-26 Memor ia unguium 14:24:29 l Tinea Uri unguium 05/26/2019 [facility] Ingrowing Problem 2019-05-26 Me moria nail 14:24:29 l Uri Ingrowing nail 9 [facility] Anemia in Problem 2019-05-26 Me moria other 14:24:29 l chronic Anemia Uri diseases in other classified chronic elsewhere diseases classified elsewhere 05/26/2019 [facility] Cutaneous Problem 2019-05-26 Ia moria abscess of 14:24:29 l left lower Benjamin n limb Cutaneous abscess of left lower limb 9 [facility] Cutaneous Problem 2019-05-26 Me moria abscess of 14:24:29 l right Uri lower limb Cutaneous abscess of right lower limb 05/26/2019 [facility] Iron Problem 2019-05-26 Memor ia deficiency 14:24:29 l Iron Uri deficiency 05/26/2019 [facility] Hyperkalem Problem 2019-05-26 M emoria ia 14:24:29 l Tatums Hyperkalem ia 05/26/2019 [facility] Fluid Problem 2019-05-26 Memor ia overload, 14:24:29 l unspecifie Fluid Nissa nn d overload, unspecifie d 05/26/2019 [facility] Pseudomona Problem 2019-05-26 M emoria s 14:24:29 l (aeruginos Benjamin n a) Pseudomona (mallei) s (pseudomal (aeruginos lei) as a) the cause (mallei) of (pseudomal diseases lei) as classified the cause elsewhere of diseases classified elsewhere 05/26/2019 [facility] Inflammato Problem Resolve 2019-07-13 Memoria ry disease d 21:59:53 l of liver Tatums (disorder) Inflammato ry disease of liver (disorder) Resolved Problem 07/13/2019 [facility] Heart Problem Resolve 2019-07-13 Edison howard murmur d 21:59:53 l (finding) Heart Benjamin n murmur (finding) Resolved Problem 07/13/2019 [facility] Interverte Problem Resolve 2019-07-13 Memoria bral disc d 21:59:53 l rupture Tatums (disorder) Interverte bral disc rupture (disorder) Resolved Problem 07/13/2019 [facility] Cellulitis Problem Active 2019-07-13 M emoria and 21:59:53 l abscess of Benjamin n lower leg Cellulitis (disorder) and abscess of lower leg (disorder) Active Problem 07/13/2019 [facility] Cellulitis Problem Active 2019-07-13 M emoria of ankle 21:59:53 l (disorder) Benjamin n Cellulitis of ankle (disorder) Active Problem 07/13/2019 [facility] Diabetes Problem Active 2019-07-13 Mem oria mellitus 21:59:53 l (disorder) Diabetes He rmann mellitus (disorder) Active Problem 07/13/2019 [facility] Drug abuse Problem Active 2019-07-13 M emoria (disorder) 21:59:53 l Drug Uri abuse (disorder) Active Problem 07/13/2019 [facility] Smoker Problem Active 2019-07-13 Memor ia (finding) 21:59:53 l Smoker Tatums (finding) Active Problem 07/13/2019 [facility] Chronic Problem Active 2019-07-18 Edison howard kidney [...] Hyperlipid emia Active Problem 07/18/2019 eCW: Janak Ortiz DM type 2, Problem Active 2019-07-18 M emoria uncontroll 02:01:18 l ed, with DM type Nissa nn retinopath 2, y uncontroll ed, with retinopath y Active Problem 07/18/2019 eCW: Janak Ortiz Type 2 Problem Active 2019-07-18 Memor ia diabetes 02:01:18 l mellitus Type 2 Benjamin n with diabetes diabetic mellitus peripheral with angiopathy diabetic without peripheral gangrene angiopathy without gangrene Active Problem 07/18/2019 [facility] W: Janak KnoxDiana Venous Diagnosis Active 2019-07-18 Mem oria insufficie 02:01:18 l ncy Venous Tatums (chronic) insufficie (periphera ncy l) (chronic) (periphera l) Active Diagnosis 07/18/2019 eCW: Janak KnoxDiana Essential Problem Active 2019-07-18 Me moria (primary) 02:01:18 l hypertensi Benjamin n on Essential (primary) hypertensi on Active Problem 9 eCW: Janak KnoxDiana Acquired Problem Active 2019-07-18 Mem oria hypothyroi 02:01:18 l dism Acquired Benjamin n hypothyroi dism Active Problem 07/18/2019 eCW: Janak KnoxDiana No-show Diagnosis Active 2018-11-27 Me moria for 03:04:26 l appointmen No-show Her mukherjee t for appointmen t Active Diagnosis 11/27/2018 eCW: Janak KnoxDiana Tinea Diagnosis Active 2019-07-18 Mem oria pedis of 02:01:18 l both feet Tinea Benjamin n pedis of both feet Active Diagnosis 07/18/2019 eCW: Janak Ortiz alf Diagnosis Active 2019-07-18 Memoria current 02:01:18 l use of Long Uri insulin term current use of insulin Active Diagnosis 07/18/2019 eCW: Janak Ortiz End stage Problem Active 2019-07-18 Ia moria renal 02:01:18 l disease End Uri stage renal disease Active Problem 07/18/2019 [facility] W: Janak Ortiz Dependence Problem Active 2019-07-18 M emoria on renal 02:01:18 l dialysis Tatums Dependence on renal dialysis Active Problem 07/18/2019 [facility] W: Janak Ortiz ADMINISTRT Diagnosis Active 2015-01-08 Memoria VE ENCOUNT 15:26:00 l NOS Tatums ADMINISTRT VE ENCOUNT NOS Active [facility] CELLULITIS Diagnosis Active 2015-01-08 Memoria OF LEG 16:05:00 l Tatums CELLULITIS OF LEG Active [facility] LEUKOCYTOS Diagnosis Active 2015-05-05 Memoria IS NOS 08:21:00 l Tatums LEUKOCYTOS IS NOS Active [facility] ACUTE Diagnosis Active 2018-08-19 Mem oria KIDNEY 22:09:00 l FAILURE, ACUTE Tatums UNSPECIFIE KIDNEY D FAILURE, UNSPECIFIE D Active [facility] HYPERGLYCE Diagnosis Active 2018-08-19 Memoria RAFIA, 22:09:00 l UNSPECIFIE Benjamin n D HYPERGLYCE RAFIA, UNSPECIFIE D Active [facility] CELLULITIS Diagnosis Active 2018-11-17 Memoria OF RIGHT 22:10:00 l LOWER LIMB Benjamin n CELLULITIS OF RIGHT LOWER LIMB Active [facility] PERSONAL Diagnosis Active 2018-11-17 M emoria HISTORY OF 22:10:00 l METHICILLI PERSONAL He rmann N RESIS ST HISTORY OF METHICILLI N RESIS ST Active [facility] CELLULITIS Diagnosis Active 2019-07-22 Memoria OF 08:45:00 l UNSPECIFIE Benjamin n D TOE CELLULITIS OF UNSPECIFIE D TOE Active [facility] CHRONIC Diagnosis Active 2019-07-22 Me moria KIDNEY 08:45:00 l DISEASE, CHRONIC Nissa nn UNSPECIFIE KIDNEY D DISEASE, UNSPECIFIE D Active [facility] TYPE 2 Diagnosis Active 2019-07-22 Mem oria DIABETES 08:45:00 l MELLITUS TYPE 2 Benjamin n WITHOUT DIABETES COMPLIC MELLITUS WITHOUT COMPLIC Active [facility] History of Past Illness Condition Condition Condition Status Onset Resolution Last Treating Co mments Source Name Details Category Date Date Treatment Clinician Date Cellulitis Problem 2018-2019-05-26 2019-05-26 Memoria of right 24 14:24:29 14:24:29 l lower limb 04:26: Benjamin jin Cellulitis 18 of right lower limb 03/02/2019 05/26/2019 [facility] Acute Problem 2017-112019-03-06 2019 Jamarcus candelario kidney 0-13 06:12:22 06:12:22 l failure Acute 03:37: Tatums with kidney 01 tubular failure necrosis with tubular necrosis 8 2019 [facility] Chronic Problem 2017-04-04 2017-04-04 Memoria kidney - 04:26:31 04:26:31 l disease, Chronic 05:00: Nissa nn unspecifie kidney 00 d disease, unspecifie d 04/01/2017 04/04/2017 [facility] Discharge Problem 2014-112015-09-28 2015-09-28 Memoria Diagnosis: 11-25 06:20:44 06:20:44 l Acute 06:00: Tatums renal Discharge 00 insufficie Diagnosis: ncy Acute renal insufficie ncy 09/25/2015 09/28/2015 [facility] Discharge Problem 2014-112015-09-28 2015-09-28 Memoria Diagnosis: 11-25 06:20:44 06:20:44 l Hypertensi 06:00: Benjamin jin on Discharge 00 Diagnosis: Hypertensi on 09/25/2015 09/28/2015 [facility] Discharge Problem 2014-112015-09-28 2015-09-28 Memoria Diagnosis: 11-25 06:20:44 06:20:44 l Headache 06:00: Uri Discharge 00 Diagnosis: Headache 5 09/28/2015 [facility] Allergies, Adverse Reactions, Alerts Allergy Allergy Status Severity Reaction(s) Onset Inactive Treating Comm ents Source Name Type Date Date Clinician N.KVadimA. N.K.Chapo.A. Active Info Not Edison howard Available 6-25 l 00:00: Tatums 00 No Known No Known Active Memori a Medicati Medicati l on on Uri Allergie Allergie s s NKFA NKFA Active Memoria l Uri Social History Social Habit Start Date Stop Date Quantity Comments Source Sex Assigned At [facility] Tobacco use and 2019-11-21 2019-11-[address] [facility] - exposure 00:00:00 00:00:00 [facility] Social History 2019-07-11 2019-07-11 Emerald marcos 12:48:59 12:48:59 Alcohol intake 2015-09-25 2015-09-25 Current Raymon Guerrero [facility] 00:00:00 00:00:00 non-drinker of alcohol (finding) Smoking Status Start Date Stop Date Source Current every day smoker 2019-11-21 00:00:00 [facility] Medications Ordered Filled Start Stop Current Ordering Indication Dosage Frequency Signature Comments Components Source Medication Medication Date Date Medication? Clinician (SIG) Name Name Gabapentin Gabapentin Yes Nimisha 1 capsule [facility] 06-10 Mill[facility] as needed [facility] 00:[facility]: for pain Memoria [facility] clonidine 2018- Yes Marvin EscalanteViktor 1 tab(s) Memoria 07-18 Diana l 02:01: Procardia 2018- Yes Marvin EscalanteViktor 1 tab(s) Memoria XL 07-18 Diana l 02:01: calcitriol 2018-0 Yes Marvin Viktor 1 cap(s) Memoria 07-18 Diana l 02:01: levothyroxi 2018- Yes Marvin Hoang TAKE 1 Memoria ne 07-18 Diana TABLET BY l 02:01: MOUTH ONCE DAILY furosemide Yes J Viktor 1 tab(s) Memoria 07-18 Diana l 02:01: Lantus 2018- Yes Marvin EscalanteViktor 10 units M emoria Solostar 07-18 Diana l Pen 02:01: NovoLog 2018- Yes Marvin Viktor 8 units M emoria FlexPen 07-18 Diana l 02:01: atorvastati 2018-0 Yes J Viktor 1 tab(s) Memoria n 07-18 Diana l 02:01: Furosemide 2018-0 No Notes: Memor ia 07-12 (Same as: l 14:00: Lasix) May cause GI upset. Give with food or milk. atorvastati No Notes: Edison howard n 07-12 (Same As: l 14:00: Lipitor) Calcitriol No Notes: Memor ia 07-12 (Same As: l 14:00: Rocaltrol) Thyroxine No Notes: Memori a 07-12 Take 1 l 11:30: hour Uri 00 [...] H ermann Injectable not hold Solution insulin without contacting prescriber [...] day, Stop date: 08/10/19 9:00:00 CDT NIFEdipine No Notes: Memor ia 30 mg oral 07-11 (Same as: l tablet, 22:00: Adalat CC, Herm almas extended 00 Procardia release XL) Give on empty stomach. Take 1 hour before or 2 hours after meal; "Avoid grapefruit and grapefruit juice". Do not crush Sodium No 650 mg, 1 Memori a Bicarbonate 07-11 tab, l 650 MG Oral 22:00: Route: PO, Uri Tablet 00 Drug form: TAB, BID-Meals, Dosing Weight 78.003, kg, Start date: 07/11/19 17:00:00 CDT, Duration: 30 day, Stop date: 08/10/19 8:00:00 CDT, 0 Clindamycin No 900 mg, 50 Memoria -02 mL, Route: l 18:00: IVPB, Drug form: INJ, ABXQ8H, Dosing Weight 78.003, kg, Start date: 07/11/19 13:00:00 CDT, Duration: 14 day, Stop date: 07/25/19 5:00:00 CDT, ABX Indication : Bone/Joint Infection, 0 heparin No Notes: Memoria 07-11 porcine l 17:30: heparin sevelamer No Notes: Memori a 07-11 Same as: l 17:25: Renvela ferrous No Notes: Memoria sulfate 07-11 Give with l 17:00: food. iron elemental 38uq=117wk as ferrous sulfate Dose=___mg elemental iron Normodyne No Notes: Memori a 07-11 (Same as: l 14:12: Normodyne, Tatums 00 Trandate) Push over 2 minutes Give bolus over 2-3 minutes. Clonidine No Notes: Memori a - (Same As: l 14:02: Catapres) Labetalol No Notes: Memori a 07-11 (Same as: l 11:12: Normodyne, Tatums 00 Trandate) Push over 2 minutes Give bolus over 2-3 minutes. Kayexalate No Notes: Memor ia 07-11 (sodium l 11:09: polystyren e sulfonate 15 gm/60 ml TG) Shake well before use. (Same as: Kayexalate , SPS) Dextrose No 12.5 gm, Memor ia 50% Syringe 07-11 25 mL, l 11:02: Route: 00 IVP, Drug Form: INJ, Dosing Weight 77.273, kg, PRN, PRN Blood Glucose Results, Start date: 07/11/19 6:02:00 CDT, Duration: 30 day, Stop date: 08/10/19 6:01:00 CDT, 0 Glucagon No 1 mg, Memoria 07-11 Route: IM, l 11:02: Drug form: Uri 00 PDR/INJ, PRN, Dosing [...] mg/mL 07-11 (Same l preservativ 10:58: as:MORPhin Uri e-free 00 e Sulfate) injectable solution heparin No Notes: Memoria 07-11 porcine l 10:58: heparin Hydralazine No Notes: Edison howard 07-11 (Same as: l 09:40: Apresoline ) Push over 5 minutes Morphine No Notes: Memoria 07-11 (Same l 09:38: as:MORPhin Tatums 00 e Sulfate) Zofran No Notes: Memoria 07-11 (Same as: l 09:38: Zofran) Uri 00 MEDICATION WASTE Product Size: 4 mg Product Wasted: ___ mg Saline No Notes: Memoria Flush 0.9% 07-11 (Same as: l 09:37: BD Tatums 00 Posiflush) cefepime No Notes: Memoria 07-11 (Same As: l 09:37: Maxipime) Tatums 00 MEDICATION WASTE Product Size: 1000 mg Product Wasted: ___ mg Vancomycin No 2001 mg: Me moria 9-02 infuse l 09:37: over 2.5 Uri 00 hours For adult patients only: Round to nearest 250 mg per Medical Staff approval MEDICATION WASTE Product Size: 1000 mg Product Wasted: ___ mg Clotrimazol 2018- Yes Marvin Hoang 1 cecilia Memoria e, Topical 6-25 Diana l 00:00: Uri 00 vancomycin 2017-11 No 2000 mg: Me moria + Sodium 2-30 infuse l Chloride 03:00: over 2.5 Nissa nn 0.9% IV 250 00 hours For mL adult patients only: Round to nearest 250 mg per Medical Staff approval MEDICATION WASTE Product Size: 1000 mg Product Wasted: ___ mg Cipro 2017-11 No Notes: May Memori a 2- interfere l 20:00: w/enteral Uri 00 feedings - Take 1 hr before or 2 hrs after antacids, dairy pdt & minerals. On empty stomach. NIFEdipine 2017-11 No Notes: Memor ia 60 mg oral - (Same as: l tablet, 15:00: Adalat CC, Herm almas extended Procardia release XL) Give on empty stomach. Take 1 hour before or 2 hours after meal; "Avoid grapefruit and grapefruit juice". Do not crush Ciprofloxac 2017-11 No 500 mg = 1 Memoria in 500 MG 2-28 tab, PO, l Oral Tablet 12:58: Q12H, X 7 H erm [Cipro] day, # 14 tab, 0 Refill(s), Pharmacy: [facility] Hydralazine 2017-11 No Notes: Edison howard 2-28 (Same as: l 12:53: Apresoline Tatums 00 ) Push over 5 minutes Acetaminoph 2017-11 No Notes: Edison howard en 325 MG / 2-28 (Same as: l Hydrocodone 01:14: [place] Nissa nn Bitartrate 00 325/5) Do 5 MG Oral not exceed Tablet 4gm/day of [[place] acetaminop 5/325] hen. Vancomycin 2017-11 No 2000 mg: Me moria 2-27 infuse l 23:00: over 2.5 Tatums 00 hours For adult patients only: Round to nearest 250 mg per Medical Staff approval MEDICATION WASTE Product Size: 1000 mg Product Wasted: ___ mg NIFEdipine 2017-11 No Notes: Memor ia 60 mg oral 2- (Same as: l tablet, 15:00: Adalat CC, Herm almas extended 00 Procardia release XL) Give on empty stomach. Take 1 hour before or 2 hours after meal; "Avoid grapefruit and grapefruit juice". Do not crush insulin 2017-11 No Notes: Memoria glargine 2- (Same as: l 03:00: Lantus) Do Uri 00 not hold insulin without contacting prescriber WASTE: F/P - Black; E - [employer] "single patient use only" insulin 2017-11 No 10 unit, Memori a detemir - Route: l 03:00: SUB-Q, Tatums Bedtime, Dosing Weight 77.273, kg, Start date: 11/03/18 21:00:00 MAILMASTER, Duration: 30 day, Stop date: 12/02/18 21:00:00 MAILMASTER Ferrlecit + 2017-11 No 125 mg, 10 Memoria Sodium 2-26 mL, Route: l Chloride 18:00: IVPB, Tatums 0.9% IV 100 00 Daily, mL Start date: 11/03/18 12:00:00 MAILMASTER, Duration: 8 doses or times, Stop date: 11/18/18 9:00:00 MAILMASTER heparin 2017-11 No Notes: Memoria 2-26 porcine l 16:41: heparin Tatums Ferrous 2017-11 No 350 mg, Memoria fumarate 2-26 Route: PO, l 15:00: Drug form: Uri 00 TAB, Daily, Dosing Weight 77.273, kg, Start date: 11/03/18 9:00:00 MAILMASTER, Duration: 30 day, Stop date: 12/02/18 9:00:00 MAILMASTER Nephro-Shelia 2017-11 No Notes: Edison howard Rx 2-26 (Same as: l 15:00: Nephro-Vit Tatums 00 e Rx and Diatx) Give with food. ferrous 2017-11 No Notes: Memoria sulfate 2-26 Give with l 15:00: food. "Do Uri 00 Not Crush" Venofer 2017-11 No 200 mg, Memoria 2-26 Route: l 15:00: IVPB, Drug form: INJ, Daily, Dosing Weight 77.273, kg, Start date: 11/03/18 9:00:00 MAILMASTER, Duration: 5 doses or times, Stop date: 11/07/18 9:00:00 MAILMASTER Calcitriol 2017-11 No Notes: Memor ia 2-26 (Same As: l 15:00: Rocaltrol) cefepime 2017-11 No Notes: Memoria 2-26 (Same As: l 05:00: Maxipime) MEDICATION WASTE Product Size: 1000 mg Product Wasted: ___ mg Insulin 2017-11 No Notes: Memoria Glargine 2- (Same as: l 100 UNT/ML 03:00: Lantus) [...] pharmacy, 1 ea, Drug form: MISC, Route: ANGELA GOODEN, 11/02/18 19:00:00 MAILMASTER, Duration: 30 day, Stop date: 12/02/18 18:59:00 MAILMASTER Hydralazine 2017-11 No Notes: Edison howard Hydrochlori 2-25 (Same as: l de 50 MG 23:00: Apresoline Her mukherjee Oral Tablet ) May interfere w/enteral feedings Take With [...] (Same as: l 19:00: Procrit) epoetin sami 65860 unit/1 ml VL. For dialysis use only. (Procrit) WASTE: F/P - Red; E -Red MEDICATION WASTE Product Size: 25907 unit Product Wasted: ___ unit sevelamer 2017-11 No Notes: Memori a 2-25 Same as: l 18:00: Renvela Epogen 2017-11 No 40,000 Memoria 2-25 unit, l 17:19: Route: SUB-Q, ONCE, Dosing Weight 77.273, kg, For Oncology Patients, Start date: 11/02/18 11:19:00 MAILMASTER, Stop date: 11/02/18 11:19:00 MAILMASTER Methadone 2017-11 No Notes: Memori a 2-25 (Same as: l 16:30: Dolophine) Clonidine 2017-11 No Notes: Memori a 2-25 (Same As: l 15:00: Catapres) NIFEdipine 2017-11 No Notes: Memor ia 30 mg oral 2-25 (Same as: l tablet, 15:00: Adalat CC, Herm Procardia release XL) Give on empty stomach. Take 1 hour before or 2 hours after meal; "Avoid grapefruit and grapefruit juice". Do not crush Furosemide 2017-11 No Notes: Memor ia 2-25 (Same as: l 15:00: Lasix) May cause GI upset. Give with food or milk. heparin 2017-11 No Notes: Memoria 2-25 porcine l 15:00: heparin Thyroxine 2017-11 No Notes: Memori a 2-25 Take 1 l 12:30: hour before or 2 hours after meal; Enteral feeds may interefere with the absorption of this medication .(Same as:Levothr oid, Synthroid) Methadone 2017-11 Yes 80mgs, PO, Me moria 2-25 Daily, at l 09:51: 5 am, 0 Refill(s) ferrous 2017-11 Yes See Memoria sulfate 2-25 Instructio l 09:42: ns, 325 mg Tatums 00 PO twice daily, am and noon, 0 Refill(s) Sodium 2017-11 Yes 650 mg = 1 Memor ia Bicarbonate 2-25 tab, PO, l 650 MG Oral 09:42: BID, With H ermann Tablet 00 meals, 0 Refill(s) NovoLog 2017-11 Yes SUB-Q, Memoria 2-25 TID-Before l 09:42: Meals, 3 Uri 00 to 5 units depending on blood glucose levels., 0 Refill(s) Benadryl 2017-11 No Notes: Memoria 2-25 (Same as: l 08:05: Benadryl) Tatums 00 Zofran 2017-11 No Notes: Memoria 2-25 (Same as: l 07:32: Zofran) Tatums 00 MEDICATION WASTE Product Size: 4 mg Product Wasted: ___ mg Insulin 2017-11 No Notes: Memoria Lispro 2-25 (Same as: l 07:02: Humalog ) Roll in palms of hands gently; Do not shake `vigorousl y. "Single Patient Use Only " WASTE: F/P - Black; E - Municipal Trash Bin Stable for 28 days at room temperatur e. Expires in days from ____Date Glucagon 2017-11 No 1 mg, Memoria 2-25 Route: IM, l 07:02: Drug form: PDR/INJ, PRN, Dosing Weight 77.273, kg, PRN Blood Glucose Results, Start date: 11/02/18 1:02:00 MAILMASTER, Duration: 30 day, Stop date: 12/02/18 1:01:00 MAILMASTER Dextrose 2017-11 No 25 gm, 50 Edison howard 50% Syringe 2-25 mL, Route: l 07:02: IVP, Drug Form: INJ, Dosing Weight 77.273, kg, PRN, PRN Blood Glucose Results, Start date: 11/02/18 1:02:00 MAILMASTER, Duration: 30 day, Stop date: 12/02/18 1:01:00 MAILMASTER Hydralazine 2017-11 No Notes: Edison howard 2-25 (Same as: l 06:45: Apresoline ) Push over 5 minutes Acetaminoph 2017-11 No Notes: Do M emoria en 2-25 not exceed l 06:45: 4 gm/day. Uri (Same as: Tylenol) Acetaminoph 2017-11 No Notes: Edison howard en 325 MG / 2-25 (Same as: l Hydrocodone 06:45: [place] Nissa nn Bitartrate 00 325/5) Do 5 MG Oral not exceed Tablet 4gm/day of acetaminop hen. Dextrose 2017-11 No 25 mL, Memoria 50% Syringe 2-25 Route: l 06:45: IVP, Dosing Weight 77.273, kg, PRN, PRN Blood Glucose Results, Start date: 11/02/18 0:45:00 MAILMASTER, Duration: 30 day, Stop date: 12/02/18 0:44:00 MAILMASTER Glucagon 2017-11 No 1 mg, Memoria 2-25 Route: IM, l 06:45: PRN, Dosing Weight 77.273, kg, PRN Blood Glucose Results, Start date: 11/02/18 0:45:00 MAILMASTER, Duration: 30 day, Stop date: 12/02/18 0:44:00 MAILMASTER Vancomycin 2017-11 No 2001 mg: Me moria [...] / 2-25 (Same as: l Hydrocodone 04:11: [place] Nissa nn Bitartrate 00 325/5) Do 5 MG Oral not exceed Tablet 4gm/day of acetaminop hen. Saline 2017-11 No Notes: Memoria Flush 0.9% 2-25 (Same as: l 03:54: BD Posiflush) FreeStyle 2017-11 Yes Marvin Hoang -- Me moria Adriana 10-d 11-20 Diana l [place] 00:00: Uri Glucose 00 Monitorin Candystyle 2017-11 Yes Marvin Hoang apply one Memoria Adriana 1-12 Diana sensor l Sensor 00:00: every 10 Uri 00 days or as directed sevelamer 2017-11 Yes 800 mg = 1 Me moria carbonate 0-08 tab, PO, l 800 mg oral 20:27: TID, Benjamin n tablet 00 , # 90 tab, 0 Refill(s), Pharmacy: [facility] levothyroxi 2017-11 Yes 50 Memori a ne 50 mcg 0-08 microgram l (0.05 mg) 20:27: = 1 tab, Herm almas oral tablet 00 PO, [id number], # 30 tab, 0 Refill(s), Pharmacy: [facility]. ciprofloxac 2017-11 No 500 mg = 1 Memoria in 500 mg 0-08 tab, PO, l oral tablet 20:27: [id number], X Tatums 00 14 day, # 28 tab, 0 Refill(s), Pharmacy: [facility]. calcitriol 2017-11 Yes 0.25 Memoria 0.25 mcg 0-08 microgram l oral 20:27: = 1 cap, Uri capsule 00 PO, Daily, # 30 cap, 0 Refill(s), Pharmacy: [facility]. Cipro 2017-11 No Notes: May Memori a 0-08 interfere l 18:00: w/enteral Uri 00 feedings - Take 1 hr before or 2 hrs after antacids, dairy pdt & minerals. On empty stomach. Rocaltrol 2017-11 No Notes: Memori a 0-08 (Same As: l 14:00: Rocaltrol) Tatums Renvela 2017-11 No Notes: Memoria 0-07 Same as: l 22:00: Renvela Tatums Synthroid 2017-11 No Notes: Memori a 0-07 Take 1 l 11:30: hour Tatums 00 before or 2 hours after meal; Enteral feeds may interefere with the absorption of this medication .(Same as:Levothr oid, Synthroid) Maxipime 2017-11 No Notes: Memoria 0-07 (Same As: l 02:00: Maxipime) Tatums 00 MEDICATION WASTE Product Size: 1000 mg [...] Memoria 0-05 (Same as: l 19:13: Lasix) Tatums 00 MEDICATION WASTE Product Size: 40 mg Product Wasted: ___ mg Insulin 2017-11 No Notes: Memoria Glargine 0-05 (Same as: l 100 UNT/ML 14:00: Lantus) Do H ermann Injectable 00 not hold Solution insulin [Lantus] without contacting prescriber WASTE: F/P - Black; E - Municipal Trash Bin "single patient use only" Humalog 2017-11 No Notes: Memoria 0-04 (Same as: l 16:30: Humalog ) Tatums 00 Roll in palms of hands gently; Do not shake `vigorousl y. "Single Patient Use Only " WASTE: F/P - Black; E - Municipal Trash Bin Stable for 28 days at room temperatur e. Expires in days from ____Date Insulin 2018 No Notes: Memoria Glargine 0-04 (Same as: [...] Memoria 0-04 (Same as: l 00:00: Zosyn) Dosing based on Piperacill in component MEDICATION WASTE Product Size: 3375 mg Product Wasted: ___ mg Vancomycin 2017-11 No 2000 mg: Me moria 0-03 infuse l 23:24: over 2.5 hours For adult patients only: [...] a 0-03 (Same As: l 14:00: Catapres) NIFEdipine 2017-11 No Notes: Memor ia 30 mg oral 0-03 (Same as: l tablet, 14:00: Adalat CC, Herm almas extended 00 Procardia release XL) Give on empty stomach. Take 1 hour before or 2 hours after meal; "Avoid grapefruit and grapefruit juice". Do not crush Sodium 2017-11 No 1,000 mL, Memori a Chloride 0-03 1,000 l 0.9% 08:44: ml/hr, Uri (Bolus) IV 00 Infuse Over: 1 hr, Route: IV, ONCE, Priority: STAT, Dosing Weight 79 kg, Start date: 08/11/18 3:44:00 CDT, Stop date: 08/11/18 3:44:00 CDT Insulin 2017-11 No Notes: Memoria regular 0-03 (Same as: l 08:41: Humulin R Uri 00 and NovoLIN R) WASTE: F/P - Black; E - Municipal Trash Bin (Do not shake) atorvastati 2017-11 Yes 20 mg, PO, Memoria n 0-03 Daily, 0 l 03:23: Refill(s) Uri 00 Clonidine 2017-11 Yes 0.2 mg = 1 Me moria 0-03 tab, PO, l 03:23: BID, # 30 Tatums 00 tab, 0 Refill(s) Furosemide 2017-11 Yes 20 mg, Memor ia 0-03 Daily, 0 l 03:23: Refill(s) Tatums 00 Insulin 2017-11 Yes 10 unit, Memori [...] 0-03 Route: IM, l 01:47: Drug form: Uri 00 PDR/INJ, PRN, Dosing Weight 74.455, kg, PRN Blood Glucose Results, Start date: 08/10/18 20:47:00 CDT, Duration: 30 day, Stop date: 09/09/18 20:46:00 CDT Dextrose 2017-11 No 25 gm, 50 Edison howard 50% Syringe 0-03 mL, Route: l 01:47: IVP, Drug Uri 00 Form: INJ, Dosing Weight 74.455, kg, PRN, PRN Blood Glucose Results, Start date: 08/10/18 20:47:00 CDT, Duration: 30 day, Stop date: 09/09/18 20:46:00 CDT Saline 2017-11 No Notes: Memoria Flush 0.9% 0-03 Same as: l 01:45: BD Uri 00 Posiflush Sterile Ondansetron 2017-11 No Notes: Edison howard 0-03 (Same as: l 01:45: Zofran) Uri 00 MEDICATION WASTE Product Size: 4 mg Product Wasted: ___ mg Morphine 2017-11 No Notes: Memoria 0-03 (Same l 01:45: as:MORPhin Tatums 00 e Sulfate) Acetaminoph 2017-11 No Notes: Edison howard en 325 MG / 0-03 (Same as: l Hydrocodone 01:45: [place] Nissa nn Bitartrate 00 325/5) Do 5 MG Oral not exceed Tablet 4gm/day of acetaminop hen. Acetaminoph 2017-11 No Notes: Do M emoria en 0-03 not exceed l 01:45: 4 gm/day. Tatums 00 (Same as: Tylenol) Sodium 2017-11 No 1,000 mL, Memori a Chloride 0-03 Rate: 75 l 0.9% IV 01:45: ml/hr, Tatums 1,000 mL 00 Infuse over: 13.3 hr, Route: IV, Dosing Weight 79 kg, Total Volume: 1,000, Start date: 08/10/18 20:45:00 CDT, Duration: 30 day, Stop date: 09/09/18 20:44:00 CDT, 1.91, m2 Insulin 2017-11 No 60 Memoria regular 0-02 units) l 23:47: WASTE: F/P Tatums 00 - Black; E - Municipal Trash [...] date: 08/10/18 18:31:00 CDT, 1.85, m2 Saline 2016- No Notes: Memoria Flush 0.9% 24 Same as: l 17:29: BD Tatums 00 Posiflush Sterile Hydralazine 2014-11 No Notes: Edison howard 11-26 (Same as: l 00:00: Apresoline Uri 00 ) Push over 5 minutes Benadryl 2014-11 No Notes: Memoria -17 (Same as: l 22:33: Benadryl) Uri 00 Reglan 2014-11 No Notes: Memoria 1-17 (Same as: l 22:33: Reglan) Uri 00 Sodium 2014-11 No 1,000 mL, Memori a Chloride -17 1,000 l 0.154 22:33: ml/hr, Uri MEQ/ML 00 Infuse Injectable Over: 1 Solution hr, Route: IV, 1,000, Drug form: INJ, ONCE, Priority: STAT, Dosing Weight 50.568 kg, Start date: 09/25/15 16:33:00, Duration: 1 doses or times, Stop date: 09/25/15 16:33:00 vancomycin No 2000 mg: Me moria + Sodium 29 infuse l Chloride 16:00: over 2.5 Nissa nn 0.9% IV 250 00 hours mL MEDICATION WASTE Product Size: 1000 mg Product Wasted: ___ mg Vancomycin No 2000 mg: Me moria 6-29 infuse l 15:08: over 2.5 Uri 00 hours MEDICATION WASTE Product Size: 1000 mg Product Wasted: ___ mg Hydrochloro No Notes: Edison howard thiazide 05-07 (Same as: l 14:00: Hydrodiuri Uri 00 l) With food. Glipizide No Notes: Memori a 05-07 (Same as: l 14:00: Glucotrol) Tatums 00 30 min before meals. sodium No Notes: Memoria hypochlorit 05-06 (Dakin's l e topical 14:00: (0.5% Uri 0.5% 00 =full solution strength) 480 ml top SOLN) Note: full strength = 0.5% sodium hypochlori te. Benadryl No Notes: Memoria 6-28 (Same as: l 11:00: Benadryl) Uri 00 Tylenol No Notes: Do Memor ia 05-06 not exceed l 11:00: 4 gm/day. Tatums 00 (Same as: Tylenol) Sodium No IV, 50 Memoria Chloride 6-28 ml/hr, l 0.9% IV 10:12: PRN, PRN Benjamin n 00 Blood Transfusio n, Start date: 05/06/15 5:12:00, Duration: 1, 100 ml Levemir No 10 unit, Memori a FlexPen 05-06 Route: l 02:00: SUB-Q, Uri 00 Bedtime, Dosing Weight 70.455, kg, Start date: 05/05/15 21:00:00, Duration: 30 day, Stop date: 06/03/15 21:00:00 Enoxaparin No Notes: Memor ia 6-27 (Same as: l 15:00: Lovenox) Glipizide No Notes: Memori a 6-27 (Same as: l 14:37: Glucotrol) 30 min before meals. Lisinopril No Notes: Memor ia 6-27 (Same as: l 14:37: Prinivil, Zestril) Labetalol No 90; hold Edison howard 6-27 for pulse l 14:31: <55, Start date: 05/05/15 9:31:00, Duration: 30 day, Stop date: 06/04/15 9:30:00 Famotidine No Notes: Memor ia 6-27 (Same as: l 14:00: Pepcid) Acetaminoph No Notes: Edison howard en 325 MG / 05-05 (Same as: l Hydrocodone 12:16: [place] Nissa nn Bitartrate 00 325/5) Do 5 MG Oral not exceed Tablet 4gm/day of [[place] acetaminop 5/325] hen. normal No 1,000 mL, Memori a saline 0.9% 05-05 Rate: 100 l IV 1,000 mL 12:15: ml/hr, Infuse over: 10 hr, Route: IV, Dosing Weight 70.455 kg, Total Volume: 1,000, Start date: 05/05/15 7:15:00, Duration: 1 day, Stop date: 05/06/15 7:14:00 Merrem No Notes: Memoria 6-27 Same as l 12:00: Merrem MEDICATION WASTE Product Size: 500 mg Product Wasted: ___ mg Vancomycin No Notes: Memor ia 6-27 TIME l 11:17: CRITICAL MEDICATION Saline No Notes: Memoria Flush 0.9% -27 Same as: l 11:17: BD Posiflush Sterile Glucose 50 No 1,000 mL, Me moria MG/ML / 05-05 Rate: 125 l Sodium 11:17: ml/hr, Uri Chloride 00 Infuse 0.154 over: 8 MEQ/ML hr, Route: Injectable IV, Dosing Solution Weight 70.455 kg, Total Volume: 1,000, Start date: 05/05/15 6:17:00, Duration: 30 day, Stop date: 06/04/15 6:16:00 Acetaminoph No Notes: Do M emoria en 05-05 not exceed l 11:17: 4 gm/day. Uri 00 (Same as: Tylenol) Acetaminoph No Notes: Edison howard en 325 MG / 05-05 (Same as: l Hydrocodone 11:17: [place] Nissa nn Bitartrate 00 325/5) Do 5 MG Oral not exceed Tablet 4gm/day of acetaminop hen. Morphine No Notes: Memoria 05-05 (Same l 11:17: as:MORPhin Uri 00 e Sulfate) Docusate No Notes: Memoria 05-05 (Same as: l 11:17: Colace) Uri 00 (Do Not Crush) Ondansetron No Notes: Edison howard 05-05 (Same as: l 11:17: Zofran) Tatums 00 MEDICATION WASTE Product Size: 4 mg Product Wasted: ___ mg Dextrose No 25 gm, 50 Edison howard 50% Syringe 05-05 mL, Route: l 11:17: IVP, Drug Tatums 00 Form: INJ, Dosing Weight 70.455, kg, PRN, PRN Blood Glucose Results, Start date: 05/05/15 6:17:00, Duration: 30 day, Stop date: 06/04/15 6:16:00 Glucagon No 1 mg, Memoria 05-05 Route: IM, l 11:17: Drug form: Tatums 00 PDR/INJ, PRN, Dosing Weight 70.455, kg, PRN Blood Glucose Results, Start date: 05/05/15 6:17:00, Duration: 30 day, Stop date: 06/04/15 6:16:00 Insulin, No Notes: Memoria Aspart, 05-05 Roll in l Human 11:17: palms of Tatums 00 hands gently; Do not shake vigorously . (Same as: NovoLOG) "single patient use only" Stable for 28 days at room temperatur e. Expires in days from ____Date Tylenol No 650 mg, Memoria 6-27 Route: PO, l 04:07: Drug form: Tatums 00 TAB, ONCE, Dosing Weight 70.455, kg, [...] in evening [facility] Lasix Lasix Yes Nimisha [address] [facility] Levothyroxi Levothyroxi Yes Nimisha [address] [facility] ne Sodium ne Sodium Millender in the [facility] - morning on [facility] an empty [facility] Lantus Lantus Yes Nimisha as [facility] directed [facility] NIFEdipine NIFEdipine Yes Nimisha [address] [facility] ER ER Millender on an [facility] - empty [facility]oria stomach l [facility]ics Clonidine Clonidine Yes Nimisha [address] [facility] HCl HCl [facility] NovoLog NovoLog Yes Nimisha as [facility] Calcium Calcium Yes Nimisha TAKE [address] [facility] Acetate Acetate Millender CAPSULES [facility] - (Phos (Phos BY MOUTH Memoria Binder) Binder) THREE l TIMES A Outpati DAY BEFORE ent A MEAL AND Clinics 3 CAPSULES ONCE BEFORE SNACK Calcitriol Calcitriol Yes Nimisha TAKE [address] [facility] CAPSULE BY [facility] - MOUTH Memoria EVERY DAY l Outpati ent Clinics OneTouch OneTouch Yes Nimisha USE TO [facility] Verio Verio Millender TEST BLOOD Ani kes - SUGAR 3 Memoria TIMES l DAILY Outpati ent Clinics Clopidogrel Clopidogrel Yes Nimisha [address] [facility] Bisulfate Bisulfate [facility] Lidocaine-P Lidocaine-P Yes Nimisha APPLY TO [facility] rilocaine rilocaine [facility]ender SITE 30 [facility] - MIN PRIOR Mem[facility] TO l DIALYSIS Outpati ent Clinics NovoLog NovoLog Yes Nimisha INJECT [...] Delica Plus Millender TEST BLOOD [facility] - [id number] SUGAR 3 Me moria TIMES l DAILY [...] Memoria MOUTH l THREE Outpati TIMES A DAY WITH Clinics MEALS Immunizations Ordered Immunization Filled Immunization Date Status Commen ts Source Name Name Flucelvax - single Flucelvax - single 2019-08-[address] [facility] - dose syringe dose syringe 00:00:00 [facility] PPV 23 Pneumococcal 2010-04-10 Completed [facility] Polysaccaride 00:00:00 PNEUMOCOCCAL 2010-04-[address] [facility] 25 00:00:00 MCG/0.5 ML INJECTION Vital Signs Vital Name Observation Time Observation Value Comments Source Temperature Oral (F) 2019-07-12 01:37:00 97.9 F [facility] Heart Rate 2019-07-12 01:37:00 [facility] Respitory Rate 2019-07-12 01:37:00 Memori al Uri Systolic (mm Hg) 2019-07-12 01:37:00 Edison rial Tatums Diastolic (mm Hg) 2019-07-12 01:37:00 Mem orial Uri Temperature Oral (F) 2019-07-11 20:49:00 97.9 F [facility] Uri Heart Rate 2019-07-11 20:49:00 [facility] Respitory Rate 2019-07-11 20:49:00 Memori al Tatums Systolic (mm Hg) 2019-07-11 20:49:00 Edison rial Tatums Diastolic (mm Hg) 2019-07-11 20:49:00 Mem orial Uri Temperature Oral (F) 2019-07-11 17:09:00 97.7 F [facility] Heart Rate 2019-07-11 17:09:00 [facility] Uri Systolic (mm Hg) 2019-07-11 17:09:00 Edison rial Tatums Diastolic (mm Hg) 2019-07-11 17:09:00 Mem orial Tatums Height 2019-07-11 12:45:00 162.56 cm [facility] Tatums Weight 2019-07-11 12:45:00 [facility] Tatums BMI Calculated 2019-07-11 12:45:00 Memori al Uri Respitory Rate 2019-07-11 11:36:00 Memori al Tatums Height 2019-07-11 10:59:00 162.56 cm [facility] Tatums Weight 2019-07-11 10:59:00 [facility] Tatums Height 2019-07-11 08:00:00 162.56 cm [facility] BMI Calculated 2019-07-11 08:00:00 Memori al Uri Weight 2019-07-11 08:00:00 [facility] Weight 2019-05-03 18:30:00 [facility] Uri Height 2019-05-03 18:30:00 [facility] Diastolic (mm Hg) 2019-05-03 18:30:00 Mem orial Tatums Systolic (mm Hg) 2019-05-03 18:30:00 Edison rial Tatums Systolic (mm Hg) 2018-11-06 21:39:00 Edison rial Uri Diastolic (mm Hg) 2018-11-06 21:39:00 Mem orial Tatums Temperature Oral (F) 2018-11-06 21:39:00 98.1 F [facility] Uri Respitory Rate 2018-11-06 21:39:00 Memori al Tatums Heart Rate 2018-11-06 21:39:00 [facility] Uri Temperature Oral (F) 2018-11-06 17:10:00 98.1 F [facility] Heart Rate 2018-11-06 17:10:00 [facility] Respitory Rate 2018-11-06 17:10:00 Memori al Uri Systolic (mm Hg) 2018-11-06 17:10:00 Edison rial Tatums Diastolic (mm Hg) 2018-11-06 17:10:00 Mem orial Uri Temperature Oral (F) 2018-11-06 13:21:00 98.1 F [facility] Heart Rate 2018-11-06 13:21:00 [facility] Respitory Rate 2018-11-06 13:21:00 Memori al Uri Systolic (mm Hg) 2018-11-06 13:21:00 Edison rial Tatums Diastolic (mm Hg) 2018-11-06 13:21:00 Mem orial Tatums Weight 2018-11-05 09:52:00 [facility] Uri BMI Calculated 2018-11-04 10:53:00 [facility] al Tatums Weight 2018-11-04 10:53:00 [facility] Uri Height 2018-11-04 10:53:00 162.5 cm [facility] Uri Weight 2018-11-02 03:14:00 [facility] Weight 2018-09-20 16:15:00 [facility] Uri Height 2018-09-20 16:15:00 [facility] Diastolic (mm Hg) 2018-09-20 16:15:00 Mem orial Uri Systolic (mm Hg) 2018-09-20 16:15:00 Edison rial Tatums Respitory Rate 2018-08-16 21:01:00 Memori al Tatums Systolic (mm Hg) 2018-08-16 21:01:00 Edison rial Uri Diastolic (mm Hg) 2018-08-16 21:01:00 Mem orial Tatums Temperature Oral (F) 2018-08-16 21:01:00 98.2 F [facility] Uri Heart Rate 2018-08-16 21:01:00 [facility] Respitory Rate 2018-08-16 17:54:00 Memori al Uri Systolic (mm Hg) 2018-08-16 17:54:00 Edison rial Tatums Diastolic (mm Hg) 2018-08-16 17:54:00 Mem orial Uri Temperature Oral (F) 2018-08-16 17:54:00 98.2 F [facility] Heart Rate 2018-08-16 17:54:00 [facility] Uri Respitory Rate 2018-08-16 13:30:00 Memori al Tatums Heart Rate 2018-08-16 13:30:00 [facility] Uri Systolic (mm Hg) 2018-08-16 13:30:00 Edison rial Tatums Diastolic (mm Hg) 2018-08-16 13:30:00 Mem orial Tatums Temperature Oral (F) 2018-08-16 13:30:00 98.4 F [facility] Weight 2018-08-11 03:03:00 [facility] Uri BMI Calculated 2018-08-11 03:03:00 Memori al Uri Height 2018-08-11 03:03:00 162.56 cm [facility] Height 2018-08-10 21:25:00 162.56 cm [facility] Uri BMI Calculated 2018-08-10 21:25:00 Memori al Tatums Weight 2018-08-10 21:25:00 [facility] Uri Systolic (mm Hg) 2017-04-01 20:58:00 Edison rial Tatums Diastolic (mm Hg) 2017-04-01 20:58:00 Mem orial Uri Respitory Rate 2017-04-01 20:58:00 Memori al Tatums Heart Rate 2017-04-01 20:58:00 [facility] Temperature Oral (F) 2017-04-01 20:58:00 98 F [facility] Uri Respitory Rate 2017-04-01 20:30:00 Memori al Tatums Heart Rate 2017-04-01 20:30:00 [facility] Temperature Oral (F) 2017-04-01 20:30:00 98.0 F [facility] Uri Systolic (mm Hg) 2017-04-01 20:30:00 Edison rial Uri Diastolic (mm Hg) 2017-04-01 20:30:00 Mem orial Tatums Weight 2017-04-01 17:22:00 [facility] Heart Rate 2017-04-01 17:22:00 [facility] Respitory Rate 2017-04-01 17:22:00 Memori al Uri Temperature Oral (F) 2017-04-01 17:22:00 98.3 F [facility] Systolic (mm Hg) 2017-04-01 17:22:00 Edison rial Tatums Diastolic (mm Hg) 2017-04-01 17:22:00 Mem orial Uri BMI Calculated 2017-04-01 17:22:00 Memori al Uri Height 2017-04-01 17:22:00 167.64 cm [facility] Uri Temperature Oral (F) 2015-09-26 00:43:00 98.5 F [facility] Systolic (mm Hg) 2015-09-26 00:43:00 Edison rial Tatums Diastolic (mm Hg) 2015-09-26 00:43:00 Mem orial Uri Respitory Rate 2015-09-26 00:43:00 Memori al Uri Respitory Rate 2015-09-26 00:32:00 Memori al Tatums Systolic (mm Hg) 2015-09-26 00:32:00 Edison rial Uri Diastolic (mm Hg) 2015-09-26 00:32:00 Mem orial Uri Height 2015-09-25 21:54:00 162.56 cm [facility] Uri Weight 2015-09-25 21:54:00 [facility] BMI Calculated 2015-09-25 21:54:00 Memori al Tatums Systolic (mm Hg) 2015-09-25 21:54:00 Edison rial Uri Diastolic (mm Hg) 2015-09-25 21:54:00 Mem orial Tatums Heart Rate 2015-09-25 21:54:00 [facility] Uri Temperature Oral (F) 2015-09-25 21:54:00 98.5 F [facility] Respitory Rate 2015-09-25 21:54:00 Memori al Uri Systolic (mm Hg) 2015-05-07 14:30:00 Edison rial Tatums Diastolic (mm Hg) 2015-05-07 14:30:00 Mem orial Uri Temperature Oral (F) 2015-05-07 14:30:00 86 F [facility] Heart Rate 2015-05-07 12:00:00 [facility] Uri Respitory Rate 2015-05-07 12:00:00 Memori al Uri Systolic (mm Hg) 2015-05-07 12:00:00 Edison rial Tatums Diastolic (mm Hg) 2015-05-07 12:00:00 Mem orial Uri Temperature Oral (F) 2015-05-07 12:00:00 98 F [facility] Uri Systolic (mm Hg) 2015-05-07 08:24:00 Edison rial Uri Diastolic (mm Hg) 2015-05-07 08:24:00 Mem orial Tatums Heart Rate 2015-05-07 08:24:00 [facility] Uri Respitory Rate 2015-05-07 08:24:00 Memori al Uri Temperature Oral (F) 2015-05-07 08:24:00 98.6 F [facility] Uri Respitory Rate 2015-05-07 05:16:00 Memori al Tatums Heart Rate 2015-05-07 05:16:00 [facility] Tatums Weight 2015-05-05 04:04:00 [facility] Uri BMI Calculated 2015-05-05 04:04:00 [facility] al Uri Height 2015-05-05 04:04:00 162.56 cm [facility] Uri Procedures Procedure Date / Time Performing Clinician Source Performed section 2002-01-31 06:00:00 [facility] rmann Gallstone analysis 1990-05-05 05:00:00 [facility] drainage<sup>1</sup> Plan of Care Planned Activity Planned Date Details Comments Source Future Scheduled Test 2021-08-09 00:00:00 IMM Influenza [facility] Seasonal Aug to January (>/= 19 yrs) [code = IMM Influenza Seasonal Aug to January (>/= 19 yrs)] Future Scheduled Test 2012 00:00:00 Screening for [facility] malignant neoplasm of colon (procedure) [code = 217201379] Future Scheduled Test 2002 00:00:00 Breast Cancer Scrn [facility] (Yearly) [code = Breast Cancer Scrn (Yearly)] Future Scheduled Test 1992 00:00:00 Screening for [facility] malignant neoplasm of cervix (procedure) [code = 695469855] Future Scheduled Test 1992 00:00:00 Screening for [facility] malignant neoplasm of cervix (procedure) [code = 903382395] Future Scheduled Test 1978 00:00:00 COVID-19 Vaccine (1) [facility] [code = COVID-19 Vaccine (1)] Encounters Start End Encounter Admission Attending Care Care Encounter Source Date/Time Date/Time Type Type Clinicians Facility Department ID 2021-03-05 2021-03-05 [facility] [id number] 2021-03-04 2021-03-04 [facility] [id number] 2021-02-15 2021-02-15 [facility] [id number] 2020-10-12 2020[facility]10-12 [id number] 2020-09-28 2020-09-28 [facility] [id number] 2020-09-07 2020-09-07 [facility] [id number] [facility] 2020-08-23 2020-08-23 [facility] [id number] [facility] 2020-08-22 2020-08-22 [facility] [id number] 2020-08-17 2020-08-17 [facility] [id number] [facility] 2020-08-07 2020-08-07 [facility] [id number] [facility] 2020-07-02 2020-07-02 [facility] [id number] [facility] 17[facility]03:00 17:03:[address] [facility] [employer] s - Road [facility] Medicine l Medicine Outpati ent Clinics 2020-06-21 2020-06-21 [facility] [id number] [facility] 14:09:00 14:09:00 t [employer] Lu[employer]ellycoaster s - Drive [facility] Medicine l Medicine Outpati ent Clinics 2020-06-08 2020-06-08 [facility] [id number] 10[facility]40:00 10:40:[address] [employer] s - Road [facility] Medicine l Medicine Outpati ent Clinics 2020-05-10 2020-05-10 [facility] [id number] 08:47:00 08:47:00 t [facility] [employer] [place] [employer] [facility] - Road [facility] Medicine l Medicine Outpati ent Clinics 2020-05-01 2020-05-01 [facility] [id number] 15:33:00 15:33:00 t [facility] [place] [facility] - Road [facility] Medicine l Medicine Outpati ent Clinics 2020-03-02 2020-03-02 [facility] [id number] 16:09:00 16:09:00 t [employer] s - Road [facility] Medicine l Medicine Outpati ent Clinics 2020-01-12 2020-01-12 [facility] [id number] 09:48:00 09:48:00 t [facility] [employer] s - Road [facility] Medicine l Medicine Outpati ent Clinics 2019-12-28 2019-12-28 [facility] [id number] 11:17:00 11:17:00 t [facility] Medicine Outpati ent Clinics 2019-12-25 2019-12-25 [facility] [id number] 15[facility]14:00 15:14:00 t [facility] Medicine Outpati ent Clinics 2019-12-21 2019-12-21 [facility] [id number] 11:00:00 11:00:00 [facility] Medicine Outpati ent Clinics 2019-08-28 2019-08-28 [facility] [id number] 12:23:00 12:23:00 [facility] Medicine Outpati ent Clinics 2019-08-26 2019-08-26 [facility] [id number] 09:00:00 09:00:00 [facility] Outpati ent Clinics 2019-07-11 2019-07-11 [facility] [id number] 02:55:00 20:45:00 Carson Saravia Salvatore 2019-07-11 2019-07-11 Inpatient E [facility] MED [id number] [facility]oria 05:52:00 02:55:00 l [facility] 2019-05-03 2019-05-03 Outpatient Janak Briceno [id number] [facility] 13:30:00 13:30:00 Diana Daniels M.D., M.D., P.A. P.A. 2018-11-01 2018-11-06 Outpatient Lana [facility] [id number] 21:09:00 20:54:00 Dominic B 08 2018-10-19 2018-10-19 Outpatient Janak Briceno [id number] [facility] 14:30:00 14:30:00 Diana Daniels M.D., MClaus., P.A. P.A. 2018-09-22 2018-09-22 Outpatient Janak Briceno [id number] [facility] 10:47:00 10:47:00 Diana Daniels M.D., MClaus., P.A. P.A. 2018-09-20 2018-09-20 Outpatient Janak Briceno [id number] [facility] 10:15:00 10:15:00 Diana Daniels M.D., Sharon, P.A. P.A. 2018-08-10 2018-08-16 Outpatient Ray[facility] [id number] 16:23:00 17:27:00 2018-08-10 2018-08-16 Outpatient Ray[facility] [id number] 16:23:00 17:27:00 2018-08-10 2018-08-16 Outpatient Ray, Al[facility] [id number] 16:23:00 17:27:00 2018-08-10 2018-08-16 Outpatient Ray, Al[facility] [id number] 16:23:00 17:27:00 2018-05-24 2018-05-24 Outpatient [facility] [id number] [place] 00:00:00 00:00:00 Health 2017-04-01 2017-04-01 Outpatient Lawrence [facility] [id number] 12:19:00 16:00:00 andrezMelia 05 Whitley 2015-09-25 2015-09-25 Outpatient Eliu Carson [facility] [id number] 15:44:00 19:22:00 Amor 04 2015-05-04 2015-05-07 Outpatient Danielclevedallin [facility] [id number] 22:59:00 13:32:00 Eileen N 03 Results Test Description Test Time Test Comments Results Result Comments Source URINE AND STOOL 2019-07-11 [facility] 22:29:00 *NA*(07/11/19 Uri 5:29 PM) URINE AND STOOL 2019-07-11 Clear (07/11/19 [facility] alejandra 22:29:00 5:29 PM) [facility] URINE AND STOOL 2019-07-11 22:29:00 Test Item Value Reference Range Interpretation Comme nts UA Spec Grav (test code = UA Spec Grav) 1.012 1 [facility] [id number] 22:29:00 Test Item Value Reference Range Interpretation Comments UA pH (test code = UA pH) 8.0 1 5.0-8.0 [facility] ESSSV4109-17-85 22:29:00Negative *NA*(07/11/19 5:29 PM) [facility] OADPC1859-46-53 22:29:00Negative (07/11/19 5:29 PM) [facility] CQUZU0027-31-61 22:29:00Negative (07/11/19 5:29 PM) [facility] VGEJE0283-76-61 22:29:00Negative (07/11/19 5:29 PM) [facility] QFNBA3859-09-88 22:29:006[facility] KCLIH8700-87-78 22:29:003[facility] FULFZ6306-25-12 22:29:40759 [facility] DdtepxzTVZNEJXZISMZ4177-47-94 10:21:78720Uxpbccct HermannELECTROLYTES 2019-07-11 10:21:004.4[facility] JbjzezrGZUBZUSAXZML5002-69-11 10:21:0095[facility] IazucdvSJYSUXQNIXIE1473-98-04 10:21:009.0[facility] AmcswevQTKZUIMLVOZN4160-78-28 10:21:15357Moxegcxs BokmdmsAGUQWXESXWXY6644-81-01 10:21:0056[facility] PGEGXEHXAVYG5459-10-63 10:21:0024[facility] TgqoackMCKXDKQTOAJO9181-18-22 10:21:00 3.3[facility] EhmepfrJEVBNQVOTCGW2531-89-91 10:21:0017.4[facility] PZUKPYDEZDEO6885-32-69 10:21:006.5[facility] RqfgfeiYGHAUJUPSKON9369-03-81 10:21:006.98[facility] ZibfqovCBWGTCTIBVHP5721-76-16 10:21:006[facility] DPBGWLETLH1618-49-73 10:21:0011.4[facility] LheczhfDAIUGXJBOQ6631-30-87 10:21:00 4.38[facility] CrtjrpyDWPNCVWOMF9480-19-79 10:21:0013.3[facility]annHEMATOLOGY 2019-07-11 10:21:0040.8[facility] EvnizkyTFFFBBHXOX4603-03-15 10:21:0093.2[facility] GfiscywDWTFSTEWKC3559-40-69 10:21:00 Test Item Value Reference Range Interpretation Comments MCH (test code = MCH) 30.5 pg 27.0-31.0 [facility] RepysfiJBFTKJGSWH0893-96-09 10:21:0032.7[facility] HermannHEMATOLOGY 2019-07-11 10:21:0016.0[facility] BmaonjdZFWYAMRLNX3170-73-00 10:21:36973Ywxvlgjj AiqnnjbMUZCIRTGCJ6779-94-35 10:21:006.9[facility] AbfampfUVYYZIENWI8582-60-40 10:21:00 Test Item Value Reference Range Interpretation Comments PT (test code = PT) 13.9 s 12.0-14.7 [facility] AmxflliUNBIKQGAUB2847-19-93 10:21:00 Test Item Value Reference Range Interpretation Comments INR (test code = INR) 1.09 1 0.85-1.17 [facility] UfggrotNPLIGDIAKT8490-80-53 10:21:00 Test Item Value Reference Range Interpretation Comments PTT (test code = PTT) 31.1 s 22.9-35.8 [facility] QomhvziNTHDUKCRHL1984-53-57 10:21:0067.0[facility] HermannHEMATOLOGY 2019-07-11 10:21:0023.4[facility] GcsrfkpWKBUJIZIRB4309-23-21 10:21:006.3[facility] IwsauolURTVACCBLD3323-47-06 10:21:002.4[facility] ByfksxwKPXZIPJXBP9735-70-12 10:21:000.9[facility] JsrfxlzYEUWJAAOKP4691-75-55 10:21:007.7[facility] FIACQASSKX1012-34-69 10:21:002.7[facility] CxhnppiGIQGYCBDYJ2037-56-27 10:21:000.7 [facility] ClbvyknVNMCIXEWSI1472-90-16 10:21:000.3[facility] HermannHEMATOLOGY 2019-07-11 10:21:000.1[facility] HermannCARDIAC AFTBLPW3792-33-18 09:47:91571 [facility]annCARD[facility]AC AGSSKOJ4911-19-20 09:47:00<0.02[facility] HermannCHEM WBDOP8930-51-52 09:47:000.9[facility] JpnltixJSVQVWMRUYUA8753-46-28 09:47:89659 [facility] RmgbsphMTIFZXXYEAYY0779-40-85 09:47:005.2[facility] HermannELECTROLYTES 2019-07-11 09:47:0095[facility] DnxgvhgRTVTWHXRKSST7752-44-15 09:47:008.7[facility] PhmsoadGOSPSDVHYSIR2245-80-66 09:47:003.3[facility] BzeatwnHJOPISDFCSFH1518-43-31 09:47:0055[facility] UlpbftfGLBGKRWHFTZY5587-68-71 09:47:0024[facility] UGPVOTQTRIOI8064-84-91 09:47:58749Yajluwvp ZbsbvxaQXFANGZHRVTJ7759-65-35 09:47:0043[facility] GfqaxklTIEJDBXAQPVE5410-52-99 09:47:007.09[facility] XDRMUBFTCKYX6610-69-71 09:47:0040[facility] SykomyhBPTHJVUKMYMB5816-54-47 09:47:00 0.6[facility] YtocgeoNPUPTIUVHXQP2873-98-29 09:47:006[facility] HermannELECTROLYTES 2019-07-11 09:47:008.8[facility] RqadxdxDOKAJHRHCELY9107-67-12 09:47:50205Zstwppnd AzygjoxZGCNOKNJLYQN1272-99-40 09:47:0019.2[facility] NjkzugdHITGRTYDDAPS7697-30-75 09:47:00 Test Item Value Reference Range Interpretation Comments B/C Ratio (test code = B/C Ratio) 8 1 6-25 [facility] LylobzlLWOFIGYPOMFN7275-93-72 09:47:005.5[facility] HermannELECTROLYTES 2019-07-11 09:47:00 Test Item Value Reference Range Interpretation Comments A/G Ratio (test code = A/G Ratio) 0.6 1 0.7-1.6 [facility] OxmsfepJKUEQCICDL1621-45-02 09:47:00See Note 5(07/11/19 4:47 AM)[facility] RhjykzdSATLCDQAJX9907-23-09 09:47:00See Note 4(07/11/19 4:47 AM)[facility] Uri CHEM YXCRD6239-02-07 09:40:000.29[facility] HermannCHEM XVBQB8528-97-77 18:00:0015 [facility]annCHEM VSDSV1678-99-26 18:00:000.3[facility] HermannCHEM PANEL 2018-11-05 18:00:0039[facility] HermannCHEM PKCYU0731-29-04 18:00:0074[facility] HermannCHEM ATIJG1180-35-88 18:00:0042[facility] HermannCHEM CZVDE7481-31-98 18:00:002.4[facility] HermannCHEM DRJOO9363-07-83 18:00:008.0[facility]annCHEM QNLMP6909-39-58 18:00:0099[facility] HermannCHEM KUVMY6478-19-20 18:00:0026 [facility]annCHE[facility] YDZAM3934-73-55 18:00:008.5[facility] HermannCHEM PANEL 2018-11-05 18:00:004.1[facility] HermannCHEM HPSEZ3494-64-26 18:00:09536Nfkvifhg HermannCHEM DXQHA8279-65-01 18:00:0027[facility] HermannCHEM VXVKB9793-76-11 18:00:003.22[facility] HermannCHEM CSLLF2276-80-83 18:00:70691Mbkfdjhh HermannCHEM WQYQL9061-93-48 18:00:00 Test Item Value Reference Range Interpretation Comments B/C Ratio (test code = B/C Ratio) 8 1 6-25 [facility] HermannCHEM VUEKU8499-93-49 18:00:00 Test Item Value Reference Range Interpretation Comments A/G Ratio (test code = A/G Ratio) 0.4 1 0.7-1.6 [facility]annCHE[facility] IGPSL8398-08-80 18:00:005.6[facility] HermannCHEM PANEL 2018-11-05 18:00:0014.1[facility] QdniffvYQMMKLIPQQ8821-20-58 18:00:000.1[facility] PjksztmPDVKQPSASN2220-69-61 18:00:000.1[facility] AeocthfSYUKSKDILI5320-08-24 18:00:000.9[facility] LwhjhrcGIWSNJYTPZ8131-05-20 18:00:005.5[facility] FHSVKSTMBC4190-97-96 18:00:002.0[facility] MjtqujoJPNMINACSC3700-79-06 18:00:000.6 [facility] XlhptmxCYZPSDAYCE1088-61-76 18:00:0066.7[facility] HermannHEMATOLOGY 2018-11-05 18:00:0024.1[facility] VnobureSNKGKWSLBZ3206-55-55 18:00:006.7[facility] StegjgwONZJHAEPKI8454-67-01 18:00:001.6[facility] ScyuwzdIMQWBNBAQH8795-84-71 18:00:0031.7[facility] SqrjpaqULIMQIZBLN5417-46-75 18:00:0016.0[facility] Uri CBXRDQFFZJ4096-01-95 18:00:87257Umjnvrau SbmspyrSKGGBCUTRS2857-72-03 18:00:006.8 [facility] ZlfxinvUZZQARRSGA7755-48-23 18:00:008.3[facility] HermannHEMATOLOGY 2018-11-05 18:00:003.33[facility] FwkadbkTILKAZVYOT0234-05-23 18:00:0084.1[facility] JusugrgUFRXUGURXU5379-91-93 18:00:0028.0[facility] BpsyofgJZEVGLARVF8816-57-45 18:00:00 Test Item Value Reference Range Interpretation Comments MCH (test code = MCH) 26.7 pg 27.0-31.0 [facility] OsypeqbYNECMVCCGB4014-41-35 18:00:008.9[facility] HermannTOXICOLOGY 2018-11-05 18:00:0016.4[facility] HermannCHEM GOLUM3082-91-01 11:59:0015[facility] HermannCHEM TQBOJ9472-34-12 11:59:000.2[facility] HermannCHEM IVIGQ8976-58-68 11:59:0072[facility] HermannCHEM TWKXO4080-77-80 11:59:0031[facility] HermannCHEM HWPUL0848-54-15 11:59:00 Test Item Value Reference Range Interpretation Comments A/G Ratio (test code = A/G Ratio) 0.4 1 0.7-1.6 [facility]annCHEM RNUID6686-60-05 11:59:0031[facility] HermannCHEM PANEL 2018-11-04 11:59:002.1[facility] HermannCHEM DZGLZ2758-97-55 11:59:005.4[facility] HermannCHEM SFPZO0018-77-75 11:59:007.5[facility] HermannCHEM UJZBO0353-59-10 11:59:008.4[facility] HermannCHEM MJOTF5285-67-85 11:59:00 Test Item Value Reference Range Interpretation Comments B/C Ratio (test code = B/C Ratio) 8 1 6-25 [facility]annCHEM WAAKQ4895-67-01 11:59:0027[facility] HermannCHEM PANEL 2018-11-04 11:59:0012.5[facility] HermannCHEM OAHTZ3106-63-04 11:59:0027[facility] HermannCHEM AXSQV0955-76-51 11:59:004.5[facility] HermannCHEM PZERC0915-72-39 11:59:26368Ttctmogk HermannCHEM QZWKZ5015-63-94 11:59:003.24[facility] HermannCHEM NXOHC8670-85-64 11:59:45938Agwhmjue HermannCHEM TTBKP6603-53-86 11:59:24612 [facility] OkbktptIOGQAJSPXP9990-30-11 11:59:08124Sdbowzub HermannHEMATOLOGY 2018-11-04 11:59:0016.1[facility] OwnxdtmLRUDHCAREF1739-82-06 11:59:006.9[facility] PkhhtbzNPHCFMQCKA6265-79-99 11:59:003.16[facility] MhfuolyULIJKYYPJN3864-95-41 11:59:007.1[facility] PhkxenpSAWLOFLCHX2714-29-63 11:59:0032.3[facility] EIUUJTXWMA5245-97-53 11:59:00 Test Item Value Reference Range Interpretation Comments MCH (test code = MCH) 26.6 pg 27.0-31.0 [facility] TndoqhdSDBODYUBBB4965-20-21 11:59:0026.0[facility] HermannHEMATOLOGY 2018-11-04 11:59:008.4[facility] HkhhdyyLFLZWKNOYZ1660-58-38 11:59:0082.4[facility] NitstacIKWEYUXRGG9262-63-36 11:59:007.8[facility] TwzpsmmLHUNRFTJPS0245-03-96 11:59:000.6[facility] WuywudgLTZKMHGVDY4091-37-13 11:59:002.3[facility] SXUYECHOCM5680-66-67 11:59:000.9[facility] RhcbeyqLGAVVVNWGZ6926-26-69 11:59:003.9 [facility] IepfpwuDESAZRHYUR7458-54-87 11:59:003.6[facility] HermannHEMATOLOGY 2018-11-04 11:59:000.3[facility] NlfcupqDLRSCNABJR0487-75-87 11:59:000.1[facility] NrvubfwSFPGRZSCFF0066-00-32 11:59:0055.5[facility] FuzmrifRIZQYVMQCG6821-22-70 11:59:0032.2[facility] JnvmuylZQUVOZRWMX6608-65-31 11:59:008.3[facility] ANEMIA LNAAG5045-75-53 22:26:49230Jnnfsklq HermannANEMIA GPSTS5475-81-81 22:26:0088Mem[facility] HermannANEMIA JOIPK5864-60-63 22:26:0065[facility] ANEMIA AROKN7753-52-77 22:26:85100Syeqehhv HermannANEMIA JELXP1298-52-99 22:26:39560Qzabtnmx HermannANEMIA PKHXY4217-19-47 22:26:0013.3[facility] CHEM IWNQK7247-92-64 22:26:003.2[facility] HermannCHEM HWQLZ6393-40-60 22:26:00 Test Item Value Reference Range Interpretation Comments A/G Ratio (test code = A/G Ratio) 0.3 1 0.7-1.6 [facility] HermannCHEM DUEKJ2544-10-04 22:26:00 Test Item Value Reference Range Interpretation Comments B/C Ratio (test code = B/C Ratio) 7 1 6-25 [facility] HermannCHEM DCMIA6764-48-51 22:26:0014.6[facility] HermannCHEM PANEL 2018-11-03 22:26:005.9[facility] HermannCHEM CXAXW3423-23-76 22:26:0017[facility] HermannCHEM NOVRX0117-56-55 22:26:007.8[facility] HermannCHEM RIJMZ9550-53-61 22:26:0020[facility] HermannCHEM GXVLS1473-02-29 22:26:008.0[facility] HermannCHEM RKNJL7172-06-83 22:26:77920Lgafudph HermannCHEM TNXSB6953-14-60 22:26:004.6 [facility] HermannCHEM DBQFV2333-15-97 22:26:27854Hwnpocac HermannCHEM PANEL 2018-11-03 22:26:0021[facility] HermannCHEM NGZBQ2627-84-83 22:26:003.01[facility] HermannCHEM BYCGS8756-69-55 22:26:83085Ezwrdudm HermannCHEM XSAOG3803-37-28 22:26:000.3[facility] HermannCHEM JBOMS6316-42-92 22:26:0081[facility] HermannCHEM OIDJV9443-95-74 22:26:0039[facility] HermannCHEM KBETH6730-95-63 22:26:001.9 [facility] HermannCHEM XZYYQ5169-68-55 22:26:0036[facility] HermannHEMATOLOGY 2018-11-03 22:26:0083.6[facility] XawyngrJQMOJDNIPD5231-18-57 22:26:00 Test Item Value Reference Range Interpretation Comments MCH (test code = MCH) 27.5 pg 27.0-31.0 [facility] CgnmcfiEHJUHQUDIE5829-24-70 22:26:0032.8[facility] HermannHEMATOLOGY 2018-11-03 22:26:0016.4[facility] SjfbjpeGCNYGMVLJA3420-79-78 22:26:61579Idjiqtrp AkfgvxgZXBJZCIMGX0564-72-17 22:26:006.9[facility] DfrlyhiTEDHDSFSOP1534-92-12 22:26:0024.7[facility] QsiugjfNRCJYZYDOW2295-62-25 22:26:002.96[facility] CXSRQIGQBG5822-17-19 22:26:008.1[facility] MvmbmgoCAGOLBPNFO4022-29-79 22:26:007.3 Memorial HujjmdkIBKQZDGBGA6743-96-09 22:26:000.2[facility] HermannHEMATOLOGY 2018-11-03 22:26:000.1[facility] CfhzwoyZGTUHROZUL7099-70-49 22:26:0061.7[facility] MrmcdboGSIHSOMDHB4395-58-07 22:26:005.7[facility] AuqhwaqRJCYQTEJLY9155-88-54 22:26:0028.9[facility] YpptbntJFEOFZPFQA0513-37-58 22:26:002.9[facility] Uri ROICNHAJGT2517-35-87 22:26:000.8[facility] TeyhqlrBVYKETHSJX8955-57-13 22:26:004.5 [facility] PxjkupnPGJUWJBYPM6656-02-81 22:26:002.1[facility] HermannHEMATOLOGY 2018-11-03 22:26:000.4[facility] YztrikpBZEGSOWAPH3558-42-34 22:26:009.7[facility] HoozdosDXLDRKJRNF7923-78-63 22:20:00Positive *NA*(11/02/18 4:20 PM)[facility] QslewkfGHOMQEULLK7528-92-65 22:20:00>1000.0[facility] HermannIMMUNOLOGY 2018-11-02 22:20:00Negative *NA*(11/02/18 4:20 PM)[facility] HermannANEMIA STUDY 2018-11-02 16:58:0046[facility] HermannANEMIA XOTYP3871-13-96 16:58:86094Rkpauzyh HermannANEMIA HHQPU8608-41-31 16:58:0018Mem[facility] HermannANEMIA BDBRH4136-15-66 16:58:60792Bdxzfjzz HermannANEMIA PDPNX2985-74-15 16:58:0096[facility] UUFOXNLRRO1055-30-66 16:58:00Negative *NA*(11/02/18 10:58 AM)[facility] MJIZKAQUNE3851-45-59 16:58:00Positive *ABN*(11/02/18 10:58 AM)[facility] CJWWXVOBDU5964-83-26 16:58:00Negative *NA*(11/02/18 10:58 AM)[facility] XLOMFMKXIQ2836-79-17 16:58:00Positive *NA*(11/02/18 10:58 AM)[facility] HXCYWLELBP1657-44-99 16:58:00>1000.0[facility] HermannPARATHYROID PROFILE 2018-11-02 16:58:50330.7[facility] HermannSPECIAL FLCDRFJEK1177-28-50 16:58:0010.9 [facility] HermannCARDIAC OQVPARR7585-19-38 04:06:00<0.02[facility] CARDIAC MZFCOSA7197-53-94 04:06:0011[facility] HermannCARDIAC GEJIUYY4947-66-24 04:06:04413Spyubsby EewxsglAAQSLVCRKR2583-85-17 21:23:001.5[facility] BGMJCVWBDD3749-29-21 21:23:005.2[facility] VecetztMYGNAMXRIX3204-43-09 21:23:000.1 [facility] UyhaowrPDDKIYTYPO5592-71-39 21:23:000.2[facility] HermannHEMATOLOGY 2018-08-15 21:23:000.5[facility] QpfcltsBBXKNSZYJF4280-80-40 21:23:0069.3[facility] OdokakcZDNUCGYZGC1027-01-45 21:23:0020.7[facility] ZjzsrerMNSACPGXQZ1038-46-49 21:23:002.4[facility] XhbsentGTEWVFNQWV5717-24-16 21:23:006.7[facility] JESLAOBMRK9609-50-27 21:23:000.9[facility] BplwpjnORYNIODGTH8529-67-61 21:23:00 15.5[facility] GxzexgeJLUQQSBKOB5005-50-01 21:23:06227Lrjzuvcq HermannHEMATOLOGY 2018-08-15 21:23:006.8[facility] EkamwsiBXBCKLZMCR0884-39-54 21:23:008.7[facility] BbkcvzkCLVUDQUWMM0272-40-65 21:23:003.21[facility] BrpjkgaPLNBUCJGJU5724-74-28 21:23:0026.6[facility] RfbmrkvILMVKEHWRU0216-00-03 21:23:0083.0[facility] CRXFPURBPZ8619-27-22 21:23:0032.8[facility] MgojnppRWLWXJZGJH0612-98-66 21:23:00 Test Item Value Reference Range Interpretation Comments MCH (test code = MCH) 27.2 pg 27.0-31.0 [facility] CiujosbZLUJHLKWDV2416-93-66 21:23:007.5[facility] HermannCHEM PANEL 2018-08-15 09:03:006.5[facility] HermannCHEM EBICM6358-59-21 09:03:0013[facility] HermannCHEM PTFKA4392-69-95 09:03:98764Ghjjqbuq HermannCHEM ROGWX8598-59-96 09:03:008.0[facility]annCHEM NRNBY9661-83-67 09:03:0015[facility]annCHEM UKVOR7779-07-79 09:03:67185Pgimuoah HermannCHEM CQXFJ6179-29-88 09:03:0016.0 [facility]CHE[facility] TVTYQ7437-83-21 09:03:005.0[facility]annCHEM PANEL 2018-08-15 09:03:0046[facility]annCHEM ZFJSM3969-64-26 09:03:06112Ezaxwgjp [facility]annCHEM VEEFI6880-71-19 09:03:003.68[facility] ZtnjnmjENYQSVJFQHPM1200-87-11 01:35:0012.7[facility] XavwzasXQLSUDXANYAF7832-27-20 01:35:0013[facility] FUPYYRXSBJLD3947-39-06 01:35:0045[facility] ZxtetzfGVGQLTFZVDJI9145-73-17 01:35:00 169[facility] FzvkyslNGJXZXYQLNDI4055-72-94 01:35:003.74[facility] ZEKILFPIGSJH4263-85-30 01:35:38404Jbqbdiil PgdgjkpIONHHELISDGG1059-22-28 01:35:007.7[facility] BfhxflmFOUYQNUTCDPL7409-90-47 01:35:0023[facility] VKCNUKLJNIBW8436-19-25 01:35:17443Tunrrkky LqblmxnKYEUWTGSHSAE5905-98-93 01:35:004.7[facility] MplijfaVWCKZGLGLH3680-91-30 01:35:0015.5[facility] WWXTSJUWDB7997-33-88 01:35:006.9[facility] LimkaghNWJQIRZEGL1140-13-13 01:35:07205 [facility] OxhffcwPGNYIOSWZT9749-91-56 01:35:0084.5[facility]annHEMATOLOGY 2018-08-15 01:35:00 Test Item Value Reference Range Interpretation Comments MCH (test code = MCH) 27.6 pg 27.0-31.0 [facility] FidciwaBIUTHQGRUM2624-95-36 01:35:0032.6[facility]annHEMATOLOGY 2018-08-15 01:35:003.12[facility] IxmghusUNANVTHDXG6213-83-81 01:35:008.6[facility] FkklynrZGCJHUUSEI9364-74-91 01:35:0026.4[facility] CazeyhtECWXGHDSWU5284-43-28 01:35:008.6[facility] MxchreiHSZMVIVXYX0643-21-48 01:35:000.2[facility] CYCDGPPTFW5914-49-56 01:35:005.6[facility] IhozkkiRTFLZKRDPI7460-66-78 01:35:000.5 [facility] YgoxioyIGTZKXMDYW6540-82-24 01:35:002.2[facility]annHEMATOLOGY 2018-08-15 01:35:000.1[facility] LttebxgKZCUFDWDTQ2788-01-17 01:35:0026.2[facility] MdcxjjuBCGEXIUOPB1809-54-12 01:35:000.8[facility] QisxftjDPLWRNGIUV8577-17-35 01:35:002.4[facility] AexodljWDEEXKQIZW7670-12-33 01:35:0064.9[facility] GHDQGOIPIV2625-86-41 01:35:005.7[facility]annCHEM SRBEE0128-79-58 09:53:0013 [facility]annCHEM MCWAL5748-60-80 09:53:49042Yrjmojao HermannCHEM PANEL 2018-08-14 09:53:003.75[facility]annCHEM UBXYP4830-57-34 09:53:0047[facility]annCHEM BMYFN9446-13-91 09:53:004.9[facility]annCHEM WDZFP1701-49-91 09:53:40876Jjtytdhq HermannCHEM IZOCR2017-41-72 09:53:0016[facility]annCHEM MSZNK7728-78-58 09:53:20403Ktwfwmwl HermannCHEM KQCOK8736-03-65 09:53:0017.9 [facility]CHE[facility] ZSBRW9006-97-75 09:53:007.7[facility] HermannPARATHYROID HNRVRAC5165-73-74 09:53:29968.6[facility] CEFTAZIDIME:SUSC:PT:ISOLATE:ORDQN:IHL2321-63-55 07:31:00Pseudomonas aeruginosa [facility] HermannCEFTAZIDIME:SUSC:PT:ISOLATE:ORDQN:REJ6152-47-23 07:31:00 Klebsiella oxytocaMemorial YdledgoBCEANXLOEZ4404-70-45 08:15:000.1[facility] ZjzymniAPDKBLLOCO4398-60-48 08:15:000.5[facility] SmdoerfMOFOIWMNBT9465-99-48 08:15:000.2[facility] PghmyyyINTPSJJNOG8029-10-19 08:15:0037.8[facility] GFMAOSSYLQ6182-36-17 08:15:006.3[facility] DofbznoNBPLYKXFZN5448-11-52 08:15:003.9 [facility] QhjzoleHMGRGHTWMV2767-65-33 08:15:002.9[facility]annHEMATOLOGY 2018-08-11 08:15:003.0[facility] WsmtohiRPUMHUHSAQ6917-79-93 08:15:001.0[facility] TtdavfiUMBWDGUGTJ8534-75-88 08:15:0051.9[facility] ZhbmjqdUYTZXJAIUD8792-13-29 08:15:0015.2[facility] RcbdxowNPUBYYPANJ1294-09-47 08:15:64425Arnpwcsj Uri HQMMVOGTEW9049-63-26 08:15:007.5[facility] LlhgmcqQCEQJOMWQZ7128-96-65 08:15:00 83.7[facility] YsbcretNHBBAIOZWR3762-57-28 08:15:00 Test Item Value Reference Range Interpretation Comments MCH (test code = MCH) 27.4 pg 27.0-31.0 [facility] HbduhnmCDZZYKDPSX7606-77-23 08:15:0032.7[facility]annHEMATOLOGY 2018-08-11 08:15:0024.9[facility] DiznvxdSRJKYOYLVM6648-58-62 08:15:008.1[facility] FzdfbjjDEQVWPUWYJ1085-64-62 08:15:002.97[facility] OflhtijITLNUGCNDA4175-74-89 08:15:007.6[facility]annCHEM LZCMD6289-68-95 23:42:75855Jiwszvdf HermannCHEM QASQE2040-43-60 21:50:00 Test Item Value Reference Range Interpretation Comments B/C Ratio (test code = B/C Ratio) 16 1 6-25 [facility]annCHE[facility] XGLPF6440-67-66 21:50:0037[facility]annCHEM PANEL 2018-08-10 21:50:00 Test Item Value Reference Range Interpretation Comments A/G Ratio (test code = A/G Ratio) 0.4 1 0.7-1.6 [facility]annCHEM GUBAN0151-59-66 21:50:005.4[facility]annCHEM PANEL 2018-08-10 21:50:002.1[facility]annCHEM WVZLE2464-32-00 21:50:007.5[facility]annCHEM AJMHY4345-90-03 21:50:000.4[facility]annCHEM TWUVG6429-12-87 21:50:0089[facility]annCHEM WYHFV3521-12-48 21:50:0036[facility] ZUBHPAWDYQ4458-29-87 19:41:000.2[facility] DvnfnluDTIDKPNKFC7380-43-71 19:41:000.1 [facility] XmkrtuyGQYMUJSEDF4733-55-37 19:41:002.3[facility]annHEMATOLOGY 2017-04-01 19:41:0061.3[facility] YugdksoCEYKRWGXQD6705-02-28 19:41:000.9[facility] FwpfbooDJYAMPQGWZ9439-89-71 19:41:002.2[facility] AqqzctrHEEHCIUYFI1514-55-09 19:41:005.6[facility] WnbtnrhMVTCSWQACM3636-12-68 19:41:0029.9[facility] WBTIJLEUPP2368-07-32 19:41:000.4[facility] MglsfqkJNPLQJCKZQ6577-40-85 19:41:004.5 [facility] YitogbzJSWWJZTFCF6848-70-73 19:41:05971Xxcucggk HermannHEMATOLOGY 2017-04-01 19:41:006.7[facility] BexqmkiULCUAJYCJM3049-29-57 19:41:008.4[facility] ZkeezubHPSZHXPWMU9027-73-32 19:41:003.16[facility] LajsnjgNCISAWNQZJ6780-25-04 19:41:0080.9[facility] VnxklxqFERBMJQJFG0038-61-19 19:41:0025.6[facility] ZCBSDPGEZI3584-16-58 19:41:0016.4[facility] QjskkwmUPWSQEZIRZ0965-63-75 19:41:00 32.7[facility] JjnfcoaYUSWMIYMMT9958-66-99 19:41:00 Test Item Value Reference Range Interpretation Comments MCH (test code = MCH) 26.4 pg 27.0-31.0 [facility] ZjkctrsFYZXZRSCUQ8923-17-62 19:41:007.4[facility] HermannELECTROLYTES 2017-04-01 18:18:0012.4[facility] IblkwsrJDPWDNDEDGKC8380-33-58 18:18:006.2 [facility] GrmpmgwSCKRYRKTSXES1319-10-80 18:18:000.4[facility] HermannELECTROLYTES 2017-04-01 18:18:000.4[facility] InydalvGBNWCCMMBQAP7407-76-77 18:18:0015[facility] AzbtnjcMHYATESUIWRN4327-01-05 18:18:0020[facility] KextpdrEFJRYVKKCZGC2079-84-62 18:18:0019[facility] CvdvuqzORNKGGITJSYS4746-42-62 18:18:34414Xikejvvf [facility] JPCIYVYUDSLV3213-57-15 18:18:004.4[facility] MdvmssvFIQYQLZJKZJQ3253-08-12 18:18:85728Lglicaaj AtcwhzeCOTERWQUHJYL5131-32-03 18:18:0018[facility] IKEXVAXAGVXM5929-07-50 18:18:0022[facility] TboudpkUZUYHEXEEAQU7867-51-14 18:18:00 2.5[facility] XphkmeaXVSZXIYZWMOA0389-64-58 18:18:93405Jhruzulq Uri TDOTAFBXCXWO9504-62-29 18:18:008.7[facility] PpsxxakXBJYUAMZFJPA6613-36-53 18:18:008.3[facility] KqsklzwLUBXNMAACIDL7592-09-66 18:18:002.56[facility] SYJUCWNBGBML8208-06-05 18:18:0038[facility] ZfmuuaiXKMZBBEMEEQV9145-56-96 18:18:00 247[facility] HermannCHEM YJEAZ6720-54-58 23:18:67330Xewzzwtq HermannCHEM PANEL 2015-09-25 23:18:005.4[facility] HermannCHEM EOPSF5225-68-05 23:18:000.4[facility] HermannCHEM QLJYD2650-65-33 23:18:009.5[facility] HermannCHEM XEEQP4855-95-94 23:18:0016[facility] HermannCHEM ABYWI4526-02-68 23:18:0028[facility]annCHEM XIWLS4441-08-50 23:18:002.00[facility] HermannCHEM PXSFA9228-58-63 23:18:37905 [facility]annCHEM FBPTJ6072-90-21 23:18:003.5[facility] HermannCHEM PANEL 2015-09-25 23:18:0095[facility]annCHEM RQRQO8341-39-59 23:18:0071[facility] HermannCHEM TOOON5092-11-14 23:18:0015[facility]annCHEM JMMAI7560-26-23 23:18:000.3[facility] HermannCHEM IKDTG6938-51-27 23:18:002.2[facility] HermannCHEM CYXMJ9737-27-15 23:18:0020[facility]annCHEM RKOVZ2244-11-04 23:18:0031 [facility]annCHEM MYILA0307-19-04 23:18:79727Cpsmaxuq HermannCHEM PANEL 2015-09-25 23:18:0033[facility] HermannCHEM UOQCM2957-44-29 23:18:008.8[facility] HermannCHEM LRWTB5967-53-48 23:18:007.6[facility] EzmoajwDWZTTQJQMY7794-95-57 23:18:000.1[facility] QzcrdusKVWXHRXZHB1069-55-56 23:18:000.1[facility] YYKWTQFVHR1690-29-71 23:18:000.5[facility] ThrhubxIIVFXRKLRN2882-50-64 23:18:002.0 [facility] ObkgkfvNQMIHRVBSW7753-69-50 23:18:007.5[facility] HermannHEMATOLOGY 2015-09-25 23:18:000.5[facility] RzqfzyfLOUCCJSPEY7852-03-14 23:18:0020.0[facility] JxbykuiAWDZEPPTAG6243-63-18 23:18:001.1[facility] DtuwupeEMRMPUEUUC1294-81-85 23:18:0073.8[facility] YxwetpjHFCXSDIAGB7406-33-23 23:18:004.6[facility] OSUBIQXMNZ0254-27-04 23:18:0019.1[facility] LbpwwptKUVCYATJCE0231-86-40 23:18:00 424[facility] BlcflepBRKGULISSO4691-45-33 23:18:00 Test Item Value Reference Range Interpretation Comments MCH (test code = MCH) 24.7 pg 27.0-31.0 [facility] MjgnhtwECBAPFEERG9924-69-43 23:18:0031.3[facility] HermannHEMATOLOGY 2015-09-25 23:18:006.7[facility] VopvxyyQWUOTWJFGH7099-05-55 23:18:0013.0[facility] HyqehejXTJHASHJWL2328-15-64 23:18:0041.4[facility] DxtnsueYGXRSRKNEO4554-16-38 23:18:0079.1[facility] TyvmebaAVGQAZEUTA5534-87-34 23:18:005.24[facility] ADQOTXTVDB6714-12-09 23:18:0010.2[facility] EgarmurDFHIWQXFJX0892-75-80 23:18:00 Negative (09/25/15 5:18 PM)[facility] QvecwodIIAHIJNFQV0750-46-28 23:18:00Positive *NA*(09/25/15 5:18 PM)[facility] VttispyPQKLKYPFMJ5870-04-92 14:22:507003Uskykrmf PkxlkckFBPEJBPIVE0870-93-33 14:22:0021.1[facility] HermannBLOOD BANK RESULTS 2015-05-06 11:23:00Product available (05/06/15 6:23 AM)[facility]BL[facility]OD BANK XZWUVUC8025-85-85 10:48:00Negative (05/06/15 5:48 AM)[facility]annBLOOD BANK QTYONAH9291-46-93 10:17:00Product available (05/06/15 5:17 AM)[facility] CHEM DAHFD7562-28-33 08:50:004.1[facility] HermannCHEM UAATR2936-93-25 08:50:0057 [facility]annCHEM BULOQ9657-90-04 08:50:0025[facility] HermannCHEM PANEL 2015-05-06 08:50:007.6[facility] HermannCHEM FEJIY5134-74-94 08:50:36897Mffpiiml HermannCHEM SOJYK2267-70-15 08:50:90745Nnvagjpq HermannCHEM SMETD9608-88-55 08:50:004.5[facility] HermannCHEM XWEPN9700-09-97 08:50:0018[facility] HermannCHEM RFEQU8021-92-91 08:50:001.1[facility] HermannCHEM ZIMQW5741-72-91 08:50:0099 [facility]annCHEM EBALZ4677-14-13 08:50:0011.5[facility] HermannCHEM PANEL 2015-05-06 08:50:002.0[facility] VngftyaHAAHTSJJCC5358-66-88 08:50:01841Tnradjgf FlhruymSIUHCQBORY4761-95-60 08:50:006.4[facility] PhfltaeIDMDSBHDOV4353-48-38 08:50:0030.8[facility] GempyviLGSDGVDUUI6730-42-07 08:50:0020.3[facility] COAVDTOYBR8009-49-77 08:50:0019.5[facility] FwyqzkqZCBXULXFNY5289-35-46 08:50:00 6.0[facility] RyazuufRKTOYNLAHS2653-35-78 08:50:0069.4[facility] HermannHEMATOLOGY 2015-05-06 08:50:00 Test Item Value Reference Range Interpretation Comments MCH (test code = MCH) 21.4 pg 27.0-31.0 [facility] HcfsoqgPXVPINZYCE8326-10-92 08:50:0010.8[facility] HermannHEMATOLOGY 2015-05-06 08:50:002.82[facility] QtywhikZPURCSCLGU5448-12-06 08:50:001+ *ABN*(05/06/15 3:50 AM)[facility] IvfmivwTLPPCZYEPS8769-88-50 08:50:001+ *ABN*(05/06/15 3:50 AM)[facility] KvrvqdoPKQDBYIMRQ3527-74-66 08:50:000.6[facility] WqkepkiJZEFZHKWMH9557-82-47 08:50:000.0[facility] YgogeomCIGRFXLOJU0214-35-35 08:50:000.3[facility] QpbzrxtEUBUFCKAFY4474-31-66 08:50:007.5[facility] HSFHNUBKKG5833-72-48 08:50:000.4[facility] TjapuutRJDPBVPISD1711-24-53 08:50:002.8 [facility] GepofohMKGCLBSRAM8558-84-96 08:50:005.1[facility] HermannHEMATOLOGY 2015-05-06 08:50:002.4[facility] KxjadhoFLRXHFJWXM0233-76-93 08:50:0022.5[facility] JrmlsasCNIKXPCSLD7694-33-68 08:50:0069.2[facility] HermannDRUG EZDIEI1374-63-45 20:38:00Positive *ABN*(05/05/15 3:38 PM)[facility] HermannDRUG MZTFMP1430-45-55 20:38:00Negative *NA*(05/05/15 3:38 PM)[facility] HermannDRUG HMCNUR1786-05-54 20:38:00See Note 6(05/05/15 3:38 PM)[facility] HermannDRUG MTDLNC6017-37-80 20:38:00Negative *NA*(05/05/15 3:38 PM)[facility] HermannDRUG EIKJWL7217-43-34 20:38:00Negative *NA*(05/05/15 3:38 PM)[facility] HermannDRUG BDSSVS2408-43-38 20:38:00Negative *NA*(05/05/15 3:38 PM)[facility] HermannDRUG ZFBWDO5461-15-59 20:38:00Negative *NA*(05/05/15 3:38 PM)[facility] HermannDRUG KGJZAO2947-38-75 20:38:00Negative *NA*(05/05/15 3:38 PM)[facility] HermannANEMIA OUVSR1043-51-46 19:38:009[facility] HermannANEMIA HDPLS7838-89-69 19:38:06447Txhetmot [facility] ANEMIA WACGC1165-64-32 19:38:07508Alqdhpcc HermannANEMIA BCGOF6926-69-42 19:38:0035[facility] HermannANEMIA FDQMA8347-55-21 19:38:21965Fjjtjvvn [facility] QQZYXFSIWB9211-24-55 19:38:006.9[facility] WijhlzaPWDFUCSVSK7162-99-40 19:38:00 22.0[facility] JehnlsfVQPUQNWEPH4330-66-10 19:38:001.1[facility] HermannCHEM PANEL 2015-05-05 19:02:001.2[facility] HermannCHEM BFWDH1424-56-49 19:02:0052[facility] YjughjzKKEATAURQX2962-59-91 19:02:00 Test Item Value Reference Range Interpretation Comments PTT (test code = PTT) 40.0 s 22.9-35.8 [facility] WaozcqmOHRCORCYUD7828-61-56 19:02:32609Bliyzdnn HermannIMMUNOLOGY 2015-05-05 19:02:004.8[facility] KdelxsfCQXWFFARIP6902-07-93 19:02:4002429Cwonnkoz DndrhyfHQPYNWBBUV3789-30-11 19:02:00Negative (05/05/15 2:02 PM)[facility] WGUKQIUVOS4880-96-85 19:02:00Positive *NA*(05/05/15 2:02 PM)[facility]UR[facility] AND OMOBG0386-50-17 09:25:00Performed (05/05/15 4:25 AM)[facility] UNNBC4505-65-61 09:25:00Negative *NA*(05/05/15 4:25 AM)[facility] DYZOZ5074-43-45 09:25:00 Test Item Value Reference Range Interpretation Comments UA pH (test code = UA pH) 7.0 1 5.0-8.0 [facility] SMNES8601-55-09 09:25:00Negative *NA*(05/05/15 4:25 AM) [facility] OPSXS9197-99-19 09:25:00Moderate *ABN*(05/05/15 4:25 AM)[facility] GZMYI1682-94-10 09:25:00 Test Item Value Reference Range Interpretation Comments UA Spec Grav (test code = UA Spec 1.020 1 Grav) [facility] HANLA7341-43-14 09:25:00Negative (05/05/15 4:25 AM) [facility] LZHGL4188-93-13 09:25:000.2[facility] AND QGULF3591-66-06 09:25:00Negative (05/05/15 4:25 AM)[facility] MJMRP8234-36-83 09:25:00Clear (05/05/15 4:25 AM)[facility] STOOL 2015-05-05 09:25:00Yellow *NA*(05/05/15 4:25 AM)[facility] HermannCHEM PANEL 2015-05-05 08:26:0057[facility] HermannCHEM YYKSG3181-88-38 08:26:0016[facility] HermannCHEM QOAAK8958-39-28 08:26:007.8[facility] HermannCHEM NYIGB4345-65-02 08:26:001.3[facility] HermannCHEM NFWWH1329-71-27 08:26:007.3[facility] HermannCHEM CWJZM2915-55-81 08:26:91665Vulozjgg HermannCHEM HCWUA3105-00-58 08:26:73632 [facility]annCHEM XUEAM9751-69-75 08:26:0019[facility] HermannCHEM PANEL 2015-05-05 08:26:001.1[facility] HermannCHEM YDGAX3648-35-25 08:26:15020Yoiarwpx HermannCHEM ALQPT6187-29-19 08:26:0014[facility] HermannCHEM RNMVW7753-33-51 08:26:06828Xachwstt HermannCHEM ANZEX3522-11-39 08:26:0023[facility] HermannCHEM YANSV9681-34-20 08:26:003.5[facility] HermannCHEM VTJRJ3919-01-91 08:26:000.3 [facility] HermannCHEM DQHKY2518-75-25 08:26:006.0[facility] HermannCHEM PANEL 2015-05-05 08:26:000.2[facility] HermannCHEM YIFSF2338-70-37 08:26:0012.5[facility] HermannCHEM HARZT3550-98-63 08:26:0017[facility] HermannCHEM PCDWT7167-78-22 08:26:001.4[facility] EzssmlvSWTFHOAUYP9724-81-72 08:26:0014.1[facility] WTKLOIUHTY6956-11-88 08:26:000.3[facility] MwxbksdMPGXIAQGLT5662-00-52 08:26:000.3 [facility] EyukmzcLDUHLOFEGH2375-73-65 08:26:002.0[facility] HermannHEMATOLOGY 2015-05-05 08:26:000.6[facility] UsaqqetMAGPYJTBYJ0619-90-55 08:26:0011.8[facility] EawntejKNDOELIMDP0608-50-58 08:26:001.6[facility] DwckkwqRSTRLMDPBJ7005-27-03 08:26:003.5[facility] OfldrawNUNHRJPAZN2422-83-40 08:26:000.1[facility] HAKQIMVLJX4288-70-95 08:26:001+ *ABN*(05/05/15 3:26 AM)[facility] HermannHEMATOLOGY 2015-05-05 08:26:0082.8[facility] ZnhrgfuCBKLTSQLKS6891-23-06 08:26:0068.3[facility] SxnizsgVOEEGKZLJN8282-68-76 08:26:003.33[facility] IgmbvloHZRJCUBRAQ5704-83-55 08:26:0017.0[facility] KlckvlcLPFEWFSJFQ7059-69-96 08:26:0022.7[facility] RDQJUMLOQK1448-21-83 08:26:007.2[facility] QehxvfjUOUOGJKWSA7579-61-01 08:26:006.4 [facility] KhjclyiJIPHGEKAFM7686-75-18 08:26:0031.6[facility] HermannHEMATOLOGY 2015-05-05 08:26:00 Test Item Value Reference Range Interpretation Comments MCH (test code = MCH) 21.6 pg 27.0-31.0 [facility] PdetzjtUZPEHIIHAI6808-16-88 08:26:73625Vsiozjib HermannHEMATOLOGY 2015-05-05 08:26:0019.8[facility]
--- NOTE | 2021-03-24 14:41 | RAD REPORT ---
EXAM DESCRIPTION: RAD - Foot Left 3 View - 03/24/2021 2:25 pm CLINICAL HISTORY: 4th and 5th toe pain COMPARISON: No comparisons FINDINGS: No fracture, dislocation or periosteal reaction. No acute or destructive bony process. Pa tient has an approximately 40 degree hallux valgus configuration. There are no erosive or destructive changes to the first metatarsal head. No air or foreign body in the soft tissues. IMPRESSION: No acute or destructive left foot finding. Approximately 40 degree hallux valgus deformity at the first MTP joint.
--- NOTE | 2021-03-24 14:45 | RAD REPORT ---
EXAM DESCRIPTION: RAD - Foot Right 3 View - 03/24/2021 2:25 pm CLINICAL HISTORY: Stubbed great toe;Eliud COMPARISON: Foot Left 3 View dated 03/24/2021no remote imaging FINDINGS: Transverse fracture is present at the head shaft junction distal first phalanx. There is d orsal displacement 1/2 shaft width of the distal fracture fragment. A pathologic component is not see n. Patient has minimal hallux valgus configuration of the first MTP joint. Elsewhere in the right foot n o fracture, dislocation or destructive bone process seen. No air or foreign body in the soft tissues. IMPRESSION: Fracture involves the shaft-head junction right first proximal phalanx with dorsal displ acement of the distal fracture fragment.
[2021-03-24] MEDS ORDERED: HYDROCODONE/APAP 10/325 TAB ONE (15:59)
--- NOTE | 2021-03-24 16:39 | ER ---
Nurse's Notes [facility] Name: Natalie Silva Age: 61 yrs Sex: Female : 1960 Arrival Date: 03/24/2021 Time: 13:03 Bed 15 Private MD: Sandi Fisher Diagnosis: Essential (primary) hypertension;Displaced fracture of proximal phalanx of right great toe;Left fourth toe ulcer Presentation: 03/24 13:26 Chief complaint: Patient states: I have 2 wounds on each of my legs, have it for years, ca1 I treat it myself, they sent stuff to my house. but it is starting to smell now. I am diabetic. Also, I bump my R big toe 2 weeks ago. I have seen my doctor and she said to come to the hospital to have an X-ray, but I have not done it, it's been hurting since then. Also, on my L toes, I cut my nails cause it was too long, I had it done before at my doctor's clinic. I don't think I clipped a skin, but my little L toe hurts so bad and the pain comes up to my knees, it's shooting and throbbing pain. Coronavirus screen: Client denies travel out of the [place] in the last 14 days. At this time, the client does not indicate any symptoms associated with coronavirus-19. Ebola Screen: Patient negative for fever greater than or equal to 101.5 degrees Fahrenheit, and additional compatible Ebola Virus Disease symptoms Patient denies exposure to infectious person. Patient denies travel to an Ebola-affected area in the 21 days before illness onset. No symptoms or risks identified at this time. Initial Sepsis Screen: Does the patient meet any 2 criteria? No. Patient's initial sepsis screen is negative. Does the patient have a suspected source of infection? No. Patient's initial sepsis screen is negative. Risk Assessment: Do you want to hurt yourself or someone else? Patient reports no desire to harm self or others. Onset of symptoms was March 24, 2021. 13:26 Method Of Arrival: Ambulatory ca1 13:26 Acuity: MARIELA 2 ca1 Historical: - Allergies: 13:32 No Known Allergies; ca1 - PMHx: 13:32 Diabetes - IDDM; High Cholesterol; Hypertension; Hypothyroidism; ca1 - PSHx: 13:32 Cholecystectomy; ca1 - Immunization history:: Client reports receiving the 2nd dose of the Covid vaccine, Client reports receiving the 1st dose of the Covid vaccine, Flu vaccine is up to date. - Social history:: Smoking status: Patient reports the use of cigarette tobacco products, smokes one pack cigarettes per day. Screenin:03 Abuse screen: Denies threats or abuse. Denies injuries from another. Nutritional tr6 screening: No deficits noted. Tuberculosis screening: No symptoms or risk factors identified. Fall Risk None identified. Assessment: 12:32 General: Appears in no apparent distress. comfortable, well groomed, Behavior is calm, tr6 cooperative, appropriate for age. General: Smells of. Pain: Complains of pain in b/l feet. Neuro: No deficits noted. Cardiovascular: No deficits noted. Respiratory: No deficits noted. GI: No deficits noted. : No deficits noted. EENT: No deficits noted. Derm: Wound noted b/l lateral aspects of calves. pt states she has had these wounds for about 5 years. pt also has wounds on b/l toes. Musculoskeletal: No deficits noted. 14:00 Reassessment: Patient is alert, oriented x 3, equal unlabored respirations, skin tr6 warm/dry/pink. pt states that she would like to leave. pt educated on BP monitoring. pt verbalized understanding. Vital Signs: 13:26 BP 218 / 72; Pulse 96; Resp 16 S; Temp 97.1(TE); Pulse Ox 98% on R/A; Weight 77.11 kg ca1 (R); Height 5 ft. 4 in. (162.56 cm) (R); Pain 10/10; 15:52 BP 232 / 83; tr6 16:26 BP 208 / 73; Pulse 90; Resp 18; Pulse Ox 98% on R/A; tr6 13:26 Body Mass Index 29.18 (77.11 kg, 162.56 cm) ca1 15:52 pt has not taken any of her meds today. pt states that her pressure is always high. PA tr6 Cassy archibald ED Course: 13:03 Patient arrived in ED. am2 13:04 Sandi Fisher FNP-C is Private Physician. am2 13:32 Triage completed. ca1 13:32 Arm band placed on right wrist. ca1 13:35 Asim Madera NP is PHCP. pm1 13:35 Brenda Sheffield MD is Attending Physician. pm1 14:03 Ariana Sumner, BATSHEVA is Primary Nurse. tr6 14:24 Foot Right 3 View XRAY In Process Unspecified. EDMS 14:24 Foot Left 3 View XRAY In Process Unspecified. EDMS 15:55 Patient has correct armband on for positive identification. Bed in low position. Call tr6 light in reach. Side rails up X 1. 15:55 No provider procedures requiring assistance completed. Inserted Patient did not have IV tr6 access during this emergency room visit. Administered Medications: 15:43 Drug: Ronald (HYDROcodone-acetaminophen) 10 mg-325 mg 1 tabs Route: PO; tr6 16:14 Drug: cloNIDine 0.3 mg Route: PO; tr6 Outcome: 16:38 Discharge ordered by MD. pm1 16:51 Discharged to home ambulatory, with family, pt refused wheelchair tr6 16:51 Condition: good 16:51 Discharge instructions given to patient, Instructed on discharge instructions, follow up and referral plans. medication usage, safety practices, wound care, Demonstrated understanding of instructions, follow-up care, medications, wound care, Prescriptions given X 3. 17:00 Patient left the ED. tr6 Signatures: Dispatcher [employer] EDOH Asim Madera NP TELEPHONE REPAIRER pm1 Shiar Egan am2 Sophie Borges RN RN ca1 Ariana Sumner RN RN tr6
--- NOTE | 2021-03-24 16:39 | EDPHYS ---
Physician Documentation [facility] Name: Natalie Silva Age: 61 yrs Sex: Female : 1960 Arrival Date: 03/24/2021 Time: 13:03 Bed 15 Private MD: Sandi Fisher ED Physician Brenda Sheffield HPI: 03/24 13:46 This 61 yrs old Female presents to ER via Ambulatory with complaints of Toe pm1 pain. 13:46 The patient presents with Right great toe pain and swelling for the past 2 weeks after pm1 stubbing it on furniture. Left 5th toe pain after cutting her toe nail. The complaints affect the right first toe and left fifth toe. Context: The problem was sustained at home, resulted from stubbing right great toe and possibly cutting toe nail on left 5th toe. Patient denies cutting her skin with nail clipper. Modifying factors: The symptoms are alleviated by nothing. the symptoms are aggravated by movement. Associated signs and symptoms: Pertinent negatives fever, numbness, tingling, discharge. Treatment prior to arrival includes: no previous treatment. Severity of symptoms: in the emergency department the symptoms are unchanged. The patient has been recently seen by a physician: the patient's primary care provider, with similar presenting complaints, For patient's right great toe pain. She did not get the x-ray of her right foot. PCP informed her that her chronic wounds to the lateral aspect of both calves looks good. Patient reports that she is primarily here for her foot pain, not the chronic wounds. Historical: - Allergies: 13:32 No Known Allergies; ca1 - PMHx: 13:32 Diabetes - IDDM; High Cholesterol; Hypertension; Hypothyroidism; ca1 - PSHx: 13:32 Cholecystectomy; ca1 - Immunization history:: Client reports receiving the 2nd dose of the Covid vaccine, Client reports receiving the 1st dose of the Covid vaccine, Flu vaccine is up to date. - Social history:: Smoking status: Patient reports the use of cigarette tobacco products, smokes one pack cigarettes per day. ROS: 13:46 Constitutional: Negative for fever, chills, and weight loss, Eyes: Negative for injury, pm1 pain, redness, and discharge, ENT: Negative for injury, pain, and discharge, Neck: Negative for injury, pain, and swelling, Cardiovascular: Negative for chest pain, palpitations, and edema, Respiratory: Negative for shortness of breath, cough, wheezing, and pleuritic chest pain, Abdomen/GI: Negative for abdominal pain, nausea, vomiting, diarrhea, and constipation, Back: Negative for injury and pain. 13:46 Neuro: Negative for headache, weakness, numbness, tingling, and seizure. 13:46 MS/extremity: Positive for pain, of the right first toe and left fifth toe, Negative for deformity. 13:46 Skin: Positive for chronic wound to lateral aspect of bilateral calves, Negative for discharge or drainage. Exam: 13:46 Constitutional: This is a well developed, well nourished patient who is awake, alert, pm1 and in no acute distress. Head/Face: Normocephalic, atraumatic. 13:46 Back: No spinal tenderness. No costovertebral tenderness. Full range of motion. MS/ Extremity: Pulses equal, no cyanosis. Neurovascular intact. Full, normal range of motion. 13:46 Eyes: Exam is negative for acute changes, Periorbital structures: appear normal, no acute changes, Extraocular movements: intact throughout, Conjunctiva: normal, no acute changes. 13:46 ENT: Mouth: no acute changes, Lips: normal, Oral mucosa: normal, pink and intact, moist. 13:46 Neck: Exam negative for acute changes, ROM/movement: is normal, is supple. 13:46 Cardiovascular: Rate: normal, Rhythm: regular, Pulses: no pulse deficits are appreciated. 13:46 Respiratory: Exam negative for acute changes, respiratory distress, shortness of breath. 13:46 Abdomen/GI: Inspection: abdomen appears normal, Palpation: abdomen is soft and non-tender, in all quadrants. 13:46 Skin: Appearance: normal except for affected area, Well healing chronic wounds to bilateral lateral calves. No cellulitis, abscess, discharge, or drainage. 1 cm shallow ulceration present to lateral aspect of 4th left toe without any discharge or drainage, or signs of cellulitis or abscess. 13:46 Neuro: Orientation: is normal, Mentation: is normal, Motor: is normal, moves all fours, Sensation: is normal, no obvious gross deficits. Vital Signs: 13:26 BP 218 / 72; Pulse 96; Resp 16 S; Temp 97.1(TE); Pulse Ox 98% on R/A; Weight 77.11 kg ca1 (R); Height 5 ft. 4 in. (162.56 cm) (R); Pain 10/10; 15:52 BP 232 / 83; tr6 16:26 BP 208 / 73; Pulse 90; Resp 18; Pulse Ox 98% on R/A; tr6 13:26 Body Mass Index 29.18 (77.11 kg, 162.56 cm) ca1 15:52 pt has not taken any of her meds today. pt states that her pressure is always high. MARY tr6 Cassy archibald MDM: 13:39 Patient medically screened. pm1 15:00 ED course: Patient did not take her blood pressure medications today because of adventist pm1 and a busy day. 15:18 Data reviewed: vital signs. Data interpreted: Pulse oximetry: on room air is 98 %. pm1 Interpretation: normal. 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 15:18 Data reviewed: I have discussed the patient's presentation/case with the attending pm1 Emergency Department Physician; and as a result, I will discharge the patient home with doxycycline and Flagyl. Patient does not want blood work or work up for evaluation of her chronic wounds on the lateral aspects of both calves. Wounds are chronic. No discharge, erythema, or odor present from them. Patient with new ulceration present to lateral aspect of 4th left toe which is the likely source of her pain to left 4th and 5th toes. X-ray negative left foot and clinically does not have the appearance of cellulitis or osteomyelitis. 16:32 ED course: Patient is standing at the door because she is ready to go home. Instructed pm1 her to take her blood pressure medications as directed. 03/24 13:46 Order name: Foot Right 3 View XRAY; Complete Time: 14:59 pm1 03/24 13:46 Order name: Foot Left 3 View XRAY; Complete Time: 14:43 pm1 03/24 15:00 Order name: Post-op Orthopedic Shoe; Complete Time: 15:46 pm1 Administered Medications: 15:43 Drug: Mar Lin (HYDROcodone-acetaminophen) 10 mg-325 mg 1 tabs Route: PO; tr6 16:14 Drug: cloNIDine 0.3 mg Route: PO; tr6 Disposition: 03/24/21 16:38 Discharged to Home. Impression: Displaced fracture of proximal phalanx of right great toe, Essential (primary) hypertension, Left fourth toe ulcer. - Condition is Stable. - Discharge Instructions: Diabetes and Foot Care, Hypertension, Toe Fracture, How to Take Your Blood Pressure, [id number], Managing Your Hypertension. - Prescriptions for Flagyl 500 mg Oral Tablet - take 1 tablet by ORAL route every 8 hours for 10 days; 30 tablet. Doxycycline Hyclate 100 mg Oral Tablet - take 1 tablet by ORAL route every 12 hours; 20 tablet. Tylenol- Codeine #3 300-30 mg Oral Tablet - take 2 tablets by ORAL route every 4-6 hours As needed; 20 tablet. - Medication Reconciliation Form, Thank You Letter, Antibiotic Education, Prescription Opioid Use form. - Follow up: Emergency Department; When: As needed; Reason: Worsening of condition. Follow up: Private Physician; When: 2 - 3 days; Reason: Recheck today's complaints, Continuance of care, Re-evaluation by your physician. - Problem is new. - Symptoms have improved. Addendum: 03/25/2021 18:30 Co-signature as Attending Physician, Brenda Sheffiedl MD. m a2 Signatures: Dispatcher [employer] EDMS Asim Madera, PROPERTY TECHNICIAN PROPERTY TECHNICIAN pm1 Brenda Sheffield MD MD ma2 Sophie Borges RN RN [facility] Ariana Sumner RN RN tr6 Corrections: (The following items were deleted from the chart) 03/24 17:00 16:38 03/24/2021 16:38 Discharged to Home. Impression: Displaced fracture of proximal tr6 phalanx of right great toeEssential (primary) hypertension; Left fourth toe ulcer. Condition is Stable. Forms are Medication Reconciliation Form, Thank You Letter, Antibiotic Education, Prescription Opioid Use. Follow up: Emergency Department; When: As needed; Reason: Worsening of condition. Follow up: Private Physician; When: 2 - 3 days; Reason: Recheck today's complaints, Continuance of care, Re-evaluation by your physician. Problem is new. Symptoms have improved. pm1
[2021-03-24 17:25] VITALS: TEMP 97.1; O2SAT 98
[2021-03-24 17:28] VITALS: BP 208/73
== END 2021-03-24 17:00 | disposition home or self-care (01) ==
LOC: ER 12:58
DX: S92.411A Displaced fracture of proximal phalanx of right great toe, initial encounter for closed fracture (principal); L98.499 Non-pressure chronic ulcer of skin of other sites with unspecified severity; F17.210 Nicotine dependence, cigarettes, uncomplicated; I10 Essential (primary) hypertension; W22.03XA Walked into furniture, initial encounter
CPT/HCPCS: 99283

== ENCOUNTER 2021-07-15 03:10 | Inpatient (IN) | payer OTHER ==
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
[2021-07-15] MEDS ORDERED: NITROGLYCERIN/D5W 50 MG/250 ML BTL IV ONE ×2 (03:44→12:49)
[2021-07-15 04:05] LABS: Blood Gas Oxyhemoglobin 95.4 % (94-97); Blood O2 Saturation 96.2 % (92-98.5)
[2021-07-15 04:17] LABS: Absolute Lymphocytes (CBC) 4.1 K/uL (0.7-4.9); Basophils % 0.5 % (0-1.3); Hematocrit 35.8 % (36.0-45.0); MPV 7.1 fL (7.6-11.3); RBC Red Blood Cell Count 3.66 M/uL (3.86-4.86)
[2021-07-15 04:22] LABS: Protime INR 1.14
[2021-07-15 04:50] LABS: SARS-COV-2 RT PCR NEGATIVE (NEGATIVE)
[2021-07-15 05:01] LABS: ALT/SGPT 45 U/L (12-78); AST/SGOT 41 U/L (15-37); Albumin 3.6 g/dL (3.4-5.0); Alkaline Phosphatase 100 U/L (45-117); BUN Blood Urea Nitrogen 90 mg/dL (7-18); Bicarbonate 22 mmol/L (21-32); Bilirubin Direct 0.2 mg/dL (0-0.2); Bilirubin Total 0.4 mg/dL (0.2-1.0); Glucose Level 290 mg/dL (74-106); Magnesium 2.3 mg/dL (1.8-2.4); NT PRO-BNP 55876 pg/mL (<125); Potassium 3.7 mmol/L (3.5-5.1); Protein, Total 9.5 g/dL (6.4-8.2); Sodium Level 134 mmol/L (136-145); Troponin (Emerg Dept Use Only) < 0.02 ng/mL (0.0-0.045)
[2021-07-15] MEDS ORDERED: ONDANSETRON 4 MG/2 ML VIAL ONE ×2 (05:12→15:33)
--- NOTE | 2021-07-15 05:21 | ER ---
Nurse's Notes [facility] Name: Natalie Silva Age: 61 yrs Sex: Female : 1960 Arrival Date: 07/15/2021 Time: 03:12 Bed 6 Private MD: Diagnosis: Combined systolic (congestive) and diastolic (congestive) heart failure;ESRD on Hemodialysis;Uncontrolloed Hypertension Presentation: 07/15 03:15 Chief complaint: EMS states: Called for patient with respiratory distress, reports lp1 missing dialysis x2 appointments; patient restless during EMS transport, unable to obtain EKG rhythm, placed on NRB on arrival to ED. 03:15 Coronavirus screen: shortness of breath. Ebola Screen: No symptoms or risks identified lp1 at this time. Onset of symptoms was July 15, 2021. 03:15 Method Of Arrival: EMS: [facility] lp1 03:15 Acuity: MARIELA 1 lp1 08:31 Initial Sepsis Screen: Does the patient meet any 2 criteria? No. Patient's initial sv sepsis screen is negative. Does the patient have a suspected source of infection? No. Patient's initial sepsis screen is negative. Risk Assessment: Do you want to hurt yourself or someone else? Patient reports no desire to harm self or others. Historical: - Allergies: 05:02 No Known Allergies; jb4 - Home Meds: 04:21 atorvastatin Oral [Active]; clopidogrel Oral [Active]; Furosemide Oral [Active]; jb4 Nifedipine Oral [Active]; - PMHx: 04:21 dialysis M W F; Diabetes - IDDM; High Cholesterol; Hypertension; Hypothyroidism; jb4 08:32 Hep C; Anemia; CHF; Chronic osteomyelitis of L ankle/foot; Secondary sv hyperparathyroidism; - PSHx: 04:21 left arm dialysis port; jb4 - Immunization history:: Adult Immunizations up to date. - Social history:: Smoking status: Patient denies any tobacco usage or history of. Screenin:08 Abuse screen: Denies threats or abuse. Nutritional screening: No deficits noted. jb4 Tuberculosis screening: No symptoms or risk factors identified. Fall Risk None identified. Assessment: 03:08 General: Appears distressed, uncomfortable, Behavior is cooperative, anxious, restless. jb4 Pain: Denies pain. Neuro: Level of Consciousness is awake, alert, obeys commands, Oriented to person, place, time, situation. Cardiovascular: Skin is cool, pale, diaphoretic. Respiratory: Airway is patent Respiratory effort is labored, gasping, with nasal flaring, pursed lip, Respiratory pattern is agonal tachypnea. GI: No signs and/or symptoms were reported involving the gastrointestinal system. : No signs and/or symptoms were reported regarding the genitourinary system. EENT: No signs and/or symptoms were reported regarding the EENT system. Derm: Skin is intact, Skin is diaphoretic, Skin is pale, Skin temperature is cool. Musculoskeletal: Circulation, motion, and sensation intact. Range of motion:. 04:00 Reassessment: Pt is resting in bed with eyes closed, respirations are now even and jb4 unlabored. Pt appears to be much more comfortable after being placed on bi-pap. Sister in law is at the bedside. 05:00 Reassessment: Patient appears in no apparent distress at this time. Patient and/or jb4 family updated on plan of care and expected duration. Pain level reassessed. Patient is alert, oriented x 3, equal unlabored respirations, skin warm/dry/pink. 05:30 Reassessment: Received verbal order from Jerman Collins NP to insert Gonzalez catheter. Pt jb4 refused, Provider notified. 06:00 Reassessment: Patient appears in no apparent distress at this time. Patient and/or jb4 family updated on plan of care and expected duration. Pain level reassessed. Patient is alert, oriented x 3, equal unlabored respirations, skin warm/dry/pink. 06:45 Reassessment: Patient appears in no apparent distress at this time. Patient and/or jb4 family updated on plan of care and expected duration. Pain level reassessed. Patient is alert, oriented x 3, equal unlabored respirations, skin warm/dry/pink. 07:15 General: Appears in no apparent distress. comfortable, well developed, Behavior is sv calm, cooperative, appropriate for age. Pain: Denies pain. Neuro: Level of Consciousness is awake, alert, obeys commands, Oriented to person, place, time, situation. Cardiovascular: Patient's skin is warm and dry. Rhythm is sinus rhythm. Respiratory: Airway is patent Respiratory effort is even, unlabored, Respiratory pattern is regular, symmetrical, Patient placed on BiPAP: Inspiratory Pressure: 12 Expiratory (EPAP) Pressure: 6 FiO2%: 50 Respiratory Rate: 14. Derm: Skin is pink, warm \\T\\ dry. Vital Signs: 04:00 BP 244 / 82; Pulse 97; Resp 25; Pulse Ox 98% on BiPAP; jb4 04:20 BP 227 / 86; Pulse 77; Resp 20; Pulse Ox 97% on 80% BiPAP; jb4 04:30 BP 198 / 79; Pulse 77; Resp 18; Pulse Ox 95% on 80% BiPAP; jb4 04:40 BP 231 / 101; Pulse 85; Resp 19; Temp 97.4(TE); Pulse Ox 99% on 80% BiPAP; jb4 05:00 BP 218 / 81; Pulse 81; Resp 19; Pulse Ox 100% on 50% BiPAP; jb4 05:10 BP 227 / 79; Pulse 88; Resp 16; Pulse Ox 100% on 50% BiPAP; jb4 05:30 BP 234 / 80; Pulse 99; Resp 19; Pulse Ox 99% on BiPAP; jb4 05:50 BP 176 / 67; Pulse 74; Resp 15; Pulse Ox 94% on 50% BiPAP; jb4 06:10 BP 168 / 72; Pulse 74; Resp 16; Pulse Ox 94% on 50% BiPAP; jb4 06:40 BP 173 / 78; Pulse 71; Resp 15; Pulse Ox 97% on 50% BiPAP; jb4 07:17 BP 172 / 72; Pulse 70; Resp 19; Temp 97; Pulse Ox 98% on 50% BiPAP; sv 07:30 BP 166 / 68; Pulse 67; Resp 16; Pulse Ox 99% on 50% BiPAP; sv 07:45 BP 180 / 71; Pulse 69; Resp 18; Pulse Ox 100% on 50% BiPAP; sv 08:00 BP 191 / 82; Pulse 69; Resp 16; Pulse Ox 100% on 50% BiPAP; sv 08:02 Weight 77 kg; Height 5 ft. 3 in. (160.02 cm); sv 08:15 BP 181 / 77; Pulse 70; Resp 16; Pulse Ox 100% on 50% BiPAP; sv 08:02 Body Mass Index 30.07 (77.00 kg, 160.02 cm) sv 04:40 Nitro increased to 60mcg/min per provider instruction. jb4 05:10 Nitro drip increased to 80mcg/min jb4 ED Course: 03:08 Patient has correct armband on for positive identification. Placed in gown. Bed in low jb4 position. Call light in reach. Side rails up X 1. assistant pastry chef on. Pulse ox on. NIBP on. 03:12 Patient arrived in ED. bb 03:24 Gustavo Chambers MD is Attending Physician. mh7 03:48 Michele Duarte, RN is Primary Nurse. jb4 04:00 Inserted saline lock: 22 gauge ,using aseptic technique. in right upper chest. jb4 04:01 Triage completed. lp1 04:52 XRAY Chest (1 view) In Process Unspecified. EDMS 05:19 Brenda Elias MD is Hospitalizing Provider. mh7 07:08 COVID-19 : Document "Date of Symptom Onset" if Symptomatic. Sent. jb4 07:08 Influenza Screen (a \\T\\ B) Sent. jb4 07:08 Basic Metabolic Panel Sent. jb4 07:08 BIPAP Sent. jb4 07:11 Primary Nurse role handed off by Michele Duarte, BATSHEVA sv 07:11 Mayelin De La Torre, BATSHEVA is Primary Nurse. sv 07:15 Arm band placed on. sv 08:31 No provider procedures requiring assistance completed. Patient admitted, IV remains in sv place. intact. 19:15 Primary Nurse role handed off by Mayelin De La Torre, BATSHEVA sv Administered Medications: 03:40 Drug: Lasix (furosemide) 80 mg {Note: Given by BATSHEVA Ramirez.} Route: IVP; Site: right jb4 antecubital; 04:04 Drug: Nitro Drip - (Nitroglycerin 50 mg, D5W 250 ml) {Note: right upper chest, started jb4 at 40 mcg/min per providers instruction..} Route: IV; Rate: 5 mcg/min; Site: Other; 04:52 Drug: Zofran (Ondansetron) 4 mg {Note: Administered by right upper chest IV.} Route: jb4 IVP; Site: Other; Outcome: 05:20 Decision to Hospitalize by Provider. mh7 08:31 Admitted to ER Hold. Please see [facility] for further documentation. sv 08:31 Condition: stable 08:31 Instructed on the need for admit. 20:33 Patient left the ED. jb4 Signatures: Dispatcher [employer] EDMS Wil, Mayelin, RN RN sv Ashley Cedeno RN RN bb Elza Singh RN RN lp1 Michele Duarte RN RN jb4 Gustavo Chambers MD MD mh7 Corrections: (The following items were deleted from the chart) 04:44 04:04 Nitro Drip - (Nitroglycerin 50 mg, D5W 250 ml) IV at 5 mcg/min in Other jb4 jb4 05:20 04:20 BP 227 / 86; Pulse 77bpm; Resp 20bpm; Pulse Ox 97% BiPAP; jb4 jb4 05:20 04:30 BP 198 / 79; Pulse 77bpm; Resp 18bpm; Pulse Ox 95% BiPAP; jb4 jb4 05:20 04:40 BP 231 / 101; Pulse 85bpm; Resp 19bpm; Pulse Ox 99% BiPAP; Temp 97.4F Temporal; jb4 Nitro increased to 60mcg/min per provider instruction.; jb4
--- NOTE | 2021-07-15 05:21 | EDPHYS ---
Physician Documentation [facility] Name: Natalie Silva Age: 61 yrs Sex: Female : 1960 Arrival Date: 07/15/2021 Time: 03:12 Bed 6 Private MD: CHARLIE Physician Gustavo Chambers HPI: 07/15 03:10 This 61 yrs old Female presents to ER via Unassigned with complaints of mh7 Respiratory Distress. 03:10 The patient has shortness of breath at rest. Onset: The symptoms/episode began/occurred mh7 last night. Duration: The symptoms are continuous, and are steadily getting worse. The patient's shortness of breath is aggravated by nothing, is alleviated by nothing. Associated signs and symptoms: Pertinent positives: chest pain, diaphoresis, Pertinent negatives:. Severity of symptoms: At their worst the symptoms were severe today, in the emergency department the symptoms have improved mildly. Patient has end-stage renal disease and is on hemodialysis Thursday//Thursday. She has missed her last 2 dialysis sessions.. Historical: - Allergies: 05:02 No Known Allergies; jb4 - Home Meds: 04:21 atorvastatin Oral [Active]; clopidogrel Oral [Active]; Furosemide Oral [Active]; jb4 Nifedipine Oral [Active]; - PMHx: 04:21 dialysis M W F; Diabetes - IDDM; High Cholesterol; Hypertension; Hypothyroidism; jb4 08:32 Hep C; Anemia; CHF; Chronic osteomyelitis of L ankle/foot; Secondary sv hyperparathyroidism; - PSHx: 04:21 left arm dialysis port; jb4 - Immunization history:: Adult Immunizations up to date. - Social history:: Smoking status: Patient denies any tobacco usage or history of. ROS: 03:10 Constitutional: Negative for fever, chills, and weight loss, Eyes: Negative for injury, mh7 pain, redness, and discharge, ENT: Negative for injury, pain, and discharge, Neck: Negative for injury, pain, and swelling, Abdomen/GI: Negative for abdominal pain, nausea, vomiting, diarrhea, and constipation, Back: Negative for injury and pain, : Negative for injury, bleeding, discharge, and swelling, MS/Extremity: Negative for injury and deformity, Skin: Negative for injury, rash, and discoloration, Neuro: Negative for headache, weakness, numbness, tingling, and seizure, Psych: Negative for depression, anxiety, suicide ideation, homicidal ideation, and hallucinations, Allergy/Immunology: Negative for hives, rash, and allergies, Endocrine: Negative for neck swelling, polydipsia, polyuria, polyphagia, and marked weight changes, Hematologic/Lymphatic: Negative for swollen nodes, abnormal bleeding, and unusual bruising. Exam: 03:10 Head/Face: Normocephalic, atraumatic. Eyes: Pupils equal round and reactive to light, mh7 extra-ocular motions intact. Lids and lashes normal. Conjunctiva and sclera are non-icteric and not injected. Cornea within normal limits. Periorbital areas with no swelling, redness, or edema. Neck: Trachea midline, no thyromegaly or masses palpated, and no cervical lymphadenopathy. Supple, full range of motion without nuchal rigidity, or vertebral point tenderness. No Meningismus. 03:10 Abdomen/GI: Soft, non-tender, with normal bowel sounds. No distension or tympany. No guarding or rebound. No evidence of tenderness throughout. Back: No spinal tenderness. No costovertebral tenderness. Full range of motion. Skin: Warm, dry with normal turgor. Normal color with no rashes, no lesions, and no evidence of cellulitis. MS/ Extremity: Pulses equal, no cyanosis. Neurovascular intact. Full, normal range of motion. 03:10 Constitutional: The patient appears alert, awake, in obvious distress, moderately distressed. 03:10 Cardiovascular: Rate: tachycardic, Rhythm: regular, Pulses: no pulse deficits are appreciated, Heart sounds: normal, normal S1and S2, Edema: pedal edema, that is mild, JVD: is not appreciated. 03:10 Respiratory: moderate respiratory distress is noted, Respirations: prolonged exhalation, that is moderate, tachypnea, that is moderate, Breath sounds: rales, that are moderate, are heard diffusely, Respiratory rate: 30 03:10 Neuro: Orientation: is normal, Mentation: is normal, Memory: Motor: is normal, Sensation: is normal, Gait: not tested. seizure activity, is not displayed by the patient, Abnormal movements: there are no abnormal movements. Vital Signs: 04:00 BP 244 / 82; Pulse 97; Resp 25; Pulse Ox 98% on BiPAP; jb4 04:20 BP 227 / 86; Pulse 77; Resp 20; Pulse Ox 97% on 80% BiPAP; jb4 04:30 BP 198 / 79; Pulse 77; Resp 18; Pulse Ox 95% on 80% BiPAP; jb4 04:40 BP 231 / 101; Pulse 85; Resp 19; Temp 97.4(TE); Pulse Ox 99% on 80% BiPAP; jb4 05:00 BP 218 / 81; Pulse 81; Resp 19; Pulse Ox 100% on 50% BiPAP; jb4 05:10 BP 227 / 79; Pulse 88; Resp 16; Pulse Ox 100% on 50% BiPAP; jb4 05:30 BP 234 / 80; Pulse 99; Resp 19; Pulse Ox 99% on BiPAP; jb4 05:50 BP 176 / 67; Pulse 74; Resp 15; Pulse Ox 94% on 50% BiPAP; jb4 06:10 BP 168 / 72; Pulse 74; Resp 16; Pulse Ox 94% on 50% BiPAP; jb4 06:40 BP 173 / 78; Pulse 71; Resp 15; Pulse Ox 97% on 50% BiPAP; jb4 07:17 BP 172 / 72; Pulse 70; Resp 19; Temp 97; Pulse Ox 98% on 50% BiPAP; sv 07:30 BP 166 / 68; Pulse 67; Resp 16; Pulse Ox 99% on 50% BiPAP; sv 07:45 BP 180 / 71; Pulse 69; Resp 18; Pulse Ox 100% on 50% BiPAP; sv 08:00 BP 191 / 82; Pulse 69; Resp 16; Pulse Ox 100% on 50% BiPAP; sv 08:02 Weight 77 kg; Height 5 ft. 3 in. (160.02 cm); sv 08:15 BP 181 / 77; Pulse 70; Resp 16; Pulse Ox 100% on 50% BiPAP; sv 08:02 Body Mass Index 30.07 (77.00 kg, 160.02 cm) sv 04:40 Nitro increased to 60mcg/min per provider instruction. jb4 05:10 Nitro drip increased to 80mcg/min jb4 MDM: 03:10 Differential diagnosis: Anemia Anxiety Reaction asthma, Bronchitis CHF exacerbation, mh7 Chronic Obstructive Pulmonary Disease Myocardial Infarction pneumonia, Psychogenic pulmonary edema. Data reviewed: vital signs, nurses notes, EMS record. 05:18 Data reviewed: old medical records, lab test result(s), cardiac enzymes, CBC, [facility] electrolytes, EKG, radiologic studies, plain films. Data interpreted: Pulse oximetry: on BiPAP is 99 %. Interpretation: acceptable. Counseling: I had a detailed discussion with the patient and/or guardian regarding: the historical points, exam findings, and any diagnostic results supporting the discharge/admit diagnosis, the presence of at least one elevated blood pressure reading (>120/80) during this emergency department visit, lab results, radiology results, the need for further work-up and treatment in the hospital. Response to treatment: the patient's symptoms have markedly improved after treatment. 05:[address] [facility] 07/15 03:24 Order name: Basic Metabolic Panel [facility] 07/15 03:24 Order name: CBC with Diff; Complete Time: 04:21 [facility] 07/15 03:24 Order name: LFT's; Complete Time: 05:18 [facility] 07/15 03:24 Order name: Magnesium; Complete Time: 05:18 [facility] 07/15 03:24 Order name: NT PRO-BNP; Complete Time: 05:18 [facility] 07/15 03:24 Order name: PT-INR; Complete Time: 04:45 [facility] 07/15 03:24 Order name: Troponin (emerg Dept Use Only); Complete Time: 05:18 [facility] 07/15 03:25 Order name: Basic Metabolic Panel; Complete Time: 05:18 [facility] 07/15 03:47 Order name: Influenza Screen (a \\T\\ B) [facility] 07/15 03:47 Order name: COVID-19 : Document "Date of Symptom Onset" if Symptomatic. [facility] 07/15 04:04 Order name: ABG Arterial Blood Gas; Complete Time: 04:21 [facility] 07/15 04:50 Order name: COVID-19/FLU A+B; Complete Time: 04:54 [facility] 07/15 03:24 Order name: XRAY Chest ([address] view) [facility] 07/15 03:24 Order name: EKG; Complete Time: 03:25 [facility] 07/15 03:24 Order name: Cardiac monitoring; Complete Time: 03:48 [facility] 07/15 03:24 Order name: EKG - Nurse/Tech; Complete Time: 03:48 [facility] 07/15 03:24 Order name: IV Saline Lock; Complete Time: 03:48 [facility] 07/15 03:24 Order name: Labs collected and sent; Complete Time: 03:48 [facility] 07/15 03:24 Order name: O2 Per Protocol; Complete Time: 03:48 [facility] 07/15 03:24 Order name: O2 Sat Monitoring; Complete Time: 03:48 [facility] 07/15 03:25 Order name: BIPAP 7 07/15 08:26 Order name: Glucose, Ancillary Testing MS 07/15 12:05 Order name: Glucose, Ancillary Testing [place] 07/15 16:47 Order name: Glucose, Ancillary Testing EDMS Administered Medications: 03:40 Drug: Lasix (furosemide) 80 mg {Note: Given by BATSHEVA Ramirez.} Route: IVP; Site: right jb4 antecubital; 04:04 Drug: Nitro Drip - (Nitroglycerin 50 mg, D5W 250 ml) {Note: right upper chest, started jb4 at 40 mcg/min per providers instruction..} Route: IV; Rate: 5 mcg/min; Site: Other; 04:52 Drug: Zofran (Ondansetron) 4 mg {Note: Administered by right upper chest IV.} Route: jb4 IVP; Site: Other; Disposition Summary: 07/15/21 05:20 Hospitalization Ordered Hospitalization Status: Inpatient Admission [facility] Provider: Brenda Elias Condition: Stable [facility] Problem: an acute exacerbation [facility] Symptoms: have improved [facility] Bed/Room Type: Standard [facility] Location: Telemetry/MedSurg (Inpatient)(07/15/21 19:14) Room Assignment: [facility](07/15/21 19:14) Diagnosis - Combined systolic (congestive) and diastolic (congestive) heart failure 7 - ESRD on Hemodialysis mh7 - Uncontrolloed Hypertension [facility] Forms: - Medication Reconciliation Form [facility] - SBAR form [facility] Signatures: Dispatcher [employer] EDMayelin Hampton RN RN sv Attema, Lee, NUCLEAR LOGGING ENGINEER-C NUCLEAR LOGGING ENGINEER-Cla1 Madelyn Hernandez RN RN cg Bryson, James, RN RN jb4 Gustaov Chambers MD MD 7 Corrections: (The following items were deleted from the chart) 04:09 03:48 Influenza Screen (A ordered. EDMS EDMS 04:11 03:48 CORONAVIRUS ordered. EDMS EDMS 08:07 05:20 Telemetry/MedSurg (Inpatient) 7 sv 08:07 05:20 [facility] sv 19:14 08:07 [facility] ER HOLD cg 19:14 08:07 ERHOLD- sv cg
--- NOTE | 2021-07-15 05:26 | P.HP ---
Certification for Inpatient Patient admitted to: Inpatient With expected LOS: >2 Midnights Patient will require the following post-hospital care: None Practitioner: I am a practitioner with admitting privileges, knowledge of patient current condition, hospital course, and medical plan of care. Services: Services provided to patient in accordance with Admission requirements found in Title 42 Section 412.3 of the Code of Federal Regulations <Jerman Collins - Last Filed: 07/15/21 05:21> Patient History Date of Service: 07/15/21 Reason for admission: Respiratory failure History of Present Illness: 61-year-old female with history of ESRD on HD TTS, DM 2 hypertension, PVD, hypothyroidism, hyperlipidemia, hepatitis C presents emerge department in respiratory distress. Patient reports missing dialysis at least on Thursday possibly on as well. Patient on BiPAP/nitroglycerin drip still hypertensive chest x-ray demonstrates significant pulmonary edema. Labs were significant for white blood cell count 13.7 hemoglobin 11.8 hematocrit 35.8 pH 7.27 PO2 284 PCO2 43.3 sodium 134 chloride 94 creatinine 11.4 GFR 3 glucose 290 BNP 55,000 Covid negative chest x-ray with bilateral pulmonary edema. ED provider wishes to admit for further evaluation and management of acute hypoxic respiratory failure secondary to volume overload after missing dialysis. - Past Medical/Surgical History Diabetic: Yes -: DM -: ESRD -: Hepatitis C -: Hyperlipidemia -: End-stage renal disease on hemodialysis TTS -: Hypothyroidism -: Neuropathy -: Abscess lisy lower leg -: IV drug Abuse -: Right foot surgery r/t abscess -: Cholecystectomy -: Csection -: bilateral leg vein surgery -: Back surgery ruptured disc Psychosocial/ Personal History: Patient lives at home. - Family History Mother -: Hypertension, Diabetes Father -: Heart disease, Hypertension, Diabetes - Social History Smoking Status: Current every day smoker Counseled patient to stop smoking for: less than 10 minutes Smoking therapy provided: No Alcohol use: No CD- Drugs: No Caffeine use: No Place of Residence: Home <Jerman Collins - Last Filed: 07/15/21 05:21> Date of Service: 07/15/21 <Brenda Elias - Last Filed: 07/22/21 02:38> Allergies No Known Allergies Allergy (Verified 05/10/21 23:57) Home Medications: Atorvastatin Calcium 20 mg PO BEDTIME 02/02/20 Insulin Glargine Human [Lantus*] 10 units SQ BEDTIME 02/02/20 Levothyroxine Sodium 50 mcg PO [id number] 02/02/20 Nifedipine [Nifedipine ER] 60 mg PO [id number] 02/02/20 Clopidogrel Bisulfate [Plavix] 1 tab PO DAILY 06/19/20 Methadone HCl 90 mg PO DAILY 05/10/21 Multivitamin [Multiple Vitamins] 1 each PO DAILY 05/10/21 Ascorbic Acid [Vitamin C*] 1,000 mg PO DAILY 07/15/21 Bisacodyl [Laxative] 5 mg PO DAILY 07/15/21 Calcium Acetate 2,001 mg PO TIDWM 07/15/21 Centrum Carb Assist 1 tab PO DAILY 07/15/21 Folic Acid/Vit B Complex and C [Shanae-Shelia Tablet] 1 tab PO DAILY 07/15/21 Furosemide [Lasix*] 40 mg PO BIDL 07/15/21 Insulin Aspart [Novolog] 5 unit SQ DAILY 07/15/21 Lactulose [Kristalose] 20 gm PO DAILY 07/15/21 Lanthanum Carbonate [Fosrenol] 2,000 mg PO TIDWM 07/15/21 Review of Systems 10-point ROS is otherwise unremarkable Respiratory: Cough, Shortness of Breath <Jerman Collins - Last Filed: 07/15/21 05:21> Physical Examination - Physical Exam General: Alert, In no apparent distress, Moderate distress HEENT: Atraumatic, PERRLA, Mucous membr. moist/pink, EOMI, Sclerae nonicteric Neck: Supple, 2+ carotid pulse no bruit, No LAD, Without JVD or thyroid abnorm ality Respiratory: Crackles/rales, Other (Moderate respiratory distress, currently on BiPAP) Cardiovascular: Regular rate/rhythm, Normal S1 S2 Capillary refill: <2 Seconds Gastrointestinal: Normal bowel sounds, No tenderness Musculoskeletal: No tenderness Integumentary: No rashes Neurological: Normal speech, Normal strength at 5/5 x4 extr, Normal tone, Normal affect - Studies Laboratory Data (last 24 hrs) 07/15/21 03:40: PT 13.1 H, INR 1.14 07/15/21 03:40: WBC 13.70 H, Hgb 11.8 L, Hct 35.8 L, Plt Count 297 07/15/21 03:40: Sodium 134 L, Potassium 3.7, BUN 90 H, Creatinine 11.40 H*, Glucose 290 H, Magnesium 2.3, Total Bilirubin 0.4, AST 41 H, ALT 45, Alkaline Phosphatase 100 <Jerman Collins - Last Filed: 07/15/21 05:21> Assessment and Plan - Plan Assessment: Acute hypoxic respiratory failure secondary to pulmonary edema with underlying ESRD on HD TTSmissed dialysis Diabetes type 2 Hypertension Hyperlipidemia Hypothyroidism Hepatitis C Plan: Acute hypoxic respiratory failure secondary to pulmonary edema with underlying ESRD on HD TTSmissed dialysis: Patient currently on nitroglycerin drip, BiPAP. Will call nephrology now and arrange for dialysis as it is possible. Patient was given Lasix in the emergency department, patient refused Gonzalez catheter. Appreciate additional assistance in management from nephrology. Diabetes type 2: A [facility] Accu-Chek, sliding scale insulin. Hypertension: Patient will need dialysis for better control, will continue home medications as well. Hyperlipidemia: Obtain and continue home meds Hypothyroidism: Obtain and continue home meds Hepatitis C: Appears stable at this time. DVT PPX: Heparin Code status: Full Discharge Plan: Home Plan to discharge in: 48 Hours - Advance Directives Does patient have a Living Will: No Does patient have a Durable POA for Healthcare: No - Code Status/Comfort Care Code Status Assessed: Yes (Full code) Critical Care: No Time Spent Managing Pts Care (In Minutes): 55 <Jerman Collins - Last Filed: 07/15/21 05:21> <Jerman Collins - Last Filed: 07/15/21 05:21> Diet: AHA Activity: Fall precautions <Brenda Elias - Last Filed: 07/22/21 02:38> Home Medications: Atorvastatin Calcium 20 mg PO BEDTIME 02/02/20 Insulin Glargine Human [Lantus*] 10 units SQ BEDTIME 02/02/20 Levothyroxine Sodium 50 mcg PO [id number] 02/02/20 Nifedipine [Nifedipine ER] 60 mg PO [id number] 02/02/20 Clopidogrel Bisulfate [Plavix] 1 tab PO DAILY 06/19/20 Methadone HCl 90 mg PO DAILY 05/10/21 Multivitamin [Multiple Vitamins] 1 each PO DAILY 05/10/21 Ascorbic Acid [Vitamin C*] 1,000 mg PO DAILY 07/15/21 Bisacodyl [Laxative] 5 mg PO DAILY 07/15/21 Calcium Acetate 2,001 mg PO TIDWM 07/15/21 Centrum Carb Assist 1 tab PO DAILY 07/15/21 Folic Acid/Vit B Complex and C [Shanae-Shelia Tablet] 1 tab PO DAILY 07/15/21 Furosemide [Lasix*] 40 mg PO BIDL 07/15/21 Insulin Aspart [Novolog] 5 unit SQ DAILY 07/15/21 Lactulose [Kristalose] 20 gm PO DAILY 07/15/21 Lanthanum Carbonate [Fosrenol] 2,000 mg PO TIDWM 07/15/21 Date of Service: 07/15/21 Subjective: Agree with plan of care as mentioned above Physical Examination: Vitals: Afebrile vital signs are stable Physical exam: Cardiovascular: Within normal limits. Lungs: Within normal limits Abdomen: Within normal limits Neuro: Awake, alert, oriented to person place and time Assessment: 1. Volume overload 2. ESRD Plan: 1. Continue with current plan of care; patient to dialyze and then discharge home <Brenda Elias - Last Filed: 07/22/21 02:38>
[2021-07-15] MEDS: INSULIN -REGULAR HUMAN 50 UNIT/0.5 ML ML SQ SCH ×4 (08:05→21:10)
[2021-07-15] MEDS ORDERED: D50W 25 GM/50 ML SYRINGE IV PRN (08:05)
[2021-07-15] MEDS ORDERED: NITROGLYCERIN/D5W 50 MG/250 ML BTL IV PRN (08:05)
[2021-07-15] MEDS ORDERED: GLUCAGON 1 MG/VIAL IM PRN (08:05)
[2021-07-15] MEDS: HEPARIN 5000 UNIT/ML 1 ML VIAL SQ SCH ×2 (08:50→20:54)
[2021-07-15] MEDS ORDERED: HEPARIN 5000 UNIT/ML 1 ML VIAL ONE (09:00)
[2021-07-15] MEDS ORDERED: INSULIN -REGULAR HUMAN 50 UNIT/0.5 ML ML ONE ×2 (09:01→12:23)
--- NOTE | 2021-07-15 09:50 | RAD REPORT ---
EXAM DESCRIPTION: Phoebe Single View07/15/2021 4:52 am CLINICAL HISTORY: Shortness breath COMPARISON: 2019 FINDINGS: Moderate diffuse bilateral pulmonary opacities. Heart is mildly enlarged IMPRESSION: Moderate diffuse bilateral pulmonary opacities may represent pulmonary edema or pneumoni a
[2021-07-15] MEDS ORDERED: ACETAMINOPHEN 500 MG TAB ONE (09:53)
[2021-07-15] MEDS ORDERED: ACETAMINOPHEN 500 MG TAB PO ONE (10:00)
[2021-07-15] MEDS ORDERED: HYDRALAZINE HCL 20 MG/ML VIAL IV ONE (12:31)
[2021-07-15] MEDS ORDERED: cloNIDine HCL 0.1 MG TAB ONE (12:53)
[2021-07-15] MEDS ORDERED: HYDRALAZINE HCL 20 MG/ML VIAL ONE (12:53)
[2021-07-15] MEDS ORDERED: cloNIDine HCL 0.1 MG TAB PO ONE (13:51)
[2021-07-15] MEDS ORDERED: METHADONE HCL 40 MG DISPERSIBLE TAB PO SCH (15:08)
[2021-07-15] MEDS: ONDANSETRON 4 MG/2 ML VIAL IV PRN ×2 (15:11→23:56)
[2021-07-15] MEDS: METHADONE HCL 10 MG TAB PO SCH (15:31)
[2021-07-15] MEDS ORDERED: METHADONE HCL 10 MG TAB PO ONE (15:51)
[2021-07-15] MEDS ORDERED: METHADONE HCL 10 MG TAB PO SCH (16:00)
--- NOTE | 2021-07-15 16:56 | EKG ---
Test Date: 2021-07-15 Test Time: 03:14:33 [place]: GLORIA MEASUREMENT RESULTS: Intervals: Rate: 135 DE: 148 QRSD: 78 QT: 284 QTc: 426 [place]: P: 85 DE: 148 QRS: 61 T: 109 INTERPRETIVE STATEMENTS: Sinus tachycardia ST & T wave abnormality, consider lateral ischemia Abnormal ECG Compared to ECG 06/19/2020 08:40:25 ST (T wave) deviation now present Possible ischemia now present Sinus rhythm no longer present Myocardial infarct finding no longer present Electronically Signed On 07-15-21 16:55:33 CDT by Robert Correa
[2021-07-15] MEDS: FUROSEMIDE 40 MG TABLET PO SCH (17:00)
[2021-07-15] MEDS: LANTHANUM 1000 MG TAB PO SCH (17:00)
[2021-07-15] MEDS: CALCIUM ACETATE 667 MG PO SCH (17:00)
[2021-07-15] MEDS ORDERED: FUROSEMIDE 40 MG TABLET ONE (17:08)
[2021-07-15] MEDS ORDERED: ACETAMINOPHEN 325 MG TABLET PO PRN (18:56)
[2021-07-15] MEDS ORDERED: ATORVASTATIN 20 MG TAB PO SCH (21:00)
[2021-07-15] MEDS ORDERED: INSULIN GLARGINE 100 UNITS/ML SQ SCH (21:00)
[2021-07-15] MEDS: HYDRALAZINE HCL 20 MG/ML VIAL IV PRN (21:28)
--- NOTE | 2021-07-15 23:45 | CON ---
Date of Consultation: 07/15/2021 Chief Complaint: Hyperkalemia, fluid overload, congestive heart failure with diastolic dysfunction. History Of Present Illness: The patient is a 61-year-old woman with history of end-stage renal disease, on hemodialysis. She has been on dialysis for few years. She has history of diabetes mellitus, diabetic kidney disease, hypertension, cerebrovascular disease, hypothyroidism, hyperlipidemia, and hepatitis C. She presented to the hospital because of respiratory distress. She missed the dialysis last week on 2 occasions. She has history of noncompliance. The patient was fluid overloaded. She was started on BiPAP and nitroglycerin drip was initiated for hypertensive emergency. Chest x-ray demonstrated pulmonary edema. The patient had decompensated congestive heart failure and hypertensive emergency. A stat dialysis was ordered for volume control. The patient was found to have hyperkalemia, potassium was elevated, and dialysis was started to control potassium. The patient received treatment with medication to stabilize potassium. Review of Systems: The patient was lethargic. She was medicated for her pain. She cannot provide review of systems. She is arousable. She denies chest pain, wheezing, or cough. She denies fevers or chills. Past Medical History: End-stage renal disease, hepatitis C, hypertension, end- stage renal disease, on hemodialysis, hypothyroidism, peripheral neuropathy, abscess to bilateral lower legs, IV drug abuse. Right foot surgery, abscess formation, incision and drainage, cholecystectomy, . Social History: Current everyday smoker. Alcohol, denies. The patient has history of IV drug use. Family History: Mother has hypertension and diabetes. Father has heart disease, hypertension, and diabetes. Physical Examination: General: The patient is awake, arousable, although she is lethargic. She was medicated for pain. Eyes: Anicteric sclerae. EOMI. Ears, Nose, Mouth, and Throat: Oral mucosa moist. No pallor. Neck: Supple. No bruits. Lungs: Coarse breath sounds bilaterally. Heart: S1 and S2. No pericardial friction rub. Abdomen: Soft, obese, and nontender. No rebound. No guarding. Extremities: Edema present in both legs. No cellulitis. No oozing. No drainage. Neurologic: Moving her extremities. Cranial nerves are intact. Laboratory Data: potassium 3.7, BUN 90, creatinine 11.4, glucose 290, magnesium 2.3. AST 41, ALT 45, total bilirubin 0.4. White blood cells 13.7, hemoglobin 11.8, hematocrit 35.8, and platelet count is 297,000. Impression: 1. Acute hypoxemic respiratory failure secondary to pulmonary edema with underlying hypertensive emergency and volume overload The patient was started on nitroglycerin drip and required BiPAP for pulmonary edema, and hypoxemic respiratory failure. The patient received emergent dialysis to obtain negative fluid balance and to control potassium. 2. Plan is to monitor potassium level and adjust treatment. Dialysis will be arranged again for tomorrow. The patient has severe fluid overload and needs to have daily dialysis treatment. The patient has history of hyperkalemia, although during this admission potassium level was 3.7, BUN 90 and creatinine 11.4. There was no metabolic acidosis. 3. The patient had decompensated congestive heart failure[place] [id number]. Ultrafiltration was initiated and adjusted for volume control, monitor blood pressure. The patient has severe hypertension and required IV drip. Recommend to monitor blood pressure and resume p.o. medication . 4. Hypoxemic respiratory failure. Continue on nasal cannula. 5. Noncompliance. The patient currently was medicated for pain and I plan to discuss with the patient the importance of compliance with dialysis. 6. Hypertension. Adjust medication for optimal blood pressure control. JUSTINO/MANUEL Voice ID: [id number] Report ID: [id number] [id number]
[2021-07-16] MEDS: ONDANSETRON 4 MG/2 ML VIAL IV PRN (05:17)
[2021-07-16] MEDS: HYDRALAZINE HCL 20 MG/ML VIAL IV PRN (05:18)
[2021-07-16 05:42] LABS: Lymphocytes % 21.7 % (15.3-44.8); MPV 7.3 fL (7.6-11.3); RBC Red Blood Cell Count 3.44 M/uL (3.86-4.86)
[2021-07-16] MEDS ORDERED: LEVOTHYROXINE SOD 0.05 MG TABLET PO SCH (06:00)
[2021-07-16] MEDS ORDERED: NIFEDIPINE 60 MG PO SCH (06:00)
[2021-07-16 06:28] LABS: Albumin 3.1 g/dL (3.4-5.0); Bilirubin Total 0.4 mg/dL (0.2-1.0); Potassium 5.5 mmol/L (3.5-5.1); Protein, Total 8.5 g/dL (6.4-8.2); Thyroid Stimulating Hormone 1.16 uIU/mL (0.360-3.740)
[2021-07-16] MEDS ORDERED: CLONIDINE HCL 0.3 MG TAB PO ONE (06:38)
[2021-07-16] MEDS: INSULIN -REGULAR HUMAN 50 UNIT/0.5 ML ML SQ SCH ×2 (07:30→11:45)
[2021-07-16] MEDS: METHADONE HCL 10 MG TAB PO SCH (07:56)
[2021-07-16] MEDS: FUROSEMIDE 40 MG TABLET PO SCH (07:58)
[2021-07-16] MEDS: HEPARIN 5000 UNIT/ML 1 ML VIAL SQ SCH (07:59)
[2021-07-16] MEDS: LANTHANUM 1000 MG TAB PO SCH (08:00)
[2021-07-16] MEDS: CALCIUM ACETATE 667 MG PO SCH ×2 (08:00→11:46)
[2021-07-16] MEDS ORDERED: LACTULOSE 20 GM PO SCH (09:00)
[2021-07-16] MEDS ORDERED: FOLIC ACID PO SCH (09:00)
[2021-07-16] MEDS ORDERED: ASCORBIC ACID 500 MG TABLET PO SCH (09:00)
[2021-07-16] MEDS ORDERED: CLOPIDOGREL 75 MG TABLET PO SCH (09:00)
[2021-07-16] MEDS ORDERED: METHADONE HCL 10 MG TAB PO SCH (09:00)
[2021-07-16] MEDS ORDERED: VIT B COMPLEX AND C PO SCH (09:00)
[2021-07-16] MEDS ORDERED: BISACODYL 5 MG PO SCH (09:00)
[2021-07-16] MEDS ORDERED: [UNRECOGNIZED DRUG - OTHER] PO SCH (09:00)
[2021-07-16] MEDS ORDERED: MULTIVITAMIN PO SCH (09:00)
[2021-07-16 11:48] VITALS: TEMP 97.7
[2021-07-16] MEDS ORDERED: FOSRENOL 1000 MG PO SCH (12:00)
[2021-07-16 12:05] VITALS: O2SAT 98
--- NOTE | 2021-07-16 14:16 | PN ---
Date of Progress Note: 07/16/2021 Subjective: The patient admitted with over volume and hyperkalemia. The patient was dialyzed. The patient felt much better. Physical Examination: Vital Signs: Blood pressure 142/81, pulse of 86, afebrile. Chest: Clear to auscultation. Heart: S1, S2. Systolic murmur. Abdomen: Soft, nontender. Extremity: No edema. Neurologic: Alert. No focality. Laboratory Data: H and H 11.. Sodium 134, potassium 5.5, bicarb 29, BUN 59, creatinine 8.8, calcium 8.3. Current Medications: The patient on include; 1. Atorvastatin. 2. Clonidine 0.3. 3. Hydralazine p.r.n. 4. Tylenol. 5. Lasix. 6. Levothyroxine. 7. Bisacodyl. 8. Folic acid. 9. Calcium acetate, PhosLo. 10. Nifedipine. Assessment And Plan: 1. End-stage renal disease with over volume. We will challenge the patient today. 2. Hyperkalemia. The patient is going to be dialyzed on low-potassium bath. 3. Over volume. The patient is going to be challenged. 4. Hypertension. We will utilize blood pressure for more ultrafiltration. The patient cleared from the Renal standpoint for discharge planning. Time spent examining the patient [id number] placing order discussing with the patient reviewing data discussing the case with all of our subspecialty including hospitalist 45 minutes NOAH Voice ID: [id number] Report ID: [id number] GUMARO
[2021-07-16 14:41] VITALS: BP 142/81
[2021-07-19 18:53] LABS: HBsAG Nonreactive (Nonreactive)
[2021-07-21 20:43] LABS: Hep C Virus RNA (PCR)log 5.95 log IU/mL
--- NOTE | 2021-07-22 02:37 | P.DS ---
Discharge Date: 07/16/21 Disposition: ROUTINE DISCHARGE Discharge Condition: GOOD Reason for Admission: Respiratory failure Brief History of Present Illness: 61-year-old female with history of ESRD on HD TTS, DM 2 hypertension, PVD, hypothyroidism, hyperlipidemia, hepatitis C presents emerge department in respiratory distress. Patient reports missing dialysis at least on Thursday possibly on as well. Patient on BiPAP/nitroglycerin drip still hypertensive chest x-ray demonstrates significant pulmonary edema. Labs were significant for white blood cell count 13.7 hemoglobin 11.8 hematocrit 35.8 pH 7.27 PO2 284 PCO2 43.3 sodium 134 chloride 94 creatinine 11.4 GFR 3 glucose 290 BNP 55,000 Covid negative chest x-ray with bilateral pulmonary edema. ED provider wishes to admit for further evaluation and management of acute hypoxic respiratory failure secondary to volume overload after missing dialysis. Hospital Course: After hemodialysis patient's clinical symptoms have improved. Patient is doing much better. Patient respiratory status has improved. At this time, patient is stable for discharge home. Vital Signs/Physical Exam: Temp Pulse Resp BP Pulse Ox 97.7 F 79 20 142/81 H 96 07/16/21 12:00 07/16/21 12:00 07/16/21 12:00 07/16/21 14:41 07/16/21 12:00 General: Alert, In no apparent distress, Oriented x3 Laboratory Data at Discharge: WBC 9.30 K/uL (4.3-10.9) D 07/16/21 04:59 Hgb 11.1 g/dL (12.0-15.0) L 07/16/21 04:59 Hct 33.0 % (36.0-45.0) L 07/16/21 04:59 Plt Count 257 K/uL (152-406) 07/16/21 04:59 PT 13.1 SECONDS (9.5-12.5) H 07/15/21 03:40 INR 1.14 07/15/21 03:40 Sodium 134 mmol/L (136-145) L 07/16/21 04:59 Potassium 5.5 mmol/L (3.5-5.1) H 07/16/21 04:59 BUN 59 mg/dL (7-18) H D 07/16/21 04:59 Creatinine 8.86 mg/dL (0.55-1.3) H* D 07/16/21 04:59 Glucose 125 mg/dL (74-106) H 07/16/21 04:59 Magnesium 2.3 mg/dL (1.8-2.4) 07/15/21 03:40 Total Bilirubin 0.4 mg/dL (0.2-1.0) 07/16/21 04:59 AST 29 U/L (15-37) 07/16/21 04:59 ALT 39 U/L (12-78) 07/16/21 04:59 Alkaline Phosphatase 76 U/L (45-117) 07/16/21 04:59 Triglycerides 276 mg/dL (<150) H 07/16/21 04:59 Cholesterol 180 mg/dL (<200) 07/16/21 04:59 HDL Cholesterol 48 mg/dL (40-60) 07/16/21 04:59 Cholesterol/HDL Ratio 3.75 07/16/21 04:59 Home Medications: Atorvastatin Calcium 20 mg PO BEDTIME 02/02/20 Insulin Glargine Human [Lantus*] 10 units SQ BEDTIME 02/02/20 Levothyroxine Sodium 50 mcg PO [id number] 02/02/20 Nifedipine [Nifedipine ER] 60 mg PO [id number] 02/02/20 Clopidogrel Bisulfate [Plavix] 1 tab PO DAILY 06/19/20 Methadone HCl 90 mg PO DAILY 05/10/21 Multivitamin [Multiple Vitamins] 1 each PO DAILY 05/10/21 Ascorbic Acid [Vitamin C*] 1,000 mg PO DAILY 07/15/21 Bisacodyl [Laxative] 5 mg PO DAILY 07/15/21 Calcium Acetate 2,001 mg PO TIDWM 07/15/21 Centrum Carb Assist 1 tab PO DAILY 07/15/21 Folic Acid/Vit B Complex and C [Shanae-Shelia Tablet] 1 tab PO DAILY 07/15/21 Furosemide [Lasix*] 40 mg PO BIDL 07/15/21 Insulin Aspart [Novolog] 5 unit SQ DAILY 07/15/21 Lactulose [Kristalose] 20 gm PO DAILY 07/15/21 Lanthanum Carbonate [Fosrenol] 2,000 mg PO TIDWM 07/15/21 Physician Discharge Instructions: OK TO DC IV AND DC HOME FOLLOW-UP WITH PRIMARY CARE PROVIDER IN 1-2 WEEKS FOLLOW-UP WITH Nephrology for dialysis RETURN TO THE ER IF symptoms worsen CALL or TEXT DR. CHRISTIE AT [phone] IF ANY QUESTIONS REGARDING HOSPITAL STAY. PLEASE CALL THE FLOOR AT [phone] IF ANY MEDICATION OR NURSING QUESTIONS. Diet: AHA Activity: Fall precautions Followup: Celia Jacobson MD [COURTESY - CAN ADMIT] - NONE,NONE [Primary Care Provider] - Time spent managing pt's care (in minutes): 35
== END 2021-07-16 14:51 | disposition home or self-care (01) | DRG 291 ==
LOC: ER 03:10 → ERHOLD 05:20 → 2ND 19:46
PROVIDERS: ADMIT Hospitalist; ATTEND Hospitalist
PROC: 5A1D70Z Performance of Urinary Filtration, Intermittent, Less than 6 Hours Per Day (ICD-10-PCS; principal; 2021-07-16)
PROC: 5A09357 Assistance with Respiratory Ventilation, Less than 24 Consecutive Hours, Continuous Positive Airway Pressure (ICD-10-PCS; 2021-07-16)
DX: I13.2 Hypertensive heart and chronic kidney disease with heart failure and with stage 5 chronic kidney disease, or end stage renal disease (principal); J96.01 Acute respiratory failure with hypoxia; I50.33 Acute on chronic diastolic (congestive) heart failure; N18.6 End stage renal disease; I16.1 Hypertensive emergency; E87.5 Hyperkalemia; E78.5 Hyperlipidemia, unspecified; E03.9 Hypothyroidism, unspecified; B19.20 Unspecified viral hepatitis C without hepatic coma; E87.70 Fluid overload, unspecified; Z99.2 Dependence on renal dialysis; E11.22 Type 2 diabetes mellitus with diabetic chronic kidney disease; I73.9 Peripheral vascular disease, unspecified; F17.210 Nicotine dependence, cigarettes, uncomplicated; Z91.15 Patient's noncompliance with renal dialysis; Z86.73 Personal history of transient ischemic attack (TIA), and cerebral infarction without residual deficits; Z20.822 Contact with and (suspected) exposure to COVID-19
CPT/HCPCS: 0240U; 36415; 71045; 80048; 80053; 80061; 80076; 82805; 82947; 83735; 83880; 84439; 84443; 84484; 85025; 85610; 86704; 86706; 86803; 87070; 87077; 87186; 87205; 87340; 87522; 90935; 93005; 94660; 94760; 99291; 99292; J0360; J1644; J1815; J2405

== ENCOUNTER 2021-08-27 15:35 | Emergency (ER) | payer OTHER ==
--- NOTE | 2021-08-27 20:45 | EDPHYS ---
Physician Documentation [facility] Name: Natalie Silva Age: 61 yrs Sex: Female : 1960 Arrival Date: 08/27/2021 Time: 15:36 Bed DIS2 Private MD: Sandi Fisher ED Physician Gustavo Chambers HPI: 08/27 18:52 This 61 yrs old Female presents to ER via Wheelchair with complaints of Foot cp Pain, Wound Infection. 18:52 The patient presents with open wound to left fourth toe noticed today. cp 18:52 Context: resulted from an unknown cause. Onset: The symptoms/episode began/occurred cp today. Associated signs and symptoms: Pertinent positives: chronic venous ulcers to lower legs, Pertinent negatives fever, warmth, drainage. Treatment prior to arrival includes: no previous treatment. Historical: - Allergies: 15:56 No Known Allergies; vg1 - Home Meds: 15:56 atorvastatin Oral [Active]; clopidogrel Oral [Active]; Furosemide Oral [Active]; vg1 Nifedipine Oral [Active]; - PMHx: 15:56 Anemia; CHF; Chronic osteomyelitis of L ankle/foot; Diabetes - IDDM; dialysis M W F; vg1 HEP C; High Cholesterol; Hypertension; Hypothyroidism; Secondary Hyperparathyroidism; - PSHx: 19:53 left arm dialysis port; bs2 - Immunization history:: Adult Immunizations up to date, Client reports receiving the 2nd dose of the Covid vaccine. - Social history:: Smoking status: Patient reports the use of cigarette tobacco products, smokes one pack cigarettes per day. ROS: 20:00 Skin: Positive for of the left fourth toe, open wound. cp 20:00 Eyes: Negative for injury, pain, redness, and discharge. cp 20:00 Constitutional: Negative for body aches, chills, fever, poor PO intake. 20:00 Cardiovascular: Negative for chest pain, edema, palpitations. 20:00 Respiratory: Negative for cough, shortness of breath, wheezing. 20:00 Abdomen/GI: Negative for abdominal pain, nausea, vomiting, and diarrhea. 20:00 All other systems are negative. Exam: 20:05 Constitutional: The patient appears in no acute distress, alert, awake, non-toxic, well cp developed, well nourished. 20:05 Head/Face: Normocephalic, atraumatic. cp 20:05 Chest/axilla: Inspection: normal. 20:05 Cardiovascular: Rate: normal, Edema: pedal edema, that is mild, JVD: is not appreciated. 20:05 Respiratory: the patient does not display signs of respiratory distress, Respirations: normal, no use of accessory muscles, no retractions, labored breathing, is not present. 20:05 Skin: small superficial wound without erythema, swelling and/or drainage noted to dorsal side of right fourth toe. Noted chronic, large venous ulceration to lower legs with mild drainage and no erythema. Vital Signs: 15:53 BP 191 / 89; Pulse 77; Resp 16; Temp 98.7; Pulse Ox 98% ; Weight 77.11 kg; Height 5 ft. vg1 4 in. (162.56 cm); Pain 10/10; 19:25 BP 212 / 74; Pulse 66; Resp 15; Temp 98.5; Pulse Ox 100% ; Pain 3/10; bs2 20:39 BP 160 / 60; Pulse 67; Resp 18; Pulse Ox 97% on R/A; em 15:53 Body Mass Index 29.18 (77.11 kg, 162.56 cm) vg1 MDM: 18:36 Patient medically screened. cp 20:00 Differential diagnosis: sepsis, cellulitis, pressure ulcer, peripheral artery disease. cp 20:44 Data reviewed: vital signs, nurses notes. cp 20:44 Counseling: I had a detailed discussion with the patient and/or guardian regarding: the cp historical points, exam findings, and any diagnostic results supporting the discharge/admit diagnosis, to return to the emergency department if symptoms worsen or persist or if there are any questions or concerns that arise at home. Response to treatment: the patient's symptoms have mildly improved after treatment, and as a result, I will discharge patient. ED course: VSS. Blood pressure improved after patient took prescribed clonidine. Wounds cleaned and dressed. Recommend f/u with wound care and primary physician for wound care and reevaluation. 08/27 18:52 Order name: Wound dressing; Complete Time: 19:45 cp 08/27 19:15 Order name: Vital Signs: blood pressure recheck; Complete Time: 19:45 cp Administered Medications: 19:30 Not Given (patient drove to ED): Hydrocodone-Acetaminophen (7.5 mg-325 mg) 1 tabs PO cp once; RASS on ADMIN: Combtv4, Very Agttd3, Agttd2, Rstlss1, AlertClm0, Drwsy-1, Lt Sdtn-2, Mod Sdtn-3, Dp Sdtn-4, UnArsble-5 19:45 CANCELLED (pt took home medications ): cloNIDine 0.2 mg PO once bs2 Disposition: 08/28 07:13 Co-signature as Attending Physician, Gustavo Chambers MD. 7 Disposition Summary: 08/27/21 20:44 Discharge Ordered Location: Home cp Problem: new cp Symptoms: have improved cp Condition: Stable cp Diagnosis - Unspecified open wound of unspecified toe(s) without damage to nail, initial cp encounter - left fourth toe - Hypertensive chronic kidney disease with stage 5 chronic kidney disease or end cp stage renal disease Followup: cp - With: Private Physician - When: 1 - 2 days - Reason: Wound Recheck Discharge Instructions: - Discharge Summary Sheet cp - How to Change Your Wound Dressing cp - Hypertension, Adult cp Forms: - Medication Reconciliation Form cp - Thank You Letter cp - Antibiotic Education cp - Prescription Opioid Use cp Prescriptions: - Doxycycline Monohydrate 100 mg Oral Tablet - take 1 tablet by ORAL route every 12 hours for 10 days; 20 tablet; Refills: 0, cp Product Selection Permitted Signatures: Mykel Mulligan PA PA cp Mónica Hernandez, RN RN vg1 Gustavo Chambers MD MD [id number] Bertha Nava, RN RN bs2 Corrections: (The following items were deleted from the chart) 08/27 19:45 19:30 cloNIDine 0.2 mg PO once ordered. cp bs2
--- NOTE | 2021-08-27 20:45 | ER ---
Nurse's Notes [facility] Name: Natalie Silva Age: 61 yrs Sex: Female : 1960 Arrival Date: 08/27/2021 Time: 15:36 Bed DIS2 Private MD: Sandi Fisher Diagnosis: Unspecified open wound of unspecified toe(s) without damage to nail, initial encounter-left fourth toe;Hypertensive chronic kidney disease with stage 5 chronic kidney disease or end stage renal disease Presentation: 08/27 15:53 Chief complaint: Patient states: Was seen in ED about two weeks ago for sore on Left vg1 foot. States woke up this morning and it was bleeding. Sore is not bleeding at this time. Coronavirus screen: Vaccine status: Patient reports receiving the 2nd dose of the covid vaccine. Client denies travel out of the [place] in the last 14 days. Ebola Screen: Patient negative for fever greater than or equal to 101.5 degrees Fahrenheit, and additional compatible Ebola Virus Disease symptoms. Initial Sepsis Screen: Does the patient meet any 2 criteria? No. Patient's initial sepsis screen is negative. Does the patient have a suspected source of infection? No. Patient's initial sepsis screen is negative. Risk Assessment: Do you want to hurt yourself or someone else? Patient reports no desire to harm self or others. Onset of symptoms was August 13, 2021. 15:53 Method Of Arrival: Wheelchair vg1 15:53 Acuity: MARIELA 3 vg1 Triage Assessment: 15:56 General: Appears in no apparent distress. comfortable, Behavior is calm, cooperative. vg1 Pain: Complains of pain in left fourth toe and Left fourth toenail. Historical: - Allergies: 15:56 No Known Allergies; vg1 - Home Meds: 15:56 atorvastatin Oral [Active]; clopidogrel Oral [Active]; Furosemide Oral [Active]; vg1 Nifedipine Oral [Active]; - PMHx: 15:56 Anemia; CHF; Chronic osteomyelitis of L ankle/foot; Diabetes - IDDM; dialysis M W F; vg1 HEP C; High Cholesterol; Hypertension; Hypothyroidism; Secondary Hyperparathyroidism; - PSHx: 19:53 left arm dialysis port; bs2 - Immunization history:: Adult Immunizations up to date, Client reports receiving the 2nd dose of the Covid vaccine. - Social history:: Smoking status: Patient reports the use of cigarette tobacco products, smokes one pack cigarettes per day. Screenin:25 Abuse screen: Denies threats or abuse. Denies injuries from another. Nutritional bs2 screening: No deficits noted. Tuberculosis screening: No symptoms or risk factors identified. Fall Risk None identified. Assessment: 19:45 General: Appears in no apparent distress. comfortable, obese, well groomed, well bs2 developed, well nourished, Behavior is calm, cooperative, appropriate for age. Pain: Complains of pain in Left fourth toenail and left fourth toe Pain currently is 3 out of 10 on a pain scale. Neuro: No deficits noted. Cardiovascular: No deficits noted. Respiratory: No deficits noted. GI: No signs and/or symptoms were reported involving the gastrointestinal system. : No signs and/or symptoms were reported regarding the genitourinary system. EENT: No signs and/or symptoms were reported regarding the EENT system. Derm: No signs and/or symptoms reported regarding the dermatologic system. Derm: pt has a diabetic ulcer to dorso-medial base of Left 5th toe, pt states it was bleeding when she woke up this AM, no bleeding at this time and wound does not appear to be infected. Musculoskeletal: No signs and/or symptoms reported regarding the musculoskeletal system. 19:53 General: on vital sign recheck, BP was elevated to 212/74 pt states she has not had her bs2 evening medications, pt has home medications including her 0.3 Clonidine, Spoke with Mykel HERNANDEZ about BP. Verbal order received for pt to take one 0.3mg Clonidine of home medications. Pt moved to recliner chair re-check BP in 30 min, Report given to Dwayne HERMAN . Vital Signs: 15:53 BP 191 / 89; Pulse 77; Resp 16; Temp 98.7; Pulse Ox 98% ; Weight 77.11 kg; Height 5 ft. vg1 4 in. (162.56 cm); Pain 10/10; 19:25 BP 212 / 74; Pulse 66; Resp 15; Temp 98.5; Pulse Ox 100% ; Pain 3/10; bs2 20:39 BP 160 / 60; Pulse 67; Resp 18; Pulse Ox 97% on R/A; em 15:53 Body Mass Index 29.18 (77.11 kg, 162.56 cm) vg1 ED Course: 15:36 Patient arrived in ED. am2 15:36 Sandi Fisher FNP-C is Private Physician. am2 15:56 Triage completed. vg1 15:56 Arm band placed on. vg1 18:28 Vidhya Higuera RN is Primary Nurse. tc5 18:32 Mykel Mulligan PA is PHCP. cp 18:32 Brenda Sheffield MD is Attending Physician. cp 19:05 Gustavo Chambers MD is Attending Physician. cp 19:25 Patient has correct armband on for positive identification. Bed in low position. Call bs2 light in reach. Side rails up X 1. Pulse ox on. NIBP on. Warm blanket given. 19:25 redressed leg wounds, and applied dressing to wound on base of toe. Patient did not bs2 have IV access during this emergency room visit. Dressings: Kerlix X 2; lateral aspect of right calf and right contreras non-adherent dressing 4X4s. Dressings: Kerlix X 2; lateral aspect of left calf and left contreras non-adherent dressing x 1 lateral aspect of left calf and left contreras 4X4s. Administered Medications: 19:30 Not Given (patient drove to ED): Hydrocodone-Acetaminophen (7.5 mg-325 mg) 1 tabs PO cp once; RASS on ADMIN: Combtv4, Very Agttd3, Agttd2, Rstlss1, AlertClm0, Drwsy-1, Lt Sdtn-2, Mod Sdtn-3, Dp Sdtn-4, UnArsble-5 19:45 CANCELLED (pt took home medications ): cloNIDine 0.2 mg PO once bs2 Outcome: 20:44 Discharge ordered by . cp 20:50 Discharged to home ambulatory. em 20:50 Condition: stable 20:50 Discharge instructions given to patient, Instructed on discharge instructions, follow up and referral plans. medication usage, Demonstrated understanding of instructions, follow-up care, medications, wound care, Prescriptions given X 1. 20:50 Patient left the ED. em Signatures: Calvin Woods RN RN em Mykel Mulligan PA PA cp Shira Egan am2 Mónica Hernandez RN RN vg1 Bertha Nava RN RN bs2 Cassaboom, Vidhya, RN RN tc5
[2021-08-27 21:11] VITALS: TEMP 98.5
[2021-08-27 21:45] VITALS: BP 110/74; O2SAT 98
== END 2021-08-27 20:50 | disposition home or self-care (01) ==
LOC: ER 15:35
DX: S91.105A Unspecified open wound of left lesser toe(s) without damage to nail, initial encounter (principal); E11.22 Type 2 diabetes mellitus with diabetic chronic kidney disease; I13.2 Hypertensive heart and chronic kidney disease with heart failure and with stage 5 chronic kidney disease, or end stage renal disease; I50.9 Heart failure, unspecified; N18.6 End stage renal disease; Z99.2 Dependence on renal dialysis; F17.210 Nicotine dependence, cigarettes, uncomplicated
CPT/HCPCS: 99283

== ENCOUNTER 2021-11-11 13:36 | Inpatient (IN) | payer OTHER ==
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
[2021-11-11] MEDS ORDERED: LABETALOL 20 MG/4ML SYRINGE IV ONE ×2 (13:58→14:08)
[2021-11-11] MEDS ORDERED: Nicardipine/NS 25 MG/250 ML KIT IV ONE (13:59)
[2021-11-11] MEDS ORDERED: ONDANSETRON 4 MG/2 ML VIAL ONE (14:00)
[2021-11-11] MEDS ORDERED: MORPHINE 4 MG/ML SYR ONE (14:00)
[2021-11-11] MEDS ORDERED: FUROSEMIDE 100 MG/10 ML VIAL IV ONE (14:13)
[2021-11-11 14:38] LABS: Hematocrit 34.7 % (36.0-45.0); Lymphocytes % 7.4 % (15.3-44.8); MPV 6.9 fL (7.6-11.3); RBC Red Blood Cell Count 3.52 M/uL (3.86-4.86)
[2021-11-11 14:50] LABS: Protime INR 1.21
--- NOTE | 2021-11-11 15:12 | RAD REPORT ---
EXAM DESCRIPTION: RAD - Chest Single View - 11/11/2021 3:08 pm CLINICAL HISTORY: COUGH Chest pain. COMPARISON: Chest Single View dated 07/15/2021; Chest Single View dated 06/19/2020; Chest Single View d ated 02/02/2020; CHEST SINGLE VIEW dated 09/12/2015 FINDINGS: Portable technique limits examination quality. Extensive bilateral pulmonary opacities are noted which may represent pulmonary edema pneumonia. The heart is mildly prominent in size. No displaced fractures.
[2021-11-11 15:18] LABS: ALT/SGPT 30 U/L (12-78); AST/SGOT 27 U/L (15-37); Albumin 2.7 g/dL (3.4-5.0); Alkaline Phosphatase 60 U/L (45-117); BUN Blood Urea Nitrogen 110 mg/dL (7-18); Bicarbonate 18 mmol/L (21-32); Bilirubin Direct 0.2 mg/dL (0-0.2); Bilirubin Total 0.5 mg/dL (0.2-1.0); Glucose Level 228 mg/dL (74-106); Magnesium 1.9 mg/dL (1.8-2.4); NT PRO-BNP 39802 pg/mL (<125); Potassium 5.2 mmol/L (3.5-5.1); Protein, Total 8.6 g/dL (6.4-8.2); Sodium Level 133 mmol/L (136-145); Troponin (Emerg Dept Use Only) < 0.02 ng/mL (0.0-0.045)
--- NOTE | 2021-11-11 15:52 | RAD REPORT ---
EXAM DESCRIPTION: CT - Head Brain Wo Cont - 11/11/2021 3:40 pm CLINICAL HISTORY: Dizziness;Mental status change Headache, drowsiness COMPARISON: Head Brain Wo Cont dated 06/19/2020; HEAD BRAIN W O CONTRAST dated 09/19/2015 TECHNIQUE: All CT scans are performed using dose optimization technique as appropriate and may inclu de automated exposure control or mA/KV adjustment according to patient size. FINDINGS: No intracranial hemorrhage, hydrocephalus or extra-axial fluid collection.Mild generalized brain atrophy is present with mild periventricular and deep white matter chronic microvascular ische sumi changes. No areas of brain edema or evidence of midline shift. The paranasal sinuses and mastoids are clear. The calvarium is intact. IMPRESSION: No acute intracranial abnormality.
[2021-11-11] MEDS ORDERED: PIPERACIL/TAZO 3.375 GM VIAL IV ONE (15:56)
[2021-11-11] MEDS ORDERED: ALBUTEROL 2.5 MG/3 ML NEB SOL ONE (15:56)
[2021-11-11] MEDS ORDERED: NA CHLORIDE 0.9% 100 ML ONE (15:56)
--- NOTE | 2021-11-11 15:59 | EDPHYS ---
Physician Documentation [facility] Name: Natalie Silva Age: 61 yrs Sex: Female : 1960 Arrival Date: 11/11/2021 Time: 13:45 Bed 15 Private MD: ED Physician Mykel Yeung HPI: 11/11 15:43 This 61 yrs old Female presents to ER via EMS with complaints of dyspnea, sallie hypertensive and ams. 15:43 The patient has shortness of breath at rest. Onset: The symptoms/episode began/occurred sallie 1 day(s) ago. Duration: The symptoms are continuous, and are steadily getting worse. The patient's shortness of breath is aggravated by exertion, light activity, supine position, talking, walking. The patient presents with decreased mental status. Onset: The symptoms/episode began/occurred this morning. Possible causes: CVA or TIA, head injury, low blood sugar, seizure, sepsis. Associated signs and symptoms: Pertinent positives: productive cough. Severity of symptoms: At their worst the symptoms were moderate in the emergency department the symptoms are unchanged. Associated signs and symptoms: The patient has no apparent associated signs or symptoms. Current symptoms: In the emergency department the patient's symptoms are unchanged from the initial presentation, despite home interventions. Historical: - Allergies: 14:16 No Known Allergies; jl7 - PMHx: 14:16 Anemia; CHF; Chronic osteomyelitis of L ankle/foot; Diabetes - IDDM; dialysis M W F; jl7 HEP C; High Cholesterol; Hypertension; Hypothyroidism; Secondary Hyperparathyroidism; 17:12 Kidney disease; jh6 - PSHx: 14:16 left arm dialysis port; jl7 - Immunization history:: Adult Immunizations unknown. - Social history:: Smoking status: unknown. - Family history:: not pertinent. ROS: 15:43 Constitutional: Negative for fever, chills, and weight loss, Eyes: Negative for injury, sallie pain, redness, and discharge, ENT: Negative for injury, pain, and discharge, Neck: Negative for injury, pain, and swelling, Cardiovascular: Negative for chest pain, palpitations, and edema, Abdomen/GI: Negative for abdominal pain, nausea, vomiting, diarrhea, and constipation, Back: Negative for injury and pain, : Negative for injury, bleeding, discharge, and swelling, MS/Extremity: Negative for injury and deformity, Skin: Negative for injury, rash, and discoloration, Psych: Negative for depression, anxiety, suicide ideation, homicidal ideation, and hallucinations, Allergy/Immunology: Negative for hives, rash, and allergies, Endocrine: Negative for neck swelling, polydipsia, polyuria, polyphagia, and marked weight changes, Hematologic/Lymphatic: Negative for swollen nodes, abnormal bleeding, and unusual bruising. 15:43 Respiratory: Positive for cough, shortness of breath, at rest. 15:43 Neuro: Positive for altered mental status. Exam: 15:43 Constitutional: This is a well developed, well nourished patient who is awake, alert, sallie and in no acute distress. Head/Face: Normocephalic, atraumatic. Eyes: Pupils equal round and reactive to light, extra-ocular motions intact. Lids and lashes normal. Conjunctiva and sclera are non-icteric and not injected. Cornea within normal limits. Periorbital areas with no swelling, redness, or edema. ENT: Nares patent. No nasal discharge, no septal abnormalities noted. Tympanic membranes are normal and external auditory canals are clear. Oropharynx with no redness, swelling, or masses, exudates, or evidence of obstruction, uvula midline. Mucous membranes moist. Neck: Trachea midline, no thyromegaly or masses palpated, and no cervical lymphadenopathy. Supple, full range of motion without nuchal rigidity, or vertebral point tenderness. No Meningismus. Chest/axilla: Normal chest wall appearance and motion. Nontender with no deformity. No lesions are appreciated. Cardiovascular: Regular rate and rhythm with a normal S1 and S2. No gallops, murmurs, or rubs. Normal PMI, no JVD. No pulse deficits. Abdomen/GI: Soft, non-tender, with normal bowel sounds. No distension or tympany. No guarding or rebound. No evidence of tenderness throughout. Back: No spinal tenderness. No costovertebral tenderness. Full range of motion. Female : Normal external genitalia. Skin: Warm, dry with normal turgor. Normal color with no rashes, no lesions, and no evidence of cellulitis. MS/ Extremity: Pulses equal, no cyanosis. Neurovascular intact. Full, normal range of motion. Psych: Awake, alert, with orientation to person, place and time. Behavior, mood, and affect are within normal limits. 15:43 ECG was reviewed by the Attending Physician. 15:43 Respiratory: mild respiratory distress is noted, Respirations: labored breathing, that is mild, Breath sounds: rales, that are moderate, are located in both bases, are heard diffusely, bronchial sounds, that are mild, decreased breath sounds, that are moderate. Vital Signs: 14:00 BP 224 / 107; Pulse 104; Resp 38; Pulse Ox 96% ; jl7 14:10 BP 195 / 96; Pulse 97; Resp 27; Pulse Ox 96% ; jl7 14:14 BP 249 / 116; Pulse 120; Resp 39; Pulse Ox 82% on R/A; Weight 72.57 kg; jl7 14:15 BP 183 / 83; Pulse 97; Resp 28; Pulse Ox 93% ; jl7 14:15 Temp 97.8(TE); jl7 14:20 BP 169 / 83; Pulse 96; Resp 33; Pulse Ox 93% ; jl7 14:30 BP 153 / 66; Pulse 94; Resp 25; Pulse Ox 95% ; jl7 14:39 BP 150 / 83; Pulse 94; Resp 32; Pulse Ox 98% on BiPAP; jh6 14:50 BP 138 / 58; Pulse 88; Resp 17; Pulse Ox 96% ; jl7 15:05 BP 170 / 71; Pulse 93; Resp 20; Pulse Ox 97% ; jl7 15:15 BP 155 / 60; Pulse 89; Resp 19; Pulse Ox 92% ; jl7 15:40 BP 163 / 67; Pulse 89; Resp 17; Pulse Ox 91% ; jl7 15:50 BP 142 / 70; Pulse 83; Resp 17; Pulse Ox 91% ; jl7 16:03 BP 147 / 66; Pulse 82; Resp 18; Pulse Ox 98% ; jl7 16:15 BP 145 / 63; Pulse 79; Resp 17; Pulse Ox 98% on 3 lpm NC; jl7 16:30 BP 134 / 65; Pulse 78; Resp 16; Pulse Ox 93% on 3 lpm NC; jl7 18:31 Weight 72.57 kg; Height 5 ft. 4 in. (162.56 cm) (R); jl7 20:30 BP 143 / 61; Pulse 74; Resp 18; Pulse Ox 97% on 2 lpm NC; tw5 22:06 BP 147 / 57; Pulse 80; Resp 18; Pulse Ox 96% on 2 lpm NC; tw5 11/12 02:35 BP 163 / 64; Pulse 82; Resp 16; Pulse Ox 98% 0 lpm ; Pain 0/10; sv1 03:39 BP 171 / 79; Pulse 83; Resp 18; Pulse Ox 98% 0 lpm ; sv1 06:00 BP 160 / 93; Pulse 77; Resp 18; Pulse Ox 94% ; Pain 0/10; sv1 11/11 18:31 Body Mass Index 27.46 (72.57 kg, 162.56 cm) jl7 Procedures: 11/11 15:58 Central Line: the site was prepped with Betadine, in sterile fashion, a triple lumen sallie catheter was inserted, in the right femoral vein, in 1 attempts. placement was verified, by blood return, the site was dressed with Tegaderm, using sterile technique, the patient tolerated the procedure, well. MDM: 13:45 Patient medically screened. sallie 15:48 Differential diagnosis: asthma, Bronchitis CHF exacerbation, Chronic Obstructive sallie Pulmonary Disease Myocardial Infarction pneumonia, Pneumothorax pulmonary edema, reactive airway disease, Sepsis Unstable Angina. Antibiotic administration: zosyn. Differential Diagnosis: CVA, electrolyte abnormality, hypoglycemia, intracranial bleed, overdose, pneumonia, seizure, TIA, UTI, volume depletion. The patient's Wells Deep Vein Thrombosis Score was calculated as follows: Heart Rate >100 BPM (1.5 Pts) Total Score: 0-2 Pts- Low Risk. The patient's pulmonary embolism risk score was calculated as follows: the patients heart rate is greater than 100 beats per minute (1.5 Pts) Total Score: 0-2 points. This patient was found to be at low risk for a pulmonary embolism by using the Well's assessment criteria. Immunization status: Influenza vaccine: Data reviewed: vital signs, EMS record, lab test result(s), EKG, radiologic studies, CT scan, plain films. 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 Test interpretation: by ED physician or midlevel provider: ECG, plain radiologic studies. Counseling: I had a detailed discussion with the patient and/or guardian regarding: the historical points, exam findings, and any diagnostic results supporting the discharge/admit diagnosis, lab results, radiology results, the need for further work-up and treatment in the hospital. 11/11 13:48 Order name: Basic Metabolic Panel [facility] 11/11 13:48 Order name: CBC with Diff; Complete Time: 15:25 sallie 11/11 13:48 Order name: LFT's; Complete Time: 15:25 sallie 11/11 13:48 Order name: Magnesium; Complete Time: 15:25 sallie 11/11 13:48 Order name: NT PRO-BNP; Complete Time: 15:25 sallie 11/11 13:48 Order name: PT-INR; Complete Time: 15:25 sallie 11/11 13:48 Order name: Troponin (emerg Dept Use Only); Complete Time: 15:25 sallie 11/11 13:48 Order name: SARS-COV-2 RT PCR (Document "Date of Onset" if Symptomatic) [facility] 11/11 13:48 Order name: Basic Metabolic Panel; Complete Time: 15:25 EDAZ 11/11 14:30 Order name: Lactate; Complete Time: 15:25 sallie 11/11 14:30 Order name: Procalcitonin; Complete Time: 15:25 [facility] 11/11 14:30 Order name: Blood Culture Adult (2) [facility] 11/11 21:34 Order name: Creatine Phosphokinase EDMS 11/11 21:34 Order name: CKMB Creatine Kinase MB EDMS 11/11 13:48 Order name: XRAY Chest (1 view); Complete Time: 15:25 sallie 11/11 14:13 Order name: Head Brain Wo Cont EDMS 11/11 21:34 Order name: Troponin I EDMS 11/11 21:57 Order name: Glucose, Ancillary Testing EDMS 11/12 02:54 Order name: CBC with Automated Diff EDMS 11/12 02:55 Order name: Glucose, Ancillary Testing EDMS 11/12 04:09 Order name: Comprehensive Metabolic Panel EDMS 11/12 04:09 Order name: Lipid Profile EDMS 11/12 04:09 Order name: T4 Free EDMS 11/12 04:09 Order name: Magnesium EDMS 11/12 04:09 Order name: Thyroid Stimulating Hormone EDMS 11/12 06:03 Order name: Glucose, Ancillary Testing EDMS 11/12 08:26 Order name: RAD EDMS 11/11 13:48 Order name: EKG; Complete Time: 13:49 sallie 11/11 13:48 Order name: Cardiac monitoring; Complete Time: 14:20 sallie 11/11 13:48 Order name: EKG - Nurse/Tech; Complete Time: 14:20 [facility] 11/11 13:48 Order name: IV Saline Lock; Complete Time: 14: [facility] 11/11 13:48 Order name: Labs collected and sent; Complete Time: 14:20 [facility] 11/11 13:48 Order name: O2 Per Protocol; Complete Time: 14:20 [facility] 11/11 13:48 Order name: O2 Sat Monitoring; Complete Time: 14: [facility] 11/11 14:30 Order name: Central Line Kit; Complete Time: 14:37 [facility] EC:43 Rate is 147 beats/min. Rhythm is regular. QRS [place] is Normal. MT interval is normal. [facility] QRS interval is normal. QT interval is normal. No Q waves. T waves are Normal. T waves are Peaked. No ST changes noted. Clinical impression: Abnormal EKG without significant change, Sinus tachycardia, Suggests hyperkalemia, and No evidence of ischemia. Interpreted by me. Reviewed by me. Administered Medications: 13:55 Drug: Labetalol 20 mg Route: IVP; Infused Over: 2 mins; Site: right upper arm; [facility] 14:37 Follow up: Response: Blood pressure is lowered [facility] 14:37 Follow up: Response: Blood pressure is lowered [facility] 14:00 Drug: Cardene (niCARdipine) 5 mg/hr Route: IV; Rate: per protocol; Site: right upper [facility] arm; 14:05 Drug: Zofran (Ondansetron) 4 mg Route: IVP; Site: right upper arm; 7 18:28 Follow up: Response: No adverse reaction [facility] 14:05 Drug: morphine 2 mg Route: IVP; Site: right upper arm; 7 14:15 Drug: Labetalol 20 mg Route: IVP; Infused Over: 2 mins; Site: right upper arm; [facility] 11/12 08:47 Follow up: Response: No adverse reaction 11/11 14:20 Drug: Lasix (furosemide) 100 mg Route: IVP; Site: right upper arm; 6 18:36 Follow up: Response: No adverse reaction 7 11/12 02:37 Follow up: Response: No adverse reaction; Blood pressure is lowered 1 11/11 14:23 Drug: morphine 2 mg Route: IVP; Site: right upper arm; 7 14:37 Follow up: Response: No adverse reaction [facility] 11/12 02:37 Follow up: Response: Pain is decreased 1 11/11 16:01 Drug: Zosyn (piperacillin-tazobactam) 2.25 grams Route: IVPB; Infused Over: 60 mins; [facility] Site: right femoral; 17:00 Follow up: Response: No adverse reaction; IV Status: Completed infusion 7 11/12 02:37 Follow up: Response: No adverse reaction sv1 02:38 Follow up: Response: No adverse reaction 1 11/11 16:01 Drug: Albuterol - atroVENT (ipratropium) (3:1) (2.5 mg - 0.5 mg) 3 ml Route: Nebulizer; [facility] 17:03 Follow up: Response: Wheezing diminished [facility] 11/12 02:36 Follow up: Response: No adverse reaction sv1 Disposition: 11/11 15:59 Critical Care:. sallie Disposition Summary: 11/11/21 15:58 Hospitalization Ordered Hospitalization Status: Inpatient Admission sallie Provider: Chemo Yeh cha Condition: Serious sallie Problem: new sallie Symptoms: have improved sallie Bed/Room Type: Standard sallie Location: Telemetry/MedSurg (Inpatient)(11/12/21 07:52) Room Assignment: [facility] [place](11/12/21 07:52) Diagnosis - Dyspnea sallie - Systolic (congestive) heart failure sallie - End stage renal disease - on HD sallie - Hyperkalemia sallie - Essential (primary) hypertension sallie - Anemia, unspecified sallie - Elevated white blood cell count sallie - Type 1 diabetes mellitus with hyperglycemia sallie Forms: - Medication Reconciliation Form sallie - SBAR form sallie Critical care time excluding procedures: 15:59 Critical care time: Bedside Care: 30 minutes, Consultation: 15 minutes, Family sallie Intervention: 10 minutes. Total time: 55 minutes Signatures: Dispatcher [employer] EDCesia Cardoso Diana RN Mykel Mcintosh MD MD cha Leal, Jahala, RN RN jl7 Mansi Villagomez RN RN jh6 Keenan Smith RN sv1 Au-StagerAshley RN Corrections: (The following items were deleted from the chart) 14:13 13:49 CT-STROKE BRAIN W/O CONTRAST+CT.RAD.BRZ ordered. EDMS EDMS 18:45 15:58 Intensive Care Unit sallie bd 18:45 15:58 sallie bd 11/12 07:52 11/11 18:45 [facility] ER HOLD bd dw 11/12 07:52 11/11 18:45 ERHOLD- bd dw
--- NOTE | 2021-11-11 15:59 | ER ---
Nurse's Notes [facility] Name: Natalie Silva Age: 61 yrs Sex: Female : 1960 Arrival Date: 11/11/2021 Time: 13:45 Bed 15 Private MD: Diagnosis: Dyspnea;Systolic (congestive) heart failure;End stage renal disease-on HD;Hyperkalemia;Essential (primary) hypertension;Anemia, unspecified;Elevated white blood cell count;Type 1 diabetes mellitus with hyperglycemia Presentation: 11/11 14:14 Chief complaint: EMS states: Missed dialysis on Thursday, went today and her BP was too jl7 high and she was short of breath. Coronavirus screen: At this time, the client does not indicate any symptoms associated with coronavirus-19. Ebola Screen: No symptoms or risks identified at this time. Initial Sepsis Screen: Does the patient meet any 2 criteria? No. Patient's initial sepsis screen is negative. Does the patient have a suspected source of infection? No. Patient's initial sepsis screen is negative. Risk Assessment: Do you want to hurt yourself or someone else? Patient reports no desire to harm self or others. Onset of symptoms was November 11, 2021. Care prior to arrival: None. 14:14 Method Of Arrival: EMS: [facility] jl7 14:14 Acuity: MARIELA 2 jl7 Historical: - Allergies: 14:16 No Known Allergies; jl7 - PMHx: 14:16 Anemia; CHF; Chronic osteomyelitis of L ankle/foot; Diabetes - IDDM; dialysis M W F; jl7 HEP C; High Cholesterol; Hypertension; Hypothyroidism; Secondary Hyperparathyroidism; 17:12 Kidney disease; jh6 - PSHx: 14:16 left arm dialysis port; jl7 - Immunization history:: Adult Immunizations unknown. - Social history:: Smoking status: unknown. - Family history:: not pertinent. Screenin:17 Abuse screen: Denies threats or abuse. Denies injuries from another. Nutritional jl7 screening: No deficits noted. Tuberculosis screening: No symptoms or risk factors identified. Fall Risk IV access (20 points). Gait- Impaired (20 pts.). Total Linder Fall Scale indicates Low Risk Score (25-44 pts). Fall prevention measures have been instituted. Side Rails Up X 2 Placed close to Nursing Station Frequent Obs/Assesments occuring As available Patient and Family Educated on Fall Prevention Program and strategies. Assessment: 14:45 Reassessment: Patient states feeling better. Patient states symptoms have improved. jh6 General: Appears comfortable, Behavior is calm, cooperative. Pain: Denies pain. 15:15 Reassessment: Patient and/or family updated on plan of care and expected duration. Pain jh6 level reassessed. Patient is alert, oriented x 3, equal unlabored respirations, skin warm/dry/pink. pt resting but wakes up to verbal stimuli. states that she is able to breath much better. Patient states feeling better. Patient states symptoms have improved. 15:35 Reassessment: pt taken off bipap and placed on 3lpm n/c and is tolerating well. jh6 General: Appears in no apparent distress. comfortable, Behavior is calm, cooperative. 15:35 Pain: Denies pain. jh6 16:45 Reassessment: No changes from previously documented assessment. Patient and/or family jh6 updated on plan of care and expected duration. Pain level reassessed. pt back from ct, tolerating n/c well. call light in reach. 20:30 General: Appears in no apparent distress. comfortable. Respiratory: Airway is patent tw5 Trachea midline Respiratory pattern is regular, symmetrical. 22:06 Reassessment: Patient appears in no apparent distress at this time. No changes from tw5 previously documented assessment. Patient and/or family updated on plan of care and expected duration. Pain level reassessed. Patient is alert, oriented x 3, equal unlabored respirations, skin warm/dry/pink. 11/12 06:50 Reassessment: slept all night. The patient's bp fluctuated up and down. Denies sv1 respiratory distress. bp this am was 160 systolic. She took her regular correg po. . Vital Signs: 11/11 14:00 BP 224 / 107; Pulse 104; Resp 38; Pulse Ox 96% ; jl7 14:10 BP 195 / 96; Pulse 97; Resp 27; Pulse Ox 96% ; jl7 14:14 BP 249 / 116; Pulse 120; Resp 39; Pulse Ox 82% on R/A; Weight 72.57 kg; jl7 14:15 BP 183 / 83; Pulse 97; Resp 28; Pulse Ox 93% ; jl7 14:15 Temp 97.8(TE); jl7 14:20 BP 169 / 83; Pulse 96; Resp 33; Pulse Ox 93% ; jl7 14:30 BP 153 / 66; Pulse 94; Resp 25; Pulse Ox 95% ; jl7 14:39 BP 150 / 83; Pulse 94; Resp 32; Pulse Ox 98% on BiPAP; jh6 14:50 BP 138 / 58; Pulse 88; Resp 17; Pulse Ox 96% ; jl7 15:05 BP 170 / 71; Pulse 93; Resp 20; Pulse Ox 97% ; jl7 15:15 BP 155 / 60; Pulse 89; Resp 19; Pulse Ox 92% ; jl7 15:40 BP 163 / 67; Pulse 89; Resp 17; Pulse Ox 91% ; jl7 15:50 BP 142 / 70; Pulse 83; Resp 17; Pulse Ox 91% ; jl7 16:03 BP 147 / 66; Pulse 82; Resp 18; Pulse Ox 98% ; jl7 16:15 BP 145 / 63; Pulse 79; Resp 17; Pulse Ox 98% on 3 lpm NC; jl7 16:30 BP 134 / 65; Pulse 78; Resp 16; Pulse Ox 93% on 3 lpm NC; jl7 18:31 Weight 72.57 kg; Height 5 ft. 4 in. (162.56 cm) (R); jl7 20:30 BP 143 / 61; Pulse 74; Resp 18; Pulse Ox 97% on 2 lpm NC; tw5 22:06 BP 147 / 57; Pulse 80; Resp 18; Pulse Ox 96% on 2 lpm NC; tw5 /04 02:35 BP 163 / 64; Pulse 82; Resp 16; Pulse Ox 98% 0 lpm ; Pain 0/10; sv1 03:39 BP 171 / 79; Pulse 83; Resp 18; Pulse Ox 98% 0 lpm ; sv1 06:00 BP 160 / 93; Pulse 77; Resp 18; Pulse Ox 94% ; Pain 0/10; sv1 01/ 18:31 Body Mass Index 27.46 (72.57 kg, 162.56 cm) 7 Vitals: 01 14:39 Cardiac Rhythm Assessment Regular. [facility] ED Course: 13:45 Patient arrived in ED. jl7 13:45 Mykel Yeung MD is Attending Physician. [facility] 14:16 Triage completed. jl7 14:16 Arm band placed on right wrist. jl7 14:17 Patient has correct armband on for positive identification. Placed in gown. Bed in low jl7 position. Call light in reach. Side rails up X2. quality assurance monitor body on. Pulse ox on. NIBP on. 14:17 Inserted saline lock: 22 gauge in right upper arm, using aseptic technique. jl7 14:17 Assisted provider with central line placement. Set up central line tray. Triple lumen jl7 line placed in right femoral. Line placed by Mykel Yeung MD Placement verified by blood return, Dressed with Tape, Tegaderm, Blood was collected. Patient tolerated well. Before procedure, did Practitioner(s) obtain informed consent? No. Patient \T\ family education about procedure, CLABSI prevention and S/S of infection? Yes. Time-out/Briefing performed prior to start of procedure? No. Was handwashing/sanitizing done immediately prior to procedure? Yes. Was patient positioned to in a way to prevent air embolism? Yes. Was procedure site sterilized? Yes, with chlorhexidine. Was the site allowed to dry? Was local anesthetic and/or sedation utilized? Yes. During the procedure, did the Practitioner(s) maintain a sterile field? Yes. Were unused ports clamped during insertion? Yes. Was a 2nd qualified MD obtained after 3 unsuccessful insertion attempts? No. Was blood aspirated from each lumen? Yes. After the procedure, did the Practitioner(s) clean the site and apply a sterile dressing? Yes. Initial lab(s) drawn, by ED staff, sent to lab. First set of blood cultures drawn by physician, Second set of blood cultures drawn by physician, EKG done, by ED staff, reviewed by Mykel Yeung MD. 14:37 Mansi Villagomez, BATSHEVA is Primary Nurse. [facility] 14:38 Gonzalez cath inserted, using sterile technique, 16 Fr., by ms, balloon inflated, to jh6 gravity drainage. 15:07 XRAY Chest (1 view) In Process Unspecified. EDMS 15:[address] via stretcher. jh6 15:40 Head Brain Wo Cont In Process Unspecified. EDMS 15:51 Chemo Yeh DO is Hospitalizing Provider. sallie 18:43 Patient admitted, IV remains in place. intact, No redness/swelling at site. jl7 19:15 Primary Nurse role handed off by Mansi Villagomez RN mw2 20:30 Ariana Dawson is Primary Nurse. tw5 11/12 04:09 Notified the Hospitalist of a critical lab result(s), potassium 5.7, creatine 12.6. tw5 Administered Medications: 11/11 13:55 Drug: Labetalol 20 mg Route: IVP; Infused Over: 2 mins; Site: right upper arm; [facility] 14:37 Follow up: Response: Blood pressure is lowered 6 14:37 Follow up: Response: Blood pressure is lowered 6 14:00 Drug: Cardene (niCARdipine) 5 mg/hr Route: IV; Rate: per protocol; Site: right upper 7 arm; 14:05 Drug: Zofran (Ondansetron) 4 mg Route: IVP; Site: right upper arm; [facility] 18:28 Follow up: Response: No adverse reaction [facility] 14:05 Drug: morphine 2 mg Route: IVP; Site: right upper arm; [facility] 14:15 Drug: Labetalol 20 mg Route: IVP; Infused Over: 2 mins; Site: right upper arm; [facility] 11/12 08:47 Follow up: Response: No adverse reaction [facility] 11/11 14:20 Drug: Lasix (furosemide) 100 mg Route: IVP; Site: right upper arm; [facility] 18:36 Follow up: Response: No adverse reaction [facility] 11/12 02:37 Follow up: Response: No adverse reaction; Blood pressure is lowered 1 11/11 14:23 Drug: morphine 2 mg Route: IVP; Site: right upper arm; [facility] 14:37 Follow up: Response: No adverse reaction [facility] 11/12 02:37 Follow up: Response: Pain is decreased 1 11/11 16:01 Drug: Zosyn (piperacillin-tazobactam) 2.25 grams Route: IVPB; Infused Over: 60 mins; [facility] Site: right femoral; 17:00 Follow up: Response: No adverse reaction; IV Status: Completed infusion [facility] 11/12 02:37 Follow up: Response: No adverse reaction sv1 02:38 Follow up: Response: No adverse reaction 1 11/11 16:01 Drug: Albuterol - atroVENT (ipratropium) (3:1) (2.5 mg - 0.5 mg) 3 ml Route: Nebulizer; [facility] 17:03 Follow up: Response: Wheezing diminished 6 11/12 02:36 Follow up: Response: No adverse reaction sv1 Outcome: 11/11 15:58 Decision to Hospitalize by Provider. sallie 18:43 Admitted to ER Hold. Please see [facility] for further documentation. 7 18:43 Condition: stable 18:43 Discharge instructions given to patient, Instructed on the need for admit, Demonstrated understanding of instructions. 11/12 09:24 Patient left the ED. navarro Signatures: Dispatcher [employer] EDMykel Gonzalez MD MD cha Leal, Jahala, RN RN jl7 Lesley Christopher 2 Ariana Dawson tw5 Mansi Villagomez RN RN jh6 Keenan Smith RN RN sv1 Ashley Bourne RN RN navarro
--- NOTE | 2021-11-11 16:15 | P.CNS ---
Date of Consult: 11/11/21 Reason for Consult: ESRD, Volume overload Requesting Physician: Chemo Yeh Chief Complaint: SOB History of Present Illness: 61F w/ PMHx of ESRD 2/2 DM/Htn on outpt HD TTS at [facility], DM2, Htn, medication non-adherence, hypothyroidism, & chronic pain, who p/w inc SOB. She also has accelerated Htn & is about 4 kg above her dry wt. She is admitted for accelerated Htn & acute respiratory failure. Allergies No Known Allergies Allergy (Verified 05/10/21 23:57) Home Medications: Atorvastatin Calcium 20 mg PO BEDTIME 02/02/20 Insulin Glargine Human [Lantus*] 10 units SQ BEDTIME 02/02/20 Levothyroxine Sodium 50 mcg PO [id number] 02/02/20 Nifedipine [Nifedipine ER] 60 mg PO [id number] 02/02/20 Clopidogrel Bisulfate [Plavix] 1 tab PO DAILY 06/19/20 Methadone HCl 90 mg PO DAILY 05/10/21 Ascorbic Acid [Vitamin C*] 1,000 mg PO DAILY 07/15/21 Bisacodyl [Laxative] 5 mg PO DAILY 07/15/21 Calcium Acetate 2,001 mg PO TIDWM 07/15/21 Centrum Carb Assist 1 tab PO DAILY 07/15/21 Furosemide [Lasix*] 40 mg PO BIDL 07/15/21 Insulin Aspart [Novolog] 5 unit SQ DAILY 07/15/21 Lactulose [Kristalose] 20 gm PO DAILY 07/15/21 Lanthanum Carbonate [Fosrenol] 2,000 mg PO TIDWM 07/15/21 Carvedilol [Coreg] 12.5 mg PO BID 11/11/21 Clonidine HCl [Clonidine HCl ER] 0.3 mg PO BEDTIME 11/11/21 Omeprazole [Prilosec] 40 mg PO DAILY 11/11/21 - Past Medical/Surgical History Diabetic: Yes -: DM -: ESRD -: Hepatitis C -: Hyperlipidemia -: End-stage renal disease on hemodialysis TTS -: Hypothyroidism -: Neuropathy -: Abscess lisy lower leg -: IV drug Abuse -: Chronic osteomyelitis L ankle/foot -: Anemia -: Secondary hyperparathyroidism -: Right foot surgery r/t abscess -: Cholecystectomy -: Csection -: bilateral leg vein surgery -: Back surgery ruptured disc Psychosocial/ Personal History: Patient lives at home. - Family History Mother Medical History: Hypertension, Diabetes Father Medical History: Heart disease, Hypertension, Diabetes - Social History Smoking Status: Unknown if ever smoked Alcohol use: No CD- Drugs: No Caffeine use: No Review of Systems General: Weakness Eyes: Unremarkable Respiratory: Shortness of Breath, SOB with Excertion Cardiovascular: Unremarkable Gastrointestinal: Unremarkable Genitourinary: Unremarkable Musculoskeletal: Unremarkable Integumentary: Unremarkable Neurological: Unremarkable Lymphatics: Unremarkable Physical Examination General: Acute distress HEENT: Atraumatic, Normocephalic Neck: Supple Respiratory: Other (Symmetric chest expansion) Cardiovascular: Edema Gastrointestinal: Soft and benign, No guarding Musculoskeletal: No clubbing, Swelling Integumentary: No warmth Neurological: Normal tone Lymphatics: No axilla or inguinal lymphadenopathy Urinary: Other (No bladder distention) External genitalia: Deferred Rectal: Deferred Laboratory Data (last 24 hrs) 11/11/21 14:20: PT 13.9 H, INR 1.21 11/11/21 14:20: WBC 13.20 H, Hgb 11.3 L, Hct 34.7 L, Plt Count 284 11/11/21 14:20: Sodium 133 L, Potassium 5.2 H, BUN 110 H, Creatinine 11.90 H*, Glucose 228 H, Magnesium 1.9, Total Bilirubin 0.5, AST 27, ALT 30, Alkaline Phosphatase 60 Conclusions/Impression: # ESRD on HD qTTS at [facility] HD today, may happen shortly after midnight d/t staffing Renal + DM diet # Acute respi failure 2/2 flash pulmo edema from accelerated Htn BP control Resume home BP meds/dosing: carvedilol, nifedipine, furosemide Hydralazine, Labetalol IV q4h prn for SBP > 160 mmHg BiPAP prn Lasix 100 mg IV prn for recurrent inc SOB/pulmo edema to decrease V/Q mismatch # Volume overload 4 kg above above dry wt HD as above # Accelerated Htn 2/2 BP med non-adherence Resume home po BP meds as above May need home health referral for home med mngt # Anemia Monitor H/H # Renal osteodystrophy Monitor Ca & Phos
[2021-11-11] MEDS ORDERED: HYDRALAZINE HCL 20 MG/ML VIAL IV PRN ×2 (16:19→18:16)
[2021-11-11] MEDS ORDERED: LABETALOL 20 MG/4ML SYRINGE IV PRN ×2 (16:20→18:16)
--- NOTE | 2021-11-11 16:26 | P.HP ---
Certification for Inpatient Patient admitted to: Inpatient With expected LOS: >2 Midnights Patient will require the following post-hospital care: None Practitioner: I am a practitioner with admitting privileges, knowledge of patient current condition, hospital course, and medical plan of care. Services: Services provided to patient in accordance with Admission requirements found in Title 42 Section 412.3 of the Code of Federal Regulations Patient History Date of Service: 11/11/21 Primary Care Provider: unknown; Nephrology-Dr. Abad Reason for admission: Shortness of breath History of Present Illness: 61-year-old female with history of diabetes, hypertension, hypothyroidism, chronic pain, end-stage renal disease on hemodialysis. Patient was brought in by EMS due to increasing shortness of breath. Patient was not able to get to dialysis today. Patient found to have elevated blood pressure. Patient reported shortness of breath with exertion. In the ER patient was treated. Patient was given labetalol to help with blood pressure elevation./X-ray showed pulmonary edema. CT head unremarkable. White count 13. Hemoglobin 11. Sodium 133, potassium 5.2. Bun 110, creatinine 11.9. GFR 3. Glucose 228. BNP was elevated. Patient was admitted for treatment. Spoke with nephrology. Patient to get dialysis tonight. Nephrology reports patient noncompliant with medication. Allergies No Known Allergies Allergy (Verified 05/10/21 23:57) Home medications list reviewed: Yes Home Medications: Atorvastatin Calcium 20 mg PO BEDTIME 02/02/20 Insulin Glargine Human [Lantus*] 10 units SQ BEDTIME 02/02/20 Levothyroxine Sodium 50 mcg PO [id number] 02/02/20 Nifedipine [Nifedipine ER] 60 mg PO [id number] 02/02/20 Clopidogrel Bisulfate [Plavix] 1 tab PO DAILY 06/19/20 Methadone HCl 90 mg PO DAILY 05/10/21 Multivitamin [Multiple Vitamins] 1 each PO DAILY 05/10/21 Ascorbic Acid [Vitamin C*] 1,000 mg PO DAILY 07/15/21 Bisacodyl [Laxative] 5 mg PO DAILY 07/15/21 Calcium Acetate 2,001 mg PO TIDWM 07/15/21 Centrum Carb Assist 1 tab PO DAILY 07/15/21 Folic Acid/Vit B Complex and C [Shanae-Shelia Tablet] 1 tab PO DAILY 07/15/21 Furosemide [Lasix*] 40 mg PO BIDL 07/15/21 Insulin Aspart [Novolog] 5 unit SQ DAILY 07/15/21 Lactulose [Kristalose] 20 gm PO DAILY 07/15/21 Lanthanum Carbonate [Fosrenol] 2,000 mg PO TIDWM 07/15/21 - Past Medical/Surgical History Diabetic: Yes -: DM -: ESRD -: Hepatitis C -: Hyperlipidemia -: End-stage renal disease on hemodialysis TTS -: Hypothyroidism -: Neuropathy -: Abscess lisy lower leg -: IV drug Abuse -: Chronic osteomyelitis L ankle/foot -: Anemia -: Secondary hyperparathyroidism -: Right foot surgery r/t abscess -: Cholecystectomy -: Csection -: bilateral leg vein surgery -: Back surgery ruptured disc Psychosocial/ Personal History: Patient lives at home. - Family History Mother -: Hypertension, Diabetes Father -: Heart disease, Hypertension, Diabetes - Social History Smoking Status: Unknown if ever smoked Alcohol use: No CD- Drugs: No Caffeine use: No Place of Residence: Home Review of Systems is unable to be obtained Physical Examination - Studies Laboratory Data (last 24 hrs) 11/11/21 14:20: PT 13.9 H, INR 1.21 11/11/21 14:20: WBC 13.20 H, Hgb 11.3 L, Hct 34.7 L, Plt Count 284 11/11/21 14:20: Sodium 133 L, Potassium 5.2 H, BUN 110 H, Creatinine 11.90 H*, Glucose 228 H, Magnesium 1.9, Total Bilirubin 0.5, AST 27, ALT 30, Alkaline Phosphatase 60 Assessment and Plan - Plan COVID: Pending Chest x-ray COMPARISON: Chest Single View dated 07/15/2021; Chest Single View dated 06/19/2020; Chest Single View dated 02/02/2020; CHEST SINGLE VIEW dated 09/12/2015 FINDINGS: Portable technique limits examination quality. Extensive bilateral pulmonary opacities are noted which may represent pulmonary edema pneumonia. The heart is mildly prominent in size. No displaced fractures. CT head: COMPARISON: Head Brain Wo Cont dated 06/19/2020; HEAD BRAIN W O CONTRAST dated 09/19/2015 TECHNIQUE: All CT scans are performed using dose optimization technique as appropriate and may include automated exposure control or mA/KV adjustment according to patient size. FINDINGS: No intracranial hemorrhage, hydrocephalus or extra-axial fluid collection.Mild generalized brain atrophy is present with mild periventricular and deep white matter chronic microvascular ischemic changes. No areas of brain edema or evidence of midline shift. The paranasal sinuses and mastoids are clear. The calvarium is intact. IMPRESSION: No acute intracranial abnormality. Physical Exam: GENERAL: Patient with increased somnolence. Patient was alert with arousal. VITAL SIGNS: Reviewed HEENT: Head is normocephalic and atraumatic. Extraocular muscles are intact. Pupils are equal, round, and reactive to light and accommodation. Nares appeared normal. Mouth is well hydrated and without lesions. Mucous membranes are moist. NECK: Supple. No carotid bruits. No lymphadenopathy or thyromegaly. LUNGS: Decreased to the lung bases bilateral. Currently on 5 L per nasal cannula HEART: Regular rate and rhythm, no appreciable gallops, rubs, murmurs or extra heart sounds ABDOMEN: Soft, nontender, and nondistended. Positive bowel sounds. No hepatosplenomegaly was noted. EXTREMITIES: Without any cyanosis, clubbing, rash, lesions or peripheral edema. NEUROLOGIC: Mild edema to the lower extremities. SKIN: Chronic changes to the lower extremity. Impression: Dyspnea secondary to acute respiratory failure with hypoxia related to pulmonary edema and noncompliance End-stage renal disease on hemodialysis with hyperkalemia Hypertension uncontrolled Diabetes mellitus type 2 Hypothyroidism GERD Chronic pain COPD Plan: Patient admitted to ICU for close monitoring. Continue with nasal cannula to maintain sats above 93%. Spoke with nephrology. Nephrology plans to order IV medication for blood pressure control. Restart blood pressure medication. Nephrology reports patient noncompliant. Patient will receive dialysis tonight. Orders for dialysis in place. Will monitor Accu-Cheks and provide sliding scale. Will check hemoglobin A1c. Need to obtain and restart home medication. Will provide medication for COPD. We will continue to monitor closely. Continue to reassess. Hold pain medication at this time. Hold any sedation medication Code Status: Full Code DVT prophylaxis: Heparin Advanced Care Planning-30 minutes: Reassess tomorrow Discharge Plan: Home Plan to discharge in: Greater than 2 days - Advance Directives Does patient have a Living Will: No Does patient have a Durable POA for Healthcare: No - Code Status/Comfort Care Code Status Assessed: Yes (Patient is full code) Time Spent Managing Pts Care (In Minutes): 55
[2021-11-11] MEDS: carvediloL 12.5 MG TAB PO SCH (17:00)
[2021-11-11] MEDS: FUROSEMIDE 40 MG TABLET PO SCH (17:00)
[2021-11-11] MEDS: NIFEDIPINE XL 60 MG TABLET PO SCH (17:00)
[2021-11-11] MEDS ORDERED: IPRATROPIUM BROM 0.5MG/2.5ML NEB PRN (18:16)
[2021-11-11] MEDS: INSULIN -REGULAR HUMAN 50 UNIT/0.5 ML ML SQ SCH ×2 (18:16→21:00)
[2021-11-11] MEDS ORDERED: ACETAMINOPHEN 500 MG TAB PO PRN (18:16)
[2021-11-11] MEDS ORDERED: ONDANSETRON 4 MG/2 ML VIAL IV PRN (18:16)
[2021-11-11 18:43] VITALS: BMI 27.4
[2021-11-11] MEDS ORDERED: ARFORMOTEROL TARTRATE 15 MCG/2 ML VIAL.NEB ONE (20:38)
[2021-11-11] MEDS: ARFORMOTEROL TARTRATE 15 MCG/2 ML VIAL.NEB NEB SCH (20:40)
[2021-11-11] MEDS: HEPARIN 5000 UNIT/ML 1 ML VIAL SQ SCH (21:00)
[2021-11-11 21:34] LABS: CKMB Creatine Kinase MB 2.4 ng/mL (1.0-3.6); Troponin I 0.03 ng/mL (0.0-0.045)
[2021-11-11] MEDS ORDERED: HEPARIN 5000 UNIT/ML 1 ML VIAL ONE (21:53)
[2021-11-12 02:52] LABS: Absolute Lymphocytes (CBC) 1.4 K/uL (0.7-4.9); Hematocrit 29.9 % (36.0-45.0); Lymphocytes % 15.2 % (15.3-44.8); MPV 7.2 fL (7.6-11.3); RBC Red Blood Cell Count 3.04 M/uL (3.86-4.86)
[2021-11-12 03:50] LABS: Albumin 2.2 g/dL (3.4-5.0); Bilirubin Total 0.5 mg/dL (0.2-1.0); Magnesium 1.9 mg/dL (1.8-2.4); Protein, Total 7.4 g/dL (6.4-8.2); Thyroid Stimulating Hormone 0.993 uIU/mL (0.360-3.740)
[2021-11-12 04:09] LABS: Potassium 5.7 mmol/L (3.5-5.1)
[2021-11-12] MEDS: carvediloL 12.5 MG TAB PO SCH ×2 (06:00→17:19)
[2021-11-12] MEDS ORDERED: carvediloL 6.25 MG TAB ONE (06:10)
--- NOTE | 2021-11-12 06:11 | P.PN ---
Subjective Date of Service: 11/12/21 Primary Care Provider: unknown; Nephrology-Dr. Abad Chief Complaint: SOB Subjective: Improving Physical Examination - Vital Signs Temperature: 97.9 F Blood Pressure: 145/70 Pulse: 67 Respirations: 14 Pulse Ox (%): 93 - Studies Laboratory Data (last 24 hrs) 11/11/21 14:20: PT 13.9 H, INR 1.21 11/11/21 14:20: WBC 13.20 H, Hgb 11.3 L, Hct 34.7 L, Plt Count 284 11/11/21 14:20: Sodium 133 L, Potassium 5.2 H, BUN 110 H, Creatinine 11.90 H*, Glucose 228 H, Magnesium 1.9, Total Bilirubin 0.5, AST 27, ALT 30, Alkaline Phosphatase 60 Assessment & Plan Discharge Plan: Home Plan to discharge in: 24 Hours Physician Review Additional Text: COVID: Pending Chest x-ray COMPARISON: Chest Single View dated 07/15/2021; Chest Single View dated 06/19/2020; Chest Single View dated 02/02/2020; CHEST SINGLE VIEW dated 09/12/2015 FINDINGS: Portable technique limits examination quality. Extensive bilateral pulmonary opacities are noted which may represent pulmonary edema pneumonia. The heart is mildly prominent in size. No displaced fractures. CT head: COMPARISON: Head Brain Wo Cont dated 06/19/2020; HEAD BRAIN W O CONTRAST dated 09/19/2015 TECHNIQUE: All CT scans are performed using dose optimization technique as a ppropriate and may include automated exposure control or mA/KV adjustment according to patient size. FINDINGS: No intracranial hemorrhage, hydrocephalus or extra-axial fluid collection.Mild generalized brain atrophy is present with mild periventricular and deep white matter chronic microvascular ischemic changes. No areas of brain edema or evidence of midline shift. The paranasal sinuses and mastoids are clear. The calvarium is intact. IMPRESSION: No acute intracranial abnormality. Physical Exam: GENERAL: Patient more alert today. VITAL SIGNS: Reviewed HEENT: Neck supple LUNGS: Decreased to the lung bases bilateral. He on 2 L per nasal cannula HEART: Regular rate and rhythm, no appreciable gallops, rubs, murmurs or extra heart sounds ABDOMEN: Soft, nontender, and nondistended. Positive bowel sounds. No hepatosplenomegaly was noted. EXTREMITIES: Without any cyanosis, clubbing, rash, lesions or peripheral edema. NEUROLOGIC: Edema to the lower extremities improved SKIN: Chronic changes to the lower extremity. Impression: Dyspnea secondary to acute respiratory failure with hypoxia related to pulmonary edema and noncompliance End-stage renal disease on hemodialysis with hyperkalemia Hypertension uncontrolled Diabetes mellitus type 2 Hypothyroidism GERD Chronic pain COPD CAD Hyperlipidemia Plan: Patient overall improved. Spoke with nephrology. Nephrology plans for dialysis today. Apparently dialysis was not done last night. Continue IV fluid restriction at 1500 cc/day. Continue diuretic therapyLasix 40 mg 1 pill twice daily. Restart home medication for blood pressurecarvedilol 12.5 mg 1 pill twice daily, Procardia XL 60 mg daily and clonidine 0.3 mg at bedtime. Parameters in place. We will monitor Accu-Cheks and sliding scale. Continue insulin therapy. Restart thyroid medicationlevothyroxine 50 mcg daily.. Continue Protonix 40 mg daily. Provide COPD medicationBrovana, albuterol and Atrovent. Continue with home medication for painmethadone 90 mg daily. Continue Plavix 75 mg daily Continue Lipitor 20 mg daily Hold medication if with increase sedation. Anticipate continued improvement. Likely discharge tomorrow. Continue to discuss with nephrology. Code Status: Full Code DVT prophylaxis: Heparin Advanced Care Planning-30 minutes: Home at discharge Time Spent Managing Pts Care (In Minutes): 55
[2021-11-12] MEDS ORDERED: LACTULOSE 20 GM/30 ML UCUP PO PRN (07:14)
[2021-11-12] MEDS: INSULIN -REGULAR HUMAN 50 UNIT/0.5 ML ML SQ SCH ×4 (07:30→21:21)
[2021-11-12] MEDS: PANTOPRAZOLE 40MG TABLET PO SCH (07:30)
[2021-11-12] MEDS ORDERED: CALCIUM ACETATE 667 MG PO SCH (08:00)
[2021-11-12] MEDS: ARFORMOTEROL TARTRATE 15 MCG/2 ML VIAL.NEB NEB SCH ×2 (08:00→20:05)
[2021-11-12] MEDS: LANTHANUM 1000 MG TAB PO SCH ×2 (08:00→11:55)
[2021-11-12] MEDS: CALCIUM ACETATE 667 MG TAB PO SCH ×3 (08:00→17:19)
[2021-11-12] MEDS ORDERED: PANTOPRAZOLE 40MG TABLET PO ONE (08:25)
[2021-11-12] MEDS ORDERED: HEPARIN 5000 UNIT/ML 1 ML VIAL ONE (08:25)
[2021-11-12] MEDS ORDERED: CLOPIDOGREL 75 MG TABLET ONE (08:25)
--- NOTE | 2021-11-12 08:26 | RAD REPORT ---
EXAM DESCRIPTION: Phoebe Single View11/12/2021 6:57 am CLINICAL HISTORY: Shortness of breath COMPARISON: November 11 FINDINGS: Partial resolution diffuse bilateral pulmonary opacities. Heart remains enlarged IMPRESSION: Partial resolution diffuse bilateral pulmonary opacities probably pulmonary edema
[2021-11-12] MEDS: HEPARIN 5000 UNIT/ML 1 ML VIAL SQ SCH ×2 (08:29→21:22)
[2021-11-12] MEDS: NIFEDIPINE XL 60 MG TABLET PO SCH (08:30)
[2021-11-12] MEDS: CLOPIDOGREL 75 MG TABLET PO SCH (08:30)
[2021-11-12] MEDS ORDERED: METHADONE HCL 40 MG DISPERSIBLE TAB PO SCH (09:00)
[2021-11-12] MEDS ORDERED: HOME MED 1 EA UNK (Omeprazole [Prilosec] 40 MG Capsule.Dr) PO SCH (09:00)
[2021-11-12] MEDS ORDERED: ARFORMOTEROL TARTRATE 15 MCG/2 ML VIAL.NEB ONE (09:21)
[2021-11-12] MEDS: MULTIVITAMINS,THERAPEUT 1 TAB PO SCH (09:54)
[2021-11-12] MEDS: FUROSEMIDE 40 MG TABLET PO SCH ×2 (09:54→17:19)
[2021-11-12] MEDS: METHADONE HCL 10 MG TAB PO SCH (10:24)
[2021-11-12] MEDS ORDERED: EPOETIN 4,000 UNIT/ML VIAL IV SCH (11:00)
--- NOTE | 2021-11-12 11:18 | EKG ---
Test Date: 2021-11-11 Test Time: 13:55:59 Community Health Representative: PEBBLES MEASUREMENT RESULTS: Intervals: Rate: 117 VT: 160 QRSD: 82 QT: 326 QTc: 454 Crocker: P: 78 VT: 160 QRS: 66 T: 52 INTERPRETIVE STATEMENTS: Sinus tachycardia Possible Anterior infarct, age undetermined Abnormal ECG Compared to ECG 07/15/2021 03:14:33 Myocardial infarct finding now present ST (T wave) deviation no longer present Possible ischemia no longer present Electronically Signed On 11-12-21 11:14:18 DYE BOX OPERATOR by Robert Correa
--- NOTE | 2021-11-12 11:36 | PN ---
Date of Progress Note: 11/12/2021 Subjective: The patient was admitted with over volume, CHF exacerbation. The patient supposed to re ceive dialysis yesterday. Apparently because of short of staff, the patient did not receive. The derek mckeon still complaining from shortness of breath, but better than yesterday. Had edema of both lower extremities with venous stasis. Physical Examination: Vital Signs: Blood pressure 197/87, pulse of 85, afebrile. Chest: Crackles bilateral. Heart: S1, S2. Systolic murmur. Abdomen: Soft, nontender. Extremities: +1 edema bilateral, 2 ulcers on the right leg, 1 ulcer on the left. Venous stasis [place]. Neurological: Alert, oriented x3. No focal. Laboratory Data: Chest x-ray; cardiomegaly with congestion bilaterally compared to yesterday, chest x-ray slightly worsening. H and H 09/06.9. Sodium 135, potassium 5.7, bicarb 17, BUN 120, creatinin e 12.6, calcium 7.5, albumin 2.2, corrected calcium is 9. Current Medications: The patient on include Plavix, heparin, atorvastatin, carvedilol 12.5 b.i.d., l abetalol, nifedipine 60 daily, Fosrenol, Zofran, levothyroxine, insulin, clonidine 0.3 at bedtime, mu ltivitamin. Assessment And Plan: 1.End-stage renal disease with over volume and hyperkalemia. We will arrange the patient for dialys is today. We will challenge the patient and we will monitor. The patient may need another session o f dialysis tomorrow and we will follow up to establish better volume control. The patient is going t o be challenged and dialyzed on low-potassium bath and high bicarb bath. 2.Acidosis secondary to renal failure. The patient is going to be dialyzed on high bicarb bath, goi ng to be corrected with dialysis. I do not see the need for initiate any bicarb replacement. 3.Hyperkalemia. The patient will be dialyzed on low-potassium bath. We will follow up after. 4.Over volume. The patient is going to be challenged tomorrow. 5.Severe disproportion in BUN and creatinine secondary to possible under dialyzed. The patient poor compliant. We will dialyze serially today and tomorrow. Then, we will back to her schedule. 6.Anemia of chronic kidney disease. Resume SAMY. 7.Secondary hyperparathyroidism. Continue her binder. 8.Wound ulcers, bilateral on the leg. We will follow up wound care. NOAH Voice ID: [id number] Report ID: [id number]
[2021-11-12] MEDS: LANTHANUM 1000 MG PO SCH ×2 (12:00→17:00)
[2021-11-12] MEDS ORDERED: HOME MED 1 EA UNK (Clonidine Hcl [Clonidine Hcl Er] 0.1 MG Tab.Er.12h) PO SCH (21:00)
[2021-11-12] MEDS ORDERED: INSULIN GLARGINE 100 UNIT/ML SQ SCH (21:00)
[2021-11-12] MEDS ORDERED: ATORVASTATIN 20 MG TAB PO SCH (21:00)
[2021-11-12] MEDS ORDERED: CLONIDINE HCL 0.3 MG TAB PO ONE (23:39)
[2021-11-13] MEDS: CLONIDINE HCL 0.3 MG TAB PO SCH ×2 (00:08→09:45)
[2021-11-13] MEDS: carvediloL 12.5 MG TAB PO SCH (05:28)
[2021-11-13 05:59] LABS: Absolute Lymphocytes (CBC) 1.5 K/uL (0.7-4.9); Hematocrit 29.2 % (36.0-45.0); Lymphocytes % 24.5 % (15.3-44.8); MPV 7.2 fL (7.6-11.3)
[2021-11-13] MEDS ORDERED: HOME MED 1 EA UNK (Nifedipine [Nifedipine Er] 60 MG Tablet.Er) PO SCH (06:00)
[2021-11-13] MEDS ORDERED: LEVOTHYROXINE SOD 0.05 MG TABLET PO SCH (06:00)
--- NOTE | 2021-11-13 06:03 | P.DS ---
Admission Date: 11/11/21 Discharge Date: 11/13/21 Primary Care Provider: unknown; NephrologyShannon Abad Disposition: ROUTINE DISCHARGE Discharge Condition: GOOD Reason for Admission: SOB Consultations: Nephrology-Dr. Abad Procedures: COVID: negative Chest x-ray COMPARISON: Chest Single View dated 07/15/2021; Chest Single View dated 06/19/2020; Chest Single View dated 02/02/2020; CHEST SINGLE VIEW dated 09/12/2015 FINDINGS: Portable technique limits examination quality. Extensive bilateral pulmonary opacities are noted which may represent pulmonary edema pneumonia. The heart is mildly prominent in size. No displaced fractures. CT head: COMPARISON: Head Brain Wo Cont dated 06/19/2020; HEAD BRAIN W O CONTRAST dated 09/19/2015 TECHNIQUE: All CT scans are performed using dose optimization technique as appropriate and may include automated exposure control or mA/KV adjustment according to patient size. FINDINGS: No intracranial hemorrhage, hydrocephalus or extra-axial fluid collection.Mild generalized brain atrophy is present with mild periventricular and deep white matter chronic microvascular ischemic changes. No areas of brain edema or evidence of midline shift. The paranasal sinuses and mastoids are clear. The calvarium is intact. IMPRESSION: No acute intracranial abnormality. Follow up CXR 11/13/2021: COMPARISON: Chest Single View dated 11/12/2021; Chest Single View dated 11/11/2021; Chest Single View dated 07/15/2021; Chest Single View dated 06/19/2020 FINDINGS: Lines: None. Lungs: Similar to slight improvement of the bilateral interstitial and airspace disease. Pleural: No significant pleural effusions or pneumothorax. Cardiac: Cardiomegaly. Bones: No acute fractures. IMPRESSION: Similar to slight improvement in interstitial pulmonary edema. Medical Problem List: Dyspnea secondary to acute respiratory failure with hypoxia related to pulmonary edema and noncompliance End-stage renal disease on hemodialysis with hyperkalemia Hypertension uncontrolled Diabetes mellitus type 2 Hypothyroidism GERD Chronic pain COPD CAD Hyperlipidemia Opioid induced chronic constipation Brief History of Present Illness: 61-year-old female with history of diabetes, hypertension, hypothyroidism, chronic pain, end-stage renal disease on hemodialysis. Patient was brought in by EMS due to increasing shortness of breath. Patient was not able to get to dialysis today. Patient found to have elevated blood pressure. Patient reported shortness of breath with exertion. In the ER patient was treated. Patient was given labetalol to help with blood pressure elevation./X-ray showed pulmonary edema. CT head unremarkable. White count 13. Hemoglobin 11. Sodium 133, potassium 5.2. Bun 110, creatinine 11.9. GFR 3. Glucose 228. BNP was elevated. Patient was admitted for treatment. Spoke with nephrology. Patient to get dialysis tonight. Nephrology reports patient noncompliant with medication. Hospital Course: Patient presented with shortness of breath secondary to acute respiratory failure with hypoxia related to pulmonary edema and noncompliance with hemodialysis. Patient with underlying end-stage renal disease on hemodialysis, hypertension, diabetes, hypothyroidism, GERD, chronic pain, COPD, and CAD. Patient had missed dialysis. Patient had uncontrolled hypertension upon admission. Patient was given treatment. Nephrology was consulted to help tabby tannere dialysis. Patient received dialysis with improvement. Blood pressure medications were adjusted for better control. Her condition has improved. Patient now on room air. Patient back to baseline. Compliance with dialysis addressed in detail. At discharge she will continue with hemodialysis every Thursday, and Thursday. Patient will continue with a 1500 cc per day fluid restriction and low-salt diet. Recommend to monitor her weight daily. If her weight increases adjustment in medication and dialysis will be addressed by nephrology. At discharge she will continue with her current medications including PhosLo 2001 mg 3 times a day, Phos renal 2000 mg 3 times a day, multivitamin daily and vitamin C daily. The patient will also continue with Lasix 40 mg 1 pill twice daily. Further adjustment in medication can be done by nephrology. Recommend follow-up with nephrology within 1 week. Patient will have dialysis again tomorrow. Recommend follow-up with PCP within 1 week to follow-up his hospitalization. As mentioned above patient with hypertension. This was uncontrolled upon admission. Medications were adjusted. Clonidine was increased. Blood pressure improved. Blood pressure now well controlled. At discharge she will continue with carvedilol 12.5 mg 1 pill twice daily, clonidine 0.3 mg 1 pill twice daily, and Procardia XL 60 mg daily. Compliance with medication addressed in detail. Recommend to maintain blood pressure less than 130/80. If blood pressure remains above 140/90 further adjustment in medication may be required. This can be done with the help of her PCP or nephrology. Patient with diabetes mellitus type 2. Overall stable. May 2021 hemoglobin a1c was 8.4. At discharge she will continue with her medication of Lantus 10 units subcu every bedtime. She may continue with NovoLog sliding scale. Recommend to maintain blood sugar less than 140 fasting and less than 200 for meals. If blood sugar remains above 200 further adjustment in Lantus can be done with the help of her PCP. Recommend to monitor hemoglobin A1c every 3 months. Recommend follow-up with PCP within 1 week to follow-up his hospitalization. Patient with CAD and hyperlipidemia. At discharge she will continue with her medication including Lipitor 20 mg daily and Plavix 75 mg daily. Patient with hypothyroidism. At discharge she will continue with levothyroxine 50 mcg daily. Patient with GERD. At discharge she will continue with Prilosec 40 mg daily. Patient with chronic pain. Patient is seen by pain management. At discharge we will continue with her current medication methadone 90 mg daily. Recommend to follow-up with pain management to further monitor and address medication. Patient with underlying COPD. Patient on room air. At discharge she may continue with Symbicort 2 puffs twice daily and albuterol 2 puffs 3 times a day as needed for shortness of breath. Recommend follow-up with pulmonology as an outpatient to further monitor and address. Patient takes lactulose daily as needed for constipation. This is likely related to opioid induced constipation. Vital Signs/Physical Exam: Temp Pulse Resp BP Pulse Ox 98.7 F 83 18 141/62 H 92 11/12/21 20:00 11/13/21 05:28 11/12/21 20:00 11/13/21 05:28 11/12/21 20:00 General: Alert, In no apparent distress, Oriented x3, Cooperative HEENT: Atraumatic Neck: Supple Respiratory: Clear to auscultation bilaterally, Normal air movement Cardiovascular: Normal pulses, Regular rate/rhythm Gastrointestinal: Normal bowel sounds, No tenderness, No masses, No rebound, No guarding Musculoskeletal: No erythema, No tenderness, No warmth Integumentary: No tenderness/swelling, No erythema, No warmth, No cyanosis Neurological: Normal speech, Normal strength at 5/5 x4 extr, Normal tone, Normal affect Laboratory Data at Discharge: WBC 9.30 K/uL (4.3-10.9) D 11/12/21 02:21 Hgb 10.0 g/dL (12.0-15.0) L 11/12/21 02:21 Hct 29.9 % (36.0-45.0) L 11/12/21 02:21 Plt Count 231 K/uL (152-406) 11/12/21 02:21 PT 13.9 SECONDS (9.5-12.5) H 11/11/21 14:20 INR 1.21 11/11/21 14:20 Sodium 135 mmol/L (136-145) L 11/12/21 02:21 Potassium 5.7 mmol/L (3.5-5.1) H* 11/12/21 02:21 BUN 120 mg/dL (7-18) H 11/12/21 02:21 Creatinine 12.60 mg/dL (0.55-1.3) H* 11/12/21 02:21 Glucose 220 mg/dL (74-106) H 11/12/21 02:21 Magnesium 1.9 mg/dL (1.8-2.4) 11/12/21 02:21 Total Bilirubin 0.5 mg/dL (0.2-1.0) 11/12/21 02:21 AST 23 U/L (15-37) 11/12/21 02:21 ALT 25 U/L (12-78) 11/12/21 02:21 Alkaline Phosphatase 47 U/L (45-117) 11/12/21 02:21 Troponin I 0.03 ng/mL (0.0-0.045) 11/11/21 20:40 Triglycerides 195 mg/dL (<150) H 11/12/21 02:21 Cholesterol 141 mg/dL (<200) 11/12/21 02:21 HDL Cholesterol 38 mg/dL (40-60) L 11/12/21 02:21 Cholesterol/HDL Ratio 3.71 11/12/21 02:21 Home Medications: Atorvastatin Calcium 20 mg PO BEDTIME 02/02/20 Insulin Glargine Human [Lantus*] 10 units SQ BEDTIME 02/02/20 Levothyroxine Sodium 50 mcg PO [id number] 02/02/20 Clopidogrel Bisulfate [Plavix] 1 tab PO DAILY 06/19/20 Methadone HCl 90 mg PO DAILY 05/10/21 Ascorbic Acid [Vitamin C*] 1,000 mg PO DAILY 07/15/21 Calcium Acetate 2,001 mg PO TIDWM 07/15/21 Centrum Carb Assist 1 tab PO DAILY 07/15/21 Insulin Aspart [Novolog] 5 unit SQ DAILY 07/15/21 Lactulose [Kristalose] 20 gm PO DAILY 07/15/21 Lanthanum Carbonate [Fosrenol] 2,000 mg PO TIDWM 07/15/21 Omeprazole [Prilosec] 40 mg PO DAILY 11/11/21 Albuterol Inhaler [Ventolin Inhaler*] 2 puff IH Q6H PRN #1 hfa.aer.ad 11/13/21 Budesonide/Formoterol Fumarate [Symbicort 160-4.5 Mcg Inhaler] 2 puff IH BID #1 hfa.aer.ad 11/13/21 Carvedilol [Coreg] 12.5 mg PO BID #60 11/13/21 Furosemide [Lasix*] 40 mg PO BIDL #60 tab 11/13/21 Nifedipine Xl [Procardia XL*] 60 mg PO DAILY #30 tab 11/13/21 cloNIDine HCL [Catapres*] 0.3 mg PO BID #60 tablet 11/13/21 New Medications: cloNIDine HCL [Catapres*] 0.3 mg PO BID #60 tablet Carvedilol [Coreg] 12.5 mg PO BID #60 Furosemide [Lasix*] 40 mg PO BIDL #60 tab Nifedipine Xl [Procardia XL*] 60 mg PO DAILY #30 tab Budesonide/Formoterol Fumarate [Symbicort 160-4.5 Mcg Inhaler] 2 puff IH BID #1 hfa.aer.ad Albuterol Inhaler [Ventolin Inhaler*] 2 puff IH Q6H PRN #1 hfa.aer.ad PRN Reason: Shortness Of Breath Physician Discharge Instructions: Patient presented with shortness of breath secondary to acute respiratory failure with hypoxia related to pulmonary edema and noncompliance with hemodialysis. Patient with underlying end-stage renal disease on hemodialysis, hypertension, diabetes, hypothyroidism, GERD, chronic pain, COPD, and CAD. Patient had missed dialysis. Patient had uncontrolled hypertension upon admission. Patient was given treatment. Nephrology was consulted to help manage dialysis. Patient received dialysis with improvement. Blood pressure medications were adjusted for better control. Her condition has improved. Patient now on room air. Patient back to baseline. Compliance with dialysis addressed in detail. At discharge she will continue with hemodialysis every Thursday, and Thursday. Patient will continue with a 1500 cc per day fluid restriction and low-salt diet. Recommend to monitor her weight daily. If her weight increases adjustment in medication and dialysis will be addressed by nephrology. At discharge she will continue with her current medications including PhosLo 2001 mg 3 times a day, Phos renal 2000 mg 3 times a day, multivitamin daily and vitamin C daily. The patient will also continue with Lasix 40 mg 1 pill twice daily. Further adjustment in medication can be done by nephrology. Recommend follow-up with nephrology within 1 week. Patient will have dialysis again tomorrow. Recommend follow-up with PCP within 1 week to follow-up his hospitalization. As mentioned above patient with hypertension. This was uncontrolled upon admission. Medications were adjusted. Clonidine was increased. Blood pressure improved. Blood pressure now well controlled. At discharge she will continue with carvedilol 12.5 mg 1 pill twice daily, clonidine 0.3 mg 1 pill twice daily, and Procardia XL 60 mg daily. Compliance with medication addressed in detail. Recommend to maintain blood pressure less than 130/80. If blood pressure remains above 140/90 further adjustment in medication may be required. This can be done with the help of her PCP or nephrology. Patient with diabetes mellitus type 2. Overall stable. May 2021 hemoglobin a1c was 8.4. At discharge she will continue with her medication of Lantus 10 units subcu every bedtime. She may continue with NovoLog sliding scale. Recommend to maintain blood sugar less than 140 fasting and less than 200 for meals. If blood sugar remains above 200 further adjustment in Lantus can be done with the help of her PCP. Recommend to monitor hemoglobin A1c every 3 months. Recommend follow-up with PCP within 1 week to follow-up his hospitalization. Patient with CAD and hyperlipidemia. At discharge she will continue with her medication including Lipitor 20 mg daily and Plavix 75 mg daily. Patient with hypothyroidism. At discharge she will continue with levothyroxine 50 mcg daily. Patient with GERD. At discharge she will continue with Prilosec 40 mg daily. Patient with chronic pain. Patient is seen by pain management. At discharge we will continue with her current medication methadone 90 mg daily. Recommend to follow-up with pain management to further monitor and address medication. Patient with underlying COPD. Patient on room air. At discharge she may continue with Symbicort 2 puffs twice daily and albuterol 2 puffs 3 times a day as needed for shortness of breath. Recommend follow-up with pulmonology as an outpatient to further monitor and address. Patient takes lactulose daily as needed for constipation. This is likely related to opioid induced constipation. Diet: ADA Activity: Ad chelsea Followup: NONE,NONE [Primary Care Provider] - Time spent managing pt's care (in minutes): 55
[2021-11-13 06:27] LABS: Albumin 2.3 g/dL (3.4-5.0); Bilirubin Total 0.5 mg/dL (0.2-1.0); Potassium 3.7 mmol/L (3.5-5.1); Protein, Total 7.6 g/dL (6.4-8.2)
[2021-11-13] MEDS: INSULIN -REGULAR HUMAN 50 UNIT/0.5 ML ML SQ SCH (07:30)
--- NOTE | 2021-11-13 07:43 | RAD REPORT ---
EXAM DESCRIPTION: RAD - Chest Single View - 11/13/2021 5:23 am CLINICAL HISTORY: Follow up pulmonary edema COMPARISON: Chest Single View dated 11/12/2021; Chest Single View dated 11/11/2021; Chest Single View da judit 07/15/2021; Chest Single View dated 06/19/2020 FINDINGS: Lines: None. Lungs: Similar to slight improvement of the bilateral interstitial and airspace disease. Pleural: No significant pleural effusions or pneumothorax. Cardiac: Cardiomegaly. Bones: No acute fractures. Other: IMPRESSION: Similar to slight improvement in interstitial pulmonary edema.
[2021-11-13] MEDS: LANTHANUM 1000 MG PO SCH (08:00)
[2021-11-13] MEDS: ARFORMOTEROL TARTRATE 15 MCG/2 ML VIAL.NEB NEB SCH (08:43)
[2021-11-13] MEDS ORDERED: CLONIDINE HCL 0.3 MG TAB PO SCH (09:00)
[2021-11-13 09:12] VITALS: O2SAT 98
[2021-11-13 09:29] VITALS: BP 158/65; TEMP 98.2
[2021-11-13] MEDS: CALCIUM ACETATE 667 MG TAB PO SCH (09:45)
[2021-11-13] MEDS: CLOPIDOGREL 75 MG TABLET PO SCH (09:45)
[2021-11-13] MEDS: FUROSEMIDE 40 MG TABLET PO SCH (09:45)
[2021-11-13] MEDS: NIFEDIPINE XL 60 MG TABLET PO SCH (09:45)
[2021-11-13] MEDS: METHADONE HCL 10 MG TAB PO SCH (09:45)
[2021-11-13] MEDS: HEPARIN 5000 UNIT/ML 1 ML VIAL SQ SCH (09:45)
[2021-11-13] MEDS: MULTIVITAMINS,THERAPEUT 1 TAB PO SCH (09:45)
[2021-11-13] MEDS: PANTOPRAZOLE 40MG TABLET PO SCH (09:59)
--- NOTE | 2021-11-13 10:06 | PN ---
Date of Progress Note: 11/13/2021 Subjective: The patient was admitted with over volume and hyperkalemia with marginal acidosis. Dalia mahan was dialyzed yesterday. Her BUN was significantly elevated. BUN had trended down nicely. Kate nt completely asymptomatic. Wound has been readdressed by the nursing. Gonzalez was discontinued. Judy noel is feeling better on room air. No shortness of breath. Physical Examination: Vital Signs: Blood pressure 158/65, pulse of 86, afebrile. Yesterday, we managed to remove 3 L on d ialysis. Chest: Clear to auscultation. Heart: S1, S2. Regular. Systolic murmur. Abdomen: Soft, nontender. Extremity: Venous stasis bilateral. Ulcer on the right leg to ulcer with the dressing. Neurologic: Alert, oriented x3. No tremor. Laboratory Data: H and H 9.7/29.2. Sodium 139, potassium 3.7, bicarb 26, BUN 50, creatinine 7.3, ca lcium 8.3, albumin 2.3. Current Medications: The patient on include: 1.Plavix. 2.Epogen. 3.Atorvastatin. 4.Carvedilol 12.5 b.i.d. 5.Clonidine 0.3 b.i.d. 6.Nifedipine 60 daily. 7.PhosLo 3 tablets with each meal. 8.Lasix 40 b.i.d. 9.Lactulose. 10.Pantoprazole. 11.Zofran. 12.Levothyroxine. Assessment And Plan: 1.End-stage renal disease with hyperkalemia, acidosis, and over volume, status post dialysis, recove red, back to baseline. We will resume dialysis as TTS. The patient is going to be scheduled for lan lysis tomorrow. 2.Hyperkalemia, status post dialysis, resolved. 3.Over volume, currently normal volume after dialysis. 4.Elevation on BUN secondary to renal failure without any uremic symptoms recover after dialysis. 5.Secondary hyperparathyroid. Continue PhosLo. 6.Anemia of chronic kidney disease. Continue SAMY. 7.Leg ulcer. We will follow up with the primary. Continue wound care. NELLY/MANUEL Voice ID: [id number] Report ID: [id number]
== END 2021-11-13 11:12 | disposition home or self-care (01) | DRG 189 ==
LOC: ER 13:36 → ERHOLD 16:14 → 2ND 11-12 09:17
PROVIDERS: ADMIT Family Medicine; ATTEND Family Medicine
PROC: 5A1D70Z Performance of Urinary Filtration, Intermittent, Less than 6 Hours Per Day (ICD-10-PCS; principal; 2021-11-11)
PROC: 5A09357 Assistance with Respiratory Ventilation, Less than 24 Consecutive Hours, Continuous Positive Airway Pressure (ICD-10-PCS; 2021-11-11)
DX: J81.0 Acute pulmonary edema (principal); J96.01 Acute respiratory failure with hypoxia; N18.6 End stage renal disease; E87.2 Acidosis; N25.81 Secondary hyperparathyroidism of renal origin; L97.829 Non-pressure chronic ulcer of other part of left lower leg with unspecified severity; L97.819 Non-pressure chronic ulcer of other part of right lower leg with unspecified severity; I13.2 Hypertensive heart and chronic kidney disease with heart failure and with stage 5 chronic kidney disease, or end stage renal disease; I50.22 Chronic systolic (congestive) heart failure; E11.22 Type 2 diabetes mellitus with diabetic chronic kidney disease; E11.65 Type 2 diabetes mellitus with hyperglycemia; E87.5 Hyperkalemia; E03.9 Hypothyroidism, unspecified; G89.29 Other chronic pain; N25.0 Renal osteodystrophy; D63.1 Anemia in chronic kidney disease; J44.9 Chronic obstructive pulmonary disease, unspecified; I25.10 Atherosclerotic heart disease of native coronary artery without angina pectoris; K59.03 Drug induced constipation; T40.2X5A Adverse effect of other opioids, initial encounter; K21.9 Gastro-esophageal reflux disease without esophagitis; E87.70 Fluid overload, unspecified; Z99.2 Dependence on renal dialysis; Z79.4 Long term (current) use of insulin; Z79.890 Hormone replacement therapy; Z79.02 Long term (current) use of antithrombotics/antiplatelets; Z79.899 Other long term (current) drug therapy; Z90.49 Acquired absence of other specified parts of digestive tract; Z20.822 Contact with and (suspected) exposure to COVID-19
CPT/HCPCS: 36415; 51702; 70450; 71045; 80048; 80053; 80061; 80076; 82550; 82553; 82947; 83605; 83735; 83880; 84145; 84439; 84443; 84484; 85025; 85610; 87040; 90935; 93005; 94640; 94660; 96365; 96375; 99285; J0360; J1644; J2405; J2543; J7605; U0003

== ENCOUNTER 2021-11-20 15:47 | Emergency (ER) | payer OTHER ==
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
--- NOTE | 2021-11-20 17:19 | RAD REPORT ---
EXAM DESCRIPTION: RAD - Chest Pa And Lat (2 Views) - 11/20/2021 5:08 pm CLINICAL HISTORY: PAIN COMPARISON: Chest Single View dated 11/13/2021; Chest Single View dated 11/12/2021; Chest Single View da judit 11/11/2021; Chest Single View dated 07/15/2021; CHEST SINGLE VIEW dated 08/22/2015 FINDINGS: Lines: None. Lungs: Improved aeration of the right lung compared with prior. Mild linear opacities at the left ann-marie g base which may represent scarring or subsegmental atelectasis. No definite acute process . Pleural: No significant pleural effusions or pneumothorax. Cardiac: Mild cardiomegaly . Bones: No acute fractures. Other: IMPRESSION: Improved aeration of the lungs without new acute process identified.
--- NOTE | 2021-11-20 20:11 | EDPHYS ---
Physician Documentation [facility] Name: Natalie Silva Age: 61 yrs Sex: Female : 1960 Arrival Date: 11/20/2021 Time: 15:48 Bed 19 Private MD: ED Physician Rafal Mustafa HPI: 11/20 20:07 This 61 yrs old Female presents to ER via EMS with complaints of Fall Injury. sp3 20:07 -year-old female with history of chronic osteomyelitis, CHF, diabetes presents after a sp3 mechanical accidental fall off her bed landing on her right ribs earlier today. Patient states that she has chest wall pain there but no substernal chest pain, shortness of breath, back pain, abdominal pain, fever, syncope, near syncope, neuro symptoms, nausea, vomiting, diarrhea, or other critical findings at this time. Pain is described as sharp and worse when she pushes on it.. Historical: - Home Meds: 16:13 atorvastatin Oral [Active]; clopidogrel Oral [Active]; Furosemide Oral [Active]; jl7 Nifedipine Oral [Active]; - PMHx: 16:13 Anemia; CHF; Chronic osteomyelitis of L ankle/foot; Diabetes - IDDM; dialysis M W F; jl7 HEP C; High Cholesterol; Hypertension; Hypothyroidism; kidney disease; Secondary Hyperparathyroidism; - PSHx: 16:13 left arm dialysis port; jl7 - Immunization history:: Adult Immunizations up to date. - Social history:: Smoking status: Patient reports the use of cigarette tobacco products, smokes one pack cigarettes per day. Patient uses. ROS: 20:07 Constitutional: Negative for fever, chills, and weight loss, Eyes: Negative for injury, sp3 pain, redness, and discharge, ENT: Negative for injury, pain, and discharge, Neck: Negative for injury, pain, and swelling, Respiratory: Negative for shortness of breath, cough, wheezing, and pleuritic chest pain, Abdomen/GI: Negative for abdominal pain, nausea, vomiting, diarrhea, and constipation, Back: Negative for injury and pain, MS/Extremity: Negative for injury and deformity, Skin: Negative for injury, rash, and discoloration, Neuro: Negative for headache, weakness, numbness, tingling, and seizure, Psych: Negative for depression, anxiety, suicide ideation, homicidal ideation, and hallucinations, Allergy/Immunology: Negative for hives, rash, and allergies, Endocrine: Negative for neck swelling, polydipsia, polyuria, polyphagia, and marked weight changes. 20:07 All other systems are negative. Exam: 20:08 Constitutional: This is a well developed, well nourished patient who is awake, alert, sp3 and in no acute distress. Head/Face: Normocephalic, atraumatic. Eyes: Pupils equal round and reactive to light, extra-ocular motions intact. Lids and lashes normal. Conjunctiva and sclera are non-icteric and not injected. Cornea within normal limits. Periorbital areas with no swelling, redness, or edema. Neck: Trachea midline, no thyromegaly or masses palpated, and no cervical lymphadenopathy. Supple, full range of motion without nuchal rigidity, or vertebral point tenderness. No Meningismus. Cardiovascular: Regular rate and rhythm with a normal S1 and S2. No gallops, murmurs, or rubs. Normal PMI, no JVD. No pulse deficits. Respiratory: Lungs have equal breath sounds bilaterally, clear to auscultation and percussion. No rales, rhonchi or wheezes noted. No increased work of breathing, no retractions or nasal flaring. Abdomen/GI: Soft, non-tender, with normal bowel sounds. No distension or tympany. No guarding or rebound. No evidence of tenderness throughout. Back: No spinal tenderness. No costovertebral tenderness. Full range of motion. Skin: Warm, dry with normal turgor. Normal color with no rashes, no lesions, and no evidence of cellulitis. MS/ Extremity: Pulses equal, no cyanosis. Neurovascular intact. Full, normal range of motion. Neuro: Awake and alert, GCS 15, oriented to person, place, time, and situation. Cranial nerves II-XII grossly intact. Motor strength 5/5 in all extremities. Sensory grossly intact. Cerebellar exam normal. Normal gait. Psych: Awake, alert, with orientation to person, place and time. Behavior, mood, and affect are within normal limits. 20:08 Chest/axilla: Patient with chest wall pain along several ribs on the right side. Breath sounds are equal bilaterally.. Vital Signs: 16:11 BP 156 / 72; Pulse 68; Resp 18; Temp 97.5; Pulse Ox 97% ; Weight 74.84 kg; Height 5 ft. jl7 4 in. (162.56 cm); Pain 8/10; 20:23 BP 185 / 95; Pulse 82; Resp 17; Pulse Ox 100% on R/A; kd3 16:11 Body Mass Index 28.32 (74.84 kg, 162.56 cm) jl7 MDM: 19:56 Patient medically screened. sp3 20:08 Data reviewed: vital signs, nurses notes. ED course: There is no secondary injury sp3 including head injury, neck injury, back injury. Patient has right rib contusions and not suspicious for acute coronary syndrome, pneumothorax, pulmonary contusion, cardiac contusion, or other critical findings including intra-abdominal trauma. Chest x-ray is normal. Vital signs are normal. Will discharge patient with instructions to take OTC Tylenol as needed.. 11/20 16:11 Order name: Chest Pa And Lat (2 Views) XRAY; Complete Time: 19:51 kb Administered Medications: No medications were administered Disposition Summary: 11/20/21 20:10 Discharge Ordered Location: Home sp3 Condition: Stable sp3 Diagnosis - Right rib contusion sp3 Followup: sp3 - With: Private Physician - When: Upon discharge from the Emergency Department - Reason: Continuance of care Forms: - Medication Reconciliation Form sp3 - Thank You Letter sp3 - Antibiotic Education sp3 - Prescription Opioid Use sp3 Signatures: Dispatcher [employer] EDRoberto Nunez RN RN jl7 Rafal Mustafa MD MD sp3
--- NOTE | 2021-11-20 20:11 | ER ---
Nurse's Notes [facility] Name: Natalie Silva Age: 61 yrs Sex: Female : 1960 Arrival Date: 11/20/2021 Time: 15:48 Bed 19 Private MD: Diagnosis: Right rib contusion Presentation: 11/20 16:11 Chief complaint: Patient states: Pt fell off of bed while sleeping at 0400 and now jl7 states she has sharp pain to her right ribs. Pt is very drowsy; smells of marijuana... pt was discharged Thursday from hospital. Coronavirus screen: Vaccine status: Patient reports receiving the 2nd dose of the covid vaccine. Client denies travel out of the [place] in the last 14 days. At this time, the client does not indicate any symptoms associated with coronavirus-19. Ebola Screen: Patient negative for fever greater than or equal to 101.5 degrees Fahrenheit, and additional compatible Ebola Virus Disease symptoms Patient denies exposure to infectious person. Patient denies travel to an Ebola-affected area in the 21 days before illness onset. Initial Sepsis Screen: Does the patient meet any 2 criteria? No. Patient's initial sepsis screen is negative. Does the patient have a suspected source of infection? No. Patient's initial sepsis screen is negative. Risk Assessment: Do you want to hurt yourself or someone else? Patient reports no desire to harm self or others. Onset of symptoms was November 20, 2021 at 04:00. 16:11 Method Of Arrival: EMS: [facility] 16:11 Acuity: MARIELA 4 jl7 Triage Assessment: 16:13 General: Appears in no apparent distress. uncomfortable, obese, well groomed, well jl7 developed, well nourished, Behavior is calm, cooperative, appropriate for age. Pain: Complains of pain in right ribs. Historical: - Home Meds: 16:13 atorvastatin Oral [Active]; clopidogrel Oral [Active]; Furosemide Oral [Active]; jl7 Nifedipine Oral [Active]; - PMHx: 16:13 Anemia; CHF; Chronic osteomyelitis of L ankle/foot; Diabetes - IDDM; dialysis M W F; jl7 HEP C; High Cholesterol; Hypertension; Hypothyroidism; kidney disease; Secondary Hyperparathyroidism; - PSHx: 16:13 left arm dialysis port; jl7 - Immunization history:: Adult Immunizations up to date. - Social history:: Smoking status: Patient reports the use of cigarette tobacco products, smokes one pack cigarettes per day. Patient uses. Assessment: 20:23 General: Appears in no apparent distress. Behavior is calm, cooperative, appropriate kd3 for age. Pain: Complains of pain in diaphragm. Vital Signs: 16:11 BP 156 / 72; Pulse 68; Resp 18; Temp 97.5; Pulse Ox 97% ; Weight 74.84 kg; Height 5 ft. jl7 4 in. (162.56 cm); Pain 8/10; 20:23 BP 185 / 95; Pulse 82; Resp 17; Pulse Ox 100% on R/A; kd3 16:11 Body Mass Index 28.32 (74.84 kg, 162.56 cm) jl7 ED Course: 15:48 Patient arrived in ED. as 16:13 Triage completed. jl7 16:13 Arm band placed on right wrist. jl7 17:08 Chest Pa And Lat (2 Views) XRAY In Process Unspecified. EDMS 19:50 Rafal Mustafa MD is Attending Physician. sp3 19:50 Conchita Garces, RN is Primary Nurse. kd3 Administered Medications: No medications were administered Outcome: 20:10 Discharge ordered by . sp3 20:24 Patient left the ED. kd3 Signatures: Dispatcher [employer] EDMS Rukhsana Garcia Jahala, RN RN jl7 Rafal Mustafa MD MD sp3 Conchita Garces RN RN kd3 Corrections: (The following items were deleted from the chart) 16:15 16:11 Chief complaint: Patient states: Pt fell off of bed while sleeping at 0400 and jl7 now states she has sharp pain to her right ribs. jl7 16:15 16:11 Coronavirus screen: Vaccine status: Patient reports receiving the 2nd dose of the jl7 covid vaccine. Client denies travel out of the [place] in the last 14 days. At this time, the client does not indicate any symptoms associated with coronavirus-19. jl7
[2021-11-20 20:52] VITALS: TEMP 97.5
[2021-11-20 20:54] VITALS: BP 185/95; O2SAT 100
== END 2021-11-20 20:24 | disposition home or self-care (01) ==
LOC: ER 15:47
DX: S20.211A Contusion of right front wall of thorax, initial encounter (principal); W06.XXXA Fall from bed, initial encounter; I10 Essential (primary) hypertension; E11.9 Type 2 diabetes mellitus without complications; N28.9 Disorder of kidney and ureter, unspecified; Z99.2 Dependence on renal dialysis; F17.210 Nicotine dependence, cigarettes, uncomplicated
CPT/HCPCS: 71046; 99283

== ENCOUNTER 2022-01-22 07:48 | Emergency (ER) | payer OTHER ==
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
--- NOTE | 2022-01-22 08:51 | RAD REPORT ---
EXAM DESCRIPTION: RAD - Foot Left 3 View - 01/22/2022 8:38 am CLINICAL HISTORY: Laceration Pain and swelling COMPARISON: Foot Left 3 View dated 05/10/2021; Foot Left 3 View dated 03/24/2021; Foot Left Wo Cont ihsan ed 05/10/2021 FINDINGS: Bony destruction is seen involving the middle and proximal phalanx of the fourth toe likel y related to osteomyelitis. No soft tissue gas is seen. Vascular calcifications noted.
--- NOTE | 2022-01-22 09:02 | ER ---
Nurse's Notes [facility] Name: Natalie Silva Age: 61 yrs Sex: Female : 1960 Arrival Date: 01/22/2022 Time: 07:55 Bed 5 Private MD: Diagnosis: Left 4th toe laceration Presentation: 01/22 07:55 Chief complaint: Patient states: she has a wound that keeps opening up at night, and ap3 she is worried it will get infected. Wound is located on the patients left 4th toe, and was cleaned by EMS in route. Patient reports she is a diabetic, and doesn't have much feeling in her feet. Nurse took this opportunity to give proper diabetic foot care education to the patient, and patient verbalized understanding. Coronavirus screen: At this time, the client does not indicate any symptoms associated with coronavirus-19. Ebola Screen: No symptoms or risks identified at this time. Initial Sepsis Screen: Does the patient meet any 2 criteria? No. Patient's initial sepsis screen is negative. Does the patient have a suspected source of infection? No. Patient's initial sepsis screen is negative. Risk Assessment: Do you want to hurt yourself or someone else? Patient reports no desire to harm self or others. Onset of symptoms is unknown. 07:55 Method Of Arrival: EMS: [facility] ap3 07:55 Acuity: MARIELA 4 ap3 Triage Assessment: 07:59 General: Appears in no apparent distress. comfortable, Behavior is calm, cooperative, ap3 appropriate for age. Pain: Denies pain. Neuro: Level of Consciousness is awake, alert, obeys commands, Oriented to person, place, time, situation, Appropriate for age. Cardiovascular: Denies chest pain, Patient's skin is warm and dry. Respiratory: Airway is patent Respiratory effort is even, unlabored, Respiratory pattern is regular, symmetrical. : dialysis port located on the patients left arm. Derm: Wound noted left fourth toe. Historical: - Allergies: 07:57 No Known Allergies; ap3 - PMHx: 07:57 Anemia; CHF; Chronic osteomyelitis of L ankle/foot; Diabetes - IDDM; dialysis M W F; ap3 HEP C; High Cholesterol; Hypertension; Hypothyroidism; kidney disease; Secondary Hyperparathyroidism; - PSHx: 07:57 left arm dialysis port; ap3 - Immunization history:: Client reports receiving the 2nd dose of the Covid vaccine, Flu vaccine is up to date. - Social history:: Smoking status: Patient reports the use of cigarette tobacco products, smokes one pack cigarettes per day. Nurse took this time of triage to give education on the risks of smoking with her present medical history, and the importance of smoking secession. Patient verbalized understanding. . Screenin:02 Abuse screen: Denies threats or abuse. Nutritional screening: No deficits noted. ap3 Tuberculosis screening: No symptoms or risk factors identified. Fall Risk None identified. Assessment: 08:32 Reassessment: Patient and/or family updated on plan of care and expected duration. Pain ap3 level reassessed. Patient is alert, oriented x 3, equal unlabored respirations, skin warm/dry/pink. 08:39 Reassessment: Patient appears in no apparent distress at this time. No changes from tw2 previously documented assessment. Patient and/or family updated on plan of care and expected duration. Pain level reassessed. Patient is alert, oriented x 3, equal unlabored respirations, skin warm/dry/pink. 09:05 Reassessment: Patient appears in no apparent distress at this time. No changes from tw2 previously documented assessment. Patient and/or family updated on plan of care and expected duration. Pain level reassessed. Patient is alert, oriented x 3, equal unlabored respirations, skin warm/dry/pink. Vital Signs: 07:55 BP 171 / 65; Pulse 75; Resp 14; Temp 98.1; Pulse Ox 100% ; Weight 72.57 kg; Height 5 ap3 ft. 4 in. (162.56 cm); Pain 0/10; 08:32 BP 124 / 111; Pulse 72; Pulse Ox 97% on R/A; ap3 08:38 BP 133 / 83; Pulse 70; Resp 17; Pulse Ox 98% on R/A; tw2 07:55 Body Mass Index 27.46 (72.57 kg, 162.56 cm) ap3 ED Course: 07:55 Patient arrived in ED. ap3 07:55 Patrick Childers DO is Attending Physician. ms3 07:57 Triage completed. ap3 08:02 Arm band placed on right wrist. ap3 08:03 Shira Rios, BATSHEVA is Primary Nurse. ap3 08:03 Patient has correct armband on for positive identification. Call light in reach. Side ap3 rails up X2. Pulse ox on. NIBP on. 08:38 Foot Left 3 View XRAY In Process Unspecified. EDMS 09:04 No provider procedures requiring assistance completed. Patient did not have IV access tw2 during this emergency room visit. Administered Medications: No medications were administered Outcome: 09:01 Discharge ordered by MD. ms3 09:04 Discharged to home ambulatory. tw2 09:04 Condition: stable 09:04 Discharge instructions given to patient, Instructed on discharge instructions, follow up and referral plans. Demonstrated understanding of instructions, follow-up care. 09:10 Patient left the ED. ap3 Signatures: Dispatcher [employer] EDMS Charlene Bates RN RN tw2 Shira Rios RN RN ap3 Patrick Childers, DO ms3
--- NOTE | 2022-01-22 09:02 | EDPHYS ---
Physician Documentation [facility] Name: Natalie Silva Age: 61 yrs Sex: Female : 1960 Arrival Date: 01/22/2022 Time: 07:55 Bed 5 Private MD: ED Physician Patrick Childers HPI: 01/22 07:56 This 61 yrs old Female presents to ER via Unassigned with complaints of toe ms3 laceration. 07:56 The patient presents with a laceration, irregular. The complaints affect the left foot. ms3 Context: resulted from an unknown cause, Mechanism of Injury: Unknown the patient can fully bear weight, the patient is able to ambulate. Onset: The symptoms/episode began/occurred at an unknown time. Modifying factors: The symptoms are alleviated by nothing, the symptoms are aggravated by nothing. Associated signs and symptoms: The patient has no apparent associated signs or symptoms. 61-year-old female with past medical history of diabetes and end-stage renal disease presents via clued EMS for left fourth toe laceration. Patient states it is unknown how she obtained laceration or when she obtained a laceration. Patient states this is been oozing for days. Patient denies pain at this time. Patient denies alleviating or inciting factors.. Historical: - Allergies: 07:57 No Known Allergies; ap3 - PMHx: 07:57 Anemia; CHF; Chronic osteomyelitis of L ankle/foot; Diabetes - IDDM; dialysis M W F; ap3 HEP C; High Cholesterol; Hypertension; Hypothyroidism; kidney disease; Secondary Hyperparathyroidism; - PSHx: 07:57 left arm dialysis port; ap3 - Immunization history:: Client reports receiving the 2nd dose of the Covid vaccine, Flu vaccine is up to date. - Social history:: Smoking status: Patient reports the use of cigarette tobacco products, smokes one pack cigarettes per day. Nurse took this time of triage to give education on the risks of smoking with her present medical history, and the importance of smoking secession. Patient verbalized understanding. . ROS: 07:56 Constitutional: Negative for fever, and chills. Eyes: Negative for injury, pain, ms3 redness, and discharge, Neck: Negative for injury, pain, and swelling, Cardiovascular: Negative for chest pain, and palpitations. Respiratory: Negative for shortness of breath, cough, wheezing, and pleuritic chest pain, Abdomen/GI: Negative for abdominal pain, nausea, vomiting, diarrhea, and constipation, Back: Negative for injury and pain, MS/Extremity: Negative for injury and deformity. 07:56 Skin: Positive for laceration(s). 07:56 All other systems are negative. Exam: 07:56 Constitutional: This is a well developed, well nourished patient who is awake, alert, ms3 and in no acute distress. Head/Face: Normocephalic, atraumatic. Chest/axilla: Normal chest wall appearance and motion. Nontender with no deformity. Cardiovascular: Regular rate and rhythm with a normal S1 and S2. No gallops, murmurs, or rubs. Normal PMI, no JVD. No pulse deficits. Respiratory: Lungs have equal breath sounds bilaterally, clear to auscultation and percussion. No rales, rhonchi or wheezes noted. No increased work of breathing, no retractions or nasal flaring. Abdomen/GI: Soft, non-tender, with normal bowel sounds. No distension or tympany. No guarding or rebound. No evidence of tenderness throughout. MS/ Extremity: Pulses equal, no cyanosis. Neurovascular intact. Full, normal range of motion. 07:56 Skin: injury, laceration(s), the wound is approximately 1 cm(s), of the left fourth toe. Vital Signs: 07:55 BP 171 / 65; Pulse 75; Resp 14; Temp 98.1; Pulse Ox 100% ; Weight 72.57 kg; Height 5 ap3 ft. 4 in. (162.56 cm); Pain 0/10; 08:32 BP 124 / 111; Pulse 72; Pulse Ox 97% on R/A; ap3 08:38 BP 133 / 83; Pulse 70; Resp 17; Pulse Ox 98% on R/A; tw2 07:55 Body Mass Index 27.46 (72.57 kg, 162.56 cm) ap3 MDM: 07:55 Patient medically screened. ms3 08:57 Differential diagnosis: fracture, sprain, foreign body. ms3 08:58 Data reviewed: vital signs, nurses notes, lab test result(s). Data interpreted: Pulse ms3 oximetry: on room air is 98 %. Counseling: I had a detailed discussion with the patient and/or guardian regarding: the historical points, exam findings, and any diagnostic results supporting the discharge/admit diagnosis, radiology results, the need for outpatient follow up, to return to the emergency department if symptoms worsen or persist or if there are any questions or concerns that arise at home. ED course: Discussed physical exam findings and left foot x-ray with patient. Patient with history of osteomyelitis of left fourth toe. Discussed with patient need to follow-up with wound care in 1 to 2 days. Patient understands agrees with plan. All questions were answered. Return precautions discussed include worsening symptoms, or any other concerns. On reevaluation patient's wound is hemostatic, she is alert and oriented x4, no apparent distress, nontoxic-appearing, no erythema or drainage from L 4th toe.. 01/22 07:56 Order name: Foot Left 3 View XRAY; Complete Time: 08:53 ms3 Administered Medications: No medications were administered Disposition Summary: 01/22/22 09:01 Discharge Ordered Location: Home ms3 Condition: Stable ms3 Diagnosis - Left 4th toe laceration ms3 Followup: ms3 - With: Private Physician - When: 1 - 2 days - Reason: Discharge Instructions: - Discharge Summary Sheet ms3 - Wound Care, Adult ms3 Forms: - Medication Reconciliation Form ms3 - Thank You Letter ms3 - Antibiotic Education ms3 - Prescription Opioid Use ms3 Signatures: Dispatcher [employer] Shira Foy RN RN ap3 Patrick Childers DO DO ms3 Corrections: (The following items were deleted from the chart) 09:00 08:57 Differential diagnosis: fracture, ms3 ms3
[2022-01-22 09:23] VITALS: TEMP 98.1
[2022-01-22 09:25] VITALS: BP 133/83; O2SAT 98
== END 2022-01-22 09:10 | disposition home or self-care (01) ==
LOC: ER 07:48
DX: S91.115A Laceration without foreign body of left lesser toe(s) without damage to nail, initial encounter (principal); E11.8 Type 2 diabetes mellitus with unspecified complications; Z79.4 Long term (current) use of insulin; F17.210 Nicotine dependence, cigarettes, uncomplicated
CPT/HCPCS: 99283